=== PATIENT | male | born 1935 | race Caucasian/White ===

== ENCOUNTER 2018-03-30 23:02 | Observation (INO) ==
[2018-03-30] MEDS ORDERED: *HR* OxyCODONE/APAP 5/325 TABLET PO ONE (23:56)
--- NOTE | 2018-03-31 00:03 | Emergency Department Note ---
Disposition Clinical Impression: Fall at home Qualifiers: Encounter type: initial encounter Qualified Code(s): W19.XXXA - Unspecified fall, initial encounter Back pain Qualifiers: Back pain location: low back pain Chronicity: unspecified Back pain laterality : unspecified Sciatica presence: unspecified whether sciatica present Qualified Code(s): M54.5 - Low back pain Altered mental status Qualifiers: Altered mental status type: somnolence Qualified Code(s): R40.0 - Somnolence Disposition: Admitted As Inpatient Condition: Good Instructions: Fall Prevention for Older Adults (ED), Back Pain (ED) Reasons to Return/Additional Instructions: 1. Please call your primary care provider tomorrow to schedule an appointment for reevaluation and to discuss your visit to the Emergency Department. 2. Return to Emergency Department with any confusion, chest pain, shortness of breath, vomiting, worsening symptoms or any new concerns. Referrals: Wali Ornelas DO [Primary Care Provider] - Forms: ED Satisfaction Letter, Work/School Release Time of Disposition: 03:54 Fall HPI - General Chief Complaint: ED Back Pain/Injury Stated Complaint: Lower Back Pain Time Seen by Provider: 03/30/18 23:24 Source: patient Nursing Notes Reviewed: Yes Vital Signs Reviewed: Yes - History of Present Illness Pt Subjective Complaint: fall Onset (ago): hour(s) (5) Fall From: standing Fall Witnessed: no Place Fall Occurred: home Loss of Consciousness: none Prolonged Down Time?: no Symptoms Prior to Fall: none Context: other (was carring patio chair, h/o recent weakness) Location of injury: head, neck, back, hip Associated symptoms (after fall): Reports: headache, neck pain. Denies: shortness of breath, abdominal pain, confusion - Related Data Home Medications Medication Instructions Recorded Confirmed Allopurinol [Zyloprim] 100 mg PO QAM 07/01/15 03/31/18 Atorvastatin [Lipitor] 80 mg PO QPM 07/01/15 03/31/18 Docusate Sodium [Colace] 100 mg PO QPM 07/01/15 03/31/18 Furosemide [Lasix] 40 mg PO 1700 07/01/15 03/31/18 Furosemide [Lasix] 80 mg PO QAM #0 07/01/15 03/31/18 Gabapentin [Neurontin] 300 mg PO QPM 07/01/15 03/31/18 Isosorbide MONOnitrate (24 HR) 120 mg PO QAM 07/01/15 03/31/18 [Imdur] Ranitidine HCl [Zantac] 150 mg PO BID 07/01/15 03/31/18 Ranolazine [Ranexa] 500 mg PO BID 07/01/15 03/31/18 hydrALAZINE [HydrALAZINE] 25 mg PO BID 07/01/15 03/31/18 Metoprolol XL (24 HR) Succ [Toprol 25 mg PO QAM 10/27/15 03/31/18 XL] Multivitamin/Iron/Folic Acid 1 each PO QPM 01/23/16 03/31/18 [Centrum Complete Multivit Tab] Insulin LISPRO [HumaLOG] 10 units SQ TIDAC 02/12/17 03/31/18 Aspirin 81 PO DAILY 03/31/18 Dutasteride-Tamsulosin 0.5-0.4 0.4 PO DAILY 03/31/18 Fenofibrate 48 PO DAILY 03/31/18 Oxybutynin 10 PO DAILY 03/31/18 Plavix 75 PO DAILY 03/31/18 Valsartan 325 PO DAILY 03/31/18 Previous Rx's Medication Instructions Recorded ALPRAZolam [Xanax 0.5 MG Tablet] 0.5 mg PO BID #30 tablet 03/07/16 GuaiFENesin ER [Mucinex] 600 mg PO BID tbbp.12hr 03/07/16 Insulin DETEMIR [Levemir] 50 unit SQ HS x1ypbpm 03/07/16 Ipratropium/Albuterol Neb [Duoneb] 3 ml IH [id number] inhsol 03/07/16 HYDROcodone/Acet 5/325 mg [[place] 1 tab PO Q4H PRN #15 tab 02/12/17 5-325 mg] Nystatin Cream [Mycostatin Cream] 1 appl TP BID #1 tube 02/23/17 Tramadol HCl [Ultram] 50 mg PO TID PRN #15 tab 05/12/17 Allergies Allergy/AdvReac Type Severity Reaction Status Date / Time codeine Allergy Hives Verified 08/08/17 23:47 Sulfa (Sulfonamide AdvReac Mild Nausea Verified 08/08/17 23:47 Antibiotics) All systems ED: reviewed and negative except as stated. Review of Systems: As Per HPI Constitutional: Reports: weakness. Denies: fever, chills Eyes: Denies: vision change ENT ED: Denies: throat pain Cardiovascular: Denies: chest pain, palpitations Respiratory: Reports: dyspnea (chronic). Denies: wheezes Gastrointestinal: Denies: abdominal pain, nausea, vomiting Genitourinary: Denies: dysuria Musculoskeletal: Reports: back pain, neck pain Integumentary: Denies: rash Neurological: Reports: headache. Denies: weakness, numbness, paresthesias, confusion, abnormal gait, vertigo Endocrine: Denies: fatigue Hematological/Lymphatic: Denies: easy bleeding Allergic/Immunologic: Denies: facial swelling Fall PMH - Past Medical History Medical history: Reports: cancer, CHF, coronary artery disease, diabetes, hypertension, myocardial infarction, renal disease, other Surgical history: Reports: cataract, coronary bypass (CABG), knee replacement, pacemaker/AICD Psychiatric history: Reports: anxiety - Social History Smoking Status: Former smoker Alcohol use: Reports: none Drug use: Reports: none Physical Exam - General Limitations: physical limitation General appearance: alert, in no apparent distress - Head Head exam: atraumatic, normocephalic - Eye Eye exam: Present: normal appearance, EOMI. Absent: periorbital swelling, periorbital tenderness - ENT ENT exam: normal exam, normal oropharynx, TM's normal bilaterally - Neck Neck exam: Present: normal inspection, full ROM - Chest Chest inspection: Present: normal inspection, symmetric chest wall rise - Respiratory Respiratory exam: Present: normal lung sounds bilaterally. Absent: respiratory distress - Cardiovascular Cardiovascular exam: Present: regular rate, normal rhythm - Abdominal Exam Abdominal exam: Present: soft, Non-Tender. Absent: tenderness, distention, guarding - Expanded Lower Extremity Exam Hip/Pelvis exam: Present: tenderness. Absent: full ROM Upper leg exam: Absent: tenderness, swelling Knee exam: Absent: tenderness, swelling Lower leg exam: Absent: tenderness, swelling Neurovascular/Tendon exam: Present: normal capillary refill - Back Exam Back exam: Present: full ROM, tenderness. Absent: CVA tenderness (R), CVA tenderness (L) - Neurological Exam Neurological exam: Present: alert, oriented X3 - Psychiatric Psychiatric exam: Present: normal affect, normal mood - Skin Skin exam: Present: warm, dry, intact, normal color. Absent: rash, cyanosis, diaphoresis Course Course Narrative: Patient is a 83-year-old male arrives by private vehicle with complaint of injuries from a fall. Fall occurred approximately 5 hours prior to his arrival and he is accompanied by family members who assist with history. Fall was unwitnessed. No prolonged downtime or loss of consciousness. Patient denies any injury to his head. He describes walking with a patio furniture. He also describes worsening weakness, has been occurring over the past week. He does have a history of CHF, bladder cancer. He was evaluated his PCPs office last week as well. Did have a discussion with patient regarding the cause of his fall. He does not feel that he stumbled. He describes falling backwards. He feels that he might have become more weak. Within normal limits. He does have tenderness with flexion of his hips, and with flexion of his back when he sits up. Mild lumbar thoracic tenderness. Lungs clear to auscultation. No gross focal or logical deficits. Patient is alert and oriented 3. Workup ordered for weakness, near syncopal symptoms. We will plan imaging. Analgesics ordered. - Reevaluation(s) Reevaluation #1: Patient has had some relief with pain medications, however with movement, sitting up,, and attempts to ambulate his pain is worsens. His CT scans appear to be negative. He has no abdominal pain. His vitals are stable. I Did discuss with Dr. Calloway, who advised for admission for pain control, and possible placement for ECF and/or physical therapy. Time: 04:27 Reevaluation #2: Pt discussed with hospitalist Dr. Arora who mentions he will see patient in ER for evaluation for admission for pain control. Time: 05:39 Reevaluation #3: Discussed patient with Dr. Arora who had evaluated patient at bedside. At this time patient reports no pain, however he is significantly somnolent but arousable. Dr. Arora has agreed to accept patient for AMS secondary pain medications, and also has requested CPK. Time: 06:04 Vital Signs Temperature 98.3 F 03/30/18 23:04 Pulse Rate 75 03/30/18 23:04 Respiratory Rate 20 03/30/18 23:04 Blood Pressure 149/84 03/30/18 23:04 O2 Sat by Pulse Oximetry 92 03/30/18 23:04 Temperature 98.3 F 03/30/18 23:04 Pulse Rate 67 03/31/18 04:03 Respiratory Rate 20 03/31/18 04:03 Blood Pressure 143/86 03/31/18 04:03 O2 Sat by Pulse Oximetry 98 03/31/18 04:03 Oxygen Delivery Oxygen Delivery Nasal Cannula Fall - MDM Narrative Medical decision making narrative: Patient is a 83-year-old male presents with a fall that occurred actually 5 hours prior to his arrival. Based on patient's own interpretation, and my history taking, it is uncertain if this was a mechanical fall since he was carrying a patio chair, or if his recent worsening weakness caused the fall. He denies any near syncopal symptoms chest pain, seizures, loss consciousness, anticoagulants, or hypoglycemic symptoms. He and his family members do describe that he has been feeling more weak lately, and has visits and evaluations performed by his primary care provider. He does have a history of diabetes, CHF, chronic kidney disease, COPD. He is on home oxygen therapy, stating that he usually uses at night. I did discuss patient with Dr. Calloway, who also had face time with patient, and advised for CT head neck or thoracic and lumbar spine . EKG and chest x-ray were unremarkable. He did have an elevated troponin, however this does appear to be consistent with his baseline and known history of chronic disease. He denies any chest pain, shortness of breath. CT Head negative. CT cervical thoracic lumbar spine show some degenerative changes, lumbar stenosis which appear chronic when reviwing previous imaging. No neuro deficits. His symptoms improved here after analgesics, However when the attempt to have patient sit up, and ambulate, his pain has persisted. Pt was evaluated by hospitalist at bedside and accepted to their service for altered mental status related to pain medication. His vitals are within normal limits. Laboratory Tests 03/31/18 03/31/18 03/31/18 00:26 00:26 00:26 WBC 7.0 RBC 4.33 Hgb 13.6 Hct 41.2 MCV 95.2 MCH 31.4 MCHC 33.0 RDW 14.6 H Plt Count 201 MPV 10.2 Immature Gran % 0.4 Seg Neutrophils % 64.0 Lymphocytes % 16.4 Monocytes % 10.5 Eosinophils % 8.0 Basophils % 0.7 Neutrophils # 4.5 Lymphocytes # 1.1 Monocytes # 0.7 Eosinophils # 0.6 Basophils # 0.1 Nucleated RBCs/100 WBC 0.3 H Sodium 139 Potassium 4.1 Chloride 106 Carbon Dioxide 28 BUN 29 H Creatinine 2.13 H Est GFR ( Amer) 36 L Est GFR (Non-Af Amer) 30 L BUN/Creatinine Ratio 14 Glucose 233 H Calculated Osmolality 301 H Calcium 9.0 Total Bilirubin 0.6 0.6 Direct Bilirubin 0.2 Indirect Bilirubin 0.4 AST 25 23 ALT 17 17 Alkaline Phosphatase 50 51 Creatine Kinase 133 Troponin I 0.07 H* B-Natriuretic Peptide Serum Total Protein 6.3 L 6.3 L Albumin 3.9 4.0 Globulin 2.4 2.3 L Albumin/Globulin Ratio 1.6 1.7 Lipase 70 Urine Color Urine Clarity Urine pH Ur Specific [place] Urine Protein Urine Glucose (UA) Urine Ketones Urine Blood Urine Nitrite Urine Bilirubin Urine Urobilinogen Ur Leukocyte Esterase Urine Microscopic RBC Urine Microscopic WBC Ur Squamous Epith Cells Urine Bacteria Hyaline Casts Ur Culture Indicated? 03/31/18 03/31/18 00:26 00:33 WBC RBC Hgb Hct MCV MCH MCHC RDW Plt Count MPV Immature Gran % Seg Neutrophils % Lymphocytes % Monocytes % Eosinophils % Basophils % Neutrophils # Lymphocytes # Monocytes # Eosinophils # Basophils # Nucleated RBCs/100 WBC Sodium Potassium Chloride Carbon Dioxide BUN Creatinine Est GFR ( Amer) Est GFR (Non-Af Amer) BUN/Creatinine Ratio Glucose Calculated Osmolality Calcium Total Bilirubin Direct Bilirubin Indirect Bilirubin AST ALT Alkaline Phosphatase Creatine Kinase Troponin I B-Natriuretic Peptide 430 H Serum Total Protein Albumin Globulin Albumin/Globulin Ratio Lipase Urine Color Dark Yellow Urine Clarity Cloudy A Urine pH 5.5 Ur Specific [place] 1.024 Urine Protein 30 H Urine Glucose (UA) Normal Urine Ketones Negative Urine Blood Negative Urine Nitrite Negative Urine Bilirubin Small H Urine Urobilinogen Normal Ur Leukocyte Esterase Moderate H Urine Microscopic RBC 0-3 Urine Microscopic WBC 50-100 H Ur Squamous Epith Cells Many H Urine Bacteria None Seen Hyaline Casts None Seen Ur Culture Indicated? NO. A - Lab Data Lab results reviewed: Yes I reviewed the patient's lab results. Result diagrams: 03/31/18 00:26 03/31/18 00:26 Lab Results 03/31/18 03/31/18 03/31/18 Range/Units 00:26 00:26 00:26 WBC 7.0 (4.3-11.1) K/mcL RBC 4.33 (4.19-5.50) M/mcL Hgb 13.6 (12.9-16.9) g/dL Hct 41.2 (37.5-50.1) % MCV 95.2 (83.0-100.0) fL MCH 31.4 (28.0-33.3) pg MCHC 33.0 (31.6-35.5) g/dL RDW 14.6 H (11.5-14.5) % Plt Count 201 (140-400) K/mcL MPV 10.2 (9.4-12.4) fL Immature Gran % 0.4 (0-4) % Seg Neutrophils % 64.0 % Lymphocytes % 16.4 % Monocytes % 10.5 % Eosinophils % 8.0 % Basophils % 0.7 % Neutrophils # 4.5 (1.6-8.9) K/mcL Lymphocytes # 1.1 (0.6-4.6) K/mcL Monocytes # 0.7 (0.0-1.3) K/mcL Eosinophils # 0.6 (0.0-0.6) K/mcL Basophils # 0.1 (0.0-0.2) K/mcL Nucleated RBCs/100 WBC 0.3 H (0) /100 WBC Sodium 139 (136-145) mEq/L Potassium 4.1 (3.5-5.1) mEq/L Chloride 106 (98-107) mEq/L Carbon Dioxide 28 (23-29) mEq/L BUN 29 H (8-23) mg/dL Creatinine 2.13 H (0.70-1.30) mg/dL Est GFR ( Amer) 36 L (> 60) Est GFR (Non-Af Amer) 30 L (> 60) BUN/Creatinine Ratio 14 (6-26) Glucose 233 H (70-105) mg/dL Calculated Osmolality 301 H (280-300) Calcium 9.0 (8.6-10.3) mg/dL Total Bilirubin 0.6 0.6 (0.3-1.0) mg/dL Direct Bilirubin 0.2 (0.0-0.2) mg/dL Indirect Bilirubin 0.4 (0.0-1.2) mg/dL AST 25 23 (13-39) Units/L ALT 17 17 (7-52) Units/L Alkaline Phosphatase 50 51 (34-104) Units/L Creatine Kinase 133 (30-223) Units/L Troponin I 0.07 H* (< 0.04) ng/mL B-Natriuretic Peptide (Less than 100) pg/mL Serum Total Protein 6.3 L 6.3 L (6.4-8.9) g/dL Albumin 3.9 4.0 (3.5-5.7) g/dL Globulin 2.4 2.3 L (2.4-3.5) g/dL Albumin/Globulin Ratio 1.6 1.7 (1.1-2.2) Lipase 70 (11-82) Units/L Urine Color (Yellow) Urine Clarity (Clear) Urine pH (5.0-8.0) pH Units Ur Specific [place] (1.010-1.025) Urine Protein (Neg-Trace) mg/dL Urine Glucose (UA) (Normal) mg/dL Urine Ketones (Negative) mg/dL Urine Blood (Negative) Urine Nitrite (Negative) Urine Bilirubin (Negative) Urine Urobilinogen (Normal) mg/dL Ur Leukocyte Esterase (Negative) Urine Microscopic RBC (0-3) per hpf Urine Microscopic WBC (0-3) per hpf Ur Squamous Epith Cells (None-Few) per lpf Urine Bacteria (None-Few) per hpf Hyaline Casts (None-Few) per lpf Ur Culture Indicated? (NO) 03/31/18 03/31/18 Range/Units 00:26 00:33 WBC (4.3-11.1) K/mcL RBC (4.19-5.50) M/mcL Hgb (12.9-16.9) g/dL Hct (37.5-50.1) % MCV (83.0-100.0) fL MCH (28.0-33.3) pg MCHC (31.6-35.5) g/dL RDW (11.5-14.5) % Plt Count (140-400) K/mcL MPV (9.4-12.4) fL Immature Gran % (0-4) % Seg Neutrophils % % Lymphocytes % % Monocytes % % Eosinophils % % Basophils % % Neutrophils # (1.6-8.9) K/mcL Lymphocytes # (0.6-4.6) K/mcL Monocytes # (0.0-1.3) K/mcL Eosinophils # (0.0-0.6) K/mcL Basophils # (0.0-0.2) K/mcL Nucleated RBCs/100 WBC (0) /100 WBC Sodium (136-145) mEq/L Potassium (3.5-5.1) mEq/L Chloride (98-107) mEq/L Carbon Dioxide (23-29) mEq/L BUN (8-23) mg/dL Creatinine (0.70-1.30) mg/dL Est GFR ( Amer) (> 60) Est GFR (Non-Af Amer) (> 60) BUN/Creatinine Ratio (6-26) Glucose (70-105) mg/dL Calculated Osmolality (280-300) Calcium (8.6-10.3) mg/dL Total Bilirubin (0.3-1.0) mg/dL Direct Bilirubin (0.0-0.2) mg/dL Indirect Bilirubin (0.0-1.2) mg/dL AST (13-39) Units/L ALT (7-52) Units/L Alkaline Phosphatase (34-104) Units/L Creatine Kinase (30-223) Units/L Troponin I (< 0.04) ng/mL B-Natriuretic Peptide 430 H (Less than 100) pg/mL Serum Total Protein (6.4-8.9) g/dL Albumin (3.5-5.7) g/dL Globulin (2.4-3.5) g/dL Albumin/Globulin Ratio (1.1-2.2) Lipase (11-82) Units/L Urine Color Dark Yellow (Yellow) Urine Clarity Cloudy A (Clear) Urine pH 5.5 (5.0-8.0) pH Units Ur Specific [place] 1.024 (1.010-1.025) Urine Protein 30 H (Neg-Trace) mg/dL Urine Glucose (UA) Normal (Normal) mg/dL Urine Ketones Negative (Negative) mg/dL Urine Blood Negative (Negative) Urine Nitrite Negative (Negative) Urine Bilirubin Small H (Negative) Urine Urobilinogen Normal (Normal) mg/dL Ur Leukocyte Esterase Moderate H (Negative) Urine Microscopic RBC 0-3 (0-3) per hpf Urine Microscopic WBC 50-100 H (0-3) per hpf Ur Squamous Epith Cells Many H (None-Few) per lpf Urine Bacteria None Seen (None-Few) per hpf Hyaline Casts None Seen (None-Few) per lpf Ur Culture Indicated? NO. A (NO) - Radiology Data Radiology results reviewed: Yes I reviewed the patient's radiology results. - EKG Data EKG attestation: Yes I reviewed and interpreted this EKG. EKG results narrative: Ventricular paced, ventricular rate 69, [place] interval 133, QRS duration 149 , QT 265 Attestation Statement - Attestation Attestation: I examined this patient and my medical decision-making was reviewed with the Resident Physician. I agree with the documented findings, disposition and treatment plan as described except to the extent set forth below.Findings consistent with fall. CT scan shows no acute findings but there is ongoing pain. I would rec admission for pain control with possible need for placement.
[2018-03-31 00:40] LABS: Basophils # 0.1 K/mcL (0.0-0.2); Basophils % 0.7 %; Eosinophils # 0.6 K/mcL (0.0-0.6); Hematocrit 41.2 % (37.5-50.1); Hemoglobin 13.6 g/dL (12.9-16.9); Immature Granulocytes % 0.4 % (0-4); Lymphocytes # 1.1 K/mcL (0.6-4.6); Lymphocytes % 16.4 %; Mean Corpuscular Hemoglobin 31.4 pg (28.0-33.3); Mean Corpuscular Volume 95.2 fL (83.0-100.0); Mean Platelet Volume 10.2 fL (9.4-12.4); Monocytes # 0.7 K/mcL (0.0-1.3); Monocytes % 10.5 %; Neutrophils # 4.5 K/mcL (1.6-8.9); Nucleated Red Blood Cells 0.3 /100 WBC (0); Platelet Count 201 K/mcL (140-400); Red Blood Count 4.33 M/mcL (4.19-5.50); Red Cell Distribution Width 14.6 % (11.5-14.5)
[2018-03-31 00:43] LABS: Bilirubin,Urine Small (Negative); Blood,Urine Negative (Negative); Clarity,Urine Cloudy (Clear); Color,Urine Dark Yellow (Yellow); Glucose,Urine (UA) Normal (Normal); Ketones,Urine Negative (Negative); Leukocyte Esterase,Urine Moderate (Negative); Nitrite,Urine Negative (Negative); PH,Urine 5.5 pH Units (5.0-8.0); Protein,Urine 30 mg/dL (Neg-Trace); Specific Gravity,Urine 1.024 (1.010-1.025); Urobilinogen,Urine Normal (Normal)
[2018-03-31 00:45] LABS: Bacteria,Urine None Seen per hpf (None-Few); Hyaline Casts,Urine None Seen per lpf (None-Few); RBC,Urine 0-3 per hpf (0-3); Squamous Epithelial Cell,Urine Many per lpf (None-Few); WBC,Urine 50-100 per hpf (0-3)
[2018-03-31 00:57] LABS: Albumin/Globulin Ratio 1.7 (1.1-2.2); Bilirubin,Direct 0.2 mg/dL (0.0-0.2); Bilirubin,Indirect 0.4 mg/dL (0.0-1.2); Bilirubin,Total 0.6 mg/dL (0.3-1.0); Globulin 2.3 g/dL (2.4-3.5); Total Protein 6.3 g/dL (6.4-8.9)
[2018-03-31 01:00] LABS: Albumin 3.9 g/dL (3.5-5.7); Albumin/Globulin Ratio 1.6 (1.1-2.2); Bilirubin,Total 0.6 mg/dL (0.3-1.0); Globulin 2.4 g/dL (2.4-3.5); Potassium 4.1 mEq/L (3.5-5.1); Total Protein 6.3 g/dL (6.4-8.9)
[2018-03-31 01:02] LABS: Troponin I 0.07 ng/mL (< 0.04)
[2018-03-31] MEDS ORDERED: *HR* HYDROcodone/Acet 5/325 mg TABLET PO ONE (04:05)
[2018-03-31] MEDS ORDERED: *HR* FentaNYL (PF) 100 MCG/2 ML VIAL IVP ONE (04:27)
[2018-03-31] MEDS ORDERED: Ondansetron 4 MG/2 ML VIAL IVP PRN (06:27)
[2018-03-31] MEDS ORDERED: Naloxone 0.4 MG/ML INJ IVP PRN (06:35)
[2018-03-31] MEDS ORDERED: Acetaminophen 325 MG TABLET PO PRN (06:35)
[2018-03-31] MEDS ORDERED: Dextrose Gel 15 GM/37.5 ML TUBE PO PRN ×2 (06:44)
[2018-03-31] MEDS ORDERED: D5% in Water 1,000 ML IVC PRN (06:44)
[2018-03-31] MEDS ORDERED: *HR* Dextrose 50 % in Water (Syg) 50 ML SYRINGE IVP PRN (06:44)
[2018-03-31] MEDS ORDERED: 0.9 % Sodium Chloride 1,000 ML IVC SCH (06:45)
--- NOTE | 2018-03-31 06:51 | Internal Med History&Physical ---
Date of Encounter: 03/31/18 Time of Encounter: 06:48 Internal Medicine - H&P: HPI Chief complaint: "I fell and hurt my back" Admitted From: Emergency Dept Plans for Post Hospital Care: Transfer Inp Rehab Fac History of present illness: Mr. Warren is a 83 year old male who presented to ED this evening for lower back pain s/p fall earlier in the day. Patient is somnolent in room during my interview and examination. He does answer questions appropriately. Son is in room and provides most of history. Son works nights at [employer]. Patient lives at home alone. He is usually very active, but he has been falling alot lately. He has chronic deformity of the right foot and advanced chronic CHF, so he ambulates poorly at baseline. Patient states that pain is currently 0/10. He got fentanyl, norco, and percocet in the ED. In the ED, all imaging was negative for acute processes. ED physician wanted me to admit patient for pain control. Patient is actually pain free at this time and has altered mental status due to too many opioids. I will admit for observation because he cannot go home like this. He lives alone, and no family member can come keep an eye on him this morning. Patient denies chest pain, SOB, fever, chills, abdominal pain, nausea, vomiting, changes in bladder, or changes in bowel. He has no other complaints at this time. He is sleeping peacefully in bed at this time. Past Med Surg Social Fam HX - Past Medical History Attestation: Yes The following information was validated with the patient. Medical history: cancer, CHF, coronary artery disease, diabetes, hypertension, myocardial infarction, renal disease, other Psychiatric history: anxiety - Past Surgical History Surgical History: cataract, coronary bypass (CABG), knee replacement, pacemaker/ AICD - Social History Smoking Status: Former smoker Smokeless Tobacco Status: No Alcohol use: none Drug use: none - Family History Father Hx Family Endocrine Disorder: Yes - Additional Family History Additional family history: Surgical history and family history reviewed with patient and son. Internal Medicine - H&P: Meds Allopurinol [Zyloprim] 100 mg PO QAM 07/01/15 [History] Atorvastatin [Lipitor] 80 mg PO QPM 07/01/15 [History] Docusate Sodium [Colace] 100 mg PO QPM 07/01/15 [History] Furosemide [Lasix] 40 mg PO 1700 07/01/15 [History] Furosemide [Lasix] 80 mg PO QAM #0 07/01/15 [History] Gabapentin [Neurontin] 300 mg PO QPM 07/01/15 [History] Isosorbide MONOnitrate (24 HR) [Imdur] 120 mg PO QAM 07/01/15 [History] Ranitidine HCl [Zantac] 150 mg PO BID 07/01/15 [History] Ranolazine [Ranexa] 500 mg PO BID 07/01/15 [History] hydrALAZINE [HydrALAZINE] 25 mg PO BID 07/01/15 [History] Metoprolol XL (24 HR) Succ [Toprol XL] 25 mg PO QAM 10/27/15 [History] Multivitamin/Iron/Folic Acid [Centrum Complete Multivit Tab] 1 each PO QPM 01/22 [History] ALPRAZolam [Xanax 0.5 MG Tablet] 0.5 mg PO BID #30 tablet 03/07/16 [Rx] GuaiFENesin ER [Mucinex] 600 mg PO BID tbbp.12hr 03/07/16 [Rx] Insulin DETEMIR [Levemir] 50 unit SQ HS [id number] 03/07/16 [Rx] Ipratropium/Albuterol Neb [Duoneb] 3 ml IH [id number] inhsol 03/07/16 [Rx] HYDROcodone/Acet 5/325 mg [Supply 5-325 mg] 1 tab PO Q4H PRN #15 tab 02/12/17 [Rx ] Insulin LISPRO [HumaLOG] 10 units SQ TIDAC 02/12/17 [History] Nystatin Cream [Mycostatin Cream] 1 appl TP BID #1 tube 02/23/17 [Rx] Tramadol HCl [Ultram] 50 mg PO TID PRN #15 tab 05/12/17 [Rx] Aspirin 81 PO DAILY 03/31/18 [History] Dutasteride-Tamsulosin 0.5-0.4 0.4 PO DAILY 03/31/18 [History] Fenofibrate 48 PO DAILY 03/31/18 [History] Oxybutynin 10 PO DAILY 03/31/18 [History] Plavix 75 PO DAILY 03/31/18 [History] Valsartan 325 PO DAILY 03/31/18 [History] 3 Allergy/AdvReac Type Severity Reaction Status Date / Time codeine Allergy Hives Verified 08/08/17 23:47 Sulfa (Sulfonamide AdvReac Mild Nausea Verified 08/08/17 23:47 Antibiotics) All Systems PM: A 10-system review of systems was performed and is negative for pertinent findings except as documented above in the HPI. - Constitutional Vitals: Temp Pulse Resp BP Pulse Ox 98.3 F 67 20 143/86 98 03/30/18 23:04 03/31/18 04:03 03/31/18 04:03 03/31/18 04:03 03/31/18 04:03 General appearance: Present: cooperative, A&O X 3, no acute distress, obese, answers questions appropriately Exam: Somnolent, but very easy to arouse - Head Head exam: Present: atraumatic, normal inspection, normocephalic - Eye Eye exam: Present: EOMI, normal appearance, PERRL. Absent: conjunctival injection, nystagmus, scleral icterus - ENT ENT exam: Present: mucous membranes moist, normal external ear exam, normal oropharynx - Neck Neck exam general surgery: Present: normal inspection, supple, trachea midline. Absent: lymphadenopathy, tenderness, thyromegaly - Respiratory Respiratory exam: Present: CTAB. Absent: accessory muscle use, rales, rhonchi, wheezes Additional comments: Normal WOB - Cardiovascular Cardiovascular exam: Present: RRR, +S1, +S2. Absent: diastolic murmur, gallop, rubs, systolic murmur Additional comments: No BLE edema - GI/Abdominal GI/Abdominal exam: Present: normal bowel sounds, soft. Absent: distended, hepatomegaly, mass, splenomegaly, tenderness - Neurological Exam Neurological exam: Present: altered, oriented X3, no focal deficits. Absent: alert, facial droop, speech deficit Additional comments: Unable to fully perform neuro evaluation due to patient condition of somnolence - Psychiatric Psychiatric exam: Present: normal affect, normal mood. Absent: agitated, anxious, depressed - Skin Skin exam: Present: dry, intact, warm. Absent: cyanosis, rash Internal Med - H&P Results - Labs CBC & Chem 7: 03/31/18 00:26 03/31/18 00:26 - Assessment and plan (1) Altered mental status Current Visit: Yes Status: Acute Assessment and plan: Acute encephalopathy likely secondary to opoid over dose in ED. Patient presented for back pain after fall. All imaging was negative. Pain is diffuse and was hard to control in the ED. He received fentanyl 50 mcg IV once, norco 5 mg once, and percocet 5 mg once. Patient is very somnolent during my exam, but very easily arousable, A&O x 3, and answers all questions appropriately, then falls back asleep. He rates pain as 0/10 at this time. Son is in room with him and states that he cannot go home in this condition because he has no one to look after him at home. We will admit for observation to general medical floor with telemetry. We will perform Q4H vitals and neurochecks. No need for narcan at this time as he will start having difficult to control pain again. Will use only Tylenol for pain control until he wakes up more, then we can slowly restart his home opioids. We will order MRI of spines as recommended by radiologist. He has been having recurrent falls, likely due to poor ambulation secondary to right foot deformity and chronic CHF. We will consult PT/OT/SW for therapy and possible recommendation to acute rehabilitation facility. Will use strict bedrest and fall precautions until he wakes up more. Have told ED physician to get stat CK due to fall. It is pending, and I will start IVF very gently at 50 ml/hr given his severe chronic CHF. Will discontinue IVF if CK normal. Qualifiers: Altered mental status type: somnolence Qualified Code(s): R40.0 - Somnolence (2) Opioid intoxication Current Visit: Yes Status: Acute Assessment and plan: See plan as per above. Qualifiers: Complication of substance-induced condition: uncomplicated Qualified Code(s ): F11.920 - Opioid use, unspecified with intoxication, uncomplicated (3) Back pain Current Visit: Yes Status: Acute Assessment and plan: Acute on chronic issue. See plan as per above. Qualifiers: Back pain location: low back pain Chronicity: unspecified Back pain laterality: unspecified Sciatica presence: unspecified whether sciatica present Qualified Code(s): M54.5 - Low back pain (4) Recurrent falls Current Visit: Yes Status: Acute Assessment and plan: See plan as per above. (5) COPD (chronic obstructive pulmonary disease) Current Visit: Yes Status: Chronic Assessment and plan: Not in acute exacerbation. No respiratory distress. Continue home supplemental oxygen and home medications. Qualifiers: COPD type: unspecified COPD Qualified Code(s): J44.9 - Chronic obstructive pulmonary disease, unspecified (6) Elevated troponin Current Visit: Yes Status: Chronic Assessment and plan: Chronic issue for him per chart review. Likely baseline CHF. No chest pain. (7) CKD (chronic kidney disease) stage 3, GFR 30-59 ml/min Current Visit: Yes Status: Chronic Assessment and plan: Creatinine at baseline. Recheck BMP in AM. (8) Congestive heart failure Current Visit: Yes Status: Chronic Assessment and plan: Not in acute exacerbation; euvolemic on examination. Giving gentle hydration for possible rhabdomyolysis. CK still pending. Discontinue IV fluids if CK WNL. Continue home medications. Qualifiers: Heart failure type: unspecified Heart failure chronicity: unspecified Qualified Code(s): I50.9 - Heart failure, unspecified (9) Diabetes mellitus type 2, insulin dependent Current Visit: Yes Status: Chronic Assessment and plan: Continue home long-acting insulin. Start accuchecks and low dose SSI Q6H while NPO. (10) Hypertension Current Visit: Yes Status: Chronic Assessment and plan: Continue home medications. Qualifiers: Hypertension type: essential hypertension Qualified Code(s): I10 - Essential (primary) hypertension (11) DVT prophylaxis Current Visit: Yes Status: Acute Assessment and plan: SCDs only for now due to being high fall risk. - Time Spent With Patient Total time spent is greater than 50% in coordination of care (as documented) at patient's floor/unit and/or counseling patient: less than 15 minutes
[2018-03-31 08:09] LABS: Estimated Average Glucose 214 mg/dl; Hemoglobin A1C 9.1 %
[2018-03-31] MEDS: Ranolazine 500 MG TAB.ER.12H PO SCH ×2 (09:10→21:30)
[2018-03-31] MEDS: Metoprolol XL (24 HR) Succ 25 MG TAB.ER.24H PO SCH (09:11)
[2018-03-31] MEDS: Famotidine 20 MG TABLET PO SCH ×2 (09:11→21:30)
[2018-03-31] MEDS: hydrALAZINE 25 MG TABLET PO SCH ×2 (09:11→21:30)
[2018-03-31] MEDS: Nystatin Cream 15 GM TUBE TP SCH ×2 (09:11→21:41)
[2018-03-31] MEDS: Isosorbide MONOnitrate (24 HR) 60 MG TAB.ER.24H PO SCH (09:11)
[2018-03-31] MEDS: Furosemide 40 MG TABLET PO SCH ×2 (09:11→17:13)
[2018-03-31] MEDS: Ipratropium/Albuterol Neb 3 ML IH SCH ×4 (10:39→21:17)
[2018-03-31] MEDS: Insulin LISPRO 300 UNITS/3 ML VIAL SQ SCH ×3 (12:25→21:41)
--- NOTE | 2018-03-31 16:32 | Event Note ---
Date of Encounter: 03/31/18 Time of Encounter: 16:25 Seen and examined at bedside. Patient is new to me, information obtained from chart review and patient report. He is drowsy but oriented 4. Says he feels better but still having lower back pain. He only reports 1 fall; not recurrent per ED notes. He lives at home alone and is agreeable to PT/OT consult. (1) Acute encephalopathy: likely secondary to opoid over dose in ED. Patient presented for back pain after fall and received fentanyl 50 mcg IV once, norco 5 mg once, and percocet 5 mg once. Drowsy but oriented 4. Appears to be improving. Discussed pain control. Supportive care. Continue to monitor. (2) Opioid intoxication After receiving multiple opiates in ED. Judicious pain control for back pain as noted below. (3) Back pain: Acute on chronic; likely secondary to fall. Lumbar and thoracic CT with degenerative changes, multilevel neural foraminal stenosis and spinal canal stenosis. Conservative pain control. Add Lidoderm patch. Dr. Dsouza consult (4) COPD (chronic obstructive pulmonary disease) Not in acute exacerbation. No respiratory distress. Continue home supplemental oxygen and home medications. (5) Elevated troponin Chronic issue for him per chart review. Likely baseline CHF. No chest pain. (6) CKD (chronic kidney disease) stage 3, GFR 30-59 ml/min per hx. Follows with Nephrology. Renal function at baseline. Avoid nephrotoxic agents as possible. (7) Congestive heart failure 01/2018 TTE with EF 30%. Appears euvolemic. (8) Diabetes mellitus type 2, insulin dependent Continue home long-acting insulin. Start accuchecks and low dose SSI (9) Hypertension Continue home medications. (10) DVT prophylaxis heparin
[2018-03-31] MEDS: Multivit/Ca/Min/Fe/FA 1 TAB TABLET PO SCH (17:13)
[2018-03-31] MEDS: Insulin DETEMIR 100 UNIT/ML X5UNITS SQ SCH (21:30)
[2018-04-01] MEDS: Ipratropium/Albuterol Neb 3 ML IH SCH ×4 (03:30→21:55)
[2018-04-01 07:09] LABS: Basophils # 0.1 K/mcL (0.0-0.2); Eosinophils # 0.4 K/mcL (0.0-0.6); Eosinophils % 5.9 %; Hematocrit 43.7 % (37.5-50.1); Hemoglobin 14.1 g/dL (12.9-16.9); Immature Granulocytes % 0.3 % (0-4); Lymphocytes # 1.2 K/mcL (0.6-4.6); Lymphocytes % 16.5 %; Mean Corpuscular HGB Conc 32.3 g/dL (31.6-35.5); Mean Corpuscular Hemoglobin 30.6 pg (28.0-33.3); Mean Corpuscular Volume 94.8 fL (83.0-100.0); Mean Platelet Volume 10.3 fL (9.4-12.4); Monocytes # 0.7 K/mcL (0.0-1.3); Monocytes % 8.9 %; Neutrophils # 4.9 K/mcL (1.6-8.9); Platelet Count 199 K/mcL (140-400); Red Blood Count 4.61 M/mcL (4.19-5.50); Red Cell Distribution Width 14.9 % (11.5-14.5); Segmented Neutrophils % 67.4 %
[2018-04-01 07:24] LABS: Potassium 3.7 mEq/L (3.5-5.1)
[2018-04-01] MEDS: Insulin LISPRO 300 UNITS/3 ML VIAL SQ SCH ×4 (07:46→20:51)
[2018-04-01] MEDS: hydrALAZINE 25 MG TABLET PO SCH ×2 (08:56→20:50)
[2018-04-01] MEDS: Metoprolol XL (24 HR) Succ 25 MG TAB.ER.24H PO SCH (08:56)
[2018-04-01] MEDS: Nystatin Cream 15 GM TUBE TP SCH ×2 (08:56→20:52)
[2018-04-01] MEDS: Ranolazine 500 MG TAB.ER.12H PO SCH ×2 (08:56→20:50)
[2018-04-01] MEDS: Famotidine 20 MG TABLET PO SCH (08:56)
[2018-04-01] MEDS: Furosemide 40 MG TABLET PO SCH ×2 (08:56→17:19)
[2018-04-01] MEDS: Isosorbide MONOnitrate (24 HR) 60 MG TAB.ER.24H PO SCH (08:56)
[2018-04-01] MEDS: *HR* OxyCODONE Immed Rel 5 MG TABLET PO PRN (17:20)
[2018-04-01] MEDS: Multivit/Ca/Min/Fe/FA 1 TAB TABLET PO SCH (17:20)
--- NOTE | 2018-04-01 18:45 | Internal Med Progress Note ---
Date of Encounter: 04/01/18 Time of Encounter: 13:00 - Assessment and plan (1) Congestive heart failure Current Visit: Yes Status: Chronic Assessment and plan: Appears to be stable at this time-he did receive gentle IV fluids overnight for possible rhabdo however CK was within normal limits and IV fluids were discontinued. We will continue with home medications of Lasix Monitor intake and output and daily weights low-sodium diet Qualifiers: Heart failure type: unspecified Heart failure chronicity: unspecified Qualified Code(s): I50.9 - Heart failure, unspecified (2) Elevated troponin Current Visit: Yes Status: Chronic Assessment and plan: This appears to be chronically elevated-up on review most likely from CHF noted chest pain or shortness of breath waist at this time (3) Hypertension Current Visit: Yes Status: Chronic Assessment and plan: Continue home medications. Blood pressure is stable at this time Qualifiers: Hypertension type: essential hypertension Qualified Code(s): I10 - Essential (primary) hypertension (4) CKD (chronic kidney disease) stage 3, GFR 30-59 ml/min Current Visit: Yes Status: Chronic Assessment and plan: Creatinine at baseline. We will continue to monitor and avoid nephrotoxins (5) Diabetes mellitus type 2, insulin dependent Current Visit: Yes Status: Chronic Assessment and plan: Continue home long-acting insulin. Accu-Chek before meals at bedtime (6) Back pain Current Visit: Yes Status: Acute Assessment and plan: Acute on chronic issue. -We will continue home medications. As well as lidocaine patch. According to previous provider FIXTURE DESIGNER beverly Dsouza regarding back pain nonsurgical management this time and follow up with him as outpatient. Patient was seen by PT and OT recommending inpatient rehabilitation. client services vice president has been consult to attempting to place patient Qualifiers: Back pain location: low back pain Chronicity: unspecified Back pain laterality: unspecified Sciatica presence: unspecified whether sciatica present Qualified Code(s): M54.5 - Low back pain (7) Altered mental status Current Visit: Yes Status: Acute Assessment and plan: This has resolved patient appears to be at baseline most likely secondary to opioid overdose. We will avoid sedating medications Qualifiers: Altered mental status type: somnolence Qualified Code(s): R40.0 - Somnolence (8) Recurrent falls Current Visit: Yes Status: Acute Assessment and plan: All precautions. Patient seen by PT OT recommending inpatient rehabilitation. client services vice president consult and awaiting placement (9) Opioid intoxication Current Visit: Yes Status: Acute Assessment and plan: This is resolved -apparently patient received opioid in the ED and became sedated -Avoid sedating medications. Qualifiers: Complication of substance-induced condition: uncomplicated Qualified Code(s ): F11.920 - Opioid use, unspecified with intoxication, uncomplicated (10) COPD (chronic obstructive pulmonary disease) Current Visit: Yes Status: Chronic Assessment and plan: Not in acute exacerbation. No respiratory distress. Continue home supplemental oxygen and home medications. Qualifiers: COPD type: unspecified COPD Qualified Code(s): J44.9 - Chronic obstructive pulmonary disease, unspecified (11) DVT prophylaxis Current Visit: Yes Status: Acute Assessment and plan: SCDs only for now due to being high fall risk. - Time Spent With Patient Total time spent is greater than 50% in coordination of care (as documented) at patient's floor/unit and/or counseling patient: - Subjective Interval history: This patient is new to me and I did review medical records I examined the patient at bedside. Patient is sitting up in chair states that his pain is much improved from yesterday however lower back is tender to touch. - Constitutional Vitals: Temp Pulse Resp BP Pulse Ox 98.3 F 90 14 144/80 92 04/01/18 15:30 04/01/18 15:30 04/01/18 16:03 04/01/18 15:30 04/01/18 16:03 General appearance: Present: cooperative, A&O X 3, no acute distress, obese, answers questions appropriately - Head Head exam: Present: atraumatic, normocephalic - Eye Eye exam: Present: PERRL, conjuntiva pink, sclera anicteric Pupils: Present: PERRL - Neck Neck exam general surgery: Present: supple, trachea midline. Absent: lymphadenopathy - Respiratory Respiratory exam: Present: CTAB. Absent: accessory muscle use, rales, rhonchi, wheezes - Cardiovascular Cardiovascular exam: Present: RRR, +S1, +S2. Absent: diastolic murmur, gallop, rubs, systolic murmur - GI/Abdominal GI/Abdominal exam: Present: normal bowel sounds, soft, no peritoneal signs. Absent: distended, tenderness - Extremities Exam Extremities exam: Present: warm, radial pulses palpable and symmetrical. Absent : calf tenderness, cyanotic, pedal edema - Neurological Exam Neurological exam: Present: CN II-XII intact, oriented X3, no focal deficits. Absent: pronater drift, facial droop, speech deficit - Skin Skin exam: Present: dry, intact Internal Medicine: Result - Labs CBC & Chem 7: 04/01/18 06:33 04/01/18 06:33 Labs: Short CBC 04/01/18 Range/Units 06:33 WBC 7.3 (4.3-11.1) K/mcL Hgb 14.1 (12.9-16.9) g/dL Hct 43.7 (37.5-50.1) % Plt Count 199 (140-400) K/mcL Neutrophils # 4.9 (1.6-8.9) K/mcL BMP 04/01/18 06:33 Sodium 142 Potassium 3.7 Chloride 108 H Carbon Dioxide 27 BUN 28 H Creatinine 2.04 H Glucose 61 L Calcium 9.0 Consult Discharge Plan - Plan Referrals: Wali Ornelas DO [Primary Care Provider] - 04/08/18 1:00 pm
[2018-04-01] MEDS: Insulin DETEMIR 100 UNIT/ML X5UNITS SQ SCH (20:51)
[2018-04-02] MEDS: Ipratropium/Albuterol Neb 3 ML IH SCH ×4 (03:27→22:29)
[2018-04-02 05:10] LABS: Basophils # 0.1 K/mcL (0.0-0.2); Basophils % 0.7 %; Eosinophils # 0.5 K/mcL (0.0-0.6); Eosinophils % 6.3 %; Hemoglobin 13.4 g/dL (12.9-16.9); Immature Granulocytes % 0.4 % (0-4); Lymphocytes # 1.3 K/mcL (0.6-4.6); Lymphocytes % 17.8 %; Mean Corpuscular HGB Conc 31.9 g/dL (31.6-35.5); Mean Corpuscular Hemoglobin 30.2 pg (28.0-33.3); Mean Corpuscular Volume 94.8 fL (83.0-100.0); Mean Platelet Volume 10.5 fL (9.4-12.4); Monocytes # 0.8 K/mcL (0.0-1.3); Monocytes % 10.7 %; Neutrophils # 4.6 K/mcL (1.6-8.9); Platelet Count 199 K/mcL (140-400); Red Blood Count 4.43 M/mcL (4.19-5.50); Red Cell Distribution Width 14.9 % (11.5-14.5); Segmented Neutrophils % 64.1 %
[2018-04-02 05:31] LABS: Potassium 3.6 mEq/L (3.5-5.1)
[2018-04-02] MEDS: *HR* OxyCODONE Immed Rel 5 MG TABLET PO PRN ×2 (05:45→17:13)
[2018-04-02] MEDS: Insulin LISPRO 300 UNITS/3 ML VIAL SQ SCH ×4 (07:59→21:11)
[2018-04-02] MEDS: Metoprolol XL (24 HR) Succ 25 MG TAB.ER.24H PO SCH (08:47)
[2018-04-02] MEDS: Famotidine 20 MG TABLET PO SCH (08:47)
[2018-04-02] MEDS: Ranolazine 500 MG TAB.ER.12H PO SCH ×2 (08:47→21:13)
[2018-04-02] MEDS: Nystatin Cream 15 GM TUBE TP SCH ×2 (08:47→21:14)
[2018-04-02] MEDS: hydrALAZINE 25 MG TABLET PO SCH ×2 (08:47→21:13)
[2018-04-02] MEDS: Isosorbide MONOnitrate (24 HR) 60 MG TAB.ER.24H PO SCH (08:47)
[2018-04-02] MEDS: Furosemide 40 MG TABLET PO SCH ×2 (08:47→17:13)
[2018-04-02] MEDS: Multivit/Ca/Min/Fe/FA 1 TAB TABLET PO SCH (17:13)
--- NOTE | 2018-04-02 19:10 | Internal Med Progress Note ---
Date of Encounter: 04/02/18 Time of Encounter: 13:00 - Assessment and plan (1) Back pain Current Visit: Yes Status: Acute Assessment and plan: Acute on chronic issue. -We will continue home medications. As well as lidocaine patch. According to previous provider MECHANICAL TECHNICIAN beverly Dsouza regarding back pain nonsurgical management this time and follow up with him as outpatient. Patient was seen by PT and OT recommending inpatient rehabilitation. member services representative has been consult to attempting to place patient- Awaiting approval at [facility] Qualifiers: Back pain location: low back pain Chronicity: unspecified Back pain laterality: unspecified Sciatica presence: unspecified whether sciatica present Qualified Code(s): M54.5 - Low back pain (2) Congestive heart failure Current Visit: Yes Status: Chronic Assessment and plan: Appears to be stable at this time- We will continue with home medications of Lasix Monitor intake and output and daily weights low-sodium diet Qualifiers: Heart failure type: unspecified Heart failure chronicity: unspecified Qualified Code(s): I50.9 - Heart failure, unspecified (3) Elevated troponin Current Visit: Yes Status: Chronic Assessment and plan: This appears to be chronically elevated-up on review most likely from CHF (4) Hypertension Current Visit: Yes Status: Chronic Assessment and plan: Continue home medications. Blood pressure is stable at this time Qualifiers: Hypertension type: essential hypertension Qualified Code(s): I10 - Essential (primary) hypertension (5) CKD (chronic kidney disease) stage 3, GFR 30-59 ml/min Current Visit: Yes Status: Chronic Assessment and plan: Creatinine at baseline. We will continue to monitor and avoid nephrotoxins (6) Diabetes mellitus type 2, insulin dependent Current Visit: Yes Status: Chronic Assessment and plan: Continue home long-acting insulin. Accu-Chek before meals at bedtime (7) Altered mental status Current Visit: Yes Status: Resolved Assessment and plan: This has resolved patient appears to be at baseline most likely secondary to opioid overdose. We will avoid sedating medications Qualifiers: Altered mental status type: somnolence Qualified Code(s): R40.0 - Somnolence (8) Recurrent falls Current Visit: Yes Status: Acute Assessment and plan: FAll precautions. Patient seen by PT OT recommending inpatient rehabilitation. member services representative consult and awaiting placement (9) Opioid intoxication Current Visit: Yes Status: Resolved Assessment and plan: This is resolved -apparently patient received opioid in the ED and became sedated -Avoid sedating medications. Qualifiers: Complication of substance-induced condition: uncomplicated Qualified Code(s ): F11.920 - Opioid use, unspecified with intoxication, uncomplicated (10) COPD (chronic obstructive pulmonary disease) Current Visit: Yes Status: Chronic Assessment and plan: Not in acute exacerbation. No respiratory distress. Continue home supplemental oxygen and home medications. Qualifiers: COPD type: unspecified COPD Qualified Code(s): J44.9 - Chronic obstructive pulmonary disease, unspecified (11) DVT prophylaxis Current Visit: Yes Status: Acute Assessment and plan: SCDs only for now due to being high fall risk. - Time Spent With Patient Total time spent is greater than 50% in coordination of care (as documented) at patient's floor/unit and/or counseling patient: - Subjective Interval history: I examined the patient at bedside. Denies any pain or discomfort Tolerating PT/ OT Awaiting approval for ECF placement - Constitutional Vitals: Temp Pulse Resp BP Pulse Ox 97.9 F 76 16 135/61 95 04/02/18 18:37 04/02/18 18:37 04/02/18 18:37 04/02/18 18:37 04/02/18 18:37 General appearance: Present: cooperative, A&O X 3, no acute distress, obese, answers questions appropriately - Head Head exam: Present: atraumatic, normocephalic - Eye Eye exam: Present: PERRL, conjuntiva pink, sclera anicteric Pupils: Present: PERRL - Neck Neck exam general surgery: Present: supple, trachea midline. Absent: lymphadenopathy - Respiratory Respiratory exam: Present: CTAB. Absent: accessory muscle use, rales, rhonchi, wheezes - Cardiovascular Cardiovascular exam: Present: RRR, +S1, +S2. Absent: diastolic murmur, gallop, rubs, systolic murmur - GI/Abdominal GI/Abdominal exam: Present: normal bowel sounds, soft, no peritoneal signs. Absent: distended, tenderness - Extremities Exam Extremities exam: Present: warm, radial pulses palpable and symmetrical. Absent : calf tenderness, cyanotic, pedal edema - Neurological Exam Neurological exam: Present: CN II-XII intact, oriented X3, no focal deficits. Absent: pronater drift, facial droop, speech deficit - Skin Skin exam: Present: dry, intact Internal Medicine: Result - Labs CBC & Chem 7: 04/02/18 04:21 04/02/18 04:21 Labs: Short CBC 04/02/18 Range/Units 04:21 WBC 7.1 (4.3-11.1) K/mcL Hgb 13.4 (12.9-16.9) g/dL Hct 42.0 (37.5-50.1) % Plt Count 199 (140-400) K/mcL Neutrophils # 4.6 (1.6-8.9) K/mcL BMP 04/02/18 04:21 Sodium 141 Potassium 3.6 Chloride 104 Carbon Dioxide 29 BUN 32 H Creatinine 2.10 H Glucose 73 Calcium 9.0 Consult Discharge Plan - Plan Referrals: Wali Ornelas DO [Primary Care Provider] - 04/08/18 1:00 pm
[2018-04-02] MEDS: Insulin DETEMIR 100 UNIT/ML X5UNITS SQ SCH (21:13)
[2018-04-02] MEDS ORDERED: Menthol 9.1 MG LOZENGE PO PRN (23:11)
[2018-04-03] MEDS: Ipratropium/Albuterol Neb 3 ML IH SCH ×4 (04:26→21:56)
[2018-04-03 06:13] LABS: Basophils # 0.1 K/mcL (0.0-0.2); Basophils % 0.9 %; Eosinophils # 0.5 K/mcL (0.0-0.6); Eosinophils % 7.8 %; Hematocrit 41.8 % (37.5-50.1); Hematocrit 42.2 % (37.5-50.1); Hemoglobin 13.5 g/dL (12.9-16.9); Hemoglobin 13.6 g/dL (12.9-16.9); Immature Granulocytes % 0.2 % (0-4); Lymphocytes # 1.2 K/mcL (0.6-4.6); Lymphocytes % 17.3 %; Mean Corpuscular HGB Conc 32.5 g/dL (31.6-35.5); Mean Corpuscular Hemoglobin 30.1 pg (28.0-33.3); Mean Corpuscular Hemoglobin 30.6 pg (28.0-33.3); Mean Corpuscular Volume 93.9 fL (83.0-100.0); Mean Corpuscular Volume 94.2 fL (83.0-100.0); Mean Platelet Volume 10.2 fL (9.4-12.4); Mean Platelet Volume 10.4 fL (9.4-12.4); Monocytes # 0.7 K/mcL (0.0-1.3); Monocytes % 9.8 %; Neutrophils # 4.3 K/mcL (1.6-8.9); Platelet Count 184 K/mcL (140-400); Platelet Count 188 K/mcL (140-400); Red Blood Count 4.45 M/mcL (4.19-5.50); Red Blood Count 4.48 M/mcL (4.19-5.50); Red Cell Distribution Width 14.7 % (11.5-14.5); Red Cell Distribution Width 14.8 % (11.5-14.5)
[2018-04-03] MEDS: Insulin LISPRO 300 UNITS/3 ML VIAL SQ SCH ×4 (07:49→20:27)
[2018-04-03] MEDS: Isosorbide MONOnitrate (24 HR) 60 MG TAB.ER.24H PO SCH (09:22)
[2018-04-03] MEDS: Furosemide 40 MG TABLET PO SCH ×2 (09:22→17:10)
[2018-04-03] MEDS: Ranolazine 500 MG TAB.ER.12H PO SCH ×2 (09:22→20:26)
[2018-04-03] MEDS: hydrALAZINE 25 MG TABLET PO SCH ×2 (09:22→20:26)
[2018-04-03] MEDS: Famotidine 20 MG TABLET PO SCH (09:22)
[2018-04-03] MEDS: Metoprolol XL (24 HR) Succ 25 MG TAB.ER.24H PO SCH (09:22)
[2018-04-03] MEDS: Nystatin Cream 15 GM TUBE TP SCH ×2 (09:23→20:28)
[2018-04-03] MEDS: *HR* OxyCODONE Immed Rel 5 MG TABLET PO PRN (15:48)
[2018-04-03] MEDS: Multivit/Ca/Min/Fe/FA 1 TAB TABLET PO SCH (17:10)
[2018-04-03] MEDS: Insulin DETEMIR 100 UNIT/ML X5UNITS SQ SCH (20:27)
--- NOTE | 2018-04-03 21:38 | Internal Med Progress Note ---
Date of Encounter: 04/03/18 Time of Encounter: 12:00 - Assessment and plan (1) Back pain Current Visit: Yes Status: Acute Assessment and plan: Acute on chronic issue. -We will continue home medications. As well as lidocaine patch. According to previous provider CAN FILLING ROOM SWEEPER beverly Dsouza regarding back pain nonsurgical management this time and follow up with him as outpatient. Patient was seen by PT and OT recommending inpatient rehabilitation. human services worker has been consult to attempting to place patient- Awaiting approval at [facility] Qualifiers: Back pain location: low back pain Chronicity: unspecified Back pain laterality: unspecified Sciatica presence: unspecified whether sciatica present Qualified Code(s): M54.5 - Low back pain (2) Congestive heart failure Current Visit: Yes Status: Chronic Assessment and plan: Appears to be stable at this time- unchanged We will continue with home medications of Lasix Monitor intake and output and daily weights low-sodium diet Qualifiers: Heart failure type: unspecified Heart failure chronicity: unspecified Qualified Code(s): I50.9 - Heart failure, unspecified (3) Elevated troponin Current Visit: Yes Status: Chronic Assessment and plan: This appears to be chronically elevated-up on review most likely from CHF (4) Hypertension Current Visit: Yes Status: Chronic Assessment and plan: Continue home medications. Blood pressure is stable at this time Qualifiers: Hypertension type: essential hypertension Qualified Code(s): I10 - Essential (primary) hypertension (5) CKD (chronic kidney disease) stage 3, GFR 30-59 ml/min Current Visit: Yes Status: Chronic Assessment and plan: Creatinine at baseline. We will continue to monitor and avoid nephrotoxins (6) Diabetes mellitus type 2, insulin dependent Current Visit: Yes Status: Chronic Assessment and plan: Continue home long-acting insulin. Accu-Chek before meals at bedtime (7) Altered mental status Current Visit: Yes Status: Resolved Assessment and plan: This has resolved patient appears to be at baseline most likely secondary to opioid overdose. We will avoid sedating medications Qualifiers: Altered mental status type: somnolence Qualified Code(s): R40.0 - Somnolence (8) Recurrent falls Current Visit: Yes Status: Acute Assessment and plan: FAll precautions. Patient seen by PT OT recommending inpatient rehabilitation. human services worker consult and awaiting placement (9) Opioid intoxication Current Visit: Yes Status: Resolved Assessment and plan: This is resolved -apparently patient received opioid in the ED and became sedated -Avoid sedating medications. Qualifiers: Complication of substance-induced condition: uncomplicated Qualified Code(s ): F11.920 - Opioid use, unspecified with intoxication, uncomplicated (10) COPD (chronic obstructive pulmonary disease) Current Visit: Yes Status: Chronic Assessment and plan: Not in acute exacerbation. No respiratory distress. Continue home supplemental oxygen and home medications. Qualifiers: COPD type: unspecified COPD Qualified Code(s): J44.9 - Chronic obstructive pulmonary disease, unspecified (11) DVT prophylaxis Current Visit: Yes Status: Acute Assessment and plan: SCDs only for now due to being high fall risk. - Time Spent With Patient Total time spent is greater than 50% in coordination of care (as documented) at patient's floor/unit and/or counseling patient: - Subjective Interval history: I examined the patient at bedside. Denies any pain or discomfort Tolerating PT/ OT- unchanged from yesterday Awaiting approval for ECF placement - Constitutional Vitals: Temp Pulse Resp BP Pulse Ox 98.0 F 83 16 140/73 98 04/03/18 18:34 04/03/18 18:34 04/03/18 18:34 04/03/18 18:34 04/03/18 18:34 General appearance: Present: cooperative, A&O X 3, no acute distress, obese, answers questions appropriately - Head Head exam: Present: atraumatic, normocephalic - Eye Eye exam: Present: PERRL, conjuntiva pink, sclera anicteric Pupils: Present: PERRL - Neck Neck exam general surgery: Present: supple, trachea midline. Absent: lymphadenopathy - Respiratory Respiratory exam: Present: CTAB. Absent: accessory muscle use, rales, rhonchi, wheezes - Cardiovascular Cardiovascular exam: Present: RRR, +S1, +S2. Absent: diastolic murmur, gallop, rubs, systolic murmur - GI/Abdominal GI/Abdominal exam: Present: normal bowel sounds, soft, no peritoneal signs. Absent: distended, tenderness - Extremities Exam Extremities exam: Present: warm, radial pulses palpable and symmetrical. Absent : calf tenderness, cyanotic, pedal edema - Neurological Exam Neurological exam: Present: CN II-XII intact, oriented X3, no focal deficits. Absent: pronater drift, facial droop, speech deficit - Skin Skin exam: Present: dry, intact Internal Medicine: Result - Labs CBC & Chem 7: 04/03/18 05:01 04/03/18 05:01 Labs: Short CBC 04/03/18 04/03/18 Range/Units 05:01 05:01 WBC 6.7 6.7 (4.3-11.1) K/mcL Hgb 13.6 13.5 (12.9-16.9) g/dL Hct 41.8 42.2 (37.5-50.1) % Plt Count 184 188 (140-400) K/mcL Neutrophils # 4.3 (1.6-8.9) K/mcL BMP 04/03/18 05:01 Sodium 138 Potassium 4.0 Chloride 103 Carbon Dioxide 28 BUN 29 H Creatinine 1.92 H Glucose 131 H Calcium 9.0 Consult Discharge Plan - Plan Referrals: Wali Ornelas DO [Primary Care Provider] - 04/08/18 1:00 pm
[2018-04-04] MEDS ORDERED: Ipratropium/Albuterol Neb 3 ML IH ONE (00:19)
[2018-04-04] MEDS: Ipratropium/Albuterol Neb 3 ML IH SCH ×2 (03:46→10:35)
[2018-04-04 05:31] LABS: Hematocrit 42.4 % (37.5-50.1); Hemoglobin 13.9 g/dL (12.9-16.9); Mean Corpuscular HGB Conc 32.8 g/dL (31.6-35.5); Mean Corpuscular Hemoglobin 31.2 pg (28.0-33.3); Mean Corpuscular Volume 95.3 fL (83.0-100.0); Mean Platelet Volume 10.4 fL (9.4-12.4); Platelet Count 185 K/mcL (140-400); Red Blood Count 4.45 M/mcL (4.19-5.50); Red Cell Distribution Width 14.6 % (11.5-14.5)
[2018-04-04] MEDS: *HR* OxyCODONE Immed Rel 5 MG TABLET PO PRN (05:34)
[2018-04-04] MEDS: Insulin LISPRO 300 UNITS/3 ML VIAL SQ SCH (08:01)
[2018-04-04] MEDS: hydrALAZINE 25 MG TABLET PO SCH (09:04)
[2018-04-04] MEDS: Ranolazine 500 MG TAB.ER.12H PO SCH (09:04)
[2018-04-04] MEDS: Isosorbide MONOnitrate (24 HR) 60 MG TAB.ER.24H PO SCH (09:04)
[2018-04-04] MEDS: Furosemide 40 MG TABLET PO SCH (09:04)
[2018-04-04] MEDS: Famotidine 20 MG TABLET PO SCH (09:04)
[2018-04-04] MEDS: Nystatin Cream 15 GM TUBE TP SCH (09:05)
[2018-04-04] MEDS: Metoprolol XL (24 HR) Succ 25 MG TAB.ER.24H PO SCH (10:06)
[2018-04-04 11:23] VITALS: BP 162/83
--- NOTE | 2018-04-04 11:24 | Discharge Summary ---
- NOTES TO OUTPATIENT PROVIDER Notes to Outpatient Provider: S/p fall Pt/OT at home. Follow up with Dr. Dsouza as outpatient Orders not resulted at time of discharge: Pending orders 04/05/18 04:00 Complete Blood Count w/o Diff [HEME] AM 0400 Date of Encounter: 04/04/18 Time of Encounter: 11:22 - Discharge Diagnosis (1) Back pain Priority: Primary Status: Acute Qualifiers: Back pain location: low back pain Chronicity: unspecified Back pain laterality: unspecified Sciatica presence: unspecified whether sciatica present Qualified Code(s): M54.5 - Low back pain (2) Congestive heart failure Priority: Secondary Status: Chronic Qualifiers: Heart failure type: unspecified Heart failure chronicity: unspecified Qualified Code(s): I50.9 - Heart failure, unspecified (3) Elevated troponin Priority: Secondary Status: Chronic (4) Hypertension Priority: Secondary Status: Chronic Qualifiers: Hypertension type: essential hypertension Qualified Code(s): I10 - Essential (primary) hypertension (5) CKD (chronic kidney disease) stage 3, GFR 30-59 ml/min Priority: Secondary Status: Chronic (6) Diabetes mellitus type 2, insulin dependent Priority: Secondary Status: Chronic (7) Recurrent falls Priority: Secondary Status: Acute (8) COPD (chronic obstructive pulmonary disease) Priority: Secondary Status: Chronic Qualifiers: COPD type: unspecified COPD Qualified Code(s): J44.9 - Chronic obstructive pulmonary disease, unspecified Hospital course: Mr. Warren is a 83 year old male past medical history of CABG knee replacement pacemaker AICD CHF coronary artery disease diabetes hypertension [place] CK D. Patient originally presented to the ER lower back pain status post fall earlier in the day. 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 Head CT was negative for any acute intracranial abdomen mildly CT of spine showed no acute fractures and advanced multilevel degenerative changes cervical spine was negative for any fractures. He was medicated in the ER with no Ione Percocet patient became somnolent. He was monitored every 4 hours with neuro checks. He eventually turned back to baseline Dr. Dsouza suggested nonsurgical management at this time follow-up with him as an outpatient patient was seen by PT and OT recommending inpatient rehabilitation however patient was unable to be placed due to insurance. He has been ambulating approximately 150 feet without difficulty. he will be discharged with home health. PT. Patient back pain and did not improve advised patient to follow-up with PCP as well as Dr. Dsouza. Continue all home medications. Reviewed discharge instructions with patient and son who are at bedside and verbalized understanding. Patient seemed stable and ready for discharge. Discharge discussed with: patient, family - Time Spent with Patient Total time spent providing and/or coordinating discharge services: - Discharge Medications Prescriptions: Lidocaine Patch [Lidoderm 5% patch] 1 each TP DAILY #7 adh..patch Home Medications: Atorvastatin [Lipitor] 80 mg PO QPM 07/01/15 [History] Docusate Sodium [Colace] 100 mg PO QPM 07/01/15 [History] Furosemide [Lasix] 80 mg PO QAM 07/01/15 [History] Gabapentin [Neurontin] 300 mg PO QPM 07/01/15 [History] Isosorbide MONOnitrate (24 HR) [Imdur] 120 mg PO QAM 07/01/15 [History] hydrALAZINE [HydrALAZINE] 25 mg PO BID 07/01/15 [History] Multivitamin/Iron/Folic Acid [Centrum Complete Multivit Tab] 1 each PO QPM 01/22 [History] Insulin DETEMIR [Levemir] 50 unit SQ HS [id number] 03/07/16 [Rx] Ipratropium/Albuterol Neb [Duoneb] 3 ml IH [id number] inhsol 03/07/16 [Rx] Insulin LISPRO [HumaLOG] 10 units SQ TIDAC 02/12/17 [History] ALPRAZolam [Xanax 0.25 MG Tablet] 0.25 mg PO DAILY PRN 03/31/18 [History] Allopurinol [Zyloprim 100 MG] 100 mg PO DAILY 03/31/18 [History] Clopidogrel [Plavix] 75 mg PO DAILY 03/31/18 [History] Fenofibrate Nanocrystallized [Tricor] 48 mg PO DAILY 03/31/18 [History] Furosemide [Lasix] 40 mg PO QPM 03/31/18 [History] Insulin Glargine,Hum.rec.anlog [Lantus Solostar] 60 unit SQ DAILY 03/31/18 [ History] Insulin LISPRO [HumaLOG] 10 unit SQ TID PRN 03/31/18 [History] Metoprolol Succinate [Toprol Xl] 25 mg PO DAILY 03/31/18 [History] Ranitidine HCl [Acid Dragline Operator] 150 mg PO BID 03/31/18 [History] Ranolazine [Ranexa] 500 mg PO BID 03/31/18 [History] Tamsulosin [Flomax] 0.4 mg PO DAILY 03/31/18 [History] Valsartan [Diovan] 320 mg PO DAILY 03/31/18 [History] Lidocaine Patch [Lidoderm 5% patch] 1 each TP DAILY #7 adh..patch 04/04/18 [Rx] Allergies/Adverse Reactions: 3 Allergy/AdvReac Type Severity Reaction Status Date / Time codeine Allergy Hives Verified 08/08/17 23:47 Sulfa (Sulfonamide AdvReac Mild Nausea Verified 08/08/17 23:47 Antibiotics) Date of admission: 03/31/18 06:21 Primary care physician: Wali Ornelas Consults: 03/31/18 06:36 Consult to Occupational Therapy [CONS] Stat Comment: Evaluate, develop and implement POC Reason for Consult: Recurrent Falls, Right Foot Deformity. Please see today and make recommendations. We are considering inpatient rehabilitation facility. He will be discharged tomorrow. Does patient have active BEDREST order?: Yes Is patient medically & hemodynamically stable?: Yes Patient assessed for mobility or mobilized this visit?: No Consult to Physical Therapy [CONS] Stat Comment: Evaluate, develop and implement POC Reason for Consult: Recurrent Falls, Right Foot Deformity. Please see today and make recommendations. We are considering inpatient rehabilitation facility. He will be discharged tomorrow. Does patient have active BEDREST order?: Yes Is patient medically & hemodynamically stable?: Yes Patient assessed for mobility or mobilized this visit?: No Consult to Sculpture Instructor [CONS] Stat Reason for SW Consult: Acute inpatient rehabilitation facility. PT/OT consulted. Please work on today; he will be discharged tomorrow. 03/31/18 09:02 Consult to Sculpture Instructor [CONS] Routine Reason for SW Consult: frequent falls, lives home alone. Discharging clinician: Alaina Theodore Anticipated date of discharge: 04/04/18 - Constitutional Vitals: Temp Pulse Resp BP Pulse Ox 98.0 F 87 20 144/80 96 04/04/18 07:09 04/04/18 07:09 04/04/18 10:35 04/04/18 07:09 04/04/18 10:35 General appearance: Present: cooperative, A&O X 3, no acute distress, obese, answers questions appropriately - Head Head exam: Present: atraumatic, normocephalic - Eye Eye exam: Present: PERRL, conjuntiva pink, sclera anicteric Pupils: Present: PERRL - Neck Neck exam general surgery: Present: supple, trachea midline. Absent: lymphadenopathy - Respiratory Respiratory exam: Present: CTAB. Absent: accessory muscle use, rales, rhonchi, wheezes - Cardiovascular Cardiovascular exam: Present: RRR, +S1, +S2. Absent: diastolic murmur, gallop, rubs, systolic murmur - GI/Abdominal GI/Abdominal exam: Present: normal bowel sounds, soft, no peritoneal signs. Absent: distended, tenderness - Extremities Exam Extremities exam: Present: warm, radial pulses palpable and symmetrical. Absent : calf tenderness, cyanotic, pedal edema - Neurological Exam Neurological exam: Present: CN II-XII intact, oriented X3, no focal deficits. Absent: pronater drift, facial droop, speech deficit - Skin Skin exam: Present: dry, intact - Patient Status Disposition: Home Health Service Condition: Good Functional capacity at discharge: uses cane/walker Overall status at discharge: patient is progressing back to baseline - Discharge Instructions Instructions: Lidocaine Patch (On the skin), Fall Prevention (DC) Follow Up With: Wali Ornelas DO [Primary Care Provider] - 04/08/18 1:00 pm - Diet and Activity Activity: ambulate only with your walker Diet: advance to your usual diet
--- NOTE | 2018-04-04 11:56 | Physician Discharge Referral ---
Home Health/Hosp Referral Info Transfer to: Home Health Provider in Charge Post Discharge: PCP - Diagnosis (1) Back pain Priority: Primary Status: Acute (2) Congestive heart failure Priority: Secondary Status: Chronic (3) Elevated troponin Priority: Secondary Status: Chronic (4) Hypertension Priority: Secondary Status: Chronic (5) CKD (chronic kidney disease) stage 3, GFR 30-59 ml/min Priority: Secondary Status: Chronic (6) Diabetes mellitus type 2, insulin dependent Priority: Secondary Status: Chronic (7) Altered mental status Priority: Secondary Status: Resolved (8) Recurrent falls Priority: Primary Status: Acute (9) Opioid intoxication Priority: Secondary Status: Resolved (10) COPD (chronic obstructive pulmonary disease) Priority: Secondary Status: Chronic - Respiratory Orders Smoking Cessation: Smoking cessation has been advised. For more information, call the [place] Tobacco Quit Line at 1-256-QOXH-NOW. - Activity Activity Orders: Walker - Services Needed Following services are medically necessary services: Nursing, Home Health Aide - Transfer Medications Prescriptions: Lidocaine Patch [Lidoderm 5% patch] 1 each TP DAILY #7 adh..patch Home Medications: Atorvastatin [Lipitor] 80 mg PO QPM 07/01/15 [History] Docusate Sodium [Colace] 100 mg PO QPM 07/01/15 [History] Furosemide [Lasix] 80 mg PO QAM 07/01/15 [History] Gabapentin [Neurontin] 300 mg PO QPM 07/01/15 [History] Isosorbide MONOnitrate (24 HR) [Imdur] 120 mg PO QAM 07/01/15 [History] hydrALAZINE [HydrALAZINE] 25 mg PO BID 07/01/15 [History] Multivitamin/Iron/Folic Acid [Centrum Complete Multivit Tab] 1 each PO QPM 01/22 [History] Insulin DETEMIR [Levemir] 50 unit SQ HS [id number] 03/07/16 [Rx] Ipratropium/Albuterol Neb [Duoneb] 3 ml IH [id number] inhsol 03/07/16 [Rx] Insulin LISPRO [HumaLOG] 10 units SQ TIDAC 02/12/17 [History] ALPRAZolam [Xanax 0.25 MG Tablet] 0.25 mg PO DAILY PRN 03/31/18 [History] Allopurinol [Zyloprim 100 MG] 100 mg PO DAILY 03/31/18 [History] Clopidogrel [Plavix] 75 mg PO DAILY 03/31/18 [History] Fenofibrate Nanocrystallized [Tricor] 48 mg PO DAILY 03/31/18 [History] Furosemide [Lasix] 40 mg PO QPM 03/31/18 [History] Insulin Glargine,Hum.rec.anlog [Lantus Solostar] 60 unit SQ DAILY 03/31/18 [ History] Insulin LISPRO [HumaLOG] 10 unit SQ TID PRN 03/31/18 [History] Metoprolol Succinate [Toprol Xl] 25 mg PO DAILY 03/31/18 [History] Ranitidine HCl [Acid Health Support Specialist] 150 mg PO BID 03/31/18 [History] Ranolazine [Ranexa] 500 mg PO BID 03/31/18 [History] Tamsulosin [Flomax] 0.4 mg PO DAILY 03/31/18 [History] Valsartan [Diovan] 320 mg PO DAILY 03/31/18 [History] Lidocaine Patch [Lidoderm 5% patch] 1 each TP DAILY #7 adh..patch 04/04/18 [Rx] Allergies/Adverse Reactions: 3 Allergy/AdvReac Type Severity Reaction Status Date / Time codeine Allergy Hives Verified 08/08/17 23:47 Sulfa (Sulfonamide AdvReac Mild Nausea Verified 08/08/17 23:47 Antibiotics) Certification: Further, I certify that my clinical findings support that this patient is homebound (i.e. absences from home require considerable and taxing effort and are for medical reasons or rastafari services or infrequently or short duration when for other reasons) because: Homebound Reason: Patient requires assistance of a person or device to safely leave home Attestation: My signature below is to certify that this patient is under my care and that I, or nurse practitioner, or a physician's roofer assistant working with me, has a face-to -face encounter with this patient.
== END 2018-04-04 13:58 | disposition home health service (06) ==
LOC: 3BNU 23:02 → EMEROO 23:02 → 3BNU 03-31 07:03
PROVIDERS: ADMIT Family Medicine; ATTEND Internal Medicine

== ENCOUNTER 2018-08-02 10:53 | Inpatient (IN) ==
[2018-08-02] MEDS ORDERED: Aspirin 81 MG TAB.CHEW PO ONE (11:43)
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
[2018-08-02 12:47] LABS: Basophils % 0.6 %; Eosinophils # 0.4 K/mcL (0.0-0.6); Eosinophils % 5.3 %; Hematocrit 36.9 % (37.5-50.1); Hemoglobin 11.5 g/dL (12.9-16.9); Immature Granulocytes % 0.3 % (0-4); Lymphocytes # 0.8 K/mcL (0.6-4.6); Lymphocytes % 12.4 %; Mean Corpuscular HGB Conc 31.2 g/dL (31.6-35.5); Mean Corpuscular Hemoglobin 29.4 pg (28.0-33.3); Mean Corpuscular Volume 94.4 fL (83.0-100.0); Mean Platelet Volume 10.2 fL (9.4-12.4); Monocytes # 0.7 K/mcL (0.0-1.3); Monocytes % 10.6 %; Neutrophils # 4.7 K/mcL (1.6-8.9); Platelet Count 216 K/mcL (140-400); Red Blood Count 3.91 M/mcL (4.19-5.50); Red Cell Distribution Width 17.8 % (11.5-14.5); Segmented Neutrophils % 70.8 %
[2018-08-02 12:52] LABS: INR 1.1; Prothrombin Time 12.7 Seconds (9.4-12.1)
[2018-08-02 12:55] LABS: Activated Partial Thrombo Time 31.7 Seconds (26.0-36.0)
[2018-08-02 13:01] LABS: Calcium 9.1 mg/dL (8.6-10.3); Potassium 4.2 mEq/L (3.5-5.1)
[2018-08-02 13:16] LABS: Troponin I 0.07 ng/mL (< 0.04)
[2018-08-02] MEDS ORDERED: Furosemide 40 MG/4 ML VIAL IVP ONE (13:36)
[2018-08-02] MEDS ORDERED: Naloxone 0.4 MG/ML INJ IVP PRN (14:25)
[2018-08-02] MEDS ORDERED: Nitroglycerin 0.4 MG TAB.SUBL SL PRN (14:31)
[2018-08-02] MEDS ORDERED: D5% in Water 1,000 ML IVC PRN (14:35)
[2018-08-02] MEDS ORDERED: Dextrose Gel 15 GM/37.5 ML TUBE PO PRN ×2 (14:35)
[2018-08-02] MEDS ORDERED: *HR* Dextrose 50 % in Water (Syg) 50 ML SYRINGE IVP PRN (14:35)
--- NOTE | 2018-08-02 15:01 | Internal Med History&Physical ---
Date of Encounter: 08/02/18 Time of Encounter: 14:00 Internal Medicine - H&P: HPI Chief complaint: leg painand swelling Admitted From: Home History of present illness: Mr. Warren is a 83 year old male with pmhx of CABG, CHF, pacemaker/AICD, hypertension, diabetes, crush injury to the RLE remotely with multiple skin grafts and chronic wound followed by his pcp presents from home with new lle edema and pain and drainage from chronic wound on rle with increased redness. Pt is a poor hisotrian. daughter at bedside. What appears to have happened was he lives alone and when he woke up this morning he noted his legs felt weak and perhaps the LLE was swollen. He has a history of recurrent falls and ambulatory dysfunction and fell this morning onto his left side (fell onto buttocks). Daughter notes when she saw him this morning she noted that his entire left leg appeared edematous and she believes when he fell he may have been down on th efloor for a bit and on his left side. Has chf history but usually one leg does not swell, both do. US LLE in ED negative for clot. ED notes note chest pain prior to arrival to ed and elevated trop 0.07. Discussed in detail with pt and on way here he had " chest pain" and points to his RUQ of abdomen said it radiated to RLQ of abdomen and went away on its own. Denies any pain in the actual chest region, substernal, back, neck/throat, arms. No n/v/sob/diaphroesis. On review of records this trop is actually quite less than all previously recorded trop numbers. EKG noted by ED to not have ischemic changes and no tele events in ED noted. Denies cough, orthopnea, pnd, palpitations, presyncope or syncope with his fall hx. n regards to RLE, he has had numerous skin grafts with frail fine skin prone to breakage andinfection per family. he has chronci open wound on medial dorsum of foot that in the past week has begun draining yellow pus and surrounding erythema. No edema. denies fevers, chills, but + generalized fatigue and malaise. Completed a course of outpt abx one month ago Eating and drinking without incident. Multiple bowel movements daily 6 today which he described as "diarrhea" but on further discussion notes them to be soft and formed and not watery without blood, melena or mucus. Only abd pain was single incident noted above. No nausea, vomiting, constipation. Denies numbness/tingling, paralysis, focal weakness of ext, changes in speech or vision. He had poor sleep last night and is tired today. Daughter notes he does have some mild confusion appears at baseline. discussed code status with pt with daughter present and he would like to be dnr cca dni Past Med Surg Social Fam HX - Past Medical History Medical history: cancer, CHF, coronary artery disease, diabetes, hypertension, myocardial infarction, renal disease, other Additional medical history: urinary retention Psychiatric history: anxiety - Past Surgical History Surgical History: cataract, coronary bypass (CABG), knee replacement, pacemaker/ AICD Additional surgical history: AICD placed. Bladder CA surgery February 2017 - Social History Smoking Status: Former smoker Smokeless Tobacco Status: No Alcohol use: none Drug use: none - Family History Father Hx Family Endocrine Disorder: Yes Internal Medicine - H&P: Meds Atorvastatin [Lipitor] 80 mg PO QPM 07/01/15 [History] Docusate Sodium [Colace] 100 mg PO QPM 07/01/15 [History] Furosemide [Lasix] 80 mg PO QAM 07/01/15 [History] Gabapentin [Neurontin] 300 mg PO QPM 07/01/15 [History] Isosorbide MONOnitrate (24 HR) [Imdur] 120 mg PO QAM 07/01/15 [History] hydrALAZINE [HydrALAZINE] 25 mg PO BID 07/01/15 [History] Multivitamin/Iron/Folic Acid [Centrum Complete Multivit Tab] 1 each PO QPM 01/22 [History] Insulin LISPRO [HumaLOG] 10 units SQ TIDAC 02/12/17 [History] ALPRAZolam [Xanax 0.25 MG Tablet] 0.25 mg PO DAILY PRN 03/31/18 [History] Allopurinol [Zyloprim 100 MG] 100 mg PO DAILY 03/31/18 [History] Clopidogrel [Plavix] 75 mg PO DAILY 03/31/18 [History] Fenofibrate Nanocrystallized [Tricor] 48 mg PO DAILY 03/31/18 [History] Furosemide [Lasix] 40 mg PO QPM 03/31/18 [History] Insulin Glargine,Hum.rec.anlog [Lantus Solostar] 60 unit SQ DAILY 03/31/18 [ History] Metoprolol Succinate [Toprol Xl] 25 mg PO DAILY 03/31/18 [History] Ranitidine HCl [Acid Nuclear Pharmacist] 150 mg PO BID 03/31/18 [History] Ranolazine [Ranexa] 500 mg PO BID 03/31/18 [History] Tamsulosin [Flomax] 0.4 mg PO DAILY 03/31/18 [History] Aspirin Enteric Coated [Aspirin EC] 81 mg PO DAILY 08/02/18 [History] Losartan Potassium [Cozaar] 50 mg PO DAILY 08/02/18 [History] Nitroglycerin [Nitrostat] 0.4 mg SL Q5MIN PRN 08/02/18 [History] Tramadol HCl [Ultram] 50 mg PO Q6H PRN 08/02/18 [History] 3 Allergy/AdvReac Type Severity Reaction Status Date / Time codeine Allergy Hives Verified 08/08/17 23:47 Sulfa (Sulfonamide AdvReac Mild Nausea Verified 08/08/17 23:47 Antibiotics) All Systems PM: A 10-system review of systems was performed and is negative for pertinent findings except as documented above in the HPI. - Constitutional Vitals: Temp Pulse Resp BP Pulse Ox 98.2 F 85 20 156/96 100 08/02/18 11:08 08/02/18 14:36 08/02/18 11:08 08/02/18 14:36 08/02/18 14:36 Exam: General: awake, alert, appears stated age, obese HEENT:EOM intact, pupils equal, round, moist mucus membranes, clear oropharynx Neck: supple, trachea midline Cardiovascular:regular rate and rhythm, normal S1 & S2, no rubs, murmurs or gallops. No JVD. radial pulses 2+, trace pitting edema to LLE to mid mcclure, no RLE pitting edema Lungs:Normal breath sounds, no wheezes, or crackles. Normal respiratory effort on home O2 Abdomen:Soft, non-tender, non-distended, no rigidity, + bowel sounds, no RUQ pain to deep palption, he has large body habitus and HSM cannot be appreciated MSK: there is no focal deformity to bl le joints. Left hip without pain to palpation or rom, left knee pain to palpation lateral aspect joint, cannot appreciate effusion, rom intact and some pain with active rom, left ankle joint without effusion, palin to palp or rom; rigth ankle joint rom intact and painless Neurological: AAOx3, CN grossly intact, no focal deficits Skin:left lower extremity without ecchymotic areas of any joint/remainder of limb, no ecchymotic areas on trunk on dorsol or ventral surfaces, right leg/ foot s/p skin grafts with skin changes, right medial dorsum foot with <dime sized open wound with dried yellow drainage surrounding erythema and warmth extending to the lateral aspect of foot with seepage of yellow pus from frail skin without apparent open wound Internal Med - H&P Results - Labs CBC & Chem 7: 08/02/18 12:05 08/02/18 12:05 Labs: Short CBC 08/02/18 Range/Units 12:05 WBC 6.6 (4.3-11.1) K/mcL Hgb 11.5 L (12.9-16.9) g/dL Hct 36.9 L (37.5-50.1) % Plt Count 216 (140-400) K/mcL Neutrophils # 4.7 (1.6-8.9) K/mcL BMP 08/02/18 12:05 Sodium 140 Potassium 4.2 Chloride 100 Carbon Dioxide 33 H BUN 37 H Creatinine 2.43 H Glucose 189 H Calcium 9.1 Cardiac Enzymes 08/02/18 Range/Units 12:05 Troponin I 0.07 H* (< 0.04) ng/mL - Impressions ITS Impressions Chest X-Ray 08/02/18 11:43 IMPRESSION: 1. Stable significant cardiomegaly and chronic pulmonary venous hypertension. 2. Indeterminate left lung base patchy consolidation which may represent atelectasis. Possible effusion. No pneumothorax. D/ / 08/02/2018 13:37:47 Ric Seay MD / [email or web address] Interpreting Provider: Ric Seay MD - Assessment and plan (1) CHF exacerbation Current Visit: No Status: Resolved Assessment and plan: Acute Exacerbation systolic CHF as evidenced by bnp 800s (usually between 400- 600s), CXR with possible effusion January 2018 echo LVEF 30%. Moderately dilated left ventricle. Severe global left ventricular systolic dysfunction with regional variations. Atypical septal motion consistent with post-operative status. No LV thrombus. Limited study to evaluate LV function. -s/p lasix IV in ED, cont IV lasix daily and moitor output given SIMÓN on CKD -i/os, weights, cardiac diet -cont home asa, statin, BB , hold arbwith simón on ckd -check echo -tele -will trend trops bt are lower than his baseline at 0.07 and ekg without acute sichemic changes, this is unlikely acs at this time (ED reported cp however when pt points where his cp was it is in his abdomen on the right), will cont to monitor -has AICD in pace given EF Qualifiers: Heart failure type: systolic Qualified Code(s): I50.23 - Acute on chronic systolic (congestive) heart failure (2) Leg edema, left Current Visit: Yes Status: Acute Assessment and plan: Unclear etiology at this time ruled out DVT on prelim read of ED US, fu final read given recent fall and poor hisotrian with pain in knee will XR LLE including hip , knee, tib/fib has hx of gout though knee oint doesn't examina as gout - cont allopurinol home med this may be related to chf exacerbation and tx as above (3) Cellulitis of foot, right Current Visit: Yes Status: Acute Assessment and plan: wound cx pending blood cx pending wound care consulted -IV cipro -completed a treatment course of oral abx for same one month ago with resolution of symptoms -no prior wound cultures in [facility] to review (4) [id number]-bttagfm kidney injury Current Visit: Yes Status: Acute Assessment and plan: baseline creat appears to be 1.9-2.2, presenting creat 2.47 -given chf exacerbation have to use iv lasix at this time but will closely monitor -this is likely multi factorial with medications affecting kidney, hx urinary retention and CHF exacerbation -check ua and reflex to cx, check bladder scan, check CK given fall and uk time on floor -monitor for retneiton -avoid nephro toxic agents to bedt of ability -renal dose meds -hold losartan Qualifiers: Acute renal failure type: unspecified Chronic kidney disease stage: unspecified stage Qualified Code(s): N17.9 - Acute kidney failure, unspecified ; N18.9 - Chronic kidney disease, unspecified (5) CAD (coronary artery disease) Current Visit: No Status: Chronic Assessment and plan: History of PTCA stress test 01/2017 Pharmacologic stress ECG is non diagnostic for ischemia due to baseline paced rhythm. Gated EF = 48%. Medium sized, moderate to severe intensity, fixed inferior and inferolateral defect suggestive of a prior infarct. Medium sized, moderate to severe intensity, partially reversible defect in the basal to mid anterior and anterolateral segments suggestive of a prior infarct. There is mild reversibility in the anterolateral segments suggestive of marcie-infarct ischemia. most recent echo as above -trop 0.07 and less than his baseline (actually lowest recorded trop), will trend -monitor for symptoms as above -will consult cards with any changes inclinical picture or with + work up concnering for acs -received 325 mg asa in ED for "chest pain" enroute to ED with daughter but to me when he says he had cp and i ask him to point where he denotes his RLQ and RUQ of abdomen and not in chest -cont home asa, plavix, ranexa, statin, BB, imdur, prn nitro -check am ekg Qualifiers: Coronary Disease-Associated Artery/Lesion type: unspecified vessel or lesion type [place] vs. transplanted heart: unspecified whether [place] or transplanted heart Associated angina: with unspecified angina Qualified Code (s): I25.119 - Atherosclerotic heart disease of [place] coronary artery with unspecified angina pectoris (6) Fall at home Current Visit: Yes Status: Acute Assessment and plan: histoyrof multiple falls -xrs as above -pt/ot/social work Qualifiers: Encounter type: initial encounter Qualified Code(s): W19.XXXA - Unspecified fall, initial encounter; Y92.009 - Unspecified place in unspecified non-institutional (private) residence as the place of occurrence of the external cause (7) Anemia, chronic disease Current Visit: Yes Status: Chronic Assessment and plan: appears hgb has been in 11s this month, in past year 10-12 -no signs active bleeding -monitor hgb (8) Diabetes mellitus type 2, insulin dependent Current Visit: No Status: Chronic Assessment and plan: -on lantus 60 units qhs and standing tid ac mealtime insulin 10 units -will cont home doses, SSI -accu checks and prn hypoglycemics (9) Hypertension Current Visit: Yes Status: Chronic Assessment and plan: cont home meds as above monitor bp trends Qualifiers: Hypertension type: essential hypertension Qualified Code(s): I10 - Essential (primary) hypertension (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: No Status: Chronic Assessment and plan: cont home flomax given simón on ckd work up as above - Time Spent With Patient Total time spent is greater than 50% in coordination of care (as documented) at patient's floor/unit and/or counseling patient: Greater than 35 minutes
[2018-08-02] MEDS: Insulin LISPRO 300 UNITS/3 ML VIAL SQ SCH ×3 (17:38→23:15)
[2018-08-02] MEDS: Gabapentin 300 MG CAPSULE PO SCH (17:43)
[2018-08-02] MEDS: Furosemide 40 MG/4 ML VIAL IVP SCH (17:43)
[2018-08-02] MEDS ORDERED: Ipratropium/Albuterol Neb 3 ML IH PRN (18:10)
[2018-08-02] MEDS: traMADol 50 MG TABLET PO PRN (18:42)
[2018-08-02 23:12] LABS: Bilirubin,Urine Negative (Negative); Blood,Urine Negative (Negative); Clarity,Urine Clear (Clear); Color,Urine Yellow (Yellow); Glucose,Urine (UA) Normal (Normal); Ketones,Urine Negative (Negative); Leukocyte Esterase,Urine Moderate (Negative); Nitrite,Urine Negative (Negative); Protein,Urine Negative (Neg-Trace); Specific Gravity,Urine 1.008 (1.010-1.025); Urobilinogen,Urine Normal (Normal)
[2018-08-02 23:13] LABS: Bacteria,Urine None Seen per hpf (None-Few); Hyaline Casts,Urine None Seen per lpf (None-Few); RBC,Urine 0-3 per hpf (0-3); Squamous Epithelial Cell,Urine Moderate per lpf (None-Few)
[2018-08-02] MEDS: Ranolazine 500 MG TAB.ER.12H PO SCH (23:15)
[2018-08-02] MEDS: hydrALAZINE 25 MG TABLET PO SCH (23:15)
[2018-08-02] MEDS: Famotidine 20 MG TABLET PO SCH (23:15)
[2018-08-02] MEDS: *HR* Heparin 5,000 UNIT/ML VIAL SQ SCH (23:15)
[2018-08-03 04:11] LABS: Basophils # 0.1 K/mcL (0.0-0.2); Basophils % 0.9 %; Eosinophils # 0.4 K/mcL (0.0-0.6); Eosinophils % 5.4 %; Hematocrit 37.4 % (37.5-50.1); Hemoglobin 11.5 g/dL (12.9-16.9); Immature Granulocytes % 0.1 % (0-4); Lymphocytes # 0.9 K/mcL (0.6-4.6); Lymphocytes % 13.9 %; Mean Corpuscular HGB Conc 30.7 g/dL (31.6-35.5); Mean Corpuscular Hemoglobin 28.5 pg (28.0-33.3); Mean Corpuscular Volume 92.8 fL (83.0-100.0); Monocytes # 0.7 K/mcL (0.0-1.3); Neutrophils # 4.6 K/mcL (1.6-8.9); Platelet Count 241 K/mcL (140-400); Red Blood Count 4.03 M/mcL (4.19-5.50); Red Cell Distribution Width 17.7 % (11.5-14.5); Segmented Neutrophils % 69.7 %
[2018-08-03 04:30] LABS: Calcium 9.3 mg/dL (8.6-10.3); Magnesium 2.3 mg/dL (1.6-2.6); Potassium 4.2 mEq/L (3.5-5.1)
[2018-08-03] MEDS: *HR* Heparin 5,000 UNIT/ML VIAL SQ SCH ×3 (07:01→21:00)
[2018-08-03] MEDS: Insulin LISPRO 300 UNITS/3 ML VIAL SQ SCH ×7 (08:00→21:00)
--- NOTE | 2018-08-03 08:10 | Internal Med Progress Note ---
Hospitalist Progress Note - Encounter Date of Encounter: 08/03/18 Time of Encounter: 09:50 - Subjective Interval History: asleep, family at bedside. awakes to name. leg edema mildly improved on left. right top of foot with intermittent sharp pains. denies fevers, chills, chest pain, sob on home o2. tired after receiving pain medication (home med tramadol) . No abd pain, bladder discomfort or reported difficulty with urination. family at bedside and all questions answered - Exam Vitals: Temp Pulse Resp BP Pulse Ox 97.5 F L 92 16 160/87 97 08/03/18 06:29 08/03/18 06:29 08/03/18 06:29 08/03/18 06:29 08/03/18 06:29 Exam: General: awake, alert, appears stated age, obese HEENT: pupils equal, round, moist mucus membranes Neck: supple, trachea midline Cardiovascular:regular rate and rhythm, normal S1 & S2, murmurs No JVD appreciated but large girth to neck. radial pulses 2+, trace pitting edema to LLE to mid mcclure, no RLE pitting edema Lungs:Normal breath sounds, no wheezes, or crackles. Normal respiratory effort on home O2 Abdomen:Soft, non-tender, non-distended, no rigidity, + bowel sounds Neurological: AAOx3, CN grossly intact, no focal deficits Skin: right leg/foot s/p skin grafts with skin changes, right foot dressing in place, clean, dry, intact, wound not visualized - Assessment and Plan (1) CHF exacerbation Current Visit: No Status: Acute Assessment and Plan: Acute Exacerbation systolic CHF as evidenced by bnp 800s (usually between 400- 600s), CXR with possible effusion January 2018 echo LVEF 30%. Moderately dilated left ventricle. Severe global left ventricular systolic dysfunction with regional variations. Atypical septal motion consistent with post-operative status. No LV thrombus. Limited study to evaluate LV function. -s/p lasix IV in ED, cont IV lasix BID and monitor output given SIMÓN on CKD-- creat improving with diuresis -i/os, weights, cardiac diet -cont home asa, statin, BB , hold arb with simón on ckd -check echo , pending -tele -trop trend stable 0.06-0.07 and are lower than his baseline and ekg without acute sichemic changes, this is unlikely acs at this time (ED reported cp however when pt points where his cp was it is in his abdomen on the right), will cont to monitor -has AICD in pace given EF (2) Leg edema, left Current Visit: Yes Status: Acute Assessment and Plan: Unclear etiology at this time ruled out DVT on Le US given recent fall and poor historian with pain in knee will XR LLE including hip , knee, tib/fib--no acute findings has hx of gout though knee joint doesn't examine as gout - cont allopurinol home med this may be related to chf exacerbation and tx as above (3) Cellulitis of foot, right Current Visit: Yes Status: Acute Assessment and Plan: wound cx pending blood cx pending wound care consulted XR foot without fracture and + soft tissue edema, no osseous abnormality noted -IV cipro -completed a treatment course of oral abx for same one month ago with resolution of symptoms -no prior wound cultures in [facility] to review (4) Bjhom-we-oavbqax kidney injury Current Visit: Yes Status: Acute Assessment and Plan: baseline creat appears to be 1.9-2.2, presenting creat 2.47, improving with diuresis -given chf exacerbation have to use iv lasix at this time but will closely monitor -this is likely multi factorial with medications affecting kidney, hx urinary retention and CHF exacerbation -ua with mod LE and mod sqaum epith cells, no reflex to cx needed, pt asx for urinary symptoms - check bladder scan and not yet reported -checked CK given fall and uk time on floor- wnl -monitor for retention -avoid nephro toxic agents to best of ability -renal dose meds -hold losartan (5) CAD (coronary artery disease) Current Visit: No Status: Chronic Assessment and Plan: History of PTCA stress test 01/2017 Pharmacologic stress ECG is non diagnostic for ischemia due to baseline paced rhythm. Gated EF = 48%. Medium sized, moderate to severe intensity, fixed inferior and inferolateral defect suggestive of a prior infarct. Medium sized, moderate to severe intensity, partially reversible defect in the basal to mid anterior and anterolateral segments suggestive of a prior infarct. There is mild reversibility in the anterolateral segments suggestive of marcie-infarct ischemia. most recent echo as above -trop 0.07 and less than his baseline (actually lowest recorded trop), trend stable -monitor for symptoms as above -will consult cards with any changes in clinical picture or with + work up concnering for acs -received 325 mg asa in ED for "chest pain" enroute to ED with daughter but to me when he says he had cp and i ask him to point where he denotes his RLQ and RUQ of abdomen and not in chest -cont home asa, plavix, ranexa, statin, BB, imdur, prn nitro -serial ekg without changes (6) Fall at home Current Visit: Yes Status: Acute Assessment and Plan: history of multiple falls -xrs as above -pt/ot/social work (7) Anemia, chronic disease Current Visit: Yes Status: Chronic Assessment and Plan: appears hgb has been in 11s this month, in past year 10-12, stable -no signs active bleeding -monitor hgb (8) Diabetes mellitus type 2, insulin dependent Current Visit: No Status: Chronic Assessment and Plan: -on lantus 60 units qhs and standing tid ac mealtime insulin 10 units -will cont home doses, SSI -accu checks and prn hypoglycemics (9) Hypertension Current Visit: Yes Status: Chronic Assessment and Plan: cont home meds as above monitor bp trends (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: No Status: Chronic Assessment and Plan: cont home flomax given simón on ckd work up as above DVT Prophylaxis: heparin sq - Time Spent with Patient Total time spent is greater than 50% in coordination of care (as documented) at patient's floor/unit and/or counseling patient: 25 - 35 minutes Plan of Care Discussed with: patient Internal Medicine: Result - Labs CBC & Chem 7: 08/03/18 03:54 08/03/18 03:54 Labs: Short CBC 08/03/18 Range/Units 03:54 WBC 6.7 (4.3-11.1) K/mcL Hgb 11.5 L (12.9-16.9) g/dL Hct 37.4 L (37.5-50.1) % Plt Count 241 (140-400) K/mcL Neutrophils # 4.6 (1.6-8.9) K/mcL BMP 08/03/18 03:54 Sodium 138 Potassium 4.2 Chloride 98 Carbon Dioxide 34 H BUN 35 H Creatinine 2.32 H Glucose 198 H Calcium 9.3 Cardiac Enzymes 08/02/18 08/03/18 Range/Units 20:24 03:54 Troponin I 0.07 H* 0.07 H* (< 0.04) ng/mL Urine 08/02/18 Range/Units 22:58 Urine Color Yellow (Yellow) Urine Clarity Clear (Clear) Urine pH 7.0 (5.0-8.0) pH Units Ur Specific [place] 1.008 L (1.010-1.025) Urine Protein Negative (Neg-Trace) mg/dL Urine Glucose (UA) Normal (Normal) mg/dL - ABG Interpretation ABG results: PT/INR, D-dimer PT 12.7 Seconds (9.4-12.1) H 08/02/18 12:05 Consult Discharge Plan - Plan Referrals: Wali Ornelas DO [Primary Care Provider] - (1) CHF exacerbation Qualifiers: Heart failure type: systolic Qualified Code(s): I50.23 - Acute on chronic systolic (congestive) heart failure (4) Qsrmn-pf-atfyycb kidney injury Qualifiers: Acute renal failure type: unspecified Chronic kidney disease stage: unspecified stage Qualified Code(s): N17.9 - Acute kidney failure, unspecified ; N18.9 - Chronic kidney disease, unspecified (5) CAD (coronary artery disease) Qualifiers: Coronary Disease-Associated Artery/Lesion type: unspecified vessel or lesion type [place] vs. transplanted heart: unspecified whether [place] or transplanted heart Associated angina: with unspecified angina Qualified Code(s): I25.119 - Atherosclerotic heart disease of [place] coronary artery with unspecified angina pectoris (6) Fall at home Qualifiers: Encounter type: initial encounter Qualified Code(s): W19.XXXA - Unspecified fall, initial encounter; Y92.009 - Unspecified place in unspecified non- institutional (private) residence as the place of occurrence of the external cause (9) Hypertension Qualifiers: Hypertension type: essential hypertension Qualified Code(s): I10 - Essential (primary) hypertension
[2018-08-03] MEDS: Ranolazine 500 MG TAB.ER.12H PO SCH ×2 (08:24→21:00)
[2018-08-03] MEDS: traMADol 50 MG TABLET PO PRN ×2 (08:24→17:50)
[2018-08-03] MEDS: Fenofibrate 54 MG TABLET PO SCH (08:25)
[2018-08-03] MEDS: Aspirin Enteric Coated 81 MG Tablet PO SCH (08:25)
[2018-08-03] MEDS: Isosorbide MONOnitrate (24 HR) 60 MG TAB.ER.24H PO SCH (08:25)
[2018-08-03] MEDS: Metoprolol XL (24 HR) Succ 25 MG TAB.ER.24H PO SCH (08:25)
[2018-08-03] MEDS: Famotidine 20 MG TABLET PO SCH ×2 (08:26→08:56)
[2018-08-03] MEDS: hydrALAZINE 25 MG TABLET PO SCH ×2 (08:26→21:00)
[2018-08-03] MEDS: Furosemide 40 MG/4 ML VIAL IVP SCH ×2 (08:28→17:18)
[2018-08-03] MEDS: Nystatin POWDER 30 GM BOTTLE TP SCH ×2 (08:51→11:36)
[2018-08-03 09:50] LABS: Estimated Average Glucose 163 mg/dl; Hemoglobin A1C 7.3 %
[2018-08-03] MEDS: Insulin DETEMIR 100 UNIT/ML X5UNITS SQ SCH (11:37)
[2018-08-03] MEDS: Gabapentin 300 MG CAPSULE PO SCH (17:18)
[2018-08-03] MEDS: ALPRAZolam 0.25 MG TABLET PO PRN (17:53)
[2018-08-04 05:37] LABS: BUN/Creatinine Ratio 14 (6-26); Blood Urea Nitrogen 34 mg/dL (8-23); Calcium 8.9 mg/dL (8.6-10.3); Carbon Dioxide 30 mEq/L (23-29); Chloride 102 mEq/L (98-107); Glucose 109 mg/dL (70-105); Magnesium 2.3 mg/dL (1.6-2.6); Osmolality,Calculated 300 (280-300); Potassium 4.9 mEq/L (3.5-5.1); Sodium 141 mEq/L (136-145); eGFR For Non-African Americans 26 (> 60)
[2018-08-04] MEDS: *HR* Heparin 5,000 UNIT/ML VIAL SQ SCH ×3 (06:08→21:33)
[2018-08-04] MEDS: traMADol 50 MG TABLET PO PRN ×3 (06:16→18:04)
[2018-08-04] MEDS: Insulin LISPRO 300 UNITS/3 ML VIAL SQ SCH ×6 (08:19→21:30)
--- NOTE | 2018-08-04 09:19 | Internal Med Progress Note ---
Hospitalist Progress Note - Encounter Date of Encounter: 08/04/18 Time of Encounter: 08:10 - Subjective Interval History: awake in bed. top of right foot cont to be painful today. swelling and left knee improved but right leg remains swollen. encouraged to not hang leg off side of bed as he does and verbalized understanding. denies any chest pain, pressure, sob, cough, wheezing. sob on exertion but states at baseline. No family present. Pt will update family of cont current treatment and let them know they syed contact team with any further questions today. - Exam Vitals: Temp Pulse Resp BP Pulse Ox 98.2 F 90 18 142/89 95 08/04/18 07:07 08/04/18 07:07 08/04/18 07:07 08/04/18 07:07 08/04/18 07:07 Exam: General: awake, alert, appears stated age, obese HEENT: pupils equal, round, moist mucus membranes Neck: supple, trachea midline Cardiovascular:regular rate and rhythm, normal S1 & S2, murmurs No JVD appreciated but large girth to neck. radial pulses 2+, trace pitting edema to LLE to mid mcclure, no RLE pitting edema Lungs:Normal breath sounds, no wheezes, or crackles. Normal respiratory effort on home O2 Abdomen:Soft, non-tender, non-distended, no rigidity, + bowel sounds Neurological: AAOx3, no focal deficits Skin: right leg/foot s/p skin grafts with skin changes, right foot dressing removed, cont erythema and warmth surrounding wound, yellow drainage, Left mcclure with some mild erythema, no warmth : no LAD of the groin, + erythema/candidal appearance of groin folds - Assessment and Plan (1) CHF exacerbation Current Visit: No Status: Acute Assessment and Plan: Acute Exacerbation systolic CHF as evidenced by bnp 800s (usually between 400- 600s), CXR with possible effusion January 2018 echo LVEF 30%. Moderately dilated left ventricle. Severe global left ventricular systolic dysfunction with regional variations. Atypical septal motion consistent with post-operative status. No LV thrombus. Limited study to evaluate LV function. -s/p lasix IV in ED, cont IV lasix BID and monitor output given SIMÓN on CKD-- creat improving with diuresis -i/os, weights, cardiac diet -cont home asa, statin, BB , hold arb with simón on ckd -check echo , pending -tele -trop trend stable 0.06-0.07 and are lower than his baseline and ekg without acute sichemic changes, this is unlikely acs at this time (ED reported cp however when pt points where his cp was it is in his abdomen on the right), will cont to monitor -has AICD in pace given EF (2) Leg edema, left Current Visit: Yes Status: Acute Assessment and Plan: Unclear etiology at this time, ruled out DVT on Le US given recent fall and poor historian with pain in knee XR LLE including hip, knee, tib/fib--no acute findings has hx of gout though knee joint doesn't examine as gout - cont allopurinol home med -PE neg for left groin LAD to suggest some kind og obstruction of lymph flow this may be related to chf exacerbation and tx as above (3) Cellulitis of foot, right Current Visit: Yes Status: Acute Assessment and Plan: wound cx 08/04 + Proteus Mirabilis and Klebsiella Oxytoca -no prior wound cultures in [facility] to review blood cx ngtd wound care consulted XR foot without fracture and + soft tissue edema, no osseous abnormality noted -IV cipro on admit, but cx sensitivities show Proteus resistent to it -08/04 changed to Cefepime on culture reviews as MDRO proteus -would benefit from ID consult, ID team returns saturday, ID consult at that time deferred to oncoming hospitalist provider (4) Lltqs-kf-hlulkel kidney injury Current Visit: Yes Status: Acute Assessment and Plan: baseline creat appears to be 1.9-2.2, presenting creat 2.47, has been improving with diuresis -given chf exacerbation have to use iv lasix at this time but will closely monitor -this is likely multi factorial with medications affecting kidney, hx urinary retention and CHF exacerbation -ua with mod LE and mod sqaum epith cells, no reflex to cx needed, pt asx for urinary symptoms - check bladder scan and no PVR -checked CK given fall and uk time on floor- wnl -monitor for retention -avoid nephro toxic agents to best of ability -renal dose meds -hold losartan (5) CAD (coronary artery disease) Current Visit: No Status: Chronic Assessment and Plan: History of PTCA stress test 01/2017 Pharmacologic stress ECG is non diagnostic for ischemia due to baseline paced rhythm. Gated EF = 48%. Medium sized, moderate to severe intensity, fixed inferior and inferolateral defect suggestive of a prior infarct. Medium sized, moderate to severe intensity, partially reversible defect in the basal to mid anterior and anterolateral segments suggestive of a prior infarct. There is mild reversibility in the anterolateral segments suggestive of marcie-infarct ischemia. most recent echo as above -trop 0.07 and less than his baseline (actually lowest recorded trop), trend stable -monitor for symptoms as above -will consult cards with any changes in clinical picture or with + work up concnering for acs -received 325 mg asa in ED for "chest pain" enroute to ED with daughter but to me when he says he had cp and i ask him to point where he denotes his RLQ and RUQ of abdomen and not in chest -cont home asa, plavix, ranexa, statin, BB, imdur, prn nitro -serial ekg without changes (6) Fall at home Current Visit: Yes Status: Acute Assessment and Plan: history of multiple falls -xrs as above -pt/ot/social work -PT rec for ecf on dc (7) Anemia, chronic disease Current Visit: Yes Status: Chronic Assessment and Plan: appears hgb has been in 11s this month, in past year 10-12, stable -no signs active bleeding -monitor hgb (8) Diabetes mellitus type 2, insulin dependent Current Visit: No Status: Chronic Assessment and Plan: -on lantus 60 units qhs and standing tid ac mealtime insulin 10 units -will cont home doses, SSI -accu checks and prn hypoglycemics -A1C 7.3 (9) Hypertension Current Visit: Yes Status: Chronic Assessment and Plan: stable cont home meds as above monitor bp trends (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: No Status: Chronic Assessment and Plan: cont home flomax pvr neg given simón on ckd work up as above (11) Candidiasis Current Visit: Yes Status: Acute Assessment and Plan: groin folds nystatin powder DVT Prophylaxis: heparin - Time Spent with Patient Total time spent is greater than 50% in coordination of care (as documented) at patient's floor/unit and/or counseling patient: 25 - 35 minutes Plan of Care Discussed with: patient Internal Medicine: Result - Labs CBC & Chem 7: 08/03/18 03:54 08/04/18 04:49 Labs: BMP 08/04/18 04:49 Sodium 141 Potassium 4.9 Chloride 102 Carbon Dioxide 30 H BUN 34 H Creatinine 2.37 H Glucose 109 H Calcium 8.9 - ABG Interpretation ABG results: PT/INR, D-dimer PT 12.7 Seconds (9.4-12.1) H 08/02/18 12:05 - Impressions Impressions Foot X-Ray 08/03/18 10:20 IMPRESSION: Dorsal soft tissue swelling with no underlying fracture. D/ / Joseph Wheeler MD / Joseph Wheeler MD Interpreting Provider: Joseph Wheeler MD Consult Discharge Plan - Plan Referrals: Wali Ornelas DO [Primary Care Provider] - (1) CHF exacerbation Qualifiers: Heart failure type: systolic Qualified Code(s): I50.23 - Acute on chronic systolic (congestive) heart failure (4) Qpizp-dk-aavqknw kidney injury Qualifiers: Acute renal failure type: unspecified Chronic kidney disease stage: unspecified stage Qualified Code(s): N17.9 - Acute kidney failure, unspecified ; N18.9 - Chronic kidney disease, unspecified (5) CAD (coronary artery disease) Qualifiers: Coronary Disease-Associated Artery/Lesion type: unspecified vessel or lesion type [place] vs. transplanted heart: unspecified whether [place] or transplanted heart Associated angina: with unspecified angina Qualified Code(s): I25.119 - Atherosclerotic heart disease of [place] coronary artery with unspecified angina pectoris (6) Fall at home Qualifiers: Encounter type: initial encounter Qualified Code(s): W19.XXXA - Unspecified fall, initial encounter; Y92.009 - Unspecified place in unspecified non- institutional (private) residence as the place of occurrence of the external cause (9) Hypertension Qualifiers: Hypertension type: essential hypertension Qualified Code(s): I10 - Essential (primary) hypertension
[2018-08-04] MEDS: Furosemide 40 MG/4 ML VIAL IVP SCH ×3 (10:06→18:04)
[2018-08-04] MEDS: Famotidine 20 MG TABLET PO SCH (10:07)
[2018-08-04] MEDS: Metoprolol XL (24 HR) Succ 25 MG TAB.ER.24H PO SCH (10:07)
[2018-08-04] MEDS: Isosorbide MONOnitrate (24 HR) 60 MG TAB.ER.24H PO SCH (10:07)
[2018-08-04] MEDS: hydrALAZINE 25 MG TABLET PO SCH ×2 (10:07→21:34)
[2018-08-04] MEDS: Aspirin Enteric Coated 81 MG Tablet PO SCH (10:07)
[2018-08-04] MEDS: Fenofibrate 54 MG TABLET PO SCH (10:08)
[2018-08-04] MEDS: Ranolazine 500 MG TAB.ER.12H PO SCH ×2 (10:08→21:33)
[2018-08-04] MEDS: Insulin DETEMIR 100 UNIT/ML X5UNITS SQ SCH (10:56)
[2018-08-04] MEDS: Nystatin POWDER 30 GM BOTTLE TP SCH ×2 (10:57→21:33)
[2018-08-04] MEDS ORDERED: Cefepime HCl 2,000 MG in Water for inj. (sterile) 20 ML 20 ML IVPB SCH (11:42)
--- NOTE | 2018-08-04 12:35 | Infectious Disease Consult ---
Date of Encounter: 08/04/18 Time of Encounter: 12:33 Assessment and Plan (1) Cellulitis of foot, right Status: Acute Assessment and plan: Location: Right foot and ankle. Causative organism: P. mirabilis and K. oxytoca. Etiology unclear, but the patient's skin is compromised due to previous skin grafts. He reports this has been a chronic issue for several years and sometimes the area opens and "leaks" fluid. X-ray of the right foot negative for fracture. Check ESR and CRP. Recommend podiatry to evaluate. The patient does have plastic in his foot from a previous surgery. Concern for underlying infection. He cannot have an MRI due to his pacemaker/AICD. Will get a CT of the right foot now to evaluate. Discontinue Cefepime. Start Rocephin 2 grams IV daily. Duration of treatment depends on the clinical picture. Monitor renal function and for drug toxicity and dose-adjust antibiotics. (2) Leg edema, left Status: Acute Assessment and plan: Etiology unclear: CHF vs. other. Further workup and management per the primary team. (3) Fall at home Status: Acute Assessment and plan: Secondary to generalized weakness. Consider PT/OT to evaluate and treat. Qualifiers: Encounter type: initial encounter Qualified Code(s): W19.XXXA - Unspecified fall, initial encounter; Y92.009 - Unspecified place in unspecified non-institutional (private) residence as the place of occurrence of the external cause (4) Chest pain Status: Acute Qualifiers: Chest pain type: unspecified Qualified Code(s): R07.9 - Chest pain, unspecified (5) Elevated troponin Status: Chronic Assessment and plan: Consider cardiology to evaluate. (6) Congestive heart failure Status: Chronic Qualifiers: Heart failure type: unspecified Heart failure chronicity: unspecified Qualified Code(s): I50.9 - Heart failure, unspecified (7) Diabetes Status: Chronic Assessment and plan: Recommend aggressive glucose monitoring and control to promote wound healing and prevent re-infection. Management per the primary team. 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 (10) Candidiasis Status: Acute Assessment and plan: Nystatin topical powder to the folds. (11) History of bladder cancer Status: Chronic (12) CAD (coronary artery disease) Status: Chronic Qualifiers: Coronary Disease-Associated Artery/Lesion type: unspecified vessel or lesion type [place] vs. transplanted heart: unspecified whether [place] or transplanted heart Associated angina: with unspecified angina Qualified Code (s): I25.119 - Atherosclerotic heart disease of [place] coronary artery with unspecified angina pectoris Infectious Disease HPI - Data of Consult Patient: new to practice Consult date: 08/04/18 Requesting Physician: Carla Sanchez Primary Care Provider: Wali Ornelas - Consult Narrative Reason for consult: Right foot ulcer History of present illness: Mr. Warren is a 83 year old male with a past medical history of bladder cancer diagnosed in 2005 status post resection 2018, diabetes, CAD, CKD, pacemaker/AICD , status post skin grafts to the right lower extremity with remote history of hardware placed in the right foot. The patient was admitted to the hospital August 02 for right foot wound, bilateral lower extremity edema, and chest pain. We are consulted August 04 for antibiotic recommendations for right foot wound. Briefly, the patient is an 83-year-old male with a past medical history as stated above. The patient presented to the emergency department on the day of admission with complaints of sudden onset left lower survey swelling, weakness, and increased drainage from the right foot wound. Upon arrival to the ER, the patient was afebrile hemodynamically stable. His white blood cell count was normal. His serum creatinine was mildly elevated from his baseline at 2.43. Troponins were positive at 0.07, 0.06, and 0.07. Urinalysis was negative. Chest x-ray showed left lung base atelectasis with up x-ray the left negative for acute osseous abnormality. He underwent a left lower extremity DVT study that was negative. A wound culture was obtained. He was started on IV Cipro and admitted to the hospital for further evaluation. Since admission, the patient has remained afebrile hemodynamically stable. His renal function has remained stable. He had a right foot x-ray that showed findings consistent with soft tissue swelling, but no acute fracture or other abnormality. His wound culture obtained in the emergency department came back positive for Proteus mirabilis and Klebsiella oxytoca. His antibiotics were transitioned to IV cefepime today. We have been asked to evaluate and make further recommendations. During my exam today, the patient states that when he woke up Saturday, his LLE was very swollen and both LE were very sore. He fell Saturday morning injuring his LLE and hip. He states he fell a couple of months ago and has had a frontal headache since then. He reports chronic, clear sinus drainage. Denies fevers, chills, or rigors. Denies chest pain or shortness of breath. Reports a chronic cough with clear sputum. Denies nausea, vomiting, or diarrhea. Denies abdominal pain, but states he has chronic bilateral testicle pain that has been ongoing since her bladder cancer surgery earlier this year. Reports a poor appetite, but denies abdominal pain or urinary complaints. Reports severe, sharp, intermittent pain to the right foot and increased redness and some clear drainage from the right foot wound. Denies foul odor. Denies oral thrush. Reports yeast rash to his inguinal and abdominal folds. The patient lives at home alone but has children who help him daily. He is retired from the [employer]. Denies tobacco, alcohol, or illicit drug use. Denies recent travel outside the [facility]. Denies animal exposure. Denies any chronic infectious diseases. CC: Carla Sanchez Past Med Surg Social Fam HX - Past Medical History Attestation: Yes The following information was validated with the patient. Source: patient, old records reviewed, nursing notes reviewed Medical history: cancer (Bladder cancer diagnosed 2005, resection 2017), CHF, coronary artery disease, diabetes, hypertension, myocardial infarction, renal disease, other Additional medical history: urinary retention Psychiatric history: anxiety - Past Surgical History Surgical History: cataract, coronary bypass (CABG), knee replacement, pacemaker/ AICD Additional surgical history: AICD placed. Bladder CA surgery February 2017 - Social History Smoking Status: Former smoker Smokeless Tobacco Status: No Alcohol use: none Drug use: none Occupational status: retired Current living situation: Home Activity Level: Uses cane/walker Recent Out of Country Travel Within the Last 8 Weeks: No Exposure or Possible Exposure to Illness During Travel: No - Family History Father Hx Family Endocrine Disorder: Yes Infectious Disease-CN:Meds Atorvastatin [Lipitor] 80 mg PO QPM 07/01/15 [History] Docusate Sodium [Colace] 100 mg PO QPM 07/01/15 [History] Furosemide [Lasix] 80 mg PO QAM 07/01/15 [History] Gabapentin [Neurontin] 300 mg PO QPM 07/01/15 [History] Isosorbide MONOnitrate (24 HR) [Imdur] 120 mg PO QAM 07/01/15 [History] hydrALAZINE [HydrALAZINE] 25 mg PO BID 07/01/15 [History] Multivitamin/Iron/Folic Acid [Centrum Complete Multivit Tab] 1 each PO QPM 01/22 [History] Insulin LISPRO [HumaLOG] 10 units SQ TIDAC 02/12/17 [History] ALPRAZolam [Xanax 0.25 MG Tablet] 0.25 mg PO DAILY PRN 03/31/18 [History] Allopurinol [Zyloprim 100 MG] 100 mg PO DAILY 03/31/18 [History] Clopidogrel [Plavix] 75 mg PO DAILY 03/31/18 [History] Fenofibrate Nanocrystallized [Tricor] 48 mg PO DAILY 03/31/18 [History] Furosemide [Lasix] 40 mg PO QPM 03/31/18 [History] Insulin Glargine,Hum.rec.anlog [Lantus Solostar] 60 unit SQ DAILY 03/31/18 [ History] Metoprolol Succinate [Toprol Xl] 25 mg PO DAILY 03/31/18 [History] Ranitidine HCl [Acid Mortuary Beautician] 150 mg PO BID 03/31/18 [History] Ranolazine [Ranexa] 500 mg PO BID 03/31/18 [History] Tamsulosin [Flomax] 0.4 mg PO DAILY 03/31/18 [History] Aspirin Enteric Coated [Aspirin EC] 81 mg PO DAILY 08/02/18 [History] Losartan Potassium [Cozaar] 50 mg PO DAILY 08/02/18 [History] Nitroglycerin [Nitrostat] 0.4 mg SL Q5MIN PRN 08/02/18 [History] Tramadol HCl [Ultram] 50 mg PO Q6H PRN 08/02/18 [History] 3 Allergy/AdvReac Type Severity Reaction Status Date / Time codeine Allergy Hives Verified 08/08/17 23:47 Sulfa (Sulfonamide AdvReac Mild Nausea Verified 08/08/17 23:47 Antibiotics) All systems: reviewed and no additional remarkable complaints except as stated Exam - Constitutional Vitals: Temp Pulse Resp BP Pulse Ox 98.2 F 82 18 128/69 100 08/04/18 07:07 08/04/18 10:57 08/04/18 10:57 08/04/18 10:57 08/04/18 10:57 General appearance: cooperative, morbidly obese, no acute distress - Head Head exam: Present: atraumatic, normal inspection, normocephalic - Eye Eye exam: Present: EOMI, normal appearance, PERRL Pupils: Present: normal accommodation - ENT ENT exam: Present: mucous membranes moist - Neck Neck exam: Present: normal inspection - Respiratory Respiratory exam: Present: CTAB. Absent: rales, respiratory distress, rhonchi - Cardiovascular Cardiovascular exam: Present: RRR, +S1, +S2 - GI/Abdominal GI/Abdominal exam: Present: distended (obese), normal bowel sounds, soft. Absent: tenderness - Extremities Exam Extremities exam: Present: pedal edema (1+ LLE), tenderness (Right foot, BLE). Absent: joint swelling, normal inspection - Expanded Lower Extremity Exam 1 - ERythema with open ulceration noted to the right lateral ankle/foot with some purulence and warmth and tenderness noted. 2 - Ulceration noted to the medial aspect of the right foot with purulence noted. Tenderness and warmth noted on palpation. No fluctuance. - Neurological Exam Neurological exam: Present: alert, oriented X3, no focal deficits - Psychiatric Psychiatric exam: Present: normal affect, normal mood - Skin Skin exam: Present: dry, intact, normal color, warm Infectious Disease CN: Results - Labs CBC & Chem 7: 08/05/18 05:27 08/05/18 05:27 Cultures: Cultures 08/02/18 16:25 Blood Culture - Preliminary Peripheral Venipuncture Culture is incubating and being continuously monitored for growth. Final report to follow. 08/02/18 16:30 Blood Culture - Preliminary Peripheral Venipuncture Culture is incubating and being continuously monitored for growth. Final report to follow. Serology: Serology 08/02/18 Range/Units 22:58 Urine Color Yellow (Yellow) Urine Clarity Clear (Clear) Urine pH 7.0 (5.0-8.0) pH Units Ur Specific [place] 1.008 L (1.010-1.025) Urine Protein Negative (Neg-Trace) mg/dL Urine Glucose (UA) Normal (Normal) mg/dL Urine Ketones Negative (Negative) mg/dL Urine Blood Negative (Negative) Urine Nitrite Negative (Negative) Urine Bilirubin Negative (Negative) Urine Urobilinogen Normal (Normal) mg/dL Ur Leukocyte Esterase Moderate H (Negative) Urine Microscopic RBC 0-3 (0-3) per hpf Urine Microscopic WBC 5-15 H (0-3) per hpf Ur Squamous Epith Cells Moderate H (None-Few) per lpf Urine Bacteria None Seen (None-Few) per hpf Hyaline Casts None Seen (None-Few) per lpf Consult Discharge Plan - Plan Referrals: Wali Ornelas DO [Primary Care Provider] - - Attending Attestation I examined this patient and my medical decision-making was reviewed with the Resident Physician. I agree with the documented findings, disposition and treatment plan as described except to the extent set forth below. Patient is a 83-year-old gentleman with complex medical history mentioned below came in with a weeping open foot wound that he said that his been going on and off for quite some time and had multiple antibiotics courses. Exact details is not known. Patient is unable to give me history. He did tell me that he filled his antibiotics most of them at a pharmacy in [place] [employer]. Patient also has aplastic hardware that he has had for 20 years in his foot. Anyways now he comes in with swelling erythema and pain. Assessment and plan: Cellulitis right lower extremity. Concern for possible ostial versus abscess versus just a cellulitis. Cultures reviewed Currently patient on cefepime Check inflammatory markers including ESR and CRP Get a CT lower extremity Switch cefepime to Rocephin Podiatry to evaluate Monitor labs and for drug toxicity
[2018-08-04 16:59] LABS: C-Reactive Protein < 5 mg/L (Less than 10)
--- NOTE | 2018-08-04 17:20 | Electrocardiograph Report ---
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
--- NOTE | 2018-08-04 17:28 | Electrocardiograph Report ---
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
[2018-08-04] MEDS: Gabapentin 300 MG CAPSULE PO SCH ×2 (18:04→18:05)
[2018-08-04] MEDS: cefTRIAXone 2,000 MG in Water for inj. (sterile) 20 ML 20 ML IVPB SCH (18:10)
--- NOTE | 2018-08-04 18:13 | Event Note ---
Date of Encounter: 08/04/18 Time of Encounter: 14:00 contacted pt daughter Leonardo Alvarez (primary contact) by phone at number provided to provide up date to status and care plan and no answer. Message left with return number for her to call me but did not receive a call back from her this shift.
[2018-08-04] MEDS ORDERED: Perflutren Lipid Microsphere 1.3 ML in 0.9 % Sodium Chloride 8.7 ML IVP ONE (18:22)
[2018-08-04] MEDS ORDERED: *HR* OxyCODONE/APAP 5/325 TABLET PO ONE (18:38)
[2018-08-04] MEDS ORDERED: traMADol 50 MG TABLET PO ONE (18:50)
[2018-08-04] MEDS: Melatonin 3 MG TABLET PO SCH (21:33)
[2018-08-05] MEDS: *HR* Heparin 5,000 UNIT/ML VIAL SQ SCH ×3 (05:01→21:50)
[2018-08-05 05:55] LABS: Basophils # 0.1 K/mcL (0.0-0.2); Basophils % 0.8 %; Eosinophils # 0.5 K/mcL (0.0-0.6); Eosinophils % 7.3 %; Hemoglobin 10.5 g/dL (12.9-16.9); Immature Granulocytes % 0.3 % (0-4); Lymphocytes # 0.9 K/mcL (0.6-4.6); Lymphocytes % 14.3 %; Mean Corpuscular Hemoglobin 28.1 pg (28.0-33.3); Mean Corpuscular Volume 93.6 fL (83.0-100.0); Mean Platelet Volume 9.7 fL (9.4-12.4); Monocytes # 0.8 K/mcL (0.0-1.3); Monocytes % 12.6 %; Platelet Count 212 K/mcL (140-400); Red Blood Count 3.74 M/mcL (4.19-5.50); Red Cell Distribution Width 17.7 % (11.5-14.5); Segmented Neutrophils % 64.7 %
[2018-08-05 06:21] LABS: Calcium 9.1 mg/dL (8.6-10.3); Potassium 4.2 mEq/L (3.5-5.1)
--- NOTE | 2018-08-05 10:17 | Infectious Disease Progress No ---
Date of Encounter: 08/05/18 Time of Encounter: 09:30 - Assessment and Plan (1) Cellulitis of foot, right Current Visit: Yes Status: Acute Location: Right foot and ankle. Causative organism: P. mirabilis and K. oxytoca. Etiology unclear, but the patient's skin is compromised due to previous skin grafts. He reports this has been a chronic issue for several years and sometimes the area opens and "leaks" fluid. X-ray of the right foot negative for fracture. Check ESR and CRP.--> 35, <5, respectively. Recommend podiatry to evaluate. CT of the right lower extremity negative for osteomyelitis or abscess. Continue Rocephin 2 grams IV daily. Duration of treatment depends on the clinical picture. Monitor renal function and for drug toxicity and dose-adjust antibiotics. (2) Leg edema, left Current Visit: Yes Status: Acute Etiology unclear: CHF vs. other. Improved. Further workup and management per the primary team. (3) Fall at home Current Visit: Yes Status: Acute Secondary to generalized weakness. Consider PT/OT to evaluate and treat. Qualifiers: Encounter type: initial encounter Qualified Code(s): W19.XXXA - Unspecified fall, initial encounter; Y92.009 - Unspecified place in unspecified non-institutional (private) residence as the place of occurrence of the external cause (4) Chest pain Current Visit: Yes Status: Acute Qualifiers: Chest pain type: unspecified Qualified Code(s): R07.9 - Chest pain, unspecified (5) Elevated troponin Current Visit: No Status: Chronic (6) Congestive heart failure Current Visit: No Status: Chronic Qualifiers: Heart failure type: unspecified Heart failure chronicity: unspecified Qualified Code(s): I50.9 - Heart failure, unspecified (7) Diabetes Current Visit: No Status: Chronic Recommend aggressive glucose monitoring and control to promote wound healing and prevent re-infection. Management per the primary team. 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 (10) Candidiasis Current Visit: Yes Status: Acute Nystatin topical powder to the folds. (11) History of bladder cancer Current Visit: No Status: Chronic (12) CAD (coronary artery disease) Current Visit: No Status: Chronic Qualifiers: Coronary Disease-Associated Artery/Lesion type: unspecified vessel or lesion type [place] vs. transplanted heart: unspecified whether [place] or transplanted heart Associated angina: with unspecified angina Qualified Code (s): I25.119 - Atherosclerotic heart disease of [place] coronary artery with unspecified angina pectoris - Subjective Interval history: Patient seen and examined with son at the bedside. No acute events noted overnight. Patient states overall he does not feel very well today, but has no specific complaints. Denies any fevers or chills or rigors. Denies any chest pain or shortness of breath, but does report a cough that is nonproductive. He denies any nausea or vomiting or diarrhea and states his last bowel movement was last night. He does report a poor appetite. He denies any abdominal pain or urinary complaints. He states the pain in his right foot is better. He also reports improvement in the bilateral lower extremity soreness and swelling in the left lower extremity. He denies any oral thrush or new skin lesions. States the yeast rash in his groin fold seems to be improved. Infect Dis PN-Objective Data - Labs CBC & Chem 7: 08/05/18 05:27 08/05/18 05:27 Labs: Laboratory Results - last 24 hr 08/04/18 08/04/18 08/04/18 04:49 11:00 15:41 WBC RBC Hgb Hct MCV MCH MCHC RDW Plt Count MPV Immature Gran % Seg Neutrophils % Lymphocytes % Monocytes % Eosinophils % Basophils % Neutrophils # Lymphocytes # Monocytes # Eosinophils # Basophils # ESR 35 H Sodium 141 Potassium 4.9 Chloride 102 Carbon Dioxide 30 H BUN 34 H Creatinine 2.37 H Est GFR ( Amer) 32 L Est GFR (Non-Af Amer) 26 L BUN/Creatinine Ratio 14 Glucose 109 H POC Glucose 100 H Calculated Osmolality 300 Calcium 8.9 Magnesium 2.3 C-Reactive Protein < 5 08/04/18 08/04/18 08/04/18 16:39 20:14 23:42 WBC RBC Hgb Hct MCV MCH MCHC RDW Plt Count MPV Immature Gran % Seg Neutrophils % Lymphocytes % Monocytes % Eosinophils % Basophils % Neutrophils # Lymphocytes # Monocytes # Eosinophils # Basophils # ESR Sodium Potassium Chloride Carbon Dioxide BUN Creatinine Est GFR ( Amer) Est GFR (Non-Af Amer) BUN/Creatinine Ratio Glucose POC Glucose 136 H 145 H 88 Calculated Osmolality Calcium Magnesium C-Reactive Protein 08/05/18 08/05/18 08/05/18 02:22 05:27 05:27 WBC 6.2 RBC 3.74 L Hgb 10.5 L Hct 35.0 L MCV 93.6 MCH 28.1 MCHC 30.0 L RDW 17.7 H Plt Count 212 MPV 9.7 Immature Gran % 0.3 Seg Neutrophils % 64.7 Lymphocytes % 14.3 Monocytes % 12.6 Eosinophils % 7.3 Basophils % 0.8 Neutrophils # 4.0 Lymphocytes # 0.9 Monocytes # 0.8 Eosinophils # 0.5 Basophils # 0.1 ESR Sodium 139 Potassium 4.2 Chloride 101 Carbon Dioxide 31 H BUN 37 H Creatinine 2.36 H Est GFR ( Amer) 32 L Est GFR (Non-Af Amer) 26 L BUN/Creatinine Ratio 16 Glucose 84 POC Glucose 133 H Calculated Osmolality 296 Calcium 9.1 Magnesium C-Reactive Protein 08/05/18 08/05/18 05:27 07:25 WBC RBC Hgb Hct MCV MCH MCHC RDW Plt Count MPV Immature Gran % Seg Neutrophils % Lymphocytes % Monocytes % Eosinophils % Basophils % Neutrophils # Lymphocytes # Monocytes # Eosinophils # Basophils # ESR Sodium Potassium Chloride Carbon Dioxide BUN Creatinine Est GFR ( Amer) Est GFR (Non-Af Amer) BUN/Creatinine Ratio Glucose POC Glucose 72 Calculated Osmolality Calcium Magnesium 2.3 C-Reactive Protein Cultures: Cultures 08/02/18 16:25 Blood Culture - Preliminary Peripheral Venipuncture Culture is incubating and being continuously monitored for growth. Final report to follow. 08/02/18 16:30 Blood Culture - Preliminary Peripheral Venipuncture Culture is incubating and being continuously monitored for growth. Final report to follow. Serology 08/02/18 Range/Units 22:58 Urine Color Yellow (Yellow) Urine Clarity Clear (Clear) Urine pH 7.0 (5.0-8.0) pH Units Ur Specific [place] 1.008 L (1.010-1.025) Urine Protein Negative (Neg-Trace) mg/dL Urine Glucose (UA) Normal (Normal) mg/dL Urine Ketones Negative (Negative) mg/dL Urine Blood Negative (Negative) Urine Nitrite Negative (Negative) Urine Bilirubin Negative (Negative) Urine Urobilinogen Normal (Normal) mg/dL Ur Leukocyte Esterase Moderate H (Negative) Urine Microscopic RBC 0-3 (0-3) per hpf Urine Microscopic WBC 5-15 H (0-3) per hpf Ur Squamous Epith Cells Moderate H (None-Few) per lpf Urine Bacteria None Seen (None-Few) per hpf Hyaline Casts None Seen (None-Few) per lpf - Impressions Impressions Lower Extremity CT 08/04/18 14:58 IMPRESSION: Possible ulceration along the dorsal lateral and medial aspect of the foot. Having said that, no convincing CT evidence of osteomyelitis is identified. If there is concern for osteomyelitis, MRI would be a more sensitive modality. No soft tissue gas is detected. No focal fluid collections are identified. D/ / Marques Jaquez MD / Marques Jaquez MD Interpreting Provider: Marques Jaquez MD Exam - Constitutional Vitals: Temp Pulse Resp BP Pulse Ox 98.6 F 95 17 108/79 91 08/05/18 07:19 08/05/18 07:19 08/05/18 07:19 08/05/18 07:19 08/05/18 07:19 General appearance: cooperative, no acute distress, obese - Head Head exam: Present: atraumatic, normal inspection, normocephalic - Eye Eye exam: Present: EOMI, normal appearance, PERRL Pupils: Present: normal accommodation - ENT ENT exam: Present: mucous membranes moist - Neck Neck exam: Present: normal inspection - Respiratory Respiratory exam: Present: CTAB. Absent: rales, respiratory distress, rhonchi, wheezes - Cardiovascular Cardiovascular exam: Present: RRR, +S1, +S2 - GI/Abdominal GI/Abdominal exam: Present: distended (Obese), normal bowel sounds, soft. Absent: tenderness - Extremities Exam Extremities exam: Present: pedal edema (1+ left lower extremity), tenderness ( Bilateral lower extremities). Absent: normal inspection (Scarring noted to the lower portion of the right lower extremity.) Additional comments: Bilateral foot and ankle dressings are clean, dry, and intact. - Neurological Exam Neurological exam: Present: alert, oriented X3, no focal deficits - Psychiatric Psychiatric exam: Present: normal affect, normal mood - Skin Skin exam: Present: dry, intact, normal color, warm Consult Discharge Plan - Plan Referrals: Wali Ornelas DO [Primary Care Provider] - - Attending Attestation I examined this patient and my medical decision-making was reviewed with the Resident Physician. I agree with the documented findings, disposition and treatment plan as described except to the extent set forth below.
[2018-08-05] MEDS: Insulin LISPRO 300 UNITS/3 ML VIAL SQ SCH ×4 (10:31→22:34)
[2018-08-05] MEDS: Furosemide 40 MG/4 ML VIAL IVP SCH (10:33)
[2018-08-05] MEDS: hydrALAZINE 25 MG TABLET PO SCH ×2 (10:34→20:42)
[2018-08-05] MEDS: Metoprolol XL (24 HR) Succ 25 MG TAB.ER.24H PO SCH (10:34)
[2018-08-05] MEDS: Aspirin Enteric Coated 81 MG Tablet PO SCH (10:34)
[2018-08-05] MEDS: Fenofibrate 54 MG TABLET PO SCH (10:34)
[2018-08-05] MEDS: Famotidine 20 MG TABLET PO SCH (10:34)
[2018-08-05] MEDS: Isosorbide MONOnitrate (24 HR) 60 MG TAB.ER.24H PO SCH (10:35)
[2018-08-05] MEDS: Nystatin POWDER 30 GM BOTTLE TP SCH ×2 (10:35→21:51)
[2018-08-05] MEDS: Ranolazine 500 MG TAB.ER.12H PO SCH ×2 (10:35→20:42)
[2018-08-05] MEDS: cefTRIAXone 2,000 MG in Water for inj. (sterile) 20 ML 20 ML IVPB SCH (10:36)
[2018-08-05] MEDS: traMADol 50 MG TABLET PO PRN ×2 (10:53→17:52)
[2018-08-05] MEDS: Insulin DETEMIR 100 UNIT/ML X5UNITS SQ SCH (12:19)
[2018-08-05] MEDS: Acetaminophen 325 MG TABLET PO PRN (12:52)
--- NOTE | 2018-08-05 16:18 | Podiatry Consult Note ---
Date of Encounter: 08/05/18 Time of Encounter: 12:00 Assessment and Plan (1) Venous stasis ulcer Current visit: Yes Status: Acute Examined at bedside Appearance of wounds consistent with venous stasis ulcerations Cleanse daily with hibiclens and rinse Apply maxsorb AG to wound of right lateral foot Apply santyl/gent mixture of wound of medial right foot with application of wet to dry dressing over Apply bulk kerlix dressing over entire wound NATTY's will be obtained to assess blood flow Recommend HILLARY wrap to foot for compression once ABIs have been completed and if blood flow is adequate Will need dressing changes BID as ordered Elevate at all times, do not dangle Continue with antibiotic treatment per ID CT scan negative for any underlying osteo or abscess formation WBC 6.2 and afebrile Recommend continued treatment in outpatient setting with in [facility] center Explained to patient at bedside. Considering ECF placement for rehab Qualifiers: Venous stasis ulcer site: other part of lower leg Varicose vein presence: without varicose veins Laterality: right Non-pressure ulcer stage: limited to breakdown of skin Qualified Code(s): I87.2 - Venous insufficiency (chronic ) (peripheral); L97.811 - Non-pressure chronic ulcer of other part of right lower leg limited to breakdown of skin (2) Muscle spasm of both lower legs Current visit: Yes Status: Acute Due to patients reports of frequent spasms and non palpable pulses will obtain bilateral lower extremity NATTY's (3) Diabetes mellitus type 2, insulin dependent Current visit: No Status: Chronic Management per internal medicine (4) Bilateral lower extremity edema Current visit: Yes Status: Acute (5) Tinea pedis of left foot Current visit: Yes Status: Acute active tinea pedis noted of left foot Clotrimazole cream BID x28 days to dorsal and plantar aspect of left foot, ankle and webspaces of toes History of Present Illness HPI: Mr. Warren is a 83 year old male with pmhx of CABG, CHF, pacemaker/AICD, hypertension, diabetes, crush injury to the RLE, reports 20 years ago with a large piece of equipment- with multiple skin grafts and chronic wounds presents from home with new right lower extremity and foot edema and pain and drainage from chronic wound on rle with increased redness. States drainage started 3-4 days ago- describes as a milky drainage. Subjective reports of odor to wound. Son at bedside- states patient has [facility] nurse- states these ulcerations are ongoing- states the [facility] nurse applied "new skin" a while back and it helped. Patient sitting to side of bed. Dressing cdi to RLE. son states it was changed last night. Patient denies any known fevers, chills, n/v or fls. Patient and son report that patient has frequent "spasms" and "cramps" to BLE. Patient had several spasms to leg and foot while in the room. States it just comes and it very painful. Does not seem to have a specific trigger. States it has been ongoing for about a month. Past Med Surg Social Fam HX - Past Medical History Medical history: cancer (Bladder cancer diagnosed 2005, resection 2017), CHF, coronary artery disease, diabetes, hypertension, myocardial infarction, renal disease, other Additional medical history: urinary retention Psychiatric history: anxiety - Past Surgical History Surgical History: cataract, coronary bypass (CABG), knee replacement, pacemaker/ AICD Additional surgical history: AICD placed. Bladder CA surgery February 2017 - Social History Smoking Status: Former smoker Smokeless Tobacco Status: No Alcohol use: none Drug use: none - Family History Father Hx Family Endocrine Disorder: Yes Medications and Allergies Atorvastatin [Lipitor] 80 mg PO QPM 07/01/15 [History] Docusate Sodium [Colace] 100 mg PO QPM 07/01/15 [History] Furosemide [Lasix] 80 mg PO QAM 07/01/15 [History] Gabapentin [Neurontin] 300 mg PO QPM 07/01/15 [History] Isosorbide MONOnitrate (24 HR) [Imdur] 120 mg PO QAM 07/01/15 [History] hydrALAZINE [HydrALAZINE] 25 mg PO BID 07/01/15 [History] Multivitamin/Iron/Folic Acid [Centrum Complete Multivit Tab] 1 each PO QPM 01/22 [History] Insulin LISPRO [HumaLOG] 10 units SQ TIDAC 02/12/17 [History] ALPRAZolam [Xanax 0.25 MG Tablet] 0.25 mg PO DAILY PRN 03/31/18 [History] Allopurinol [Zyloprim 100 MG] 100 mg PO DAILY 03/31/18 [History] Clopidogrel [Plavix] 75 mg PO DAILY 03/31/18 [History] Fenofibrate Nanocrystallized [Tricor] 48 mg PO DAILY 03/31/18 [History] Furosemide [Lasix] 40 mg PO QPM 03/31/18 [History] Insulin Glargine,Hum.rec.anlog [Lantus Solostar] 60 unit SQ DAILY 03/31/18 [ History] Metoprolol Succinate [Toprol Xl] 25 mg PO DAILY 03/31/18 [History] Ranitidine HCl [Acid Edi Manager] 150 mg PO BID 03/31/18 [History] Ranolazine [Ranexa] 500 mg PO BID 03/31/18 [History] Tamsulosin [Flomax] 0.4 mg PO DAILY 03/31/18 [History] Aspirin Enteric Coated [Aspirin EC] 81 mg PO DAILY 08/02/18 [History] Losartan Potassium [Cozaar] 50 mg PO DAILY 08/02/18 [History] Nitroglycerin [Nitrostat] 0.4 mg SL Q5MIN PRN 08/02/18 [History] Tramadol HCl [Ultram] 50 mg PO Q6H PRN 08/02/18 [History] 3 Allergy/AdvReac Type Severity Reaction Status Date / Time codeine Allergy Hives Verified 08/08/17 23:47 Sulfa (Sulfonamide AdvReac Mild Nausea Verified 08/08/17 23:47 Antibiotics) All Systems Reviewed: As per HPI Physical Exam - Constitutional Vitals: Temp Pulse Resp BP Pulse Ox 97.6 F 92 17 151/98 93 08/05/18 11:25 08/05/18 11:25 08/05/18 11:25 08/05/18 11:25 08/05/18 11:25 General appearance: cooperative, morbidly obese, no acute distress Exam: General Examination: CONSTITUTIONAL: Alert, oriented, in no acute distress, non-toxic. EXTREMITIES: CFT 4-5 seconds all toes. Edema +2 and pedal pulses non palpable. There are chronic skin changes consistent with PVD. SKIN: Skin with decreased turgor, decreased subcutaneous tissue, skin thin and shiny with trophic changes associated with comorbidities as described in history.. To the left foot there is fine scaling skin on erythema base to entire dorsal aspect of foot, plantar aspect, web spaces of #3 #4 and #5 and to entire circumference of ankle, consistent with sock, findings suggestive of active tinea pedis of the left foot. No drainage. No open skin lesions Right foot- Venous stasis ulcerations noted to lateral and medial aspect of right foot- skin grafts noted- compromised related to edema of BLE. Scattered small skin lesions to lateral aspect of foot. Entire wound measures [id number] with only small openings with 100% healthy granulation tissue and scant serous drainage. Very minimal surrounding erythema. No warmth noted. no odor. No purlent drainage to suggest cellulitis. There is also a small venous ulceration noted to the medial/dorsal foot, 0.4cmx0.4cm0.2cm with 100% fibrous yellow base. Serous drainage. No purulent drainage. No odor. No surrounding warmth or erythema consistent with cellulitis. MUSCULOSKELETAL: Severe arthritic rigidity noted to toes #1 through #5 bilaterally as well as midfoot. no fluctuance noted to joints, no surrounding edema, warmth or tenderness to any joint of the foot or ankle. NEUROLOGIC: Diminished sensation to light touch to BLE Results - Labs Result Diagrams: 08/06/18 08:28 08/06/18 08:28 Labs: Abnormal lab results RBC 3.74 M/mcL (4.19-5.50) L 08/05/18 05:27 Hgb 10.5 g/dL (12.9-16.9) L 08/05/18 05:27 Hct 35.0 % (37.5-50.1) L 08/05/18 05:27 MCHC 30.0 g/dL (31.6-35.5) L 08/05/18 05:27 RDW 17.7 % (11.5-14.5) H 08/05/18 05:27 ESR 35 mm/hr (0-10) H 08/04/18 15:41 PT 12.7 Seconds (9.4-12.1) H 08/02/18 12:05 Carbon Dioxide 31 mEq/L (23-29) H 08/05/18 05:27 BUN 37 mg/dL (8-23) H 08/05/18 05:27 Creatinine 2.36 mg/dL (0.70-1.30) H 08/05/18 05:27 Est GFR ( Amer) 32 (> 60) L 08/05/18 05:27 Est GFR (Non-Af Amer) 26 (> 60) L 08/05/18 05:27 Hemoglobin A1c 7.3 % (-5.6) H 08/02/18 14:42 Troponin I 0.07 ng/mL (< 0.04) H* 08/03/18 03:54 B-Natriuretic Peptide 897 pg/mL (Less than 100) H 08/02/18 12:05 Ur Specific [place] 1.008 (1.010-1.025) L 08/02/18 22:58 Ur Leukocyte Esterase Moderate (Negative) H 08/02/18 22:58 Urine Microscopic WBC 5-15 per hpf (0-3) H 08/02/18 22:58 Ur Squamous Epith Cells Moderate per lpf (None-Few) H 08/02/18 22:58 H & H 08/05/18 Range/Units 05:27 Hgb 10.5 L (12.9-16.9) g/dL Hct 35.0 L (37.5-50.1) % All other labs normal. Consult Discharge Plan - Plan Referrals: Wali Ornelas DO [Primary Care Provider] -
[2018-08-05] MEDS: Gabapentin 300 MG CAPSULE PO SCH (17:52)
[2018-08-05] MEDS: Melatonin 3 MG TABLET PO SCH (20:42)
[2018-08-05] MEDS: ALPRAZolam 0.25 MG TABLET PO PRN (20:42)
[2018-08-05] MEDS: Clotrimazole 1% CRM 15 GM TUBE TP SCH (21:50)
[2018-08-05] MEDS: Gentamicin Oint 15 GM TUBE TP SCH (21:50)
--- NOTE | 2018-08-05 21:55 | Internal Med Progress Note ---
Hospitalist Progress Note - Encounter Date of Encounter: 08/05/18 Time of Encounter: 19:00 - Subjective Interval History: SUBJECTIVE: The patient feels better. He said breathing is baseline, again. He is on 2 L/ min nasal cannula oxygen. Denies coughing and wheezing. He has less pain in he is right foot. Denies chest pain. Denies abdominal pain, nausea and vomiting. He makes good amounts of urine. OBJECTIVE: Skin: Free of rash and discoloration. ENMT: Oral/pharyngeal mucosa is normal in appearance. Eyes: Sclera is white. There is no discharge from eyes. Respiratory: Normal breath sounds; no crackles or wheezes. CV: Heart is regular; no gallop or murmur. GI: Abdomen is soft and not tender. There is no palpable mass or visceromegaly. Neuro: There is no focal deficits. ASSESSMENT AND PLAN: Acute on chronic systolic heart failure (ejection fraction of 30%) in a patient with CKD stage IV (secondary to long-standing type 2 diabetes mellitus and hypertension). He has developed mild anemia of chronic kidney disease. We will be watching his input/output closely. He will get Lasix, if needed. We cannot use HILLARY inhibitor/ARB and beta-blockers at this time due to his low BP. His type 2 diabetes mellitus is treated with insulin Levemir and insulin Humalog. He is on diabetic diet. His hypertension is treated with hydralazine. Cellulitis of right foot. He is on IV Rocephin. See notes from infectious diseases/podiatry. DISPOSITION: We anticipate his discharge in about 2 days. - Exam Vitals: Temp Pulse Resp BP Pulse Ox 98.1 F 83 18 135/91 95 08/05/18 16:21 08/05/18 16:21 08/05/18 16:21 08/05/18 16:21 08/05/18 16:21 Exam: xx - Assessment and Plan (1) Acute on chronic systolic heart failure Current Visit: Yes Status: Acute (2) Cellulitis of foot, right Current Visit: Yes Status: Acute (3) CAD (coronary artery disease) Current Visit: No Status: Chronic (4) T2DM (type 2 diabetes mellitus) Current Visit: Yes Status: Acute (5) Hypertensive renal disease with renal failure Current Visit: Yes Status: Acute (6) Anemia, chronic disease Current Visit: Yes Status: Chronic - Time Spent with Patient Total time spent is greater than 50% in coordination of care (as documented) at patient's floor/unit and/or counseling patient: 25 - 35 minutes Plan of Care Discussed with: patient Internal Medicine: Result - Labs CBC & Chem 7: 08/05/18 05:27 08/05/18 05:27 Labs: Short CBC 08/05/18 Range/Units 05:27 WBC 6.2 (4.3-11.1) K/mcL Hgb 10.5 L (12.9-16.9) g/dL Hct 35.0 L (37.5-50.1) % Plt Count 212 (140-400) K/mcL Neutrophils # 4.0 (1.6-8.9) K/mcL BMP 08/05/18 05:27 Sodium 139 Potassium 4.2 Chloride 101 Carbon Dioxide 31 H BUN 37 H Creatinine 2.36 H Glucose 84 Calcium 9.1 - ABG Interpretation ABG results: PT/INR, D-dimer PT 12.7 Seconds (9.4-12.1) H 08/02/18 12:05 - Impressions Impressions Echocardiogram 08/04/18 14:47 Impressions: LVEF 25-30%. Moderately dilated left ventricle. Severe left ventricular systolic dysfunction. Severe left ventricular diastolic dysfunction. There is no LV thrombus. Definity echo contrast was used. Atypical septal motion consistent with post-operative status. Mildly dilated right ventricle. Mild right ventricular hypokinesis. Mild mitral regurgitation. Trace tricuspid regurgitation. Estimated RVSP is 57 mmHg wih an estimated RAP of 10mmHg, PASP is 67mmHg (Moderate to severe pulmonary hypertension). Left Ventricular Wall Motion: Rest Echo Findings The apex, apical inferior, mid inferior, basal inferior, apical anterior, mid anterior, basal anterior, apical septal, mid inferior septal, basal inferior septal, apical lateral, mid anterior lateral, basal anterior lateral, mid anterior septal, mid inferior lateral, basal anterior septal and basal inferior lateral atkinson were hypokinetic. Findings: Study Quality * Technically adequate exam. ECG Findings * Paced rhythm. Left Ventricle * LVEF 25-30%. * Moderately dilated left ventricle. * Severe left ventricular systolic dysfunction. * Severe left ventricular diastolic dysfunction. * There is no LV thrombus. * Definity echo contrast was used. * Atypical septal motion consistent with post-operative status. Right Ventricle * Mildly dilated right ventricle. * Mild right ventricular hypokinesis. Left Atrium * Moderately dilated left atrium. Right Atrium * Normal right atrial size. Interatrial Septum * No evidence of PFO by color Doppler. Aortic Valve * Trileaflet aortic valve. * Trileaflet aortic valve with normal function. * No aortic regurgitation. * No aortic stenosis. Mitral Valve * Mild mitral regurgitation. * Normal mitral valve structure. Tricuspid Valve * Normal tricuspid valve structure. * Trace tricuspid regurgitation. * Estimated RVSP is 57 mmHg. * Moderate to severe pulmonary hypertension. Pulmonic Valve * Normal pulmonic valve structure and function. * No pulmonic regurgitation. Aorta * Normally sized aortic root. Pericardium * The pericardium appears normal. IVC * Normal IVC dimensions and inspiratory collapse. Device lead * A device lead was visualized in the right atrium and right ventricle. Pulmonary Artery * Normal visualized portions of the main pulmonary artery. Lower Extremity CT 08/04/18 14:58 IMPRESSION: Possible ulceration along the dorsal lateral and medial aspect of the foot. Having said that, no convincing CT evidence of osteomyelitis is identified. If there is concern for osteomyelitis, MRI would be a more sensitive modality. No soft tissue gas is detected. No focal fluid collections are identified. D/ / Marques Jaquez MD / Marques Jaquez MD Interpreting Provider: Marques Jaquez MD Consult Discharge Plan - Plan Referrals: Wali Ornelas, [Primary Care Provider] - (3) CAD (coronary artery disease) Qualifiers: Coronary Disease-Associated Artery/Lesion type: unspecified vessel or lesion type [place] vs. transplanted heart: unspecified whether [place] or transplanted heart Associated angina: with unspecified angina Qualified Code(s): I25.119 - Atherosclerotic heart disease of [place] coronary artery with unspecified angina pectoris (4) T2DM (type 2 diabetes mellitus) Qualifiers: Diabetes mellitus [facility] insulin use: with [place] mechanic use Diabetes mellitus complication status: with kidney complications Diabetes mellitus complication detail: with chronic kidney disease Chronic kidney disease stage: stage 4 (severe) Qualified Code(s): E11.22 - Type 2 diabetes mellitus with diabetic chronic kidney disease; N18.4 - Chronic kidney disease, stage 4 (severe ); Z79.4 - [facility] (current) use of insulin
[2018-08-06] MEDS ORDERED: Furosemide 40 MG/4 ML VIAL IVP ONE (03:16)
[2018-08-06] MEDS: *HR* Heparin 5,000 UNIT/ML VIAL SQ SCH ×3 (05:03→23:34)
[2018-08-06 08:44] LABS: Basophils # 0.1 K/mcL (0.0-0.2); Basophils % 0.9 %; Eosinophils # 0.3 K/mcL (0.0-0.6); Eosinophils % 5.5 %; Hemoglobin 11.8 g/dL (12.9-16.9); Immature Granulocytes % 0.2 % (0-4); Lymphocytes # 0.9 K/mcL (0.6-4.6); Lymphocytes % 15.7 %; Mean Corpuscular HGB Conc 31.1 g/dL (31.6-35.5); Mean Corpuscular Hemoglobin 29.3 pg (28.0-33.3); Mean Corpuscular Volume 94.3 fL (83.0-100.0); Mean Platelet Volume 9.7 fL (9.4-12.4); Monocytes # 0.7 K/mcL (0.0-1.3); Monocytes % 12.2 %; Neutrophils # 3.8 K/mcL (1.6-8.9); Platelet Count 226 K/mcL (140-400); Red Blood Count 4.03 M/mcL (4.19-5.50); Red Cell Distribution Width 17.5 % (11.5-14.5); Segmented Neutrophils % 65.5 %
[2018-08-06 09:09] LABS: Calcium 9.7 mg/dL (8.6-10.3); Potassium 4.7 mEq/L (3.5-5.1)
[2018-08-06] MEDS: Acetaminophen 325 MG TABLET PO PRN ×2 (09:40→18:50)
[2018-08-06] MEDS: Ranolazine 500 MG TAB.ER.12H PO SCH ×2 (09:41→21:29)
[2018-08-06] MEDS: traMADol 50 MG TABLET PO PRN ×2 (09:41→18:51)
[2018-08-06] MEDS: Isosorbide MONOnitrate (24 HR) 60 MG TAB.ER.24H PO SCH (09:41)
[2018-08-06] MEDS: cefTRIAXone 2,000 MG in Water for inj. (sterile) 20 ML 20 ML IVPB SCH (09:41)
[2018-08-06] MEDS: hydrALAZINE 25 MG TABLET PO SCH ×2 (09:41→21:34)
[2018-08-06] MEDS: Famotidine 20 MG TABLET PO SCH (09:41)
[2018-08-06] MEDS: Metoprolol XL (24 HR) Succ 25 MG TAB.ER.24H PO SCH (09:41)
[2018-08-06] MEDS: Aspirin Enteric Coated 81 MG Tablet PO SCH (09:41)
[2018-08-06] MEDS: Fenofibrate 54 MG TABLET PO SCH (09:41)
[2018-08-06] MEDS: Nystatin POWDER 30 GM BOTTLE TP SCH (09:42)
[2018-08-06] MEDS: Insulin LISPRO 300 UNITS/3 ML VIAL SQ SCH ×4 (09:45→21:36)
--- NOTE | 2018-08-06 09:54 | Infectious Disease Progress No ---
Date of Encounter: 08/06/18 Time of Encounter: 09:52 - Assessment and Plan (1) Cellulitis of foot, right Current Visit: Yes Status: Acute Location: Right foot and ankle. Causative organism: P. mirabilis and K. oxytoca. Etiology unclear, but the patient's skin is compromised due to previous skin grafts. He reports this has been a chronic issue for several years and sometimes the area opens and "leaks" fluid. X-ray of the right foot negative for fracture. Check ESR and CRP.--> 35, <5, respectively. ABIs showed mild disease bilaterally. Podiatry recommendations noted and appreciated. CT of the right lower extremity negative for osteomyelitis or abscess. Continue Rocephin 2 grams IV daily. (day 3) Duration of treatment depends on the clinical picture. If the patient continues to improve, can likely transition to PO antibiotics when ready for discharge to complete a 14 day course. Monitor renal function and for drug toxicity and dose-adjust antibiotics. (2) Leg edema, left Current Visit: Yes Status: Acute Etiology unclear: CHF vs. other. Improved. Further workup and management per the primary team. (3) Fall at home Current Visit: Yes Status: Acute Secondary to generalized weakness. PT/OT. Qualifiers: Encounter type: initial encounter Qualified Code(s): W19.XXXA - Unspecified fall, initial encounter; Y92.009 - Unspecified place in unspecified non-institutional (private) residence as the place of occurrence of the external cause (4) Chest pain Current Visit: Yes Status: Acute Qualifiers: Chest pain type: unspecified Qualified Code(s): R07.9 - Chest pain, unspecified (5) Elevated troponin Current Visit: No Status: Chronic (6) Congestive heart failure Current Visit: No Status: Chronic TTE showed EF of 25%-30% with severes LV systolic and diastolic dysfunction. Consider cardiology to evaluate. Management per the primary team. Qualifiers: Heart failure type: unspecified Heart failure chronicity: unspecified Qualified Code(s): I50.9 - Heart failure, unspecified (7) Diabetes Current Visit: No Status: Chronic Recommend aggressive glucose monitoring and control to promote wound healing and prevent re-infection. Management per the primary team. Qualifiers: Diabetes mellitus type: type 2 Diabetes mellitus prison insulin use: with prison use Diabetes mellitus complication status: with skin complications Diabetes mellitus complication detail: with other skin ulcer Qualified Code(s): E11.622 - Type 2 diabetes mellitus with other skin ulcer; Z79.4 - [facility] (current) use of insulin (8) Hypertension Current Visit: Yes Status: Chronic Qualifiers: Hypertension type: essential hypertension Qualified Code(s): I10 - Essential (primary) hypertension (9) CKD (chronic kidney disease) stage 3, GFR 30-59 ml/min Current Visit: No Status: Chronic Monitor renal function closely and dose-adjust antibiotics. (10) Candidiasis Current Visit: Yes Status: Acute Nystatin topical powder to the folds. (11) History of bladder cancer Current Visit: No Status: Chronic (12) CAD (coronary artery disease) Current Visit: No Status: Chronic Qualifiers: Coronary Disease-Associated Artery/Lesion type: unspecified vessel or lesion type [place] vs. transplanted heart: unspecified whether [place] or transplanted heart Associated angina: with unspecified angina Qualified Code (s): I25.119 - Atherosclerotic heart disease of [place] coronary artery with unspecified angina pectoris - Subjective Interval history: Patient seen and examined with son at the bedside. No acute events noted overnight. Patient states overall he feels a little better today. States his right foot is pretty painful since working with PT this morning. Denies any fevers or chills or rigors. Denies any chest pain. Reports shortness of breath with exertion and cough productive of light green sputum. He denies any nausea or vomiting or diarrhea and states his last bowel movement was this morning. He states his appetite is beter today. He denies any abdominal pain or urinary complaints. He also reports improvement in the bilateral lower extremity soreness and swelling in the left lower extremity. He denies any oral thrush or new skin lesions. States the yeast rash in his groin fold seems to be improved. Infect Dis PN-Objective Data - Labs CBC & Chem 7: 08/06/18 08:28 08/06/18 08:28 Labs: Laboratory Results - last 24 hr 08/05/18 08/05/18 08/06/18 10:05 11:28 02:38 WBC RBC Hgb Hct MCV MCH MCHC RDW Plt Count MPV Immature Gran % Seg Neutrophils % Lymphocytes % Monocytes % Eosinophils % Basophils % Neutrophils # Lymphocytes # Monocytes # Eosinophils # Basophils # Sodium Potassium Chloride Carbon Dioxide BUN Creatinine Est GFR ( Amer) Est GFR (Non-Af Amer) BUN/Creatinine Ratio Glucose POC Glucose 99 100 H 200 H Calculated Osmolality Calcium 08/06/18 08/06/18 08:28 08:28 WBC 5.8 RBC 4.03 L Hgb 11.8 L Hct 38.0 MCV 94.3 MCH 29.3 MCHC 31.1 L RDW 17.5 H Plt Count 226 MPV 9.7 Immature Gran % 0.2 Seg Neutrophils % 65.5 Lymphocytes % 15.7 Monocytes % 12.2 Eosinophils % 5.5 Basophils % 0.9 Neutrophils # 3.8 Lymphocytes # 0.9 Monocytes # 0.7 Eosinophils # 0.3 Basophils # 0.1 Sodium 138 Potassium 4.7 Chloride 98 Carbon Dioxide 30 H BUN 41 H Creatinine 2.22 H Est GFR ( Amer) 34 L Est GFR (Non-Af Amer) 28 L BUN/Creatinine Ratio 18 Glucose 198 H POC Glucose Calculated Osmolality 302 H Calcium 9.7 Cultures: Cultures 08/02/18 16:25 Blood Culture - Preliminary Peripheral Venipuncture Culture is incubating and being continuously monitored for growth. Final report to follow. 08/02/18 16:30 Blood Culture - Preliminary Peripheral Venipuncture Culture is incubating and being continuously monitored for growth. Final report to follow. Serology 08/02/18 Range/Units 22:58 Urine Color Yellow (Yellow) Urine Clarity Clear (Clear) Urine pH 7.0 (5.0-8.0) pH Units Ur Specific [place] 1.008 L (1.010-1.025) Urine Protein Negative (Neg-Trace) mg/dL Urine Glucose (UA) Normal (Normal) mg/dL Urine Ketones Negative (Negative) mg/dL Urine Blood Negative (Negative) Urine Nitrite Negative (Negative) Urine Bilirubin Negative (Negative) Urine Urobilinogen Normal (Normal) mg/dL Ur Leukocyte Esterase Moderate H (Negative) Urine Microscopic RBC 0-3 (0-3) per hpf Urine Microscopic WBC 5-15 H (0-3) per hpf Ur Squamous Epith Cells Moderate H (None-Few) per lpf Urine Bacteria None Seen (None-Few) per hpf Hyaline Casts None Seen (None-Few) per lpf - Impressions Impressions Echocardiogram 08/04/18 14:47 Impressions: LVEF 25-30%. Moderately dilated left ventricle. Severe left ventricular systolic dysfunction. Severe left ventricular diastolic dysfunction. There is no LV thrombus. Definity echo contrast was used. Atypical septal motion consistent with post-operative status. Mildly dilated right ventricle. Mild right ventricular hypokinesis. Mild mitral regurgitation. Trace tricuspid regurgitation. Estimated RVSP is 57 mmHg wih an estimated RAP of 10mmHg, PASP is 67mmHg (Moderate to severe pulmonary hypertension). Left Ventricular Wall Motion: Rest Echo Findings The apex, apical inferior, mid inferior, basal inferior, apical anterior, mid anterior, basal anterior, apical septal, mid inferior septal, basal inferior septal, apical lateral, mid anterior lateral, basal anterior lateral, mid anterior septal, mid inferior lateral, basal anterior septal and basal inferior lateral [place] were hypokinetic. Findings: Study Quality * Technically adequate exam. ECG Findings * Paced rhythm. Left Ventricle * LVEF 25-30%. * Moderately dilated left ventricle. * Severe left ventricular systolic dysfunction. * Severe left ventricular diastolic dysfunction. * There is no LV thrombus. * Definity echo contrast was used. * Atypical septal motion consistent with post-operative status. Right Ventricle * Mildly dilated right ventricle. * Mild right ventricular hypokinesis. Left Atrium * Moderately dilated left atrium. Right Atrium * Normal right atrial size. Interatrial Septum * No evidence of PFO by color Doppler. Aortic Valve * Trileaflet aortic valve. * Trileaflet aortic valve with normal function. * No aortic regurgitation. * No aortic stenosis. Mitral Valve * Mild mitral regurgitation. * Normal mitral valve structure. Tricuspid Valve * Normal tricuspid valve structure. * Trace tricuspid regurgitation. * Estimated RVSP is 57 mmHg. * Moderate to severe pulmonary hypertension. Pulmonic Valve * Normal pulmonic valve structure and function. * No pulmonic regurgitation. Aorta * Normally sized aortic root. Pericardium * The pericardium appears normal. IVC * Normal IVC dimensions and inspiratory collapse. Device lead * A device lead was visualized in the right atrium and right ventricle. Pulmonary Artery * Normal visualized portions of the main pulmonary artery. Exam - Constitutional Vitals: Temp Pulse Resp BP Pulse Ox 97.8 F 93 18 133/76 91 08/06/18 06:34 08/06/18 06:34 08/06/18 06:34 08/06/18 06:34 08/06/18 06:34 General appearance: cooperative, no acute distress, obese - Head Head exam: Present: atraumatic, normal inspection, normocephalic - Eye Eye exam: Present: EOMI, normal appearance, PERRL Pupils: Present: normal accommodation - ENT ENT exam: Present: mucous membranes moist - Neck Neck exam: Present: normal inspection - Respiratory Respiratory exam: Present: CTAB. Absent: rales, respiratory distress, rhonchi, wheezes - Cardiovascular Cardiovascular exam: Present: RRR, +S1, +S2 - GI/Abdominal GI/Abdominal exam: Present: distended (obese), normal bowel sounds, soft. Absent: tenderness - Extremities Exam Extremities exam: Present: pedal edema (1+ LLE), tenderness (BLE). Absent: joint swelling, normal inspection Additional comments: SKin graft scars noted to the RLE. RLE dressing C/D/I. - Neurological Exam Neurological exam: Present: alert, oriented X3, no focal deficits - Psychiatric Psychiatric exam: Present: normal affect, normal mood - Skin Skin exam: Present: dry, intact, normal color, warm Consult Discharge Plan - Plan Referrals: Wali Ornelas DO [Primary Care Provider] - - Attending Attestation I examined this patient and my medical decision-making was reviewed with the Resident Physician. I agree with the documented findings, disposition and treatment plan as described except to the extent set forth below.
[2018-08-06] MEDS: Insulin DETEMIR 100 UNIT/ML X5UNITS SQ SCH (11:04)
[2018-08-06] MEDS: Clotrimazole 1% CRM 15 GM TUBE TP SCH (13:11)
[2018-08-06] MEDS: Gentamicin Oint 15 GM TUBE TP SCH (13:11)
--- NOTE | 2018-08-06 13:53 | Podiatry Progress Note ---
Date of Encounter: 08/06/18 Time of Encounter: 12:00 - Assessment and Plan (1) Venous stasis ulcer Current Visit: Yes Status: Acute Appearance of wounds consistent with venous stasis ulcerations Cleanse daily with hibiclens and rinse BID dressing changes Apply maxsorb AG to wound of right lateral foot Apply santyl/gent mixture of wound of medial right foot with application of wet to dry dressing over Apply bulk kerlix dressing over entire wound ABIs obtained and abnormal- vascular consulted for recommendation. Elevate at all times, do not dangle Continue with antibiotic treatment per ID CT scan negative for any underlying osteo or abscess formation Recommend continued treatment in outpatient setting with in [facility] center Explained to patient at bedside. Considering ECF placement for rehab Qualifiers: Venous stasis ulcer site: other part of lower leg Varicose vein presence: without varicose veins Laterality: right Non-pressure ulcer stage: limited to breakdown of skin Qualified Code(s): I87.2 - Venous insufficiency (chronic ) (peripheral); L97.811 - Non-pressure chronic ulcer of other part of right lower leg limited to breakdown of skin (2) Muscle spasm of both lower legs Current Visit: Yes Status: Acute Vascular consulted due to abnormal NATTY Impressions: The bilateral lower extremity ankle-brachial indices may be pseudoelevated to two-vessel Stenosis. The right lower extremity waveforms are consistent with mild disease. The right ankle brachial index is 1.8. The left lower extremity waveforms are consistent with mild disease. The left ankle brachial index is 1.8. Recommendations: Risk factor reduction. Further evaluation recommended if clinically indicated. After imaging the patient returned to their room. Findings LE Arterial Physiologic Exam: Segmental Pressures: Right: The right posterior tibial pressure is 255 mmHg with an index of 1.8. The right dorsalis pedis pressure is 255 mmHg with an index of 1.8. Left: The left posterior tibial pressure is 231 mmHg with an index of 1.63. The left dorsalis pedis pressure is 255 mmHg with an index of 1.8. PVR: Right: The PVR waveforms are mildly diminished in the right ankle. Left: The PVR waveforms are mildly diminished in the left ankle. Prior Study: No prior study available for comparison. Risk factor reduction. Further evaluation recommended if clinically indicated. After imaging the patient returned to their room. Segmental Pressures Side Location Pressure Index Result Right Posterior Tibial 255 1.80 noncompressible Right Dorsalis Pedis 255 1.80 noncompressible Left Posterior Tibial 231 1.63 Normal Left Dorsalis Pedis 255 1.80 noncompressible Ankle Brachial Index Right Systolic Diastolic NATTY Brachial 141 1.80 Dorsalis Pedis 255 1.80 Posterior Tibial 255 1.80 Left Systolic Diastolic NATTY Brachial 142 1.80 Dorsalis Pedis 255 1.80 Posterior Tibial 231 1.63 (3) Diabetes mellitus type 2, insulin dependent Current Visit: No Status: Chronic Management per internal medicine (4) Bilateral lower extremity edema Current Visit: Yes Status: Acute (5) Tinea pedis of left foot Current Visit: Yes Status: Acute active tinea pedis noted of left foot Clotrimazole cream BID x28 days to dorsal and plantar aspect of left foot, ankle and webspaces of toes Subjective Interval history: Patient wish history of chronic venous stasis wounds of e. Patient seen and worked up yesterday. Sleeping on arrival. Son at bedside. States patient has been sleeping a lot today but this is normal for him.Denies any known fevers, chills, n/v or fls reported by patient. Sw at bedside, states they plan for ECF placement. Objective - Vital Signs Vital Signs: Vital Signs Temp Pulse Resp BP Pulse Ox 08/06/18 12:33 97.5 F L 90 20 134/81 94 08/06/18 06:34 97.8 F 93 18 133/76 91 08/06/18 04:00 98.3 F 89 22 127/75 96 08/05/18 20:00 98.6 F 93 24 156/86 94 08/05/18 16:21 98.1 F 83 18 135/91 95 Intake and Output 08/05/18 08/06/18 08/06/18 23:59 07:59 15:59 Intake Total 460 / 460 0 / 0 400 / 400 Output Total 125 / 125 200 / 200 Balance 335 / 335 0 / 0 200 / 200 Intake: Oral 460 / 460 0 / 0 400 / 400 Output: Urine 125 / 125 200 / 200 Other: Meal Dinner Breakfast Percent of Meal Consumed 100% 75% # Voids 1 1 Weight 109.64 kg Blood Glucose* 200 171 165 Patient Weight 08/06/18 23:59 Weight 109.64 kg - Exam Exam: Asleep on arrival Dressing to RLE left intact at this time. - Lab Result Diagrams: 08/06/18 08:28 08/06/18 08:28 Labs: Abnormal lab results RBC 4.03 M/mcL (4.19-5.50) L 08/06/18 08:28 Hgb 11.8 g/dL (12.9-16.9) L 08/06/18 08:28 MCHC 31.1 g/dL (31.6-35.5) L 08/06/18 08:28 RDW 17.5 % (11.5-14.5) H 08/06/18 08:28 ESR 35 mm/hr (0-10) H 08/04/18 15:41 PT 12.7 Seconds (9.4-12.1) H 08/02/18 12:05 Carbon Dioxide 30 mEq/L (23-29) H 08/06/18 08:28 BUN 41 mg/dL (8-23) H 08/06/18 08:28 Creatinine 2.22 mg/dL (0.70-1.30) H 08/06/18 08:28 Est GFR ( Amer) 34 (> 60) L 08/06/18 08:28 Est GFR (Non-Af Amer) 28 (> 60) L 08/06/18 08:28 Glucose 198 mg/dL (70-105) H 08/06/18 08:28 POC Glucose 200 mg/dL (70-99) H 08/06/18 02:38 Hemoglobin A1c 7.3 % (-5.6) H 08/02/18 14:42 Calculated Osmolality 302 (280-300) H 08/06/18 08:28 Troponin I 0.07 ng/mL (< 0.04) H* 08/03/18 03:54 B-Natriuretic Peptide 897 pg/mL (Less than 100) H 08/02/18 12:05 Ur Specific [place] 1.008 (1.010-1.025) L 08/02/18 22:58 Ur Leukocyte Esterase Moderate (Negative) H 08/02/18 22:58 Urine Microscopic WBC 5-15 per hpf (0-3) H 08/02/18 22:58 Ur Squamous Epith Cells Moderate per lpf (None-Few) H 08/02/18 22:58 Consult Discharge Plan - Plan Referrals: Wali Ornelas, DO [Primary Care Provider] -
[2018-08-06] MEDS: Gabapentin 300 MG CAPSULE PO SCH (18:46)
[2018-08-06] MEDS: Furosemide 40 MG TABLET PO SCH (19:02)
[2018-08-06] MEDS: Melatonin 3 MG TABLET PO SCH (21:29)
--- NOTE | 2018-08-06 22:14 | Internal Med Progress Note ---
Hospitalist Progress Note - Encounter Date of Encounter: 08/06/18 Time of Encounter: 19:00 - Subjective Interval History: SUBJECTIVE: The patient feels good about his breathing. It seems to be baseline, again. He is on 2-3 L/min nasal cannula oxygen. Denies coughing and wheezing. He has less pain in he is right foot. Denies chest pain. Denies abdominal pain, nausea and vomiting. He makes good amounts of urine. OBJECTIVE: Skin: See notes from infectious diseases/podiatry. ENMT: Oral/pharyngeal mucosa is normal in appearance. Eyes: Sclera is white. There is no discharge from eyes. Respiratory: Normal breath sounds; no crackles or wheezes. CV: Heart is regular; no gallop or murmur. GI: Abdomen is soft and not tender. There is no palpable mass or visceromegaly. Neuro: There is no focal deficits. ASSESSMENT AND PLAN: Acute on chronic systolic heart failure (ejection fraction of 30%) in a patient with CKD stage IV (secondary to long-standing type 2 diabetes mellitus and hypertension). He has developed mild anemia of chronic kidney disease. We will be watching his input/output closely. He will get Lasix, if needed. We cannot use HILLARY inhibitor/ARB and beta-blockers at this time due to his low BP. His type 2 diabetes mellitus is treated with insulin Levemir and insulin Humalog. He is on diabetic diet. His hypertension is treated with hydralazine. Cellulitis of right foot. Venous stasis ulceration of right foot. He is on IV Rocephin. See notes from infectious diseases/podiatry. - Exam Vitals: Temp Pulse Resp BP Pulse Ox 97.6 F 92 18 156/99 92 08/06/18 20:06 08/06/18 20:06 08/06/18 20:06 08/06/18 20:06 08/06/18 20:06 Exam: xx - Assessment and Plan (1) Acute on chronic systolic heart failure Current Visit: Yes Status: Acute (2) Cellulitis of foot, right Current Visit: Yes Status: Acute (3) Venous stasis ulcer Current Visit: Yes Status: Acute (4) CAD (coronary artery disease) Current Visit: No Status: Chronic (5) T2DM (type 2 diabetes mellitus) Current Visit: Yes Status: Acute (6) Hypertensive renal disease with renal failure Current Visit: Yes Status: Acute (7) Anemia, chronic disease Current Visit: Yes Status: Chronic - Time Spent with Patient Total time spent is greater than 50% in coordination of care (as documented) at patient's floor/unit and/or counseling patient: 25 - 35 minutes Plan of Care Discussed with: patient Internal Medicine: Result - Labs CBC & Chem 7: 08/06/18 08:28 08/06/18 08:28 Labs: Short CBC 08/06/18 Range/Units 08:28 WBC 5.8 (4.3-11.1) K/mcL Hgb 11.8 L (12.9-16.9) g/dL Hct 38.0 (37.5-50.1) % Plt Count 226 (140-400) K/mcL Neutrophils # 3.8 (1.6-8.9) K/mcL BMP 08/06/18 08:28 Sodium 138 Potassium 4.7 Chloride 98 Carbon Dioxide 30 H BUN 41 H Creatinine 2.22 H Glucose 198 H Calcium 9.7 - ABG Interpretation ABG results: PT/INR, D-dimer PT 12.7 Seconds (9.4-12.1) H 08/02/18 12:05 - Impressions Impressions Chest X-Ray 08/06/18 11:47 IMPRESSION: Slightly worsened left basilar opacity suggesting small left pleural effusion with left basilar atelectasis or pneumonitis. D/ / Jerel Alonso / Jerel Alonso Interpreting Provider: Jerel Alonso Consult Discharge Plan - Plan Referrals: Wali Ornelas DO [Primary Care Provider] - (3) Venous stasis ulcer Qualifiers: Venous stasis ulcer site: other part of lower leg Varicose vein presence: without varicose veins Laterality: right Non-pressure ulcer stage: limited to breakdown of skin Qualified Code(s): I87.2 - Venous insufficiency (chronic) ( peripheral); L97.811 - Non-pressure chronic ulcer of other part of right lower leg limited to breakdown of skin (4) CAD (coronary artery disease) Qualifiers: Coronary Disease-Associated Artery/Lesion type: unspecified vessel or lesion type [place] vs. transplanted heart: unspecified whether [place] or transplanted heart Associated angina: with unspecified angina Qualified Code(s): I25.119 - Atherosclerotic heart disease of [place] coronary artery with unspecified angina pectoris (5) T2DM (type 2 diabetes mellitus) Qualifiers: Diabetes mellitus assisted insulin use: with termite treater helper use Diabetes mellitus complication status: with kidney complications Diabetes mellitus complication detail: with chronic kidney disease Chronic kidney disease stage: stage 4 (severe) Qualified Code(s): E11.22 - Type 2 diabetes mellitus with diabetic chronic kidney disease; N18.4 - Chronic kidney disease, stage 4 (severe ); Z79.4 - nursing home (current) use of insulin
[2018-08-07] MEDS: *HR* Heparin 5,000 UNIT/ML VIAL SQ SCH ×4 (05:49→23:03)
[2018-08-07] MEDS: Gentamicin Oint 15 GM TUBE TP SCH ×3 (05:51→11:18)
[2018-08-07] MEDS: Clotrimazole 1% CRM 15 GM TUBE TP SCH ×4 (05:51→23:05)
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
[2018-08-07] MEDS: Nystatin POWDER 30 GM BOTTLE TP SCH ×3 (06:46→23:04)
[2018-08-07] MEDS: Insulin LISPRO 300 UNITS/3 ML VIAL SQ SCH ×4 (08:43→21:58)
[2018-08-07] MEDS: Insulin DETEMIR 100 UNIT/ML X5UNITS SQ SCH (10:30)
[2018-08-07] MEDS: Famotidine 20 MG TABLET PO SCH (10:31)
[2018-08-07] MEDS: Isosorbide MONOnitrate (24 HR) 60 MG TAB.ER.24H PO SCH (10:31)
[2018-08-07] MEDS: Aspirin Enteric Coated 81 MG Tablet PO SCH (10:31)
[2018-08-07] MEDS: Metoprolol XL (24 HR) Succ 25 MG TAB.ER.24H PO SCH (10:31)
[2018-08-07] MEDS: hydrALAZINE 25 MG TABLET PO SCH ×2 (10:31→21:57)
[2018-08-07] MEDS: Fenofibrate 54 MG TABLET PO SCH (10:31)
[2018-08-07] MEDS: Ranolazine 500 MG TAB.ER.12H PO SCH ×2 (10:31→21:57)
[2018-08-07] MEDS: cefTRIAXone 2,000 MG in Water for inj. (sterile) 20 ML 20 ML IVPB SCH (10:33)
[2018-08-07] MEDS: traMADol 50 MG TABLET PO PRN ×2 (10:53→15:52)
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
[2018-08-07] MEDS: Furosemide 40 MG TABLET PO SCH (15:52)
[2018-08-07] MEDS: Gabapentin 300 MG CAPSULE PO SCH (15:52)
[2018-08-07] MEDS: Acetaminophen 325 MG TABLET PO PRN (17:08)
--- NOTE | 2018-08-07 21:10 | Internal Med Progress Note ---
Hospitalist Progress Note - Encounter Date of Encounter: 08/07/18 Time of Encounter: 19:00 - Subjective Interval History: SUBJECTIVE: He said breathing seems to be baseline; on 23 L/min nasal cannula oxygen. Denies coughing and wheezing. The right foot pain is mild. Denies chest pain. Denies abdominal pain, nausea and vomiting. He makes good amounts of urine. OBJECTIVE: Skin: See notes from infectious diseases/podiatry. ENMT: Oral/pharyngeal mucosa is normal in appearance. Eyes: Sclera is white. There is no discharge from eyes. Respiratory: Normal breath sounds; no crackles or wheezes. CV: Heart is regular; no gallop or murmur. GI: Abdomen is soft and not tender. There is no palpable mass or visceromegaly. Neuro: There is no focal deficits. Chest x-ray shows mild pulmonary congestion (stable). ASSESSMENT AND PLAN: Acute on chronic systolic heart failure (ejection fraction of 30%) in a patient with CKD stage IV (secondary to long-standing type 2 diabetes mellitus and hypertension). He has developed mild anemia of chronic kidney disease. We will be watching his respiratory status closely. He will get Lasix, if needed. His blood pressure is better. He is on low dose of Toprol-XL. No HILLARY inhibitor/ARB at this time. His type 2 diabetes mellitus is treated with insulin Levemir and insulin Humalog. He is on diabetic diet. His hypertension is treated with hydralazine. Cellulitis of right foot. Venous stasis ulceration of right foot. He is on IV Rocephin. See notes from infectious diseases/podiatry. Vascular surgery consult has been requested. - Exam Vitals: Temp Pulse Resp BP Pulse Ox 98.2 F 91 20 142/94 92 08/07/18 20:00 08/07/18 20:00 08/07/18 20:00 08/07/18 20:00 08/07/18 20:00 Exam: xx - Assessment and Plan (1) Acute on chronic systolic heart failure Current Visit: Yes Status: Acute (2) Cellulitis of foot, right Current Visit: Yes Status: Acute (3) Venous stasis ulcer Current Visit: Yes Status: Acute (4) CAD (coronary artery disease) Current Visit: No Status: Chronic (5) T2DM (type 2 diabetes mellitus) Current Visit: Yes Status: Acute (6) Hypertensive renal disease with renal failure Current Visit: Yes Status: Acute (7) Anemia, chronic disease Current Visit: Yes Status: Chronic - Time Spent with Patient Total time spent is greater than 50% in coordination of care (as documented) at patient's floor/unit and/or counseling patient: 25 - 35 minutes Plan of Care Discussed with: patient (and family..) Internal Medicine: Result - Labs CBC & Chem 7: 08/06/18 08:28 08/06/18 08:28 - ABG Interpretation ABG results: PT/INR, D-dimer PT 12.7 Seconds (9.4-12.1) H 08/02/18 12:05 Consult Discharge Plan - Plan Referrals: Wali Ornelas DO [Primary Care Provider] - (3) Venous stasis ulcer Qualifiers: Venous stasis ulcer site: other part of lower leg Varicose vein presence: without varicose veins Laterality: right Non-pressure ulcer stage: limited to breakdown of skin Qualified Code(s): I87.2 - Venous insufficiency (chronic) ( peripheral); L97.811 - Non-pressure chronic ulcer of other part of right lower leg limited to breakdown of skin (4) CAD (coronary artery disease) Qualifiers: Coronary Disease-Associated Artery/Lesion type: unspecified vessel or lesion type [place] vs. transplanted heart: unspecified whether [place] or transplanted heart Associated angina: with unspecified angina Qualified Code(s): I25.119 - Atherosclerotic heart disease of [place] coronary artery with unspecified angina pectoris (5) T2DM (type 2 diabetes mellitus) Qualifiers: Diabetes mellitus usp insulin use: with surgical services assistant use Diabetes mellitus complication status: with kidney complications Diabetes mellitus complication detail: with chronic kidney disease Chronic kidney disease stage: stage 4 (severe) Qualified Code(s): E11.22 - Type 2 diabetes mellitus with diabetic chronic kidney disease; N18.4 - Chronic kidney disease, stage 4 (severe ); 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
[2018-08-07] MEDS: Melatonin 3 MG TABLET PO SCH (21:57)
[2018-08-08] MEDS: ALPRAZolam 0.25 MG TABLET PO PRN ×2 (00:52→17:14)
[2018-08-08] MEDS: traMADol 50 MG TABLET PO PRN (00:52)
[2018-08-08] MEDS: *HR* Heparin 5,000 UNIT/ML VIAL SQ SCH ×3 (06:20→21:59)
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
[2018-08-08] MEDS: Insulin LISPRO 300 UNITS/3 ML VIAL SQ SCH ×4 (07:58→21:58)
[2018-08-08] MEDS: Insulin DETEMIR 100 UNIT/ML X5UNITS SQ SCH (07:59)
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
[2018-08-08] MEDS: Ranolazine 500 MG TAB.ER.12H PO SCH ×2 (09:04→21:59)
[2018-08-08] MEDS: Isosorbide MONOnitrate (24 HR) 60 MG TAB.ER.24H PO SCH (09:04)
[2018-08-08] MEDS: Famotidine 20 MG TABLET PO SCH (09:04)
[2018-08-08] MEDS: Fenofibrate 54 MG TABLET PO SCH (09:04)
[2018-08-08] MEDS: hydrALAZINE 25 MG TABLET PO SCH ×2 (09:05→21:58)
[2018-08-08] MEDS: Metoprolol XL (24 HR) Succ 25 MG TAB.ER.24H PO SCH (09:05)
[2018-08-08] MEDS: cefTRIAXone 2,000 MG in Water for inj. (sterile) 20 ML 20 ML IVPB SCH (09:05)
[2018-08-08] MEDS: Aspirin Enteric Coated 81 MG Tablet PO SCH (09:05)
[2018-08-08] MEDS: Nystatin POWDER 30 GM BOTTLE TP SCH ×2 (09:06→21:59)
[2018-08-08] MEDS: Clotrimazole 1% CRM 15 GM TUBE TP SCH ×2 (09:06→21:58)
[2018-08-08] MEDS ORDERED: 0.9 % Sodium Chloride 1,000 ML ONE ×2 (09:20→09:27)
[2018-08-08] MEDS ORDERED: *HR* Heparin 10,000 UNIT/10 ML VIAL ONE (09:20)
[2018-08-08] MEDS ORDERED: Heparin 1,000 UNITS/500 mL 500 ML ONE (09:20)
[2018-08-08] MEDS ORDERED: Isovue-300 200 mL Infus..BTL IV ONE (09:20)
[2018-08-08] MEDS ORDERED: *HR* Midazolam HCl 2 MG/2 ML VIAL ONE (09:27)
[2018-08-08] MEDS ORDERED: *HR* FentaNYL (PF) 100 MCG/2 ML VIAL ONE (09:27)
--- NOTE | 2018-08-08 09:47 | Pre-Sedation Evaluation ---
Pre-sedation evaluation - Pre-sedation checklist Recent Vitals: Last Vital Signs Temp 97.6 F 08/08/18 06:23 Pulse 89 08/08/18 06:23 Resp 16 08/08/18 06:23 BP 132/88 08/08/18 06:23 Pulse Ox 95 08/08/18 06:23 Possible difficult airway: Yes ASA Classification *see protocol: CLASS IV-Severe systemic disease/constant threat to pt's life Plan of Care: Pt appropriate candidate for procedure/moderate/conscious sedation , Risks/benefits of procedure/sedation discussed w/ patient/family Cardiac Registry (Cardio Only) - Functional Capacity - Clincal Frailty Scale
--- NOTE | 2018-08-08 11:18 | Procedure Note ---
Date of procedure: 08/08/18 Pre-op diagnosis: Right lower extremity PAD/ulcers Post-op diagnosis: same Procedure: Abdominal aortogram Aortogram with bilateral lower extremity runoff Standard and drug coated balloon angioplasty of right superficial femoral artery Anesthesia: MAC Surgeon: Gonzalo Riggins Was there an drafter assistant present: No Estimated blood loss (cc): 0 Specimen: 0 Condition: stable Disposition: floor
[2018-08-08] MEDS ORDERED: Ondansetron 4 MG/2 ML VIAL IVP PRN (11:19)
--- NOTE | 2018-08-08 11:32 | Invasive Diagnostic Lab Proc ---
Name: Aidan Warren Date of Study: 08/08/2018 Date: 1935 Ht: 173.0 in Medical Record#: [id number] Age: 83 Wt: 110 lb Gender: Male BSA: 2.22 Order #: [id number] BMI: 36.75 Physicians Performing MD: Gonzalo Riggins MD, FACS Referring MD: Referring MD: Staff Name Position Time In Albert Cabrera RN Salesperson [employer] Furnishings Yuri Boyd RT (R) Monitor Evelina Mcnamara RT (R) Scrub Indications Non-healing Ulcer Procedures Performed AORTOGRAPHY, ABDOMINAL S&I AORTOGRAPHY EXT Bilat S&I Pre-Procedure Checklist Informed consent is complete signed and on chart. H&P is on chart. ID band is on and ID verified with patient. Patient NPO for procedure The procedure was described for the patient and questions were answered. ECG is on chart. Plan of Care Patient will tolerate the procedure without complications. Adequate level of comfort will be maintained. Hemodynamics will remain stable Patient will recover from procedure without complications. Respiratory function will be maintained. Cardiac rhythm will remain stable. Patient temperature will be maintained. Patient and/or family have verbalized understanding of the procedure. Patient Education Chief Complaint/Reason for Test: Peripheral angiogram Developmental Category: Geriatric (65+ years) Learning Barriers: None Education Needs: Procedure Education Method: Verbal Information Taught: Peripheral angiogram Educational Evaluation: Able to repeat information Intravenous Access Time IV Size Location DC'd Fluid/Drip Rate Units RN 09:32 20g 1 1/4" Patent On Arrival Lt Wrist 0.9NaCl 25 ml/hr Albert Cabrera RN Allergies Sulfa (Sulfonamide Antibiotics) SULFA (sulfonamide) codeine Vital Signs Time BP Systolic BP Diastolic HR O2 Sats ASA 09:32 AM 09:49 AM 138 91 84 87 09:54 AM 147 90 87 91 09:59 AM 143 98 88 89 10:04 AM 134 86 87 81 10:09 AM 151 93 87 91 10:14 AM 148 95 86 97 10:19 AM 142 92 88 96 10:24 AM 148 93 86 99 10:29 AM 150 90 87 98 10:34 AM 137 93 87 100 10:39 AM 151 99 86 100 10:44 AM 145 91 86 99 10:49 AM 152 93 85 97 10:54 AM 159 98 86 100 10:59 AM 161 98 87 96 11:04 AM 160 98 88 99 11:09 AM 154 98 87 99 Procedure Medications Time Medication Dose Units Method Route 09:33 AM Oxygen 3 L/min nasal cannula 09:48 AM Versed 1 mg Intravenous 09:48 AM Fentanyl 25 mcg Intravenous 09:53 AM Lidocaine 2% 10 ml Subcutaneous 10:06 AM Oxygen 6 L/min Oxy Mask 10:10 AM Oxygen 10 L/min Oxy Mask 10:26 AM Heparin 5000 units Intravenous 10:36 AM Fentanyl 25 mcg Intravenous 10:50 AM Fentanyl 25 mcg Intravenous ASA Classification: CLASS III- Severe systemic disease (i.e. prior AMI, diabetes with vascular complications, morbid obesity) Artis Score Preprocedure Postprocedure Activity 2- Moves 4 extremities sustained head lift Activity 2- Moves 4 extremities sustained head lift Circulation 2- SBP +/= 20 points of pre-anesthetic level Circulation 2- SBP +/= 20 points of pre-anesthetic level Consciousness 2- Awake and alert oriented x 3 Consciousness 2- Awake and alert oriented x 3 O2 Saturation 1- Needs O2 inhalation to maintain O2 saturation of 90% O2 Saturation 1- Needs O2 inhalation to maintain O2 saturation of 90% Respiratory 2- Able to deep breathe and cough well Respiratory 2- Able to deep breathe and cough well Total Score 9 Total Score 9 Contrast: Isovue 300- 150ml Contrast Amount: 75 ml Fluoro Dose: 840 mGy Activated Clotting Time Time Drawn ACT (sec) 11:10 AM 214 Procedure Log Time Note Entered By 09:21 AM Albert Cabrera RN Position: Salesperson [employer] Furnishings Time in: 09:20 eliezer 09:21 AM Yuri Boyd RT (R) Position: Monitor [facility]: 09[email or web address] 09[facility]21 AM Evelina Mcnamara RT (R) Position: Scrub Time in: 09:21 eliezer 09:21 AM Patient charges- Angio tray pack, Pulse Oximetry and ACIST tubing and transducer [facility] 09:31 AM Pt arrived to [place] [facility] 1 at 09:31 [facility] 09:31 AM Case delayed: No [facility] 09:31 AM Time: 09:31 Is patient comfortable and pain free?: Yes eliezer 09:32 AM Time: 09:32LOC: 5 = Fully awake and oriented or at pre-proc level [facility] 09:33 AM 09:33 Oxygen at 3 L/min per nasal cannula by Albert Cabrera RN [facility] 09:40 AM Physician arrived 09:40 [email or web address] 09:40 AM Oleg and stephan completed [email or web address] 09:40 AM Sign in performed according to hospital policy. [email or web address] 09:40 AM Procedure start 09:40 [email or web address] 09:47 AM ASA Class CLASS III- Severe systemic disease (i.e. prior AMI, diabetes with vascular complications, morbid obesity) [email or web address] 09:47 AM 200 ml bolus of fluids given [email or web address] 09:48 AM 09:48 Versed 1 mg Intravenous Given by Albert Cabrera RN [email or web address] 09:48 AM 09:48 Fentanyl 25 mcg Intravenous Given by Albert Cabrera RN [email or web address] 09:51 AM Hair removed from procedure site in procedure lab using clippers. Bilateral groin prepped with Chloraprep by Evelnia Mcnamara (R), then patient was draped. Skin intact. [email or web address] 09:52 AM Time out perfomed [email or web address] 09:53 AM 09:53 10 ml Lidocaine 2% to left groin Subcutaneous Given By Gonzalo Riggins MD, FACS [email or web address] 09:54 AM Access obtained in the left femoral artery by percutaneous puncture. 5 Fr. 10 cm Terumo Bremond sheath placed in left femoral artery [email or web address] 09:55 AM 0.035 145cm J-wire wire utilized to assist with catheter placement [email or web address] 09:55 AM 5Fr Short pigtail catheter [email or web address] 09:56 AM Abdominal aorta angiography performed in AP contrast injected 10/20 mls. [email or web address] 09:57 AM Physician reviewing films [email or web address] 09:57 AM Setting up for stepping [email or web address] 09:58 AM Abdominal angiogram with runoff completed: 5 ml/sec for a total of 50 mls [email or web address] 09:58 AM fluid bolus done , fluids at 75 ml/hr [email or web address] 10:04 AM Physician reviewing films [email or web address] 10:05 AM Catheter removed [email or web address] 10:05 AM 5Fr Omniflush catheter inserted over the wire [email or web address] 10:07 AM 10:06 Oxygen at 6 L/min per Oxy Mask by Albert Cabrera RN [email or web address] 10:07 AM Sheath exchanged for a 6 Fr 45 cm Terumo Destination sheath inserted into left femoral artery [email or web address] 10:07 AM Inflation device [email or web address] 10:08 AM j-wire removed [email or web address] 10:09 AM 0.035 260cm Amplatz super stiff wire utilized to assist with catheter placement [email or web address] 10:10 AM 10:10 Oxygen at 10 L/min per Oxy Mask by Albert Cabrera RN [email or web address] 10:11 AM 5Fr 100cm Glidecath Angled-Taper guide catheter advanced [email or web address] 10:11 AM amplatz wire removed [email or web address] 10:12 AM 0.035 Glidewire Angled 260cm guidewire advanced. [email or web address] 10:17 AM glide wire removed [email or web address] 10:19 AM 0.014 Victory 14, 30 gram 300cm guidewire advanced. [email or web address] 10:21 AM Guide wire removed intact [email or web address] 10:22 AM victory wire advanced [email or web address] 10:23 AM Guide wire removed intact [email or web address] 10:23 AM glide wire advanced [email or web address] 10:25 AM Guide catheter removed intact [email or web address] 10:26 AM 10:26 Heparin 5000 units Intravenous by Albert Cabrera RN [email or web address] 10:31 AM 4 mm x 200 mm Leak Detection Engineer balloon catheter placed into right superficial femoral [email or web address] 10:31 AM Balloon inflated @ 20 jonathan for 60 seconds [email or web address] 10:33 AM Balloon inflated @ 20 jonathan for 60 seconds [email or web address] 10:36 AM Balloon removed intact [email or web address] 10:36 AM 10:36 Fentanyl 25 mcg Intravenous Given by Albert Cabrera RN [email or web address] 10:38 AM 5Fr 130cm Campbell guide catheter advanced [email or web address] 10:38 AM glide wire removed [email or web address] 10:39 AM amplatz wire advanced [email or web address] 10:40 AM Guide catheter removed intact [email or web address] 10:41 AM 4mm x 200mm balloon advanced [email or web address] 10:42 AM Balloon inflated @ 20 jonathan for 60 seconds [email or web address] 10:44 AM Balloon removed intact [email or web address] 10:47 AM 6 mm x 200 mm Medtronic drug coated balloon placed into distal right superficial femoral [id number] [email or web address] 10:50 AM 10:50 Fentanyl 25 mcg Intravenous Given by Albert Cabrera RN [email or web address] 10:50 AM Balloon inflated @ 10 jonathan for 180 seconds [email or web address] 10:54 AM Balloon removed intact [email or web address] 10:57 AM 6 mm x 150 mm Medtronic drug coated balloon placed into proximal right superficial femoral [id number] [email or web address] 11:00 AM Balloon inflated @ 10 jonathan for 180 seconds [email or web address] 11:01 AM Diagram Region: Lower Extremity Arteries Anatomical Region: LE-Art99% Lesion in Distal Left Superficial Femoral Intervention done: 1 (1=yes, 0=no) [email or web address] 11:04 AM Balloon removed intact [email or web address] 11:06 AM Guide wire removed intact [email or web address] 11:07 AM Procedure completed at 11:07 [email or web address] 11:07 AM Sign Out completed: Radiation Dose 839.79 mGy Fluoro Time: 13.3 minutes. Isovue 300- 150ml contrast 75 ml given by Gonzalo Riggins MD, FACS. Complications: None. Confirmed administered medications:Yes [email or web address] 11:07 AM Isovue 300- 150ml,1 bottle(s) used. [email or web address] 11:08 AM Sheath left in place to be pulled on floor/holding areaV+Pad [email or web address] 11:08 AM Estimated Blood Loss: less than 20cc [email or web address] 11:08 AM Post Blood Pressure: 160/98 [email or web address] 11:09 AM Information taught: Peripheral angiogram and MALT HOUSE SUPERVISOR [email or web address] 11:09 AM Education needs: Procedure, Plan of Care, and Disease Process [email or web address] 11:09 AM Learning barriers: Sedated and Cognitive [email or web address] 11:09 AM Education methods: Verbal [email or web address] 11:10 AM Education evaluation: Able to repeat information [email or web address] 11:10 AM Site status No bleeding/hematoma - Lt Groin as reported by Evelina Mcnamara RT (R) at 11:10 [email or web address] 11:11 AM ACT 214 [email or web address] 11:11 AM Opsite applied [email or web address] 11:11 AM Delay to floor: No [email or web address] 11:11 AM Pt taken to 2N Room# 8 [email or web address] 11:11 AM Family placed in consult room. [email or web address] 11:11 AM Complications: None [email or web address] 11:11 AM Fluoro Time: 13.3 minutes [email or web address] 11:11 AM Isovue 300- 150ml contrast 75 ml given by Gonzalo Riggins MD, FACS [email or web address] 11:11 AM Radiation Dose 839.79 mGy [email or web address] 09:34 AM PVIStat 09:48 AM Vitals capture started with the following parameters, Patient=Adult, Interval=5 min, Initial Huweyogx=258 mmHg, Deflation Rate=3 mmHg, Cuff placed on Right Arm 09:48 AM Recorded ECG: HR=89 Condition=Condition 1 09:48 AM Reference ECG taken 09:49 AM HR=84 bpm, VQHB=957/91 mmhg, SpO2=87.0 %, Resp=20 B/min 09:52 AM Pressure channel 1 zero failed. 09:52 AM Pressure channel 1 zeroed. 09:54 AM HR=87 bpm, ATVG=123/90 mmhg, SpO2=91.0 %, Resp=16 B/min 09:59 AM HR=88 bpm, AHZL=518/98 mmhg, SpO2=89.0 %, Resp=16 B/min 10:04 AM HR=87 bpm, YTVF=998/86 mmhg, SpO2=81.0 %, Resp=9 B/min 10:09 AM HR=87 bpm, JTHR=188/93 mmhg, SpO2=91.0 %, Resp=15 B/min 10:14 AM HR=86 bpm, OVAE=749/95 mmhg, SpO2=97.0 %, Resp=13 B/min 10:19 AM HR=88 bpm, WQFL=114/92 mmhg, SpO2=96.0 %, Resp=15 B/min 10:24 AM HR=86 bpm, KTTY=766/93 mmhg, SpO2=99.0 %, Resp=14 B/min 10:29 AM HR=87 bpm, OTHX=010/90 mmhg, SpO2=98.0 %, Resp=17 B/min 10:34 AM HR=87 bpm, AERS=215/93 mmhg, KwI8=469.0 %, Resp=18 B/min 10:39 AM HR=86 bpm, BXNY=753/99 mmhg, ZtP3=298.0 %, Resp=14 B/min 10:44 AM HR=86 bpm, TFJQ=531/91 mmhg, SpO2=99.0 %, Resp=15 B/min 10:49 AM HR=85 bpm, NAVC=732/93 mmhg, SpO2=97.0 %, Resp=16 B/min 10:54 AM HR=86 bpm, NHAA=814/98 mmhg, JtU7=751.0 %, Resp=15 B/min 10:59 AM HR=87 bpm, VVHS=561/98 mmhg, SpO2=96.0 %, Resp=15 B/min 11:04 AM HR=88 bpm, YXGZ=967/98 mmhg, SpO2=99.0 %, Resp=22 B/min 11:09 AM HR=87 bpm, NDCT=301/98 mmhg, SpO2=99.0 %, Resp=11 B/min 11:13 AM Vitals capture stopped. 11:12 AM Report given to mirtha ASCENCIO. Pt taken to , Room # 8 11:12 [email or web address] 11:22 AM Patient out of room 11:22 [email or web address] Peripheral Anatomy Vessel Pathology Lesion Stenosis Aneurysm Diameter Thrombus Type Left Superficial Femoral Lesion 99 Peripheral Intervention Anatomical Region:LE-Art Vessel Segment:Undefined Bookmark: [email or web address] Pathology Type:Lesion Pre-Stenosis:99 Post Procedure Information Blood Pressure: 160/98 mmHg Post procedure instructions given Site Checks Time Location Status Staff Sheath In? Note 11:10:00 AM Lt Groin No bleeding/hematoma Evelina Mcnamara RT (R) Pulses Time Site Pre Procedure Post Procedure Note 08/08/2018 9:33:00 AM Lt PT/LTDP 1+ 1+ 08/08/2018 9:34:00 AM Rt PT Doppler Doppler non healing ulcer on this foot Updated by Yuri Boyd RT (R) on 08/08/2018 11:23:37 AM RT Salma electronically signed on 08/08/2018 11:24:12 AM with status of Final
[2018-08-08] MEDS: *HR* Acetylcysteine 20% 600 MG/3 ML ORAL SYRINGE PO SCH ×2 (11:48→21:57)
[2018-08-08] MEDS: Gentamicin Oint 15 GM TUBE TP SCH ×2 (11:48→22:01)
--- NOTE | 2018-08-08 15:51 | Infectious Disease Progress No ---
Date of Encounter: 08/08/18 Time of Encounter: 15:50 - Assessment and Plan (1) Cellulitis of foot, right Current Visit: Yes Status: Acute Location: Right foot and ankle. Causative organism: P. mirabilis and K. oxytoca. Etiology unclear, but the patient's skin is compromised due to previous skin grafts. He reports this has been a chronic issue for several years and sometimes the area opens and "leaks" fluid. X-ray of the right foot negative for fracture. Clinically improved. Check ESR and CRP.--> 35, <5, respectively. ABIs showed mild disease bilaterally. Vascular surgery consulted. Podiatry recommendations noted and appreciated. CT of the right lower extremity negative for osteomyelitis or abscess. Continue Rocephin 2 grams IV daily. (day 4) Duration of treatment depends on the clinical picture. If the patient continues to improve, can likely transition to PO Omnicef when ready for discharge to complete a 14 day course. Monitor renal function and for drug toxicity and dose-adjust antibiotics. (2) Leg edema, left Current Visit: Yes Status: Acute Etiology unclear: CHF vs. other. Improved. Further workup and management per the primary team. (3) Fall at home Current Visit: Yes Status: Acute Secondary to generalized weakness. PT/OT. Qualifiers: Encounter type: initial encounter Qualified Code(s): W19.XXXA - Unspecified fall, initial encounter; Y92.009 - Unspecified place in unspecified non-institutional (private) residence as the place of occurrence of the external cause (4) Chest pain Current Visit: Yes Status: Acute Qualifiers: Chest pain type: unspecified Qualified Code(s): R07.9 - Chest pain, unspecified (5) Elevated troponin Current Visit: No Status: Chronic (6) Congestive heart failure Current Visit: No Status: Chronic TTE showed EF of 25%-30% with severes LV systolic and diastolic dysfunction. Consider cardiology to evaluate. Management per the primary team. Qualifiers: Heart failure type: unspecified Heart failure chronicity: unspecified Qualified Code(s): I50.9 - Heart failure, unspecified (7) Diabetes Current Visit: Yes Status: Chronic Recommend aggressive glucose monitoring and control to promote wound healing and prevent re-infection. Management per the primary team. 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 (10) Candidiasis Current Visit: Yes Status: Acute Nystatin topical powder to the folds. (11) History of bladder cancer Current Visit: No Status: Chronic (12) CAD (coronary artery disease) Current Visit: No Status: Chronic Qualifiers: Coronary Disease-Associated Artery/Lesion type: unspecified vessel or lesion type [place] vs. transplanted heart: unspecified whether [place] or transplanted heart Associated angina: with unspecified angina Qualified Code (s): I25.119 - Atherosclerotic heart disease of [place] coronary artery with unspecified angina pectoris - Subjective Interval history: Patient seen and examined with son at the bedside. No acute events noted overnight. Patient seen and examined. Daughter is at bedside. He appears comfortable but a little bit short of breath. Patient underwent abdominal aortogram aortogram with bilateral lower extremity runoff stand-alone drug coated balloon angioplasty of the right superficial femoral artery by Dr. Riggins Infect Dis PN-Objective Data - Labs CBC & Chem 7: 08/06/18 08:28 08/06/18 08:28 Labs: Laboratory Results - last 24 hr 08/07/18 08/07/18 08/07/18 11:47 16:14 21:06 POC Glucose 165 H 220 H 247 H Cultures: Cultures 08/02/18 16:25 Blood Culture - Final Peripheral Venipuncture No growth. Final report. 08/02/18 16:30 Blood Culture - Final Peripheral Venipuncture No growth. Final report. Serology 08/02/18 Range/Units 22:58 Urine Color Yellow (Yellow) Urine Clarity Clear (Clear) Urine pH 7.0 (5.0-8.0) pH Units Ur Specific Heth 1.008 L (1.010-1.025) Urine Protein Negative (Neg-Trace) mg/dL Urine Glucose (UA) Normal (Normal) mg/dL Urine Ketones Negative (Negative) mg/dL Urine Blood Negative (Negative) Urine Nitrite Negative (Negative) Urine Bilirubin Negative (Negative) Urine Urobilinogen Normal (Normal) mg/dL Ur Leukocyte Esterase Moderate H (Negative) Urine Microscopic RBC 0-3 (0-3) per hpf Urine Microscopic WBC 5-15 H (0-3) per hpf Ur Squamous Epith Cells Moderate H (None-Few) per lpf Urine Bacteria None Seen (None-Few) per hpf Hyaline Casts None Seen (None-Few) per lpf Exam - Constitutional Vitals: Temp Pulse Resp BP Pulse Ox 97.7 F 84 20 135/95 94 08/08/18 11:35 08/08/18 12:00 08/08/18 12:00 08/08/18 12:00 08/08/18 12:00 General appearance: disheveled, no acute distress, no febrile - Head Head exam: Present: atraumatic, normocephalic - Respiratory Respiratory exam: Present: CTAB. Absent: wheezes - Cardiovascular Cardiovascular exam: Present: RRR, +S1, +S2 - Extremities Exam Additional comments: Erythema and scarring and chronic changes of bilateral lower extremities unchanged Consult Discharge Plan - Plan Referrals: Wali Ornelas DO [Primary Care Provider] - 08/14/18 1:30 pm (Photo ID, Insurance cards, and your copay per the office) Gonzalo Riggins MD [Partnered Physician] - 08/08/18 10:49 am
[2018-08-08] MEDS ORDERED: *HR* Atropine Sulfate 1 MG/10 ML SYRINGE ONE (17:07)
[2018-08-08] MEDS: Furosemide 40 MG TABLET PO SCH (18:01)
[2018-08-08] MEDS: Gabapentin 300 MG CAPSULE PO SCH (21:57)
[2018-08-08] MEDS: Melatonin 3 MG TABLET PO SCH (21:58)
--- NOTE | 2018-08-08 22:08 | Internal Med Progress Note ---
Hospitalist Progress Note - Encounter Date of Encounter: 08/08/18 Time of Encounter: 19:00 - Subjective Interval History: SUBJECTIVE: I saw this patient shortly after his revascularization surgery on right leg. He is using oxygen mask at this time. He does not show any respiratory distress. I could not see him coughing or wheezing OBJECTIVE: Skin: See notes from infectious diseases/podiatry. ENMT: Oral/pharyngeal mucosa is normal in appearance. Eyes: Sclera is white. There is no discharge from eyes. Respiratory: Normal breath sounds; no crackles or wheezes. CV: Heart is regular; no gallop or murmur. GI: Abdomen is soft and not tender. There is no palpable mass or visceromegaly. Neuro: There is no focal deficits. Chest x-ray shows mild pulmonary congestion (stable). ASSESSMENT AND PLAN: Acute on chronic systolic heart failure (ejection fraction of 30%) in a patient with CKD stage IV (secondary to long-standing type 2 diabetes mellitus and hypertension). He has developed mild anemia of chronic kidney disease. We will be watching his respiratory status closely. He will get Lasix, if needed. His blood pressure is better. He is on low dose of Toprol-XL. No HILLARY inhibitor/ARB at this time. His type 2 diabetes mellitus is treated with insulin Levemir and insulin Humalog. He is on diabetic diet. His hypertension is treated with hydralazine. Cellulitis of right foot. Venous stasis ulceration of right foot. He is on IV Rocephin. See notes from infectious diseases/podiatry. Vascular surgery consult has been requested. The patient has had significant peripheral arterial disease. He had aortogram with bilateral lower extremity runoff/balloon angioplasty of right superficial femoral artery today. He is on subcutaneous heparin. He is on oral Plavix. - Exam Vitals: Temp Pulse Resp BP Pulse Ox 97.3 F L 92 20 137/94 97 08/08/18 19:03 08/08/18 19:03 08/08/18 19:03 08/08/18 19:03 08/08/18 19:03 Exam: xx - Assessment and Plan (1) Acute on chronic systolic heart failure Current Visit: Yes Status: Acute (2) Cellulitis of foot, right Current Visit: Yes Status: Acute (3) Venous stasis ulcer Current Visit: Yes Status: Acute (4) CAD (coronary artery disease) Current Visit: No Status: Chronic (5) T2DM (type 2 diabetes mellitus) Current Visit: Yes Status: Acute (6) Hypertensive renal disease with renal failure Current Visit: Yes Status: Acute (7) Anemia, chronic disease Current Visit: Yes Status: Chronic (8) PAD (peripheral artery disease) Current Visit: Yes Status: Acute - Time Spent with Patient Total time spent is greater than 50% in coordination of care (as documented) at patient's floor/unit and/or counseling patient: 25 - 35 minutes Plan of Care Discussed with: patient (and family) Internal Medicine: Result - Labs CBC & Chem 7: 08/06/18 08:28 08/06/18 08:28 - ABG Interpretation ABG results: PT/INR, D-dimer PT 12.7 Seconds (9.4-12.1) H 08/02/18 12:05 Consult Discharge Plan - Plan Referrals: Wali Ornelas DO [Primary Care Provider] - 08/14/18 1:30 pm (Photo ID, Insurance cards, and your copay per the office) Gonzalo Riggins MD [Partnered Physician] - 08/08/18 10:49 am (3) Venous stasis ulcer Qualifiers: Venous stasis ulcer site: other part of lower leg Varicose vein presence: without varicose veins Laterality: right Non-pressure ulcer stage: limited to breakdown of skin Qualified Code(s): I87.2 - Venous insufficiency (chronic) ( peripheral); L97.811 - Non-pressure chronic ulcer of other part of right lower leg limited to breakdown of skin (4) CAD (coronary artery disease) Qualifiers: Coronary Disease-Associated Artery/Lesion type: unspecified vessel or lesion type [place] vs. transplanted heart: unspecified whether [place] or transplanted heart Associated angina: with unspecified angina Qualified Code(s): I25.119 - Atherosclerotic heart disease of [place] coronary artery with unspecified angina pectoris (5) T2DM (type 2 diabetes mellitus) Qualifiers: Diabetes mellitus moth exterminator insulin use: with snf use Diabetes mellitus complication status: with kidney complications Diabetes mellitus complication detail: with chronic kidney disease Chronic kidney disease stage: stage 4 (severe) Qualified Code(s): E11.22 - Type 2 diabetes mellitus with diabetic chronic kidney disease; N18.4 - Chronic kidney disease, stage 4 (severe ); Z79.4 - terminal gauger (current) use of insulin
[2018-08-09] MEDS: *HR* Heparin 5,000 UNIT/ML VIAL SQ SCH ×3 (05:35→22:44)
[2018-08-09 07:56] LABS: Albumin 4.2 g/dL (3.5-5.7); Albumin/Globulin Ratio 1.5 (1.1-2.2); Bilirubin,Total 0.8 mg/dL (0.3-1.0); Calcium 9.8 mg/dL (8.6-10.3); Globulin 2.8 g/dL (2.4-3.5); Potassium 5.5 mEq/L (3.5-5.1)
[2018-08-09] MEDS: Aspirin Enteric Coated 81 MG Tablet PO SCH (08:31)
[2018-08-09] MEDS: Insulin DETEMIR 100 UNIT/ML X5UNITS SQ SCH (08:31)
[2018-08-09] MEDS: cefTRIAXone 2,000 MG in Water for inj. (sterile) 20 ML 20 ML IVPB SCH (08:31)
[2018-08-09] MEDS: Ranolazine 500 MG TAB.ER.12H PO SCH ×2 (08:32→22:44)
[2018-08-09] MEDS: Isosorbide MONOnitrate (24 HR) 60 MG TAB.ER.24H PO SCH (08:32)
[2018-08-09] MEDS: hydrALAZINE 25 MG TABLET PO SCH ×2 (08:32→22:44)
[2018-08-09] MEDS: Metoprolol XL (24 HR) Succ 25 MG TAB.ER.24H PO SCH (08:32)
[2018-08-09] MEDS: Famotidine 20 MG TABLET PO SCH (08:32)
[2018-08-09] MEDS: Fenofibrate 54 MG TABLET PO SCH (08:32)
[2018-08-09] MEDS: *HR* Acetylcysteine 20% 600 MG/3 ML ORAL SYRINGE PO SCH ×2 (08:36→22:44)
[2018-08-09] MEDS: Gentamicin Oint 15 GM TUBE TP SCH ×2 (08:37→19:45)
[2018-08-09] MEDS: Nystatin POWDER 30 GM BOTTLE TP SCH ×2 (08:37→22:44)
[2018-08-09] MEDS: Clotrimazole 1% CRM 15 GM TUBE TP SCH ×2 (08:38→19:46)
[2018-08-09] MEDS: Insulin LISPRO 300 UNITS/3 ML VIAL SQ SCH ×4 (08:38→22:44)
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
--- NOTE | 2018-08-09 16:57 | Internal Med Progress Note ---
Hospitalist Progress Note - Encounter Date of Encounter: 08/09/18 Time of Encounter: 16:55 - Subjective Interval History: SUBJECTIVE: He underwent right superficial femoral and popliteal artery angioplasty with a drug-coated balloon yesterday. He reports to us decreased pain in his right ankle/foot. He is using supplemental oxygen at 3 L/min nasal cannula; like at home. Denies resting dyspnea. Denies chest pain, coughing and wheezing. Denies abdominal pain, nausea and vomiting. She makes good amounts of urine. OBJECTIVE: Skin: See notes from infectious diseases/podiatry. ENMT: Oral/pharyngeal mucosa is normal in appearance. Eyes: Sclera is white. There is no discharge from eyes. Respiratory: Normal breath sounds; no crackles or wheezes. CV: Heart is regular; no gallop or murmur. GI: Abdomen is soft and not tender. There is no palpable mass or visceromegaly. Neuro: There is no focal deficits. His sodium is 135 with potassium of 5.5; 4.7 3 days ago. His creatinine is 1.84 ; two-point at 2.23 3 days ago. Liver function tests are normal. ASSESSMENT AND PLAN: Acute on chronic systolic heart failure (ejection fraction of 30%) in a patient with CKD stage IV (secondary to long-standing type 2 diabetes mellitus and hypertension). He has developed mild anemia of chronic kidney disease. We will be watching his respiratory status closely. He will get Lasix, if needed. His blood pressure is better. He is on low dose of Toprol-XL. No HILLARY inhibitor/ARB at this time. His type 2 diabetes mellitus is treated with insulin Levemir and insulin Humalog. He is on diabetic diet. His hypertension is treated with Toprol-XL and hydralazine. Cellulitis of right foot. Venous stasis ulceration of right foot. He is on IV Rocephin. See notes from infectious diseases/podiatry. Vascular surgery consult has been requested. The patient has had significant peripheral arterial disease. He underwent right superficial femoral and popliteal artery angioplasty with a drug-coated balloon yesterday. He is on subcutaneous heparin. He is on oral Plavix. Vascular surgery signed off. Debility/deconditioning. We made the referral to [facility]. - Exam Vitals: Temp Pulse Resp BP Pulse Ox 98.8 F 95 18 116/71 91 08/09/18 16:00 08/09/18 16:00 08/09/18 16:00 08/09/18 11:42 08/09/18 16:00 Exam: xx - Assessment and Plan (1) Acute on chronic systolic heart failure Current Visit: Yes Status: Acute (2) Cellulitis of foot, right Current Visit: Yes Status: Acute (3) Venous stasis ulcer Current Visit: Yes Status: Acute (4) CAD (coronary artery disease) Current Visit: No Status: Chronic (5) T2DM (type 2 diabetes mellitus) Current Visit: Yes Status: Acute (6) Hypertensive renal disease with renal failure Current Visit: Yes Status: Acute (7) Anemia, chronic disease Current Visit: Yes Status: Chronic (8) PAD (peripheral artery disease) Current Visit: Yes Status: Acute (9) Debility Current Visit: Yes Status: Chronic - Time Spent with Patient Total time spent is greater than 50% in coordination of care (as documented) at patient's floor/unit and/or counseling patient: 25 - 35 minutes Plan of Care Discussed with: patient (and family..) Internal Medicine: Result - Labs CBC & Chem 7: 08/06/18 08:28 08/09/18 06:29 Labs: BMP 08/09/18 06:29 Sodium 135 L Potassium 5.5 H Chloride 100 Carbon Dioxide 24 BUN 39 H Creatinine 1.84 H Glucose 183 H Calcium 9.8 Liver Function 08/09/18 Range/Units 06:29 Total Bilirubin 0.8 (0.3-1.0) mg/dL AST 38 (13-39) Units/L ALT 18 (7-52) Units/L Alkaline Phosphatase 36 (34-104) Units/L Albumin 4.2 (3.5-5.7) g/dL - ABG Interpretation ABG results: PT/INR, D-dimer PT 12.7 Seconds (9.4-12.1) H 08/02/18 12:05 Consult Discharge Plan - Plan Referrals: Wali Ornelas DO [Primary Care Provider] - 08/14/18 1:30 pm (Photo ID, Insurance cards, and your copay per the office) Gonzalo Riggins MD [Partnered Physician] - 08/08/18 10:49 am (3) Venous stasis ulcer Qualifiers: Venous stasis ulcer site: other part of lower leg Varicose vein presence: without varicose veins Laterality: right Non-pressure ulcer stage: limited to breakdown of skin Qualified Code(s): I87.2 - Venous insufficiency (chronic) ( peripheral); L97.811 - Non-pressure chronic ulcer of other part of right lower leg limited to breakdown of skin (4) CAD (coronary artery disease) Qualifiers: Coronary Disease-Associated Artery/Lesion type: unspecified vessel or lesion type [place] vs. transplanted heart: unspecified whether [place] or transplanted heart Associated angina: with unspecified angina Qualified Code(s): I25.119 - Atherosclerotic heart disease of [place] coronary artery with unspecified angina pectoris (5) T2DM (type 2 diabetes mellitus) Qualifiers: Diabetes mellitus half-way insulin use: with superintendent container terminal use Diabetes mellitus complication status: with kidney complications Diabetes mellitus complication detail: with chronic kidney disease Chronic kidney disease stage: stage 4 (severe) Qualified Code(s): E11.22 - Type 2 diabetes mellitus with diabetic chronic kidney disease; N18.4 - Chronic kidney disease, stage 4 (severe ); Z79.4 - longterm (current) use of insulin
[2018-08-09] MEDS: Furosemide 40 MG TABLET PO SCH (17:21)
[2018-08-09] MEDS: Gabapentin 300 MG CAPSULE PO SCH (17:21)
[2018-08-09] MEDS: traMADol 50 MG TABLET PO PRN (17:25)
[2018-08-09 20:36] LABS: ABG Base Excess 7 mEq/L (-2 to 3); ABG HCO3 34 mEq/L (21-27); ABG Oxygen Saturation 92 % (95-98); ABG PCO2 60 mmHg (35-45); ABG PH 7.36 pH Units (7.32-7.45); ABG PO2 67 mmHg (85-104); ABG TCO2 36 mEq/L (20-26)
[2018-08-09] MEDS ORDERED: *HR* LORazepam 2 MG/ML VIAL IVP ONE (21:06)
[2018-08-09] MEDS: Melatonin 3 MG TABLET PO SCH (22:44)
[2018-08-10 04:19] LABS: Basophils % 0.5 %; Eosinophils # 0.2 K/mcL (0.0-0.6); Eosinophils % 3.2 %; Hematocrit 35.5 % (37.5-50.1); Hemoglobin 10.7 g/dL (12.9-16.9); Immature Granulocytes % 0.4 % (0-4); Lymphocytes # 0.8 K/mcL (0.6-4.6); Lymphocytes % 13.9 %; Mean Corpuscular HGB Conc 30.1 g/dL (31.6-35.5); Mean Corpuscular Hemoglobin 28.5 pg (28.0-33.3); Mean Corpuscular Volume 94.4 fL (83.0-100.0); Mean Platelet Volume 10.3 fL (9.4-12.4); Monocytes # 0.9 K/mcL (0.0-1.3); Neutrophils # 3.7 K/mcL (1.6-8.9); Platelet Count 220 K/mcL (140-400); Red Blood Count 3.76 M/mcL (4.19-5.50); Red Cell Distribution Width 17.6 % (11.5-14.5)
[2018-08-10 04:42] LABS: Calcium 9.6 mg/dL (8.6-10.3); Magnesium 2.4 mg/dL (1.6-2.6); Potassium 4.6 mEq/L (3.5-5.1)
[2018-08-10] MEDS: *HR* Heparin 5,000 UNIT/ML VIAL SQ SCH ×3 (07:21→20:32)
[2018-08-10] MEDS: Insulin LISPRO 300 UNITS/3 ML VIAL SQ SCH ×4 (08:44→20:34)
[2018-08-10] MEDS: Ranolazine 500 MG TAB.ER.12H PO SCH ×2 (08:50→20:31)
[2018-08-10] MEDS: Fenofibrate 54 MG TABLET PO SCH (08:50)
[2018-08-10] MEDS: Famotidine 20 MG TABLET PO SCH (08:50)
[2018-08-10] MEDS: cefTRIAXone 2,000 MG in Water for inj. (sterile) 20 ML 20 ML IVPB SCH (08:50)
[2018-08-10] MEDS: Metoprolol XL (24 HR) Succ 25 MG TAB.ER.24H PO SCH (08:50)
[2018-08-10] MEDS: hydrALAZINE 25 MG TABLET PO SCH ×2 (08:50→20:31)
[2018-08-10] MEDS: Aspirin Enteric Coated 81 MG Tablet PO SCH (08:50)
[2018-08-10] MEDS: Isosorbide MONOnitrate (24 HR) 60 MG TAB.ER.24H PO SCH (08:50)
[2018-08-10] MEDS: Clotrimazole 1% CRM 15 GM TUBE TP SCH ×2 (08:52→20:34)
[2018-08-10] MEDS: Gentamicin Oint 15 GM TUBE TP SCH ×2 (08:52→20:34)
[2018-08-10] MEDS: Nystatin POWDER 30 GM BOTTLE TP SCH ×2 (08:52→20:34)
[2018-08-10] MEDS: Ipratropium/Albuterol Neb 3 ML IH SCH ×4 (11:50→23:34)
[2018-08-10] MEDS: Insulin DETEMIR 100 UNIT/ML X5UNITS SQ SCH (12:36)
[2018-08-10] MEDS: traMADol 50 MG TABLET PO PRN ×2 (13:56→20:31)
--- NOTE | 2018-08-10 15:18 | Internal Med Progress Note ---
Hospitalist Progress Note - Encounter Date of Encounter: 08/10/18 Time of Encounter: 15:00 - Subjective Interval History: SUBJECTIVE: I found this patient very drowsy today. I suspect, that he is hypercapnic. He is using 5 L/min nasal cannula; his baseline is 3 L/min. His ABG from yesterday showed PCO2 of 60. His bicarb from today is 32; was 24 yesterday. He underwent right superficial femoral and popliteal artery angioplasty with a drug-coated balloon the day before yesterday. His right foot seems to be warmer than before surgery. He has not reported any chest pain or other pain recently. OBJECTIVE: Skin: See notes from infectious diseases/podiatry. ENMT: Oral/pharyngeal mucosa is normal in appearance. Eyes: Sclera is white. There is no discharge from eyes. Respiratory: Normal breath sounds; no crackles or wheezes. CV: Heart is regular; no gallop or murmur. GI: Abdomen is soft and not tender. There is no palpable mass or visceromegaly. Neuro: There is no focal deficits. His CBC shows hemoglobin of 10.7 with normal WBC and platelet count. He has normal electrolytes. Creatinine is 1.98; 1.84 yesterday. His bicarb is 32; 24 yesterday. Chest x-ray from today shows interval worsening of mild to moderate CHF and the bibasilar airspace disease. ASSESSMENT AND PLAN: Acute on chronic hypoxic and hypercapnic respiratory failure. We will continue BiPAP treatments and supplemental oxygen. Will give him scheduled nebulizer treatments with DuoNeb - every 4 hours He would likely benefit from IV Lasix. He seems to have worsening of his CHF. Acute on chronic systolic heart failure (ejection fraction of 30%) in a patient with CKD stage IV (secondary to long-standing type 2 diabetes mellitus and hypertension). He has developed mild anemia of chronic kidney disease. We will give him a few doses of IV Lasix.. His blood pressure is better. He is on low dose of Toprol-XL. No HILLARY inhibitor/ARB at this time. His type 2 diabetes mellitus is treated with insulin Levemir and insulin Humalog. He is on diabetic diet. His hypertension is treated with Toprol-XL and hydralazine. Cellulitis of right foot. Venous stasis ulceration of right foot. He is on IV Rocephin. See notes from infectious diseases/podiatry. Vascular surgery was consulted. The patient has had significant peripheral arterial disease. He underwent right superficial femoral and popliteal artery angioplasty with a drug-coated balloon yesterday. He is on subcutaneous heparin. He is on oral Plavix. Vascular surgery signed off. Debility/deconditioning. We made the referral to [facility]. - Exam Vitals: Temp Pulse Resp BP Pulse Ox 97.8 F 95 20 151/104 97 08/10/18 10:58 08/10/18 10:58 08/10/18 10:58 08/10/18 10:58 08/10/18 10:58 Exam: xx - Assessment and Plan (1) Acute on chronic systolic heart failure Current Visit: Yes Status: Acute (2) Cellulitis of foot, right Current Visit: Yes Status: Acute (3) Venous stasis ulcer Current Visit: Yes Status: Acute (4) CAD (coronary artery disease) Current Visit: No Status: Chronic (5) T2DM (type 2 diabetes mellitus) Current Visit: Yes Status: Acute (6) Hypertensive renal disease with renal failure Current Visit: Yes Status: Acute (7) Anemia, chronic disease Current Visit: Yes Status: Chronic (8) PAD (peripheral artery disease) Current Visit: Yes Status: Acute (9) Debility Current Visit: Yes Status: Chronic - Time Spent with Patient Total time spent is greater than 50% in coordination of care (as documented) at patient's floor/unit and/or counseling patient: 25 - 35 minutes Plan of Care Discussed with: patient (and family) Internal Medicine: Result - Labs CBC & Chem 7: 08/10/18 03:44 08/10/18 03:44 Labs: Short CBC 08/10/18 Range/Units 03:44 WBC 5.6 (4.3-11.1) K/mcL Hgb 10.7 L (12.9-16.9) g/dL Hct 35.5 L (37.5-50.1) % Plt Count 220 (140-400) K/mcL Neutrophils # 3.7 (1.6-8.9) K/mcL BMP 08/10/18 03:44 Sodium 137 Potassium 4.6 Chloride 100 Carbon Dioxide 32 H BUN 41 H Creatinine 1.98 H Glucose 134 H Calcium 9.6 - ABG Interpretation ABG results: ABG ABG pH 7.36 pH Units (7.32-7.45) 08/09/18 20:33 ABG pCO2 60 mmHg (35-45) H 08/09/18 20:33 ABG pO2 67 mmHg (85-104) L 08/09/18 20:33 ABG O2 Saturation 92 % (95-98) L 08/09/18 20:33 PT/INR, D-dimer PT 12.7 Seconds (9.4-12.1) H 08/02/18 12:05 - Impressions Impressions Chest X-Ray 08/10/18 10:59 IMPRESSION: Interval worsening of [id number] CHF and bibasilar airspace disease, representing either atelectasis, asymmetric edema, or pneumonia. D/ / 08/10/2018 11:28:25 Mik Fernandes MD / [facility] Interpreting Provider: Mik Fernandes MD Consult Discharge Plan - Plan Referrals: Wali Ornelas DO [Primary Care Provider] - 08/14/18 1:30 pm (Photo ID, Insurance cards, and your copay per the office) Gonzalo Riggins MD [Partnered Physician] - 08/08/18 10:49 am (3) Venous stasis ulcer Qualifiers: Venous stasis ulcer site: other part of lower leg Varicose vein presence: without varicose veins Laterality: right Non-pressure ulcer stage: limited to breakdown of skin Qualified Code(s): I87.2 - Venous insufficiency (chronic) ( peripheral); L97.811 - Non-pressure chronic ulcer of other part of right lower leg limited to breakdown of skin (4) CAD (coronary artery disease) Qualifiers: Coronary Disease-Associated Artery/Lesion type: unspecified vessel or lesion type [place] vs. transplanted heart: unspecified whether [place] or transplanted heart Associated angina: with unspecified angina Qualified Code(s): I25.119 - Atherosclerotic heart disease of [place] coronary artery with unspecified angina pectoris (5) T2DM (type 2 diabetes mellitus) Qualifiers: Diabetes mellitus termite control representative insulin use: with termite control representative use Diabetes mellitus complication status: with kidney complications Diabetes mellitus complication detail: with chronic kidney disease Chronic kidney disease stage: stage 4 (severe) Qualified Code(s): E11.22 - Type 2 diabetes mellitus with diabetic chronic kidney disease; N18.4 - Chronic kidney disease, stage 4 (severe ); Z79.4 - jail (current) use of insulin
[2018-08-10] MEDS: Gabapentin 300 MG CAPSULE PO SCH (17:30)
[2018-08-10] MEDS: Furosemide 40 MG TABLET PO SCH (17:30)
[2018-08-10] MEDS: Melatonin 3 MG TABLET PO SCH (20:31)
[2018-08-10] MEDS ORDERED: Furosemide 40 MG/4 ML VIAL IVP ONE (20:51)
[2018-08-11] MEDS: Ipratropium/Albuterol Neb 3 ML IH SCH ×5 (03:48→23:32)
[2018-08-11 04:02] LABS: Basophils # 0.1 K/mcL (0.0-0.2); Basophils % 0.8 %; Eosinophils # 0.2 K/mcL (0.0-0.6); Eosinophils % 3.8 %; Hematocrit 34.6 % (37.5-50.1); Hemoglobin 10.5 g/dL (12.9-16.9); Immature Granulocytes % 0.5 % (0-4); Lymphocytes # 0.8 K/mcL (0.6-4.6); Lymphocytes % 13.8 %; Mean Corpuscular HGB Conc 30.3 g/dL (31.6-35.5); Mean Corpuscular Hemoglobin 28.3 pg (28.0-33.3); Mean Corpuscular Volume 93.3 fL (83.0-100.0); Mean Platelet Volume 10.1 fL (9.4-12.4); Monocytes % 15.8 %; Platelet Count 226 K/mcL (140-400); Red Blood Count 3.71 M/mcL (4.19-5.50); Red Cell Distribution Width 17.7 % (11.5-14.5); Segmented Neutrophils % 65.3 %
[2018-08-11 04:22] LABS: Calcium 9.4 mg/dL (8.6-10.3); Potassium 4.7 mEq/L (3.5-5.1)
[2018-08-11] MEDS: *HR* Heparin 5,000 UNIT/ML VIAL SQ SCH ×3 (04:55→20:56)
[2018-08-11] MEDS: Metoprolol XL (24 HR) Succ 25 MG TAB.ER.24H PO SCH (08:24)
[2018-08-11] MEDS: Aspirin Enteric Coated 81 MG Tablet PO SCH (08:24)
[2018-08-11] MEDS: Fenofibrate 54 MG TABLET PO SCH (08:24)
[2018-08-11] MEDS: Famotidine 20 MG TABLET PO SCH (08:24)
[2018-08-11] MEDS: Ranolazine 500 MG TAB.ER.12H PO SCH ×2 (08:24→20:12)
[2018-08-11] MEDS: hydrALAZINE 25 MG TABLET PO SCH ×2 (08:24→20:12)
[2018-08-11] MEDS: Insulin DETEMIR 100 UNIT/ML X5UNITS SQ SCH (08:25)
[2018-08-11] MEDS: Clotrimazole 1% CRM 15 GM TUBE TP SCH ×2 (08:26→20:12)
[2018-08-11] MEDS: Gentamicin Oint 15 GM TUBE TP SCH ×2 (08:26→20:27)
[2018-08-11] MEDS: Insulin LISPRO 300 UNITS/3 ML VIAL SQ SCH ×4 (08:26→20:11)
[2018-08-11] MEDS: Nystatin POWDER 30 GM BOTTLE TP SCH ×2 (08:27→20:12)
[2018-08-11] MEDS: cefTRIAXone 2,000 MG in Water for inj. (sterile) 20 ML 20 ML IVPB SCH (08:27)
[2018-08-11] MEDS ORDERED: Furosemide 40 MG/4 ML VIAL IVP SCH (09:00)
--- NOTE | 2018-08-11 13:30 | Podiatry Progress Note ---
Date of Encounter: 08/11/18 Time of Encounter: 12:00 - Assessment and Plan (1) Venous stasis ulcer Current Visit: Yes Status: Acute Examined at bedside Appearance of wounds consistent with venous stasis ulcerations and are improving in appearance s/p vascular intervention Apply maxsorb AG to wound of right lateral foot Apply adaptic to medial wound Telfa to medial calf wound Cover with 4x4 and apply kerlix Dressing changes as ordered ID on board and appreciated . Once stable will go to [facility] for rehab Will need appointment in wound care center 1 week after discharge with . Family requesting early AM appointment Requesting to be seen by podiatry after discharge for nail care- states they will make appointment Qualifiers: Venous stasis ulcer site: other part of lower leg Varicose vein presence: without varicose veins Laterality: right Non-pressure ulcer stage: limited to breakdown of skin Qualified Code(s): I87.2 - Venous insufficiency (chronic ) (peripheral); L97.811 - Non-pressure chronic ulcer of other part of right lower leg limited to breakdown of skin (2) Muscle spasm of both lower legs Current Visit: Yes Status: Acute Due to patients reports of frequent spasms and non palpable pulses will obtain bilateral lower extremity NATTY's (3) Diabetes mellitus type 2, insulin dependent Current Visit: No Status: Chronic Management per internal medicine (4) Bilateral lower extremity edema Current Visit: Yes Status: Acute (5) Tinea pedis of left foot Current Visit: Yes Status: Acute active tinea pedis noted of left foot Clotrimazole cream BID x28 days to dorsal and plantar aspect of left foot, ankle and webspaces of toes Subjective Interval history: Patient s/p right superficial femoral and popliteal artery angioplasty with a drug-coated balloon per vascular. Chronic venous ulcerations of the right lower extremity. Reports feeling good today however patient has been intermittently lethargic with hypercapnia. Patient refuses bipap application. Dressing removed to RLE per Shelley Aguilar NP. Objective - Vital Signs Vital Signs: Vital Signs Temp Pulse Resp BP Pulse Ox 08/11/18 11:23 22 93 08/11/18 11:04 98.7 F 92 22 138/81 93 08/11/18 07:32 20 95 08/11/18 07:20 97.9 F 97 20 138/96 95 08/11/18 03:51 98.4 F 95 20 134/79 98 08/11/18 03:48 20 96 08/10/18 23:43 97.9 F 96 19 133/69 93 08/10/18 23:34 19 133/69 93 08/10/18 19:51 97.7 F 90 19 124/70 91 08/10/18 19:41 21 92 08/10/18 16:41 98.3 F 91 20 131/88 95 08/10/18 15:31 18 97 Intake and Output 08/10/18 08/11/18 08/11/18 23:59 07:59 15:59 Intake Total 240 / 240 100 / 100 360 / 360 Output Total 200 / 200 Balance 240 / 240 -100 / -100 360 / 360 Intake: Oral 240 / 240 100 / 100 360 / 360 Output: Urine 200 / 200 Other: Meal Dinner Breakfast Percent of Meal Consumed 90% 80% # Urine Diapers 1 1 Weight 113.8 kg Blood Glucose* 193 157 196 Patient Weight 08/11/18 23:59 Weight 113.8 kg - Exam Exam: Awake alert and oriented Much improvement noted in warmth and color of RLE since pre intervention Toes warm Pulses faint but palpable DP Minimal sensation to light or moderate touch of foot Venous ulcerations to lateral aspect of the leg have dried and crusted, appear to be healing No surrounding edema, erythema or warmth Small ulceration to medial foot is healing, discontinued santyl, dry, minimal fibrous tissue. No surrounding edema erythema or warmth There is a small venous ulceration to medial calf,[id number] no depth,100% healthy granulation tissue. Scant serous drainage. - Lab Result Diagrams: 08/11/18 03:37 08/11/18 03:37 Labs: Abnormal lab results RBC 3.71 M/mcL (4.19-5.50) L 08/11/18 03:37 Hgb 10.5 g/dL (12.9-16.9) L 08/11/18 03:37 Hct 34.6 % (37.5-50.1) L 08/11/18 03:37 MCHC 30.3 g/dL (31.6-35.5) L 08/11/18 03:37 RDW 17.7 % (11.5-14.5) H 08/11/18 03:37 ESR 35 mm/hr (0-10) H 08/04/18 15:41 PT 12.7 Seconds (9.4-12.1) H 08/02/18 12:05 ABG pCO2 60 mmHg (35-45) H 08/09/18 20:33 ABG pO2 67 mmHg (85-104) L 08/09/18 20:33 ABG HCO3 34 mEq/L (21-27) H 08/09/18 20:33 ABG Total CO2 36 mEq/L (20-26) H 08/09/18 20:33 ABG O2 Saturation 92 % (95-98) L 08/09/18 20:33 ABG Base Excess 7 mEq/L (-2 to 3) H 08/09/18 20:33 Carbon Dioxide 31 mEq/L (23-29) H 08/11/18 03:37 BUN 42 mg/dL (8-23) H 08/11/18 03:37 Creatinine 1.91 mg/dL (0.70-1.30) H 08/11/18 03:37 Est GFR ( Amer) 41 (> 60) L 08/11/18 03:37 Est GFR (Non-Af Amer) 34 (> 60) L 08/11/18 03:37 Glucose 184 mg/dL (70-105) H 08/11/18 03:37 POC Glucose 193 mg/dL (70-99) H 08/10/18 16:41 Hemoglobin A1c 7.3 % (-5.6) H 08/02/18 14:42 Troponin I 0.07 ng/mL (< 0.04) H* 08/03/18 03:54 B-Natriuretic Peptide 897 pg/mL (Less than 100) H 08/02/18 12:05 Ur Specific [place] 1.008 (1.010-1.025) L 08/02/18 22:58 Ur Leukocyte Esterase Moderate (Negative) H 08/02/18 22:58 Urine Microscopic WBC 5-15 per hpf (0-3) H 08/02/18 22:58 Ur Squamous Epith Cells Moderate per lpf (None-Few) H 08/02/18 22:58 Consult Discharge Plan - Plan Referrals: Wali Ornelas, DO [Primary Care Provider] - 08/14/18 1:30 pm (Photo ID, Insurance cards, and your copay per the office) Gonzalo Riggins MD [Partnered Physician] - 08/08/18 10:49 am
--- NOTE | 2018-08-11 16:24 | Infectious Disease Progress No ---
Date of Encounter: 08/11/18 Time of Encounter: 10:30 - Assessment and Plan (1) Cellulitis of foot, right Current Visit: Yes Status: Acute Location: Right foot and ankle. Causative organism: P. mirabilis and K. oxytoca. Etiology unclear, but the patient's skin is compromised due to previous skin grafts. He reports this has been a chronic issue for several years and sometimes the area opens and "leaks" fluid. X-ray of the right foot negative for fracture. Clinically improved. Check ESR and CRP.--> 35, <5, respectively. ABIs showed mild disease bilaterally. Vascular surgery consulted. Podiatry recommendations noted and appreciated. CT of the right lower extremity negative for osteomyelitis or abscess. Continue Rocephin 2 grams IV daily. (day 8) Duration of treatment depends on the clinical picture. If the patient continues to improve, can likely transition to PO Omnicef 300mg BID when ready for discharge to complete a 14 day course. Monitor renal function and for drug toxicity and dose-adjust antibiotics. (2) Leg edema, left Current Visit: Yes Status: Acute Etiology unclear: CHF vs. other. Improved. Further workup and management per the primary team. (3) Fall at home Current Visit: Yes Status: Acute Secondary to generalized weakness. PT/OT. Qualifiers: Encounter type: initial encounter Qualified Code(s): W19.XXXA - Unspecified fall, initial encounter; Y92.009 - Unspecified place in unspecified non-institutional (private) residence as the place of occurrence of the external cause (4) Chest pain Current Visit: Yes Status: Acute Qualifiers: Chest pain type: unspecified Qualified Code(s): R07.9 - Chest pain, unspecified (5) Elevated troponin Current Visit: No Status: Chronic (6) Congestive heart failure Current Visit: No Status: Chronic TTE showed EF of 25%-30% with severes LV systolic and diastolic dysfunction. Consider cardiology to evaluate. Management per the primary team. Qualifiers: Heart failure type: unspecified Heart failure chronicity: unspecified Qualified Code(s): I50.9 - Heart failure, unspecified (7) Diabetes Current Visit: Yes Status: Chronic Recommend aggressive glucose monitoring and control to promote wound healing and prevent re-infection. Management per the primary team. 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 (10) Candidiasis Current Visit: Yes Status: Acute Nystatin topical powder to the folds. (11) History of bladder cancer Current Visit: No Status: Chronic (12) CAD (coronary artery disease) Current Visit: No Status: Chronic Qualifiers: Coronary Disease-Associated Artery/Lesion type: unspecified vessel or lesion type [place] vs. transplanted heart: unspecified whether [place] or transplanted heart Associated angina: with unspecified angina Qualified Code (s): I25.119 - Atherosclerotic heart disease of [place] coronary artery with unspecified angina pectoris - Subjective Interval history: Patient seen and examined with son at the bedside. Weekend notes reviewed. No acute events noted overnight. Patient states overall he feels a little better today. States his right foot is better. Denies any fevers or chills or rigors. Denies any chest pain. Reports shortness of breath with exertion and dry cough. He denies any nausea or vomiting or diarrhea and states his last bowel movement was this morning. He states his appetite is okay. He denies any abdominal pain or urinary complaints. He also reports improvement in the bilateral lower extremity soreness and swelling in the left lower extremity. He denies any oral thrush or new skin lesions. States the yeast rash in his groin fold seems to be improved. Infect Dis PN-Objective Data - Labs CBC & Chem 7: 08/12/18 04:45 08/12/18 04:45 Labs: Laboratory Results - last 24 hr 08/10/18 08/10/18 08/10/18 06:58 10:58 16:41 WBC RBC Hgb Hct MCV MCH MCHC RDW Plt Count MPV Immature Gran % Seg Neutrophils % Lymphocytes % Monocytes % Eosinophils % Basophils % Neutrophils # Lymphocytes # Monocytes # Eosinophils # Basophils # Sodium Potassium Chloride Carbon Dioxide BUN Creatinine Est GFR ( Amer) Est GFR (Non-Af Amer) BUN/Creatinine Ratio Glucose POC Glucose 133 H 188 H 193 H Calculated Osmolality Calcium 08/11/18 08/11/18 03:37 03:37 WBC 6.1 RBC 3.71 L Hgb 10.5 L Hct 34.6 L MCV 93.3 MCH 28.3 MCHC 30.3 L RDW 17.7 H Plt Count 226 MPV 10.1 Immature Gran % 0.5 Seg Neutrophils % 65.3 Lymphocytes % 13.8 Monocytes % 15.8 Eosinophils % 3.8 Basophils % 0.8 Neutrophils # 4.0 Lymphocytes # 0.8 Monocytes # 1.0 Eosinophils # 0.2 Basophils # 0.1 Sodium 137 Potassium 4.7 Chloride 98 Carbon Dioxide 31 H BUN 42 H Creatinine 1.91 H Est GFR ( Amer) 41 L Est GFR (Non-Af Amer) 34 L BUN/Creatinine Ratio 22 Glucose 184 H POC Glucose Calculated Osmolality 299 Calcium 9.4 - Impressions Impressions Chest X-Ray 08/10/18 10:59 IMPRESSION: Interval worsening of [id number]-[id number] CHF and bibasilar airspace disease, representing either atelectasis, asymmetric edema, or pneumonia. D/ / 08/10/2018 11:28:25 Mik Fernandes MD / [facility] Interpreting Provider: Mik Fernandes MD Chest X-Ray 08/11/18 11:00 IMPRESSION: Acute congestive heart failure with slight interval improvement of pulmonary edema. Stable mild bilateral pleural effusions and left lung base consolidation. D/ /11/2018 15:13:54 Ric Seay MD / [facility] Interpreting Provider: Ric Seay MD Exam - Constitutional Vitals: Temp Pulse Resp BP Pulse Ox 98.3 F 91 22 133/75 93 08/11/18 16:10 08/11/18 16:10 08/11/18 16:11 08/11/18 16:10 08/11/18 16:11 General appearance: cooperative, no acute distress, obese - Head Head exam: Present: atraumatic, normal inspection, normocephalic - Eye Eye exam: Present: EOMI, normal appearance, PERRL Pupils: Present: normal accommodation - ENT ENT exam: Present: mucous membranes moist - Neck Neck exam: Present: normal inspection - Respiratory Respiratory exam: Present: CTAB. Absent: rales, respiratory distress, rhonchi, wheezes - Cardiovascular Cardiovascular exam: Present: RRR, +S1, +S2 - GI/Abdominal GI/Abdominal exam: Present: distended (obese), normal bowel sounds, soft. Absent: tenderness - Extremities Exam Additional comments: Scabbed lesions noted to the lateral aspect of the right foot with improvement in the surrounding erythema. Ulcer noted to the medial aspect of the right foot with slough noted to 100% of wound bed. Surrounding erythema noted has improved. No tenderness or fluctuance noted on exam. - Neurological Exam Neurological exam: Present: alert, oriented X3, no focal deficits - Psychiatric Psychiatric exam: Present: normal affect, normal mood - Skin Skin exam: Present: dry, intact, normal color, warm Consult Discharge Plan - Plan Referrals: Wali Ornelas DO [Primary Care Provider] - 08/14/18 1:30 pm (Photo ID, Insurance cards, and your copay per the office) Gonzalo Riggins MD [Partnered Physician] - 08/08/18 10:49 am - Attending Attestation I examined this patient and my medical decision-making was reviewed with the Resident Physician. I agree with the documented findings, disposition and treatment plan as described except to the extent set forth below.
--- NOTE | 2018-08-11 17:21 | Internal Med Progress Note ---
Hospitalist Progress Note - Encounter Date of Encounter: 08/11/18 Time of Encounter: 17:19 - Subjective Interval History: SUBJECTIVE: He is definitely better today. He is not drowsy anymore, after we started nebulizer treatments with DuoNeb. He refused taking BiPAP treatments. He is using supplemental oxygen at 3 L/min, again. This is his baseline at home. He underwent right superficial femoral and popliteal artery angioplasty with a drug-coated balloon the day before the day before yesterday. His right foot seems to be warmer than before surgery. He has not reported any chest pain or other pain recently. OBJECTIVE: Skin: See notes from infectious diseases/podiatry. ENMT: Oral/pharyngeal mucosa is normal in appearance. Eyes: Sclera is white. There is no discharge from eyes. Respiratory: Normal breath sounds; no crackles or wheezes. CV: Heart is regular; no gallop or murmur. GI: Abdomen is soft and not tender. There is no palpable mass or visceromegaly. Neuro: There is no focal deficits. CBC shows hemoglobin of 10.5 with normal WBC/platelet count. His bicarb had decreased from 32 to 31. Chest x-ray shows decreased pulmonary congestion. ASSESSMENT AND PLAN: Acute on chronic hypoxic and hypercapnic respiratory failure. Better after starting him on nebulizer treatments with DuoNeb. He also received a couple doses of IV Lasix. It will be switched to oral Lasixtwice a day. The worsening observed recently was likely triggered by his recent vascular surgery. Acute on chronic systolic heart failure (ejection fraction of 30%) in a patient with CKD stage IV (secondary to long-standing type 2 diabetes mellitus and hypertension). He has developed mild anemia of chronic kidney disease. He got a couple doses of IV Lasix. We are switching him to oral Lasix. His blood pressure is better. He is on low dose of Toprol-XL. No HILLARY inhibitor/ARB at this time. His type 2 diabetes mellitus is treated with insulin Levemir and insulin Humalog. He is on diabetic diet. His hypertension is treated with Toprol-XL and hydralazine. Cellulitis of right foot. Venous stasis ulceration of right foot. He is on IV Rocephin. See notes from infectious diseases/podiatry. Vascular surgery was consulted. The patient has had significant peripheral arterial disease. He underwent right superficial femoral and popliteal artery angioplasty with a drug-coated balloon yesterday. He is on subcutaneous heparin. He is on oral Plavix. Vascular surgery signed off. Debility/deconditioning. A referral has been made to [facility]. - Exam Vitals: Temp Pulse Resp BP Pulse Ox 98.3 F 91 22 133/75 93 08/11/18 16:10 08/11/18 16:10 08/11/18 16:11 08/11/18 16:10 08/11/18 16:11 Exam: xx - Assessment and Plan (1) Acute on chronic respiratory failure with hypoxia and hypercapnia Current Visit: Yes Status: Acute (2) Acute on chronic systolic heart failure Current Visit: Yes Status: Acute (3) Cellulitis of foot, right Current Visit: Yes Status: Acute (4) Venous stasis ulcer Current Visit: Yes Status: Acute (5) CAD (coronary artery disease) Current Visit: No Status: Chronic (6) T2DM (type 2 diabetes mellitus) Current Visit: Yes Status: Acute (7) Hypertensive renal disease with renal failure Current Visit: Yes Status: Acute (8) Anemia, chronic disease Current Visit: Yes Status: Chronic (9) PAD (peripheral artery disease) Current Visit: Yes Status: Acute (10) Debility Current Visit: Yes Status: Chronic - Time Spent with Patient Total time spent is greater than 50% in coordination of care (as documented) at patient's floor/unit and/or counseling patient: 25 - 35 minutes Plan of Care Discussed with: patient (and family..) Internal Medicine: Result - Labs CBC & Chem 7: 08/11/18 03:37 08/11/18 03:37 Labs: Short CBC 08/11/18 Range/Units 03:37 WBC 6.1 (4.3-11.1) K/mcL Hgb 10.5 L (12.9-16.9) g/dL Hct 34.6 L (37.5-50.1) % Plt Count 226 (140-400) K/mcL Neutrophils # 4.0 (1.6-8.9) K/mcL BMP 08/11/18 03:37 Sodium 137 Potassium 4.7 Chloride 98 Carbon Dioxide 31 H BUN 42 H Creatinine 1.91 H Glucose 184 H Calcium 9.4 - ABG Interpretation ABG results: ABG ABG pH 7.36 pH Units (7.32-7.45) 09/29/18 20:33 ABG pCO2 60 mmHg (35-45) H 08/09/18 20:33 ABG pO2 67 mmHg (85-104) L 08/09/18 20:33 ABG O2 Saturation 92 % (95-98) L 08/09/18 20:33 PT/INR, D-dimer PT 12.7 Seconds (9.4-12.1) H 08/02/18 12:05 - Impressions Impressions Chest X-Ray 08/10/18 10:59 IMPRESSION: Interval worsening of dleg-ps-ltijggae CHF and bibasilar airspace disease, representing either atelectasis, asymmetric edema, or pneumonia. D/ / 08/10/2018 11:28:25 Mik Fernandes MD / [facility] Interpreting Provider: Mik Fernandes MD Chest X-Ray 08/11/18 11:00 IMPRESSION: Acute congestive heart failure with slight interval improvement of pulmonary edema. Stable mild bilateral pleural effusions and left lung base consolidation. D/ : / 08/11/2018 15:13:54 Ric Seay MD / [facility] Interpreting Provider: Ric Seay MD Consult Discharge Plan - Plan Referrals: Wali Ornelas DO [Primary Care Provider] - 08/14/18 1:30 pm (Photo ID, Insurance cards, and your copay per the office) Gonzalo Riggins MD [Partnered Physician] - 08/08/18 10:49 am (4) Venous stasis ulcer Qualifiers: Venous stasis ulcer site: other part of lower leg Varicose vein presence: without varicose veins Laterality: right Non-pressure ulcer stage: limited to breakdown of skin Qualified Code(s): I87.2 - Venous insufficiency (chronic) ( peripheral); L97.811 - Non-pressure chronic ulcer of other part of right lower leg limited to breakdown of skin (5) CAD (coronary artery disease) Qualifiers: Coronary Disease-Associated Artery/Lesion type: unspecified vessel or lesion type [place] vs. transplanted heart: unspecified whether [place] or transplanted heart Associated angina: with unspecified angina Qualified Code(s): I25.119 - Atherosclerotic heart disease of [place] coronary artery with unspecified angina pectoris (6) T2DM (type 2 diabetes mellitus) Qualifiers: Diabetes mellitus medical terminologist insulin use: with shelter use Diabetes mellitus complication status: with kidney complications Diabetes mellitus complication detail: with chronic kidney disease Chronic kidney disease stage: stage 4 (severe) Qualified Code(s): E11.22 - Type 2 diabetes mellitus with diabetic chronic kidney disease; N18.4 - Chronic kidney disease, stage 4 (severe ); Z79.4 - detention (current) use of insulin
[2018-08-11] MEDS: Gabapentin 300 MG CAPSULE PO SCH (18:10)
[2018-08-11] MEDS ORDERED: Furosemide 40 MG/4 ML VIAL ONE (18:11)
[2018-08-11] MEDS: Furosemide 40 MG TABLET PO SCH (18:24)
[2018-08-11] MEDS: Melatonin 3 MG TABLET PO SCH (20:12)
[2018-08-12] MEDS: Ipratropium/Albuterol Neb 3 ML IH SCH ×4 (04:22→22:13)
[2018-08-12] MEDS: *HR* Heparin 5,000 UNIT/ML VIAL SQ SCH ×3 (05:11→21:03)
[2018-08-12 05:33] LABS: Basophils # 0.1 K/mcL (0.0-0.2); Basophils % 0.8 %; Eosinophils # 0.4 K/mcL (0.0-0.6); Eosinophils % 6.7 %; Hematocrit 37.7 % (37.5-50.1); Hemoglobin 11.2 g/dL (12.9-16.9); Immature Granulocytes % 0.5 % (0-4); Lymphocytes # 0.7 K/mcL (0.6-4.6); Lymphocytes % 12.2 %; Mean Corpuscular HGB Conc 29.7 g/dL (31.6-35.5); Mean Corpuscular Hemoglobin 28.1 pg (28.0-33.3); Mean Corpuscular Volume 94.5 fL (83.0-100.0); Mean Platelet Volume 10.1 fL (9.4-12.4); Monocytes # 0.7 K/mcL (0.0-1.3); Monocytes % 11.5 %; Neutrophils # 4.1 K/mcL (1.6-8.9); Nucleated Red Blood Cells 0.3 /100 WBC (0); Platelet Count 238 K/mcL (140-400); Red Blood Count 3.99 M/mcL (4.19-5.50); Red Cell Distribution Width 17.5 % (11.5-14.5); Segmented Neutrophils % 68.3 %
[2018-08-12 05:47] LABS: Calcium 9.7 mg/dL (8.6-10.3); Potassium 4.6 mEq/L (3.5-5.1)
[2018-08-12] MEDS: Insulin LISPRO 300 UNITS/3 ML VIAL SQ SCH ×4 (08:33→21:16)
[2018-08-12] MEDS: hydrALAZINE 25 MG TABLET PO SCH ×2 (08:51→21:03)
[2018-08-12] MEDS: Fenofibrate 54 MG TABLET PO SCH (08:51)
[2018-08-12] MEDS: Famotidine 20 MG TABLET PO SCH (08:51)
[2018-08-12] MEDS: Aspirin Enteric Coated 81 MG Tablet PO SCH (08:51)
[2018-08-12] MEDS: Metoprolol XL (24 HR) Succ 25 MG TAB.ER.24H PO SCH (08:52)
[2018-08-12] MEDS: Furosemide 40 MG TABLET PO SCH ×2 (08:52→17:39)
[2018-08-12] MEDS: Ranolazine 500 MG TAB.ER.12H PO SCH ×2 (08:52→21:03)
[2018-08-12] MEDS: cefTRIAXone 2,000 MG in Water for inj. (sterile) 20 ML 20 ML IVPB SCH (08:52)
[2018-08-12] MEDS: traMADol 50 MG TABLET PO PRN ×2 (08:52→17:39)
[2018-08-12] MEDS: Gentamicin Oint 15 GM TUBE TP SCH ×2 (08:53→21:02)
[2018-08-12] MEDS: Insulin DETEMIR 100 UNIT/ML X5UNITS SQ SCH (08:53)
[2018-08-12] MEDS: Nystatin POWDER 30 GM BOTTLE TP SCH ×2 (08:54→21:03)
[2018-08-12] MEDS: Clotrimazole 1% CRM 15 GM TUBE TP SCH ×2 (08:54→21:03)
[2018-08-12] MEDS: Acetaminophen 325 MG TABLET PO PRN ×2 (12:11→20:18)
[2018-08-12] MEDS ORDERED: Albuterol 2.5 MG/3 ML NEBULIZER IH PRN (14:44)
--- NOTE | 2018-08-12 15:04 | Internal Med Progress Note ---
Hospitalist Progress Note - Encounter Date of Encounter: 08/12/18 Time of Encounter: 15:02 - Subjective Interval History: Patient seen and evaluated at bedside, reports doing better, with intermittent shortness of breath, which is relieved by nebs treatment. Denies chest pain, or abdominal pain. Reports pain in his lower extremity. No diarrhea or loose stool. - Exam Vitals: Temp Pulse Resp BP Pulse Ox 97.8 F 93 16 126/68 94 08/12/18 11:35 08/12/18 11:35 08/12/18 11:48 08/12/18 11:35 08/12/18 11:48 Exam: General: Alert and orientedx4. In no acute distress. Cardiovascular: RRR, Normal S1 & S2, no rubs, murmurs or gallops. Lungs: CTA bilaterally, no wheezes or crackles. Abdomen: Obese, Soft, non-tender, no rigidity. NABS in all 4 quadrants Extremities: 2+ edema in the lower extremities b/l. chronic skin changes b/l. clear dressing in the right lower extr. 2+ pulses b/l. Neurological: Normal cognition. CN II-XII intact Rest of the physical exam is non contributory - Assessment and Plan (1) Cellulitis of foot, right Current Visit: Yes Status: Acute Assessment and Plan: Ostheo ruled out. Patient on Ceftriaxone 2gm daily. Will change patient to Omnicef 300mg/PO BID to complete 14 days as per ID recommendations. (2) Anemia, chronic disease Current Visit: Yes Status: Chronic Assessment and Plan: Possible anemia of chronic disease. H&H stable. Continue to monitor. No intervention needed at this time. (3) CAD (coronary artery disease) Current Visit: No Status: Chronic Assessment and Plan: Significant CAD. Patient on Clopidogrel, aspirin plus statin. Patient with a Hx of CABG on Nytroglycerin 0.4mg SubLin Q5Min PRN x4 and On ranolazine for chest pain (4) Venous stasis ulcer Current Visit: Yes Status: Acute Assessment and Plan: Wheel Adjuster consulted. recommended Apply maxsorb AG to wound of right lateral foot Apply adaptic to medial wound Telfa to medial calf wound Cover with 4x4 and apply kerlix Will need appointment in wound care center 1 week after discharge with . Family requesting early AM appointment (5) Acute on chronic systolic heart failure Current Visit: Yes Status: Chronic Assessment and Plan: No on acute exacerbation. Patient with a positive fluid balance during this admission of 4 litters. To continue furosemide 40mg/IV BID On metoprolol 25mg/PO daily No Aces or ARbs due to SIMÓN/CKD daily weights, strict intake and output Fluids restriction to 1.5 litters a day. (6) Hypertensive renal disease with renal failure Current Visit: Yes Status: Acute Assessment and Plan: BP well controlled. Patient on Multiples antihypertensive medications. Furosemide, metoprolol. Continue current management. (7) T2DM (type 2 diabetes mellitus) Current Visit: Yes Status: Acute Assessment and Plan: Blood sugar within acceptable range. Patient on levemir 25 unit/BID plus Lispro sliding AC. Carb controlled diet. (8) PAD (peripheral artery disease) Current Visit: Yes Status: Acute Assessment and Plan: Significant Hx of PAD. on Aspirin plus plavix. (9) Debility Current Visit: Yes Status: Chronic Assessment and Plan: Daily PT/OT (10) Acute on chronic respiratory failure with hypoxia and hypercapnia Current Visit: Yes Status: Acute Assessment and Plan: Patient respiratory status has significantly improved. Patient on 3 litters of O2 by nasal cannula. Continue O2, titrate for O2 Sat >92%. Continue Duo-Nebs Q4HR scheduled. d/c PRN DuoNbes and start Albuterol Nebs PRN Q4RT. DVT Prophylaxis: Patient on Heparin 5000 units SubQ BID for DVT prophylaxis - Summary of Assessment and Plan Summary of Assessment and Plan: Potential transfer to [facility] tomorrow. - Time Spent with Patient Total time spent is greater than 50% in coordination of care (as documented) at patient's floor/unit and/or counseling patient: Plan of Care Discussed with: patient (family (daughter and nurse).) Internal Medicine: Result - Labs CBC & Chem 7: 08/12/18 04:45 08/12/18 04:45 Labs: Short CBC 08/12/18 Range/Units 04:45 WBC 6.0 (4.3-11.1) K/mcL Hgb 11.2 L (12.9-16.9) g/dL Hct 37.7 (37.5-50.1) % Plt Count 238 (140-400) K/mcL Neutrophils # 4.1 (1.6-8.9) K/mcL BMP 08/12/18 04:45 Sodium 137 Potassium 4.6 Chloride 97 L Carbon Dioxide 32 H BUN 39 H Creatinine 1.88 H Glucose 150 H Calcium 9.7 - ABG Interpretation ABG results: ABG ABG pH 7.36 pH Units (7.32-7.45) 08/09/18 20:33 ABG pCO2 60 mmHg (35-45) H 08/09/18 20:33 ABG pO2 67 mmHg (85-104) L 08/09/18 20:33 ABG O2 Saturation 92 % (95-98) L 08/09/18 20:33 PT/INR, D-dimer PT 12.7 Seconds (9.4-12.1) H 08/02/18 12:05 - Impressions Impressions Chest X-Ray 08/11/18 11:00 IMPRESSION: Acute congestive heart failure with slight interval improvement of pulmonary edema. Stable mild bilateral pleural effusions and left lung base consolidation. D/ /11/2018 15:13:54 Ric Seay MD / [facility] Interpreting Provider: Ric Seay MD Chest X-Ray 08/12/18 08:00 IMPRESSION: No significant change in the appearance of the chest. D/ / Yuri Nolan MD / Yuri Nolan MD Interpreting Provider: Yuri Nolan MD Consult Discharge Plan - Plan Referrals: Wali Ornelas DO [Primary Care Provider] - 08/14/18 1:30 pm (Photo ID, Insurance cards, and your copay per the office) Gonzalo Riggins MD [Partnered Physician] - 08/08/18 10:49 am (3) CAD (coronary artery disease) Qualifiers: Coronary Disease-Associated Artery/Lesion type: unspecified vessel or lesion type [place] vs. transplanted heart: unspecified whether [place] or transplanted heart Associated angina: with unspecified angina Qualified Code(s): I25.119 - Atherosclerotic heart disease of [place] coronary artery with unspecified angina pectoris (4) Venous stasis ulcer Qualifiers: Venous stasis ulcer site: other part of lower leg Varicose vein presence: without varicose veins Laterality: right Non-pressure ulcer stage: limited to breakdown of skin Qualified Code(s): I87.2 - Venous insufficiency (chronic) ( peripheral); L97.811 - Non-pressure chronic ulcer of other part of right lower leg limited to breakdown of skin (7) T2DM (type 2 diabetes mellitus) Qualifiers: Diabetes mellitus fpc insulin use: with reexaminer use Diabetes mellitus complication status: with kidney complications Diabetes mellitus complication detail: with chronic kidney disease Chronic kidney disease stage: stage 4 (severe) Qualified Code(s): E11.22 - Type 2 diabetes mellitus with diabetic chronic kidney disease; N18.4 - Chronic kidney disease, stage 4 (severe ); 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
[2018-08-12] MEDS: Gabapentin 300 MG CAPSULE PO SCH (17:39)
[2018-08-12] MEDS: Melatonin 3 MG TABLET PO SCH (21:03)
[2018-08-13] MEDS: traMADol 50 MG TABLET PO PRN ×2 (03:02→11:40)
[2018-08-13] MEDS: Ipratropium/Albuterol Neb 3 ML IH SCH ×2 (04:45→11:37)
[2018-08-13] MEDS: *HR* Heparin 5,000 UNIT/ML VIAL SQ SCH (05:09)
[2018-08-13 06:06] LABS: Calcium 9.8 mg/dL (8.6-10.3); Magnesium 2.1 mg/dL (1.6-2.6); Phosphorous 3.8 mg/dL (2.7-4.5); Potassium 4.3 mEq/L (3.5-5.1)
--- NOTE | 2018-08-13 08:06 | Discharge Summary ---
- NOTES TO OUTPATIENT PROVIDER Notes to Outpatient Provider: Will need appointment in wound care center 1 week after discharge with . Date of Encounter: 08/13/18 Time of Encounter: 08:04 - Discharge Diagnosis (1) Cellulitis of foot, right Priority: Primary Status: Acute (2) Anemia, chronic disease Priority: Secondary Status: Chronic (3) CAD (coronary artery disease) Priority: Secondary Status: Chronic Qualifiers: Coronary Disease-Associated Artery/Lesion type: unspecified vessel or lesion type [place] vs. transplanted heart: unspecified whether [place] or transplanted heart Associated angina: with unspecified angina Qualified Code (s): I25.119 - Atherosclerotic heart disease of [place] coronary artery with unspecified angina pectoris (4) Venous stasis ulcer Priority: Secondary Status: Chronic Qualifiers: Venous stasis ulcer site: other part of lower leg Varicose vein presence: without varicose veins Laterality: right Non-pressure ulcer stage: limited to breakdown of skin Qualified Code(s): I87.2 - Venous insufficiency (chronic ) (peripheral); L97.811 - Non-pressure chronic ulcer of other part of right lower leg limited to breakdown of skin (5) Acute on chronic systolic heart failure Priority: Secondary Status: Chronic (6) Hypertensive renal disease with renal failure Priority: Secondary Status: Chronic (7) T2DM (type 2 diabetes mellitus) Priority: Secondary Status: Chronic Qualifiers: Diabetes mellitus half-way insulin use: with half-way use Diabetes mellitus complication status: with kidney complications Diabetes mellitus complication detail: with chronic kidney disease Chronic kidney disease stage : stage 4 (severe) Qualified Code(s): E11.22 - Type 2 diabetes mellitus with diabetic chronic kidney disease; N18.4 - Chronic kidney disease, stage 4 (severe ); Z79.4 - jail (current) use of insulin (8) PAD (peripheral artery disease) Priority: Secondary Status: Chronic Assessment and Plan: s/p right superficial femoral and popliteal artery angioplasty with a drug- coated balloon per vascular. On these admission. (9) Debility Priority: Secondary Status: Chronic (10) Acute on chronic respiratory failure with hypoxia and hypercapnia Priority: Secondary Status: Resolved Hospital course: Mr. Warren is a 83 year old male past medical history of bladder cancer diagnosed in 2006 status post resection 2018, diabetes, CAD, CKD, pacemaker/AICD , status post skin grafts to the right lower extremity with remote history of hardware placed in the right foot. The patient was admitted to the hospital August 02 for right foot wound, bilateral lower extremity edema, and chest pain. he patient presented to the emergency department on the day of admission with complaints of sudden onset left lower extremities swelling, weakness, and increased drainage from the right foot wound. Patient admitted for cellulitis of the lower extremity, treated with IV antibiotics. Doppler ultrasound of the lower extremity done to rule out DVT. Vascular studies showed an non- compressible tibial vessels for which vascular surgery was consulted. Patient underwent right superficial femoral and popliteal artery angioplasty with a drug -coated balloon. Kiln Stoker consulted due to chronic venous stasis ulcers, and recommended some dressing changes. ID consulted for antibiotics management, recommended to complete 14 days of antibiotics coverage. Patient kidney function remains, and patient acute symptoms have resolved. Patient is hemodynamically stable to be transferred to rehabilitation. Recommended to follow-up with wound care within a week of hospital discharge. And to continue antibiotics omnicef for 6 more days. Patient should be on nocturnal CPAP. - Time Spent with Patient Total time spent providing and/or coordinating discharge services: Greater than 30 minutes - Discharge Medications Prescriptions: Cefdinir [Omnicef] 300 mg PO BID 6 Days #12 capsule Home Medications: Atorvastatin [Lipitor] 80 mg PO QPM 07/01/15 [History] Docusate Sodium [Colace] 100 mg PO QPM 07/01/15 [History] Furosemide [Lasix] 80 mg PO QAM 07/01/15 [History] Gabapentin [Neurontin] 300 mg PO QPM 07/01/15 [History] Isosorbide MONOnitrate (24 HR) [Imdur] 120 mg PO QAM 07/01/15 [History] hydrALAZINE [HydrALAZINE] 25 mg PO BID 07/01/15 [History] Multivitamin/Iron/Folic Acid [Centrum Complete Multivit Tab] 1 each PO QPM 01/22 [History] Insulin LISPRO [HumaLOG] 10 units SQ TIDAC 02/12/17 [History] ALPRAZolam [Xanax 0.25 MG Tablet] 0.25 mg PO DAILY PRN 03/31/18 [History] Allopurinol [Zyloprim 100 MG] 100 mg PO DAILY 03/31/18 [History] Clopidogrel [Plavix] 75 mg PO DAILY 03/31/18 [History] Fenofibrate Nanocrystallized [Tricor] 48 mg PO DAILY 03/31/18 [History] Furosemide [Lasix] 40 mg PO QPM 03/31/18 [History] Insulin Glargine,Hum.rec.anlog [Lantus Solostar] 60 unit SQ DAILY 03/31/18 [ History] Metoprolol Succinate [Toprol Xl] 25 mg PO DAILY 03/31/18 [History] Ranitidine HCl [Acid Liquefaction Plant Operator] 150 mg PO BID 03/31/18 [History] Ranolazine [Ranexa] 500 mg PO BID 03/31/18 [History] Tamsulosin [Flomax] 0.4 mg PO DAILY 03/31/18 [History] Aspirin Enteric Coated [Aspirin EC] 81 mg PO DAILY 08/02/18 [History] Losartan Potassium [Cozaar] 50 mg PO DAILY 08/02/18 [History] Nitroglycerin [Nitrostat] 0.4 mg SL Q5MIN PRN 08/02/18 [History] Tramadol HCl [Ultram] 50 mg PO Q6H PRN 08/02/18 [History] Albuterol Neb [Proventil Neb] 2.5 mg IH [id number] PRN inhsol 08/13/18 [Rx] Cefdinir [Omnicef] 300 mg PO BID 6 Days #12 capsule 08/13/18 [Rx] Clotrimazole 1% CRM [Lotrimin 1%] 1 appl TP BID tube 08/13/18 [Rx] Collagenase Oint [Santyl] 1 appl TP DAILY tube 08/13/18 [Rx] Gentamicin Oint [Garamycin] 1 appl TP BID tube 08/13/18 [Rx] Ipratropium/Albuterol Neb [Duoneb] 3 ml IH QIDR inhsol 08/13/18 [Rx] Allergies/Adverse Reactions: 3 Allergy/AdvReac Type Severity Reaction Status Date / Time codeine Allergy Hives Verified 08/08/17 23:47 Sulfa (Sulfonamide AdvReac Mild Nausea Verified 08/08/17 23:47 Antibiotics) Date of admission: 08/08/18 14:01 Primary care physician: Wali Ornelas - Constitutional Vitals: Temp Pulse Resp BP Pulse Ox 97.7 F 88 20 120/82 96 08/13/18 06:58 10 06:58 10 06:58 08/13/18 06:58 08/13/18 06:58 Exam: General: Alert and orientedx4. In no acute distress. Cardiovascular: RRR, Normal S1 & S2, no rubs, murmurs or gallops. Lungs: CTA bilaterally, no wheezes or crackles. Abdomen: Obese, Soft, non-tender, no rigidity. NABS in all 4 quadrants Extremities: 2+ edema in the lower extremities b/l. chronic skin changes b/l. clear dressing in the right lower extr. 2+ pulses b/l. Neurological: Normal cognition. CN II-XII intact Rest of the physical exam is non contributory - Patient Status Disposition: Transfer SNF Condition: Good Functional capacity at discharge: independent ambulation Overall status at discharge: patient is progressing back to baseline - Discharge Instructions Follow Up With: Wali Ornelas DO [Primary Care Provider] - (Patient is going to rehab no PCP appointment needed) Gonzalo Riggins MD [Partnered Physician] - 08/08/18 10:49 am - Diet and Activity Activity: as per physical therapy
--- NOTE | 2018-08-13 11:14 | Infectious Disease Progress No ---
Date of Encounter: 08/13/18 Time of Encounter: 11:12 - Assessment and Plan (1) Cellulitis of foot, right Status: Acute Location: Right foot and ankle. Causative organism: P. mirabilis and K. oxytoca. Etiology unclear, but the patient's skin is compromised due to previous skin grafts. He reports this has been a chronic issue for several years and sometimes the area opens and "leaks" fluid. X-ray of the right foot negative for fracture. Clinically improved. Check ESR and CRP.--> 35, <5, respectively. ABIs showed mild disease bilaterally. Vascular surgery consulted. Podiatry recommendations noted and appreciated. CT of the right lower extremity negative for osteomyelitis or abscess. Continue Rocephin 2 grams IV daily. (day 10) Duration of treatment depends on the clinical picture. If the patient continues to improve, can likely transition to PO Omnicef 300mg BID when ready for discharge to complete a 14 day course. Monitor renal function and for drug toxicity and dose-adjust antibiotics. (2) Leg edema, left Status: Acute Etiology unclear: CHF vs. other. Improved. Further workup and management per the primary team. (3) Fall at home Status: Acute Secondary to generalized weakness. PT/OT. Qualifiers: Encounter type: initial encounter Qualified Code(s): W19.XXXA - Unspecified fall, initial encounter; Y92.009 - Unspecified place in unspecified non-institutional (private) residence as the place of occurrence of the external cause (4) Chest pain Status: Acute Qualifiers: Chest pain type: unspecified Qualified Code(s): R07.9 - Chest pain, unspecified (5) Elevated troponin Status: Chronic (6) Congestive heart failure Status: Chronic TTE showed EF of 25%-30% with severes LV systolic and diastolic dysfunction. Consider cardiology to evaluate. Management per the primary team. Qualifiers: Heart failure type: unspecified Heart failure chronicity: unspecified Qualified Code(s): I50.9 - Heart failure, unspecified (7) Diabetes Status: Chronic Recommend aggressive glucose monitoring and control to promote wound healing and prevent re-infection. Management per the primary team. Qualifiers: Diabetes mellitus type: type 2 Diabetes mellitus longwall headgate operator insulin use: with longwall headgate operator use Diabetes mellitus complication status: with skin complications Diabetes mellitus complication detail: with other skin ulcer Qualified Code(s): E11.622 - Type 2 diabetes mellitus with other skin ulcer; Z79.4 - alf (current) use of insulin (8) Hypertension Status: Chronic Qualifiers: Hypertension type: essential hypertension Qualified Code(s): I10 - Essential (primary) hypertension (9) CKD (chronic kidney disease) stage 3, GFR 30-59 ml/min Status: Chronic Monitor renal function closely and dose-adjust antibiotics. (10) Candidiasis Status: Acute Nystatin topical powder to the folds. (11) History of bladder cancer Status: Chronic (12) CAD (coronary artery disease) Status: Chronic Qualifiers: Coronary Disease-Associated Artery/Lesion type: unspecified vessel or lesion type [place] vs. transplanted heart: unspecified whether [place] or transplanted heart Associated angina: with unspecified angina Qualified Code (s): I25.119 - Atherosclerotic heart disease of [place] coronary artery with unspecified angina pectoris - Subjective Interval history: Patient seen and examined with son at the bedside. No acute events noted overnight. Patient states overall he feels okay today. States his right foot is better, but still having pain in the arch of his foot this morning. Denies any fevers or chills or rigors. Denies any chest pain. Reports shortness of breath with exertion. He denies any nausea or vomiting or diarrhea and states his last bowel movement was yesterday. He states his appetite is okay. He denies any abdominal pain or urinary complaints. He also reports improvement in the bilateral lower extremity soreness and swelling in the left lower extremity. He denies any oral thrush or new skin lesions. States the yeast rash in his groin fold seems to be improved. Infect Dis PN-Objective Data - Labs CBC & Chem 7: 08/12/18 04:45 08/13/18 03:45 Labs: Laboratory Results - last 24 hr 08/12/18 08/12/18 08/12/18 07:27 11:39 16:55 Sodium Potassium Chloride Carbon Dioxide BUN Creatinine Est GFR ( Amer) Est GFR (Non-Af Amer) BUN/Creatinine Ratio Glucose POC Glucose 147 H 180 H 213 H Calculated Osmolality Calcium Phosphorus Magnesium 08/12/18 08/13/18 21:13 03:45 Sodium 138 Potassium 4.3 Chloride 96 L Carbon Dioxide 35 H BUN 42 H Creatinine 1.90 H Est GFR ( Amer) 41 L Est GFR (Non-Af Amer) 34 L BUN/Creatinine Ratio 22 Glucose 137 H POC Glucose 216 H Calculated Osmolality 299 Calcium 9.8 Phosphorus 3.8 Magnesium 2.1 Exam - Constitutional Vitals: Temp Pulse Resp BP Pulse Ox 97.7 F 88 20 120/82 96 08/13/18 06:58 08/13/18 06:58 08/13/18 06:58 08/13/18 06:58 08/13/18 06:58 General appearance: cooperative, no acute distress, obese - Head Head exam: Present: atraumatic, normal inspection, normocephalic - Eye Eye exam: Present: EOMI, normal appearance, PERRL Pupils: Present: normal accommodation - ENT ENT exam: Present: mucous membranes moist - Neck Neck exam: Present: normal inspection - Respiratory Respiratory exam: Present: CTAB. Absent: rales, respiratory distress, rhonchi, wheezes - Cardiovascular Cardiovascular exam: Present: RRR, +S1, +S2 - GI/Abdominal GI/Abdominal exam: Present: distended (obese), normal bowel sounds, soft. Absent: tenderness - Extremities Exam Extremities exam: Present: tenderness (right foot). Absent: normal inspection ( Scarring noted to the RLE), pedal edema Additional comments: Right foot dressing C/D/I. - Neurological Exam Neurological exam: Present: alert, oriented X3, no focal deficits - Psychiatric Psychiatric exam: Present: normal affect, normal mood - Skin Skin exam: Present: dry, intact, normal color, warm Consult Discharge Plan - Plan Referrals: Wali Ornelas, [Primary Care Provider] - (Patient is going to rehab no PCP appointment needed) Rocky Camarillo DPM [Partnered Physician] - 08/21/18 8:00 am (if this appointment is not good for you please call them at [phone] and reschedule) Prescriptions: Cefdinir [Omnicef] 300 mg PO BID 6 Days #12 capsule - Attending Attestation I examined this patient and my medical decision-making was reviewed with the Resident Physician. I agree with the documented findings, disposition and treatment plan as described except to the extent set forth below.
[2018-08-13] MEDS: Insulin LISPRO 300 UNITS/3 ML VIAL SQ SCH (11:25)
[2018-08-13] MEDS: cefTRIAXone 2,000 MG in Water for inj. (sterile) 20 ML 20 ML IVPB SCH (11:29)
[2018-08-13] MEDS: Ranolazine 500 MG TAB.ER.12H PO SCH (11:30)
[2018-08-13] MEDS: hydrALAZINE 25 MG TABLET PO SCH (11:30)
[2018-08-13] MEDS: Furosemide 40 MG TABLET PO SCH (11:30)
[2018-08-13] MEDS: Aspirin Enteric Coated 81 MG Tablet PO SCH (11:30)
[2018-08-13] MEDS: Famotidine 20 MG TABLET PO SCH (11:31)
[2018-08-13] MEDS: Fenofibrate 54 MG TABLET PO SCH (11:31)
[2018-08-13] MEDS: Metoprolol XL (24 HR) Succ 25 MG TAB.ER.24H PO SCH (11:31)
--- NOTE | 2018-08-13 11:38 | Physician Discharge Referral ---
ExtendedCare Referral Info Transfer To: [facility] - Diagnosis (1) Cellulitis of foot, right Priority: Primary Status: Acute (2) Anemia, chronic disease Priority: Secondary Status: Chronic (3) CAD (coronary artery disease) Priority: Secondary Status: Chronic (4) Venous stasis ulcer Priority: Secondary Status: Chronic (5) Acute on chronic systolic heart failure Priority: Secondary Status: Chronic (6) Hypertensive renal disease with renal failure Priority: Secondary Status: Chronic (7) T2DM (type 2 diabetes mellitus) Priority: Secondary Status: Chronic (8) PAD (peripheral artery disease) Priority: Secondary Status: Chronic (9) Debility Priority: Secondary Status: Chronic (10) Acute on chronic respiratory failure with hypoxia and hypercapnia Priority: Secondary Status: Resolved Prognosis: Good Aware of Diagnosis: Patient Aware of Prognosis: Patient - Transfer Medications Prescriptions: Cefdinir [Omnicef] 300 mg PO BID 6 Days #12 capsule Home Medications: Atorvastatin [Lipitor] 80 mg PO QPM 07/01/15 [History] Docusate Sodium [Colace] 100 mg PO QPM 07/01/15 [History] Furosemide [Lasix] 80 mg PO QAM 07/01/15 [History] Gabapentin [Neurontin] 300 mg PO QPM 07/01/15 [History] Isosorbide MONOnitrate (24 HR) [Imdur] 120 mg PO QAM 07/01/15 [History] hydrALAZINE [HydrALAZINE] 25 mg PO BID 07/01/15 [History] Multivitamin/Iron/Folic Acid [Centrum Complete Multivit Tab] 1 each PO QPM 01/22 [History] Insulin LISPRO [HumaLOG] 10 units SQ TIDAC 02/12/17 [History] ALPRAZolam [Xanax 0.25 MG Tablet] 0.25 mg PO DAILY PRN 03/31/18 [History] Allopurinol [Zyloprim 100 MG] 100 mg PO DAILY 03/31/18 [History] Clopidogrel [Plavix] 75 mg PO DAILY 03/31/18 [History] Fenofibrate Nanocrystallized [Tricor] 48 mg PO DAILY 03/31/18 [History] Furosemide [Lasix] 40 mg PO QPM 03/31/18 [History] Insulin Glargine,Hum.rec.anlog [Lantus Solostar] 60 unit SQ DAILY 03/31/18 [ History] Metoprolol Succinate [Toprol Xl] 25 mg PO DAILY 03/31/18 [History] Ranitidine HCl [Acid Fence Erector] 150 mg PO BID 03/31/18 [History] Ranolazine [Ranexa] 500 mg PO BID 03/31/18 [History] Tamsulosin [Flomax] 0.4 mg PO DAILY 03/31/18 [History] Aspirin Enteric Coated [Aspirin EC] 81 mg PO DAILY 08/02/18 [History] Losartan Potassium [Cozaar] 50 mg PO DAILY 08/02/18 [History] Nitroglycerin [Nitrostat] 0.4 mg SL Q5MIN PRN 08/02/18 [History] Tramadol HCl [Ultram] 50 mg PO Q6H PRN 08/02/18 [History] Albuterol Neb [Proventil Neb] 2.5 mg IH [id number] PRN inhsol 08/13/18 [Rx] Cefdinir [Omnicef] 300 mg PO BID 6 Days #12 capsule 08/13/18 [Rx] Clotrimazole 1% CRM [Lotrimin 1%] 1 appl TP BID tube 08/13/18 [Rx] Collagenase Oint [Santyl] 1 appl TP DAILY tube 08/13/18 [Rx] Gentamicin Oint [Garamycin] 1 appl TP BID tube 08/13/18 [Rx] Ipratropium/Albuterol Neb [Duoneb] 3 ml IH QIDR inhsol 08/13/18 [Rx] Allergies/Adverse Reactions: 3 Allergy/AdvReac Type Severity Reaction Status Date / Time codeine Allergy Hives Verified 08/08/17 23:47 Sulfa (Sulfonamide AdvReac Mild Nausea Verified 08/08/17 23:47 Antibiotics) - Respiratory Orders Oxygen / L per min (2 litters) Smoking Cessation: Smoking cessation has been advised. For more information, call the [place] Tobacco Quit Line at 9-408-KFTY-NOW. - Advance Directives Code Status: DNR-Arrest/Don't Intubate - Mobility Orders Ambulate - Rehabiliation Orders Rehab Potential: Fair Rehab Orders: Evaluation for Physical Therapy, Evaluation for Occupational Therapy - Diet Orders Regular CERTIFICATION: I certify that the transfer of the above named patient to an Extended Care Facility is necessary for the continuing treatment of the diagnosis listed. The above information is true and accurate reflection of patient's current condition. Confidential - Redisclosure prohibited without a patient's written consent.
[2018-08-13] MEDS: Insulin DETEMIR 100 UNIT/ML X5UNITS SQ SCH (11:46)
[2018-08-13 11:50] VITALS: BP 126/77
== END 2018-08-13 13:00 | DRG 252 ==
LOC: 2NENU 10:53 → EMEROOARM 10:53 → SUATTDRO 14:46 → 2NENU 15:19 → 2NNU 08-08 10:53 → SUATTDRO 08-08 14:01 → 2NENU 08-12 19:11
PROVIDERS: ADMIT Internal Medicine; ATTEND Internal Medicine

== ENCOUNTER 2018-08-30 03:06 | Inpatient (IN) ==
--- NOTE | 2018-08-30 03:14 | Emergency Department Note ---
Disposition Clinical Impression: Hyperkalemia, Anasarca, Pleural effusion, Elevated troponin Acute renal failure Qualifiers: Acute renal failure type: unspecified Qualified Code(s): N17.9 - Acute kidney failure, unspecified Altered mental status Qualifiers: Altered mental status type: unspecified Qualified Code(s): R41.82 - Altered mental status, unspecified Left lower lobe pneumonia Qualifiers: Pneumonia type: due to unspecified organism Qualified Code(s): J18.1 - Lobar pneumonia, unspecified organism Disposition: Admitted As Inpatient Condition: Serious General Adult HPI - General Chief complaint: ED Altered Mental Status Time Seen by Provider: 08/30/18 03:13 - Related Data Home Medications Medication Instructions Recorded Confirmed RX: Atorvastatin [Lipitor] 80 mg PO QPM 07/01/15 08/02/18 RX: Docusate Sodium [Colace] 100 mg PO QPM 07/01/15 08/02/18 RX: Furosemide [Lasix] 80 mg PO QAM 07/01/15 08/02/18 RX: Gabapentin [Neurontin] 300 mg PO QPM 07/01/15 08/02/18 RX: Isosorbide MONOnitrate (24 HR) 120 mg PO QAM 07/01/15 08/02/18 [Imdur] RX: hydrALAZINE [HydrALAZINE] 25 mg PO BID 07/01/15 08/02/18 RX: Multivitamin/Iron/Folic Acid 1 each PO QPM 01/23/16 08/02/18 [Centrum Complete Multivit Tab] RX: Insulin LISPRO [HumaLOG] 10 units SQ TIDAC 02/12/17 08/02/18 RX: ALPRAZolam [Xanax 0.25 MG 0.25 mg PO DAILY PRN 03/31/18 08/02/18 Tablet] RX: Allopurinol [Zyloprim 100 MG] 100 mg PO DAILY 03/31/18 08/02/18 RX: Clopidogrel [Plavix] 75 mg PO DAILY 03/31/18 08/02/18 RX: Fenofibrate Nanocrystallized 48 mg PO DAILY 03/31/18 08/02/18 [Tricor] RX: Furosemide [Lasix] 40 mg PO QPM 03/31/18 08/02/18 RX: Insulin Glargine,Hum.rec.anlog 60 unit SQ DAILY 03/31/18 08/02/18 [Lantus Solostar] RX: Metoprolol Succinate [Toprol 25 mg PO DAILY 03/31/18 08/02/18 Xl] RX: Ranitidine HCl [Acid Sheet Rock Taper Helper] 150 mg PO BID 03/31/18 08/02/18 RX: Ranolazine [Ranexa] 500 mg PO BID 03/31/18 08/02/18 RX: Tamsulosin [Flomax] 0.4 mg PO DAILY 03/31/18 08/02/18 RX: Aspirin Enteric Coated 81 mg PO DAILY 08/02/18 08/02/18 [Aspirin EC] RX: Losartan Potassium [Cozaar] 50 mg PO DAILY 08/02/18 08/02/18 RX: Nitroglycerin [Nitrostat] 0.4 mg SL Q5MIN PRN 08/02/18 08/02/18 RX: Tramadol HCl [Ultram] 50 mg PO Q6H PRN 08/02/18 08/02/18 Previous Rx's Medication Instructions Recorded Cefdinir [Omnicef] 300 mg PO BID 6 Days #12 capsule 08/13/18 RX: Albuterol Neb [Proventil Neb] 2.5 mg IH [id number] PRN inhsol 08/13/18 RX: Clotrimazole 1% CRM [Lotrimin 1 appl TP BID tube 08/13/18 1%] RX: Collagenase Oint [Santyl] 1 appl TP DAILY tube 08/13/18 RX: Gentamicin Oint [Garamycin] 1 appl TP BID tube 08/13/18 RX: Ipratropium/Albuterol Neb 3 ml IH QIDR inhsol 08/13/18 [Duoneb] Allergies Allergy/AdvReac Type Severity Reaction Status Date / Time codeine Allergy Hives Verified 08/30/18 03:19 Sulfa (Sulfonamide AdvReac Mild Nausea Verified 08/30/18 03:19 Antibiotics) Past Medical History - Past Medical History Medical history: Reports: cancer, CHF, coronary artery disease, diabetes, hypertension, myocardial infarction, renal disease, other Surgical history: Reports: cataract, coronary bypass (CABG), knee replacement, pacemaker/AICD Psychiatric history: Reports: anxiety - Social History Smoking Status: Former smoker Smokeless Tobacco Status: No Alcohol use: Reports: none Drug use: Reports: none Course Vital Signs Temperature 98.6 F 08/30/18 03:10 Pulse Rate 86 08/30/18 03:10 Respiratory Rate 26 08/30/18 03:10 Blood Pressure 97/55 08/30/18 03:10 O2 Sat by Pulse Oximetry 62 08/30/18 03:10 Temperature 98.6 F 08/30/18 03:10 Pulse Rate 86 08/30/18 03:10 Respiratory Rate 15 08/30/18 05:36 Blood Pressure 97/55 08/30/18 03:10 O2 Sat by Pulse Oximetry 96 08/30/18 05:36 Oxygen Delivery Oxygen Delivery Nasal Cannula Medical Decision Making - Lab Data Result diagrams: 08/30/18 03:17 08/30/18 03:43 Lab Results 08/30/18 08/30/18 08/30/18 Range/Units 03:17 03:17 03:37 WBC 7.8 (4.3-11.1) K/mcL RBC 3.98 L (4.19-5.50) M/mcL Hgb 10.7 L (12.9-16.9) g/dL Hct 34.9 L (37.5-50.1) % MCV 87.7 D (83.0-100.0) fL MCH 26.9 L (28.0-33.3) pg MCHC 30.7 L (31.6-35.5) g/dL RDW 16.3 H (11.5-14.5) % Plt Count 272 (140-400) K/mcL MPV 9.7 (9.4-12.4) fL Immature Gran % 0.4 (0-4) % Seg Neutrophils % 79.7 % Lymphocytes % 9.4 % Monocytes % 9.6 % Eosinophils % 0.4 % Basophils % 0.5 % Neutrophils # 6.2 (1.6-8.9) K/mcL Lymphocytes # 0.7 (0.6-4.6) K/mcL Monocytes # 0.8 (0.0-1.3) K/mcL Eosinophils # 0.0 (0.0-0.6) K/mcL Basophils # 0.0 (0.0-0.2) K/mcL Sample Site L Radial ABG pH 7.35 (7.32-7.45) pH Units ABG pCO2 57 H (35-45) mmHg ABG pO2 54 L (85-104) mmHg ABG HCO3 32 H (21-27) mEq/L ABG Total CO2 34 H (20-26) mEq/L ABG O2 Saturation 85 L (95-98) % ABG Base Excess 5 H (-2 to 3) mEq/L Gianni Test N/A O2 Delivery Device Cannula Inspired O2 2.0 (1-15=lpm [id number]=%) Sodium (136-145) mEq/L Potassium (3.5-5.1) mEq/L Chloride (98-107) mEq/L Carbon Dioxide (23-29) mEq/L BUN (8-23) mg/dL Creatinine (0.70-1.30) mg/dL Est GFR ( Amer) (> 60) Est GFR (Non-Af Amer) (> 60) BUN/Creatinine Ratio (6-26) Glucose (70-105) mg/dL Calculated Osmolality (280-300) Lactic Acid (0.5-2.2) mmol/L Calcium (8.6-10.3) mg/dL Total Bilirubin (0.3-1.0) mg/dL Direct Bilirubin (0.0-0.2) mg/dL Indirect Bilirubin (0.0-1.2) mg/dL AST (13-39) Units/L ALT (7-52) Units/L Alkaline Phosphatase (34-104) Units/L Troponin I (< 0.04) ng/mL B-Natriuretic Peptide 1110 H (Less than 100) pg/mL Serum Total Protein (6.4-8.9) g/dL Albumin (3.5-5.7) g/dL Globulin (2.4-3.5) g/dL Albumin/Globulin Ratio (1.1-2.2) 08/30/18 08/30/18 08/30/18 Range/Units 03:43 03:43 05:39 WBC (4.3-11.1) K/mcL RBC (4.19-5.50) M/mcL Hgb (12.9-16.9) g/dL Hct (37.5-50.1) % MCV (83.0-100.0) fL MCH (28.0-33.3) pg MCHC (31.6-35.5) g/dL RDW (11.5-14.5) % Plt Count (140-400) K/mcL MPV (9.4-12.4) fL Immature Gran % (0-4) % Seg Neutrophils % % Lymphocytes % % Monocytes % % Eosinophils % % Basophils % % Neutrophils # (1.6-8.9) K/mcL Lymphocytes # (0.6-4.6) K/mcL Monocytes # (0.0-1.3) K/mcL Eosinophils # (0.0-0.6) K/mcL Basophils # (0.0-0.2) K/mcL Sample Site ABG pH (7.32-7.45) pH Units ABG pCO2 (35-45) mmHg ABG pO2 (85-104) mmHg ABG HCO3 (21-27) mEq/L ABG Total CO2 (20-26) mEq/L ABG O2 Saturation (95-98) % ABG Base Excess (-2 to 3) mEq/L Gianni Test O2 Delivery Device Inspired O2 (1-15=lpm [id number]=%) Sodium 134 L (136-145) mEq/L Potassium 5.8 H (3.5-5.1) mEq/L Chloride 94 L (98-107) mEq/L Carbon Dioxide 30 H (23-29) mEq/L BUN 68 H (8-23) mg/dL Creatinine 4.29 H (0.70-1.30) mg/dL Est GFR ( Amer) 16 L (> 60) Est GFR (Non-Af Amer) 13 L (> 60) BUN/Creatinine Ratio 16 (6-26) Glucose 98 (70-105) mg/dL Calculated Osmolality 298 (280-300) Lactic Acid 1.4 1.5 (0.5-2.2) mmol/L Calcium 9.2 (8.6-10.3) mg/dL Total Bilirubin 0.7 (0.3-1.0) mg/dL Direct Bilirubin 0.3 H (0.0-0.2) mg/dL Indirect Bilirubin 0.4 (0.0-1.2) mg/dL AST 32 (13-39) Units/L ALT 20 (7-52) Units/L Alkaline Phosphatase 38 (34-104) Units/L Troponin I 0.06 H* (< 0.04) ng/mL B-Natriuretic Peptide (Less than 100) pg/mL Serum Total Protein 6.5 (6.4-8.9) g/dL Albumin 3.8 (3.5-5.7) g/dL Globulin 2.7 (2.4-3.5) g/dL Albumin/Globulin Ratio 1.4 (1.1-2.2) Attestation Statement - Attestation Attestation: Resident Attestation: I examined this patient and my medical decision making was reviewed with the Resident Physician. I agree with the documented findings, disposition and treatment plan as described except to the extent set forth below. We independently had [id number] contact with the patient Resident Dr. Tam Patient sent from long-term for evaluation of altered mental status which is best described as talking about the past and low oxygen saturations. He does have a history of CHF, coronary artery disease, diabetes, hypertension, renal disease. Patient has been undergoing further evaluation for a right sided foot wound. On evaluation the patient does have mild hypoxia on normal 2 L of oxygen. Pulse ox of 85%. Patient will undergo further evaluation for shortness of breath. Mild respiratory distress with nonspecific lung sounds. No specific wheezing or rales. No significant lower swelling lower extremity edema but does have right foot wound. The patient did receive workup for possible sepsis including blood cultures. Fluids have been limited secondary to history of CHF. Workup and disposition pending. Please see resident note for further details and disposition.
--- NOTE | 2018-08-30 03:22 | Emergency Department Note ---
Disposition Clinical Impression: Hyperkalemia, Anasarca, Pleural effusion, Elevated troponin Acute renal failure Qualifiers: Acute renal failure type: unspecified Qualified Code(s): N17.9 - Acute kidney failure, unspecified Altered mental status Qualifiers: Altered mental status type: unspecified Qualified Code(s): R41.82 - Altered mental status, unspecified Left lower lobe pneumonia Qualifiers: Pneumonia type: due to unspecified organism Qualified Code(s): J18.1 - Lobar pneumonia, unspecified organism Disposition: Admitted As Inpatient Condition: Serious Referrals: NONE,PCP [Primary Care Provider] - Forms: ED Satisfaction Letter Time of Disposition: 05:41 Altered Mental Status HPI - General Chief Complaint: ED Altered Mental Status Stated Complaint: abdominal pain Time Seen by Provider: 08/30/18 03:13 Source: patient, EMS Mode of arrival: ambulatory Limitations: no limitations Nursing Notes Reviewed: Yes Vital Signs Reviewed: Yes - History of Present Illness HPI Narrative: Patient is an 83-year-old male with past medical history of COPD, CHF, diabetes, previous [place], chronic right foot wound. He presents today due to altered mental status from [facility]. According to EMS, patient usually wears 2 L nasal cannula oxygen at the longterm chronically. This evening, patient had desats into the 80s, was confused from his baseline. The patient himself on arrival states that he has had increased cough, increased sputum production over the past few days. Denies any fevers, nausea, vomiting, chest pain, dysuria, hematuria. He does state that he receives chronic wound care at [facility] for right foot wound. However, due to mental status, unable to get full detailed history from patient. - Related Data Home Medications Medication Instructions Recorded Confirmed Atorvastatin [Lipitor] 80 mg PO QPM 07/01/15 08/02/18 Docusate Sodium [Colace] 100 mg PO QPM 07/01/15 08/02/18 Furosemide [Lasix] 80 mg PO QAM 07/01/15 08/02/18 Gabapentin [Neurontin] 300 mg PO QPM 07/01/15 08/02/18 Isosorbide MONOnitrate (24 HR) 120 mg PO QAM 07/01/15 08/02/18 [Imdur] hydrALAZINE [HydrALAZINE] 25 mg PO BID 07/01/15 08/02/18 Multivitamin/Iron/Folic Acid 1 each PO QPM 01/23/16 08/02/18 [Centrum Complete Multivit Tab] Insulin LISPRO [HumaLOG] 10 units SQ TIDAC 02/12/17 08/02/18 ALPRAZolam [Xanax 0.25 MG Tablet] 0.25 mg PO DAILY PRN 03/31/18 08/02/18 Allopurinol [Zyloprim 100 MG] 100 mg PO DAILY 03/31/18 08/02/18 Clopidogrel [Plavix] 75 mg PO DAILY 03/31/18 08/02/18 Fenofibrate Nanocrystallized 48 mg PO DAILY 03/31/18 08/02/18 [Tricor] Furosemide [Lasix] 40 mg PO QPM 03/31/18 08/02/18 Insulin Glargine,Hum.rec.anlog 60 unit SQ DAILY 03/31/18 08/02/18 [Lantus Solostar] Metoprolol Succinate [Toprol Xl] 25 mg PO DAILY 03/31/18 08/02/18 Ranitidine HCl [Acid Manhole Stripper] 150 mg PO BID 03/31/18 08/02/18 Ranolazine [Ranexa] 500 mg PO BID 03/31/18 08/02/18 Tamsulosin [Flomax] 0.4 mg PO DAILY 03/31/18 08/02/18 Aspirin Enteric Coated [Aspirin EC] 81 mg PO DAILY 08/02/18 08/02/18 Losartan Potassium [Cozaar] 50 mg PO DAILY 08/02/18 08/02/18 Nitroglycerin [Nitrostat] 0.4 mg SL Q5MIN PRN 08/02/18 08/02/18 Tramadol HCl [Ultram] 50 mg PO Q6H PRN 08/02/18 08/02/18 Previous Rx's Medication Instructions Recorded Albuterol Neb [Proventil Neb] 2.5 mg IH Q8TELPT PRN inhsol 08/13/18 Cefdinir [Omnicef] 300 mg PO BID 6 Days #12 capsule 08/13/18 Clotrimazole 1% CRM [Lotrimin 1%] 1 appl TP BID tube 08/13/18 Collagenase Oint [Santyl] 1 appl TP DAILY tube 08/13/18 Gentamicin Oint [Garamycin] 1 appl TP BID tube 08/13/18 Ipratropium/Albuterol Neb [Duoneb] 3 ml IH QIDR inhsol 08/13/18 Allergies Allergy/AdvReac Type Severity Reaction Status Date / Time codeine Allergy Hives Verified 08/30/18 03:19 Sulfa (Sulfonamide AdvReac Mild Nausea Verified 08/30/18 03:19 Antibiotics) All systems ED: reviewed and negative except as stated. Constitutional: Denies: fever Cardiovascular: Denies: chest pain Respiratory: Reports: cough, dyspnea, sputum production. Denies: wheezes Gastrointestinal: Denies: abdominal pain, nausea, vomiting, diarrhea Genitourinary: Denies: urgency, dysuria, frequency Neurological: Reports: confusion. Denies: headache, weakness, numbness, paresthesias Past Medical History - Past Medical History Attestation: Yes The following information was validated with the patient. Source: patient Medical history: Reports: cancer, CHF, coronary artery disease, diabetes, hypertension, myocardial infarction, renal disease, other Surgical history: Reports: cataract, coronary bypass (CABG), knee replacement, pacemaker/AICD Psychiatric history: Reports: anxiety - Social History Smoking Status: Former smoker Smokeless Tobacco Status: No Alcohol use: Reports: none Drug use: Reports: none Physical Exam - General Limitations: altered mental status (pleasantly confused) General appearance: alert - Head Head exam: atraumatic, normocephalic, normal inspection - Eye Eye exam: Present: normal appearance, PERRL, EOMI - ENT ENT exam: normal exam, normal oropharynx, mucous membranes moist - Neck Neck exam: Present: normal inspection, full ROM, trachea midline - Chest Chest inspection: Present: normal inspection, symmetric chest wall rise - Respiratory Respiratory exam: Present: other (decreased lung sounds throughout, limited exam due to body habitus; no overt crackles heard). Absent: wheezes - Cardiovascular Cardiovascular exam: Present: regular rate, normal rhythm, normal heart sounds - Abdominal Exam Abdominal exam: Present: soft, Non-Tender, other (bruising from heparin injections). Absent: tenderness, distention, guarding, rebound, rigidity - Extremities Exam Extremities exam: Present: full ROM, other (right lateral foot wound/ulceration with dried pus drainage ). Absent: tenderness, pedal edema - Neurological Exam Neurological exam: Present: alert - Expanded Neurological Exam Patient oriented to: Present: person, place. Absent: time Speech: Present: fluid speech Cranial nerves: EOM function (II, III, IV, ): Normal, facial sensation (V): Normal, facial palsy (VII): Normal, spinal accessory function (XI): Normal, tongue deviation (XII): Normal Motor strength - LUE: 5/5 Motor strength - RUE: 5/5 Motor strength - LLE: 5/5 Motor strength - RLE: 5/5 Coma Scale Eye Opening: Spontaneous Coma Scale Motor Response: Obeys Commands Coma Scale Verbal Response: Confused Coma Scale Total: 14 - Psychiatric Psychiatric exam: Present: normal affect, normal mood - Skin Skin exam: Present: warm, dry, intact, normal color Course Course Narrative: Patient blood pressure was in the 90s systolic. Presentation oxygen was in the 80s, not 62 as nursing charted. On 2 L nasal cannula, patient has variable oxygen saturation of upper 80s to low 90s. He has some increased work of breathing. Lung sounds were diminished throughout, no overt crackles or wheezes heard. Patient was placed on BiPAP and ABG ordered. Currently concern for possible CO2 retention secondary to COPD. Patient also has a right foot wound which may be cause of confusion as well. Also obtain EKG, chest x-ray, basic lab work, sepsis workup with lactic acid, cultures. Patient given a 1 L fluid bolus. He does have a history of COPD, this is why sepsis order set of 30 mL/kg was not ordered. We will give the patient duoneb x3. 03:58 CO2 was elevated in the 50s, pH was compensated. CT the head was added on due to confusion. Really pending chest x-ray. Pending UA. 04:47 labs show acute renal failure, potassium of 5.8. There are no EKG changes. We will give the patient IV insulin 10 units and an amp of D50. According to family, he has a history of frequent hypoglycemia and current glucose is 98. We will go ahead and hang D5 normal saline at added mL per hour to prevent any hypoglycemia with insulin treatment. He will need to be closely followed to ensure that he does not become fluid overloaded with history of CHF. Troponin was elevated 0.06. No recent complaints of chest pain or shortness of breath. We will give the patient rectal aspirin for coverage. Patient has a left lower lobe pneumonia on chest x-ray. Vancomycin, Zosyn, Levaquin has been started. CT the head is pending. Urinalysis pending. Family also states that the patient has been having complex of abdominal pain and vomiting overnight. We will go ahead and obtain CT abdomen and pelvis for further assessment. 05:38 CT that was negative for any acute intracranial abnormality. CT abdomen and pelvis shows: IMPRESSION: Moderate to large bilateral pleural effusions with moderate amount of abdominal/pelvic ascites and diffuse subcutaneous edema suggesting anasarca. Cholelithiasis without evidence of acute cholecystitis. Diverticulosis without evidence of acute diverticulitis. Irregular appearance of the bladder with multiple diverticula, possibly secondary to prior surgery. Patient is placed on BiPAP to help with fluid overload and pleural effu sions/dyspnea. Discussed case with Dr. Pacheco, as well as, recommended admission to the ICU for further care. Consult to nephrology has been placed for acute renal failure, fluid overload, hyperkalemia. Chest X-Ray 08/30/18 03:17 IMPRESSION: Left lower lobe focal opacity may represent consolidation from pneumonia versus atelectasis. Left pleural effusion is noted. Stable cardiomegaly. D/ / Juan Luis Crystal MD / Juan Luis Crystal MD Interpreting Provider: Juan Luis Crystal MD Head CT 08/30/18 03:50 IMPRESSION: No acute intracranial abnormality. Chronic white matter microangiopathic ischemic changes. D/ / Juan Luis Crystal MD / Juan Luis Crystal MD Interpreting Provider: Juan Luis Crystal MD Abdomen/Pelvis CT 08/30/18 04:39 IMPRESSION: Moderate to large bilateral pleural effusions with moderate amount of abdominal/pelvic ascites and diffuse subcutaneous edema suggesting anasarca. Cholelithiasis without evidence of acute cholecystitis. Diverticulosis without evidence of acute diverticulitis. Irregular appearance of the bladder with multiple diverticula, possibly secondary to prior surgery. D/ / Juan Luis Crystal MD / Juan Luis Crystal MD Interpreting Provider: Juan Luis Crystal MD Vital Signs Temperature 98.6 F 08/30/18 03:10 Pulse Rate 86 08/30/18 03:10 Respiratory Rate 26 08/30/18 03:10 Blood Pressure 97/55 08/30/18 03:10 O2 Sat by Pulse Oximetry 62 08/30/18 03:10 Temperature 98.6 F 08/30/18 03:10 Pulse Rate 86 08/30/18 03:10 Respiratory Rate 15 08/30/18 05:36 Blood Pressure 97/55 08/30/18 03:10 O2 Sat by Pulse Oximetry 96 08/30/18 05:36 Oxygen Delivery Oxygen Delivery Nasal Cannula Altered Mental Status - MDM Narrative Medical decision making narrative: Patient blood pressure was in the 90s systolic. Presentation oxygen was in the 80s, not 62 as nursing charted. On 2 L nasal cannula, patient has variable oxygen saturation of upper 80s to low 90s. He has some increased work of breathing. Lung sounds were diminished throughout, no overt crackles or wheezes heard. Patient was placed on BiPAP and ABG ordered. Currently concern for possible CO2 retention secondary to COPD. Patient also has a right foot wound which may be cause of confusion as well. Also obtain EKG, chest x-ray, basic lab work, sepsis workup with lactic acid, cultures. Patient given a 1 L fluid bolus. He does have a history of COPD, this is why sepsis order set of 30 mL/kg was not ordered. We will give the patient duoneb x3. 03:58 CO2 was elevated in the 50s, pH was compensated. CT the head was added on due to confusion. Really pending chest x-ray. Pending UA. 04:47 labs show acute renal failure, potassium of 5.8. There are no EKG changes. We will give the patient IV insulin 10 units and an amp of D50. According to family, he has a history of frequent hypoglycemia and current glucose is 98. We will go ahead and hang D5 normal saline at added mL per hour to prevent any hypoglycemia with insulin treatment. He will need to be closely followed to ensure that he does not become fluid overloaded with history of CHF. Troponin was elevated 0.06. No recent complaints of chest pain or shortness of breath. We will give the patient rectal aspirin for coverage. Patient has a left lower lobe pneumonia on chest x-ray. Vancomycin, Zosyn, Levaquin has been started. CT the head is pending. Urinalysis pending. Family also states that the patient has been having complex of abdominal pain and vomiting overnight. We will go ahead and obtain CT abdomen and pelvis for further assessment. 05:38 CT that was negative for any acute intracranial abnormality. CT abdomen and pelvis shows: IMPRESSION: Moderate to large bilateral pleural effusions with moderate amount of abdominal/pelvic ascites and diffuse subcutaneous edema suggesting anasarca. Cholelithiasis without evidence of acute cholecystitis. Diverticulosis without evidence of acute diverticulitis. Irregular appearance of the bladder with multiple diverticula, possibly secondary to prior surgery. Patient is placed on BiPAP to help with fluid overload and pleural effusions/d yspnea. Discussed case with Dr. Pacheco, as well as, recommended admission to the ICU for further care. Consult to nephrology has been placed for acute renal failure, fluid overload, hyperkalemia. - Medical Records Medical records reviewed: Yes I reviewed the patient's medical records. - Lab Data Lab results reviewed: Yes I reviewed the patient's lab results. Result diagrams: 08/30/18 03:17 08/30/18 03:43 Lab Results 08/30/18 08/30/18 08/30/18 Range/Units 03:17 03:17 03:37 WBC 7.8 (4.3-11.1) K/mcL RBC 3.98 L (4.19-5.50) M/mcL Hgb 10.7 L (12.9-16.9) g/dL Hct 34.9 L (37.5-50.1) % MCV 87.7 D (83.0-100.0) fL MCH 26.9 L (28.0-33.3) pg MCHC 30.7 L (31.6-35.5) g/dL RDW 16.3 H (11.5-14.5) % Plt Count 272 (140-400) K/mcL MPV 9.7 (9.4-12.4) fL Immature Gran % 0.4 (0-4) % Seg Neutrophils % 79.7 % Lymphocytes % 9.4 % Monocytes % 9.6 % Eosinophils % 0.4 % Basophils % 0.5 % Neutrophils # 6.2 (1.6-8.9) K/mcL Lymphocytes # 0.7 (0.6-4.6) K/mcL Monocytes # 0.8 (0.0-1.3) K/mcL Eosinophils # 0.0 (0.0-0.6) K/mcL Basophils # 0.0 (0.0-0.2) K/mcL Sample Site L Radial ABG pH 7.35 (7.32-7.45) pH Units ABG pCO2 57 H (35-45) mmHg ABG pO2 54 L (85-104) mmHg ABG HCO3 32 H (21-27) mEq/L ABG Total CO2 34 H (20-26) mEq/L ABG O2 Saturation 85 L (95-98) % ABG Base Excess 5 H (-2 to 3) mEq/L Gianni Test N/A O2 Delivery Device Cannula Inspired O2 2.0 (1-15=lpm [id number]=%) Sodium (136-145) mEq/L Potassium (3.5-5.1) mEq/L Chloride (98-107) mEq/L Carbon Dioxide (23-29) mEq/L BUN (8-23) mg/dL Creatinine (0.70-1.30) mg/dL Est GFR ( Amer) (> 60) Est GFR (Non-Af Amer) (> 60) BUN/Creatinine Ratio (6-26) Glucose (70-105) mg/dL Calculated Osmolality (280-300) Lactic Acid (0.5-2.2) mmol/L Calcium (8.6-10.3) mg/dL Total Bilirubin (0.3-1.0) mg/dL Direct Bilirubin (0.0-0.2) mg/dL Indirect Bilirubin (0.0-1.2) mg/dL AST (13-39) Units/L ALT (7-52) Units/L Alkaline Phosphatase (34-104) Units/L Troponin I (< 0.04) ng/mL B-Natriuretic Peptide 1110 H (Less than 100) pg/mL Serum Total Protein (6.4-8.9) g/dL Albumin (3.5-5.7) g/dL Globulin (2.4-3.5) g/dL Albumin/Globulin Ratio (1.1-2.2) 08/30/18 08/30/18 Range/Units 03:43 03:43 WBC (4.3-11.1) K/mcL RBC (4.19-5.50) M/mcL Hgb (12.9-16.9) g/dL Hct (37.5-50.1) % MCV (83.0-100.0) fL MCH (28.0-33.3) pg MCHC (31.6-35.5) g/dL RDW (11.5-14.5) % Plt Count (140-400) K/mcL MPV (9.4-12.4) fL Immature Gran % (0-4) % Seg Neutrophils % % Lymphocytes % % Monocytes % % Eosinophils % % Basophils % % Neutrophils # (1.6-8.9) K/mcL Lymphocytes # (0.6-4.6) K/mcL Monocytes # (0.0-1.3) K/mcL Eosinophils # (0.0-0.6) K/mcL Basophils # (0.0-0.2) K/mcL Sample Site ABG pH (7.32-7.45) pH Units ABG pCO2 (35-45) mmHg ABG pO2 (85-104) mmHg ABG HCO3 (21-27) mEq/L ABG Total CO2 (20-26) mEq/L ABG O2 Saturation (95-98) % ABG Base Excess (-2 to 3) mEq/L Gianni Test O2 Delivery Device Inspired O2 (1-15=lpm [id number]=%) Sodium 134 L (136-145) mEq/L Potassium 5.8 H (3.5-5.1) mEq/L Chloride 94 L (98-107) mEq/L Carbon Dioxide 30 H (23-29) mEq/L BUN 68 H (8-23) mg/dL Creatinine 4.29 H (0.70-1.30) mg/dL Est GFR ( Amer) 16 L (> 60) Est GFR (Non-Af Amer) 13 L (> 60) BUN/Creatinine Ratio 16 (6-26) Glucose 98 (70-105) mg/dL Calculated Osmolality 298 (280-300) Lactic Acid 1.4 (0.5-2.2) mmol/L Calcium 9.2 (8.6-10.3) mg/dL Total Bilirubin 0.7 (0.3-1.0) mg/dL Direct Bilirubin 0.3 H (0.0-0.2) mg/dL Indirect Bilirubin 0.4 (0.0-1.2) mg/dL AST 32 (13-39) Units/L ALT 20 (7-52) Units/L Alkaline Phosphatase 38 (34-104) Units/L Troponin I 0.06 H* (< 0.04) ng/mL B-Natriuretic Peptide (Less than 100) pg/mL Serum Total Protein 6.5 (6.4-8.9) g/dL Albumin 3.8 (3.5-5.7) g/dL Globulin 2.7 (2.4-3.5) g/dL Albumin/Globulin Ratio 1.4 (1.1-2.2) - Radiology Data Radiology results reviewed: Yes I reviewed the patient's radiology results. Chest X-Ray 08/30/18 03:17 IMPRESSION: Left lower lobe focal opacity may represent consolidation from pneumonia versus atelectasis. Left pleural effusion is noted. Stable cardiomegaly. D/ / Juan Luis Crystal MD / Juan Luis Crystal MD Interpreting Provider: Juan Luis Crystal MD Head CT 08/30/18 03:50 IMPRESSION: No acute intracranial abnormality. Chronic white matter microangiopathic ischemic changes. D/ / Juan Luis Crystal MD / Juan Luis Crystal MD Interpreting Provider: Juan Luis Crystal MD Abdomen/Pelvis CT 08/30/18 04:39 IMPRESSION: Moderate to large bilateral pleural effusions with moderate amount of abdominal/pelvic ascites and diffuse subcutaneous edema suggesting anasarca. Cholelithiasis without evidence of acute cholecystitis. Diverticulosis without evidence of acute diverticulitis. Irregular appearance of the bladder with multiple diverticula, possibly secondary to prior surgery. D/ / Juan Luis Crystal MD / Juan Luis Crystal MD Interpreting Provider: Juan Luis Crystal MD - EKG Data EKG attestation: Yes I reviewed and interpreted this EKG. EKG results narrative: 08/30/2018 at 03:26. Paced rhythm. Rate 84. Left axis deviation. No acute ST elevation or depression. No change from previous EKG on 08/03/2018 TPA Checklist - LKW: 3-4.5 hrs Add. Warnings/Precautions Patient/family understanding: The patient/family members have been counseled and understood the risk, benefit, and alternatives of treatment. S.B.A.R. - S.B.A.R. Situation: Demographics, MOA Background: Presenting Complaint, Relevant PMH, Meds, & Allergies Assessment: Vital Signs, Course and respsone to treatment, Exam Concerns, Patient/Family Expectation, Pertinant Lab Results, Outstanding Labs Recommendation: Barrier(s) to disposition, Recommendation based on pending studies, treatments, or consults S.B.A.R. Report Given to: Dr. Pacheco
[2018-08-30] MEDS ORDERED: 0.9 % Sodium Chloride 1,000 ML IVC ONE ×2 (03:23→04:24)
[2018-08-30] MEDS ORDERED: 0.9 % Sodium Chloride 1,000 ML IVC SCH (03:30)
[2018-08-30] MEDS ORDERED: Ipratropium/Albuterol Neb 3 ML IH ONE (03:39)
[2018-08-30 03:40] LABS: ABG Base Excess 5 mEq/L (-2 to 3); ABG HCO3 32 mEq/L (21-27); ABG Oxygen Saturation 85 % (95-98); ABG PCO2 57 mmHg (35-45); ABG PH 7.35 pH Units (7.32-7.45); ABG PO2 54 mmHg (85-104); ABG TCO2 34 mEq/L (20-26)
[2018-08-30 03:57] LABS: Basophils % 0.5 %; Eosinophils % 0.4 %; Hematocrit 34.9 % (37.5-50.1); Hemoglobin 10.7 g/dL (12.9-16.9); Immature Granulocytes % 0.4 % (0-4); Lymphocytes # 0.7 K/mcL (0.6-4.6); Lymphocytes % 9.4 %; Mean Corpuscular HGB Conc 30.7 g/dL (31.6-35.5); Mean Corpuscular Hemoglobin 26.9 pg (28.0-33.3); Mean Platelet Volume 9.7 fL (9.4-12.4); Monocytes # 0.8 K/mcL (0.0-1.3); Monocytes % 9.6 %; Neutrophils # 6.2 K/mcL (1.6-8.9); Platelet Count 272 K/mcL (140-400); Red Blood Count 3.98 M/mcL (4.19-5.50); Red Cell Distribution Width 16.3 % (11.5-14.5); Segmented Neutrophils % 79.7 %
[2018-08-30 03:58] LABS: Mean Corpuscular Volume 87.7 fL (83.0-100.0)
[2018-08-30 04:15] LABS: Calcium 9.2 mg/dL (8.6-10.3); Potassium 5.8 mEq/L (3.5-5.1)
[2018-08-30 04:22] LABS: Troponin I 0.06 ng/mL (< 0.04)
[2018-08-30] MEDS ORDERED: Insulin Human Regular 10 UNIT in 0.9 % Sodium Chloride 10 ML IV ONE (04:24)
[2018-08-30] MEDS ORDERED: *HR* Dextrose 50 % in Water (Syg) 50 ML SYRINGE IVP ONE (04:24)
[2018-08-30] MEDS ORDERED: Levofloxacin 750 MG/150 ML 750 MG/150 ML BAG IVPB ONE (04:25)
[2018-08-30] MEDS ORDERED: Piperacillin/Tazobactam 3.375 GM in 0.9 % Sodium Chloride Mini Bag 100 ML IVPB ONE (04:25)
[2018-08-30] MEDS ORDERED: D5% in 0.9% NACL 1,000 ML IVC SCH (04:45)
[2018-08-30 04:58] LABS: Albumin 3.8 g/dL (3.5-5.7); Albumin/Globulin Ratio 1.4 (1.1-2.2); Bilirubin,Direct 0.3 mg/dL (0.0-0.2); Bilirubin,Indirect 0.4 mg/dL (0.0-1.2); Bilirubin,Total 0.7 mg/dL (0.3-1.0); Globulin 2.7 g/dL (2.4-3.5); Total Protein 6.5 g/dL (6.4-8.9)
[2018-08-30] MEDS ORDERED: *HR* LORazepam 2 MG/ML VIAL IVP ONE ×2 (06:06→07:33)
--- NOTE | 2018-08-30 07:02 | Nephrology Consult Note ---
Date of Encounter: 08/30/18 Time of Encounter: 07:00 Assessment and Plan (1) Acute kidney injury superimposed on chronic kidney disease Current Visit: No Status: Acute Patient has baseline stage III chronic kidney disease and presents with acute kidney injury. The acute kidney injury is likely related to decreased cardiac output related to volume changes from his nausea vomiting and decreased oral intake. I will check a renal ultrasound and obtain urine lites. I agree with a trial of intravenous hydration, but with his respiratory compromise this will be done judiciously. With his acute kidney injury and hyperkalemia along with possible volume overload patient would qualify for dialysis, however, in speaking with his daughters they are not sure that he would want to receive hemodialysis. We will maximize medical management and if his renal function does not improve we will readdress the issue of hemodialysis with the family. I recommend medical management of the hyperkalemia with Kayexalate. I recommend holding nephrotoxic agents including losartan, and furosemide. Titrate medications for his renal function. I have ordered a Steiner so we can get accurate ins and outs. Patient status is critical. (2) Diabetes Current Visit: No Status: Chronic We will defer management to the primary team. Next Patient has a right leg wound and I recommend wound care nursing to manage his complicated wound. 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 I recommend holding his diuretics and an giotensin receptor chapis for now. Titrate antihypertensive medication as needed for blood pressure control. Qualifiers: Hypertension type: essential hypertension Qualified Code(s): I10 - Essential (primary) hypertension (4) Acute and chronic respiratory failure ([id number]) Current Visit: No Status: Acute Patient is currently on BiPAP. While we will give a trial of fluids if his respiratory status worsens then I recommend stopping the fluids and giving high- dose Lasix. Qualifiers: Qualified Code(s): J96.20 - Acute and chronic respiratory failure, unspecified whether with hypoxia or hypercapnia (5) Acute exacerbation of CHF (congestive heart failure) Current Visit: No Status: Acute See above. Qualifiers: Qualified Code(s): I50.9 - Heart failure, unspecified History of Present Illness - Reason for Consult Consult date: 08/30/18 Acute Kidney Injury, Chronic Kidney Disease - Chief Complaint SIMÓN/CKD - History of Present Illness Mr. Warren is an 83-year-old gentleman with a history of chronic kidney disease followed on an outpatient basis by Dr. Malone who [facility] after developing respiratory distress. The history is obtained from review of the medical records and talking to the patient's daughters who are at the bedside. The patient is breathing on his own, but is not responding to verbal commands. Per the family the patient has had nausea and vomiting for several days prior to developing respiratory distress. He has a history of COPD and has been on oxygen since January 2018. The patient has a very complicated medical history including diabetes, chronic kidney disease, peripheral vascular disease, and morbid obesity. The patient has a right leg wound that is being managed at the wound clinic at [facility]. Per the daughter as the patient has not complained of any chest pain, or diarrhea. A consult was placed for nephrology to manage his hyperkalemia and acute kidney injury. Past Med Surg Social Fam HX - Past Medical History Medical history: cancer, CHF, coronary artery disease, diabetes, hypertension, myocardial infarction, renal disease, other Additional medical history: urinary retention; bladder cancer Psychiatric history: anxiety - Past Surgical History Surgical History: cataract, coronary bypass (CABG), knee replacement, pacemaker/AICD Additional surgical history: AICD placed. Bladder CA surgery February 2017 - Social History Smoking Status: Former smoker Smokeless Tobacco Status: No Alcohol use: none Drug use: none - Family History Mother Living Status: Hx Family Cancer: Yes Father Living Status: Hx Family Endocrine Disorder: Yes Medications and Allergies Atorvastatin [Lipitor] 80 mg PO QPM 07/01/15 [History] Docusate Sodium [Colace] 100 mg PO QPM 07/01/15 [History] Furosemide [Lasix] 80 mg PO QAM 07/01/15 [History] Gabapentin [Neurontin] 300 mg PO QPM 07/01/15 [History] Isosorbide MONOnitrate (24 HR) [Imdur] 120 mg PO QAM 07/01/15 [History] hydrALAZINE [HydrALAZINE] 25 mg PO BID 07/01/15 [History] Multivitamin/Iron/Folic Acid [Centrum Complete Multivit Tab] 1 each PO QPM 01/23/16 [History] Insulin LISPRO [HumaLOG] 10 units SQ TIDAC 02/12/17 [History] ALPRAZolam [Xanax 0.25 MG Tablet] 0.25 mg PO DAILY PRN 03/31/18 [History] Allopurinol [Zyloprim 100 MG] 100 mg PO DAILY 03/31/18 [History] Clopidogrel [Plavix] 75 mg PO DAILY 03/31/18 [History] Fenofibrate Nanocrystallized [Tricor] 48 mg PO DAILY 03/31/18 [History] Furosemide [Lasix] 40 mg PO QPM 03/31/18 [History] Insulin Glargine,Hum.rec.anlog [Lantus Solostar] 60 unit SQ DAILY 03/31/18 [History] Metoprolol Succinate [Toprol Xl] 25 mg PO DAILY 03/31/18 [History] Ranitidine HCl [Acid [facility]] 150 mg PO BID 03/31/18 [History] Ranolazine [Ranexa] 500 mg PO BID 03/31/18 [History] Tamsulosin [Flomax] 0.4 mg PO DAILY 03/31/18 [History] Aspirin Enteric Coated [Aspirin EC] 81 mg PO DAILY 08/02/18 [History] Losartan Potassium [Cozaar] 50 mg PO DAILY 08/02/18 [History] Nitroglycerin [Nitrostat] 0.4 mg SL Q5MIN PRN 08/02/18 [History] Tramadol HCl [Ultram] 50 mg PO Q6H PRN 08/02/18 [History] Albuterol Neb [Proventil Neb] 2.5 mg IH [id number] PRN inhsol 08/13/18 [Rx] Cefdinir [Omnicef] 300 mg PO BID 6 Days #12 capsule 08/13/18 [Rx] Clotrimazole 1% CRM [Lotrimin 1%] 1 appl TP BID tube 08/13/18 [Rx] Collagenase Oint [Santyl] 1 appl TP DAILY tube 08/13/18 [Rx] Gentamicin Oint [Garamycin] 1 appl TP BID tube 08/13/18 [Rx] Ipratropium/Albuterol Neb [Duoneb] 3 ml IH QIDR inhsol 08/13/18 [Rx] Allergy/AdvReac Type Severity Reaction Status Date / Time codeine Allergy Hives Verified 08/30/18 03:19 Sulfa (Sulfonamide AdvReac Mild Nausea Verified 08/30/18 03:19 Antibiotics) Review of Systems ROS unobtainable: due to mental status All Systems: reviewed and no additional remarkable complaints except as stated Exam - Vital Signs Vital signs: Initial Vital Signs Temp Pulse Resp BP Pulse Ox 98.6 F 86 26 97/55 62 08/30/18 03:10 08/30/18 03:10 08/30/18 03:10 08/30/18 03:10 08/30/18 03:10 Vital Signs - Last 8 Hours Temp Pulse Resp BP Pulse Ox 08/30/18 06:31 86 15 119/74 99 08/30/18 05:36 15 96 08/30/18 03:51 16 92 08/30/18 03:10 98.6 F 86 26 97/55 62 Intake and Output 08/29/18 08/29/18 08/30/18 15:59 23:59 07:59 Other: Weight 118.206 kg Blood Glucose* 110 Patient Weight 08/30/18 23:59 Weight 118.206 kg - General Appearance General appearance: well-developed, well-nourished, obese EENT: ATNC Neck: supple Respiratory: rales, course breath sounds Cardiology: edema, regular rate Gastrointestinal: no tenderness, obese Integumentary: warm and dry Neurologic: confused, disoriented Musculoskeletal: no cyanosis Results - Lab Results 08/30/18 03:17 08/30/18 03:43 Most recent lab results ABG pH 7.35 pH Units (7.32-7.45) 08/30/18 03:37 ABG pCO2 57 mmHg (35-45) H 08/30/18 03:37 ABG pO2 54 mmHg (85-104) L 08/30/18 03:37 ABG HCO3 32 mEq/L (21-27) H 08/30/18 03:37 ABG O2 Saturation 85 % (95-98) L 08/30/18 03:37 Calcium 9.2 mg/dL (8.6-10.3) 08/30/18 03:43 Consult Discharge Plan - Plan Referrals: NONE,PCP [Primary Care Provider] -
[2018-08-30] MEDS ORDERED: *HR* LORazepam 2 MG/ML VIAL ONE (07:36)
--- NOTE | 2018-08-30 07:52 | Pulmonology History & Physical ---
History of Present Illness HPI: Mr. Warren is a 83 year old male Past Med Surg Social Fam HX - Past Medical History Medical history: cancer, CHF, coronary artery disease, diabetes, hypertension, myocardial infarction, renal disease, other Additional medical history: urinary retention; bladder cancer Psychiatric history: anxiety - Past Surgical History Surgical History: cataract, coronary bypass (CABG), knee replacement, pacemaker/AICD Additional surgical history: AICD placed. Bladder CA surgery February 2017 - Social History Smoking Status: Former smoker Smokeless Tobacco Status: No Alcohol use: none Drug use: none - Family History Mother Living Status: Hx Family Cancer: Yes Father Living Status: Hx Family Endocrine Disorder: Yes Medications and Allergies Atorvastatin [Lipitor] 80 mg PO QPM 07/01/15 [History] Docusate Sodium [Colace] 100 mg PO QPM 07/01/15 [History] Furosemide [Lasix] 80 mg PO QAM 07/01/15 [History] Gabapentin [Neurontin] 300 mg PO QPM 07/01/15 [History] Isosorbide MONOnitrate (24 HR) [Imdur] 120 mg PO QAM 07/01/15 [History] hydrALAZINE [HydrALAZINE] 25 mg PO BID 07/01/15 [History] Multivitamin/Iron/Folic Acid [Centrum Complete Multivit Tab] 1 each PO QPM 01/23/16 [History] Insulin LISPRO [HumaLOG] 10 units SQ TIDAC 02/12/17 [History] ALPRAZolam [Xanax 0.25 MG Tablet] 0.25 mg PO DAILY PRN 03/31/18 [History] Allopurinol [Zyloprim 100 MG] 100 mg PO DAILY 03/31/18 [History] Clopidogrel [Plavix] 75 mg PO DAILY 03/31/18 [History] Fenofibrate Nanocrystallized [Tricor] 48 mg PO DAILY 03/31/18 [History] Furosemide [Lasix] 40 mg PO QPM 03/31/18 [History] Insulin Glargine,Hum.rec.anlog [Lantus Solostar] 60 unit SQ DAILY 03/31/18 [History] Metoprolol Succinate [Toprol Xl] 25 mg PO DAILY 03/31/18 [History] Ranitidine HCl [Acid Digital Forensic Examiner] 150 mg PO BID 03/31/18 [History] Ranolazine [Ranexa] 500 mg PO BID 03/31/18 [History] Tamsulosin [Flomax] 0.4 mg PO DAILY 03/31/18 [History] Aspirin Enteric Coated [Aspirin EC] 81 mg PO DAILY 08/02/18 [History] Losartan Potassium [Cozaar] 50 mg PO DAILY 08/02/18 [History] Nitroglycerin [Nitrostat] 0.4 mg SL Q5MIN PRN 08/02/18 [History] Tramadol HCl [Ultram] 50 mg PO Q6H PRN 08/02/18 [History] Albuterol Neb [Proventil Neb] 2.5 mg IH [id number] PRN inhsol 08/13/18 [Rx] Cefdinir [Omnicef] 300 mg PO BID 6 Days #12 capsule 08/13/18 [Rx] Clotrimazole 1% CRM [Lotrimin 1%] 1 appl TP BID tube 08/13/18 [Rx] Collagenase Oint [Santyl] 1 appl TP DAILY tube 08/13/18 [Rx] Gentamicin Oint [Garamycin] 1 appl TP BID tube 08/13/18 [Rx] Ipratropium/Albuterol Neb [Duoneb] 3 ml IH QIDR inhsol 08/13/18 [Rx] Allergy/AdvReac Type Severity Reaction Status Date / Time codeine Allergy Hives Verified 08/30/18 03:19 Sulfa (Sulfonamide AdvReac Mild Nausea Verified 08/30/18 03:19 Antibiotics) All Systems: The remainder of the systems were reviewed and are negative Physical Examination Vital Signs: Vital Signs, Last 4 Hours Pulse Resp BP Pulse Ox 08/30/18 06:31 86 15 119/74 99 08/30/18 05:36 15 96 08/30/18 03:51 16 92 Results - Laboratory Findings CBC and BMP: 08/30/18 03:17 08/30/18 03:43 ABG ABG pH 7.35 pH Units (7.32-7.45) 08/30/18 03:37 ABG pCO2 57 mmHg (35-45) H 08/30/18 03:37 ABG pO2 54 mmHg (85-104) L 08/30/18 03:37 ABG O2 Saturation 85 % (95-98) L 08/30/18 03:37 Abnormal lab findings: Abnormal lab results RBC 3.98 M/mcL (4.19-5.50) L 08/30/18 03:17 Hgb 10.7 g/dL (12.9-16.9) L 08/30/18 03:17 Hct 34.9 % (37.5-50.1) L 08/30/18 03:17 MCH 26.9 pg (28.0-33.3) L 08/30/18 03:17 MCHC 30.7 g/dL (31.6-35.5) L 08/30/18 03:17 RDW 16.3 % (11.5-14.5) H 08/30/18 03:17 ABG pCO2 57 mmHg (35-45) H 08/30/18 03:37 ABG pO2 54 mmHg (85-104) L 08/30/18 03:37 ABG HCO3 32 mEq/L (21-27) H 08/30/18 03:37 ABG Total CO2 34 mEq/L (20-26) H 08/30/18 03:37 ABG O2 Saturation 85 % (95-98) L 08/30/18 03:37 ABG Base Excess 5 mEq/L (-2 to 3) H 08/30/18 03:37 Sodium 134 mEq/L (136-145) L 08/30/18 03:43 Potassium 5.8 mEq/L (3.5-5.1) H 08/30/18 03:43 Chloride 94 mEq/L (98-107) L 08/30/18 03:43 Carbon Dioxide 30 mEq/L (23-29) H 08/30/18 03:43 BUN 68 mg/dL (8-23) H 08/30/18 03:43 Creatinine 4.29 mg/dL (0.70-1.30) H 08/30/18 03:43 Est GFR ( Amer) 16 (> 60) L 08/30/18 03:43 Est GFR (Non-Af Amer) 13 (> 60) L 08/30/18 03:43 Direct Bilirubin 0.3 mg/dL (0.0-0.2) H 08/30/18 03:43 Troponin I 0.06 ng/mL (< 0.04) H* 08/30/18 03:43 B-Natriuretic Peptide 1110 pg/mL (Less than 100) H 08/30/18 03:17
--- NOTE | 2018-08-30 08:16 | Pulmonology Consult Note ---
<Aditya Harrington M - Last Filed: 08/30/18 08:30> Medications and Allergies Atorvastatin [Lipitor] 80 mg PO QPM 07/01/15 [History] Docusate Sodium [Colace] 100 mg PO QPM 07/01/15 [History] Furosemide [Lasix] 80 mg PO QAM 07/01/15 [History] Gabapentin [Neurontin] 300 mg PO QPM 07/01/15 [History] Isosorbide MONOnitrate (24 HR) [Imdur] 120 mg PO QAM 07/01/15 [History] hydrALAZINE [HydrALAZINE] 25 mg PO BID 07/01/15 [History] Multivitamin/Iron/Folic Acid [Centrum Complete Multivit Tab] 1 each PO QPM 01/23/16 [History] Insulin LISPRO [HumaLOG] 10 units SQ TIDAC 02/12/17 [History] ALPRAZolam [Xanax 0.25 MG Tablet] 0.25 mg PO DAILY PRN 03/31/18 [History] Allopurinol [Zyloprim 100 MG] 100 mg PO DAILY 03/31/18 [History] Clopidogrel [Plavix] 75 mg PO DAILY 03/31/18 [History] Fenofibrate Nanocrystallized [Tricor] 48 mg PO DAILY 03/31/18 [History] Furosemide [Lasix] 40 mg PO QPM 03/31/18 [History] Insulin Glargine,Hum.rec.anlog [Lantus Solostar] 60 unit SQ DAILY 03/31/18 [History] Metoprolol Succinate [Toprol Xl] 25 mg PO DAILY 03/31/18 [History] Ranitidine HCl [Acid Groundskeeper] 150 mg PO BID 03/31/18 [History] Ranolazine [Ranexa] 500 mg PO BID 03/31/18 [History] Tamsulosin [Flomax] 0.4 mg PO DAILY 03/31/18 [History] Aspirin Enteric Coated [Aspirin EC] 81 mg PO DAILY 08/02/18 [History] Losartan Potassium [Cozaar] 50 mg PO DAILY 08/02/18 [History] Nitroglycerin [Nitrostat] 0.4 mg SL Q5MIN PRN 08/02/18 [History] Tramadol HCl [Ultram] 50 mg PO Q6H PRN 08/02/18 [History] Albuterol Neb [Proventil Neb] 2.5 mg IH [id number] PRN inhsol 08/13/18 [Rx] Clotrimazole 1% CRM [Lotrimin 1%] 1 appl TP BID tube 08/13/18 [Rx] Collagenase Oint [Santyl] 1 appl TP DAILY tube 08/13/18 [Rx] Gentamicin Oint [Garamycin] 1 appl TP BID tube 08/13/18 [Rx] Ipratropium/Albuterol Neb [Duoneb] 3 ml IH QIDR inhsol 08/13/18 [Rx] Allergy/AdvReac Type Severity Reaction Status Date / Time codeine Allergy Hives Verified 08/30/18 03:19 Sulfa (Sulfonamide AdvReac Mild Nausea Verified 08/30/18 03:19 Antibiotics) All Systems: The remainder of the systems were reviewed and are negative Physical Examination Vital Signs: Vital Signs, Last 4 Hours Pulse Resp BP Pulse Ox 08/30/18 06:31 86 15 119/74 99 08/30/18 05:36 15 96 Results - Laboratory Findings CBC and BMP: 08/30/18 03:17 08/30/18 03:43 ABG ABG pH 7.35 pH Units (7.32-7.45) 08/30/18 03:37 ABG pCO2 57 mmHg (35-45) H 08/30/18 03:37 ABG pO2 54 mmHg (85-104) L 08/30/18 03:37 ABG O2 Saturation 85 % (95-98) L 08/30/18 03:37 Abnormal lab findings: Abnormal lab results RBC 3.98 M/mcL (4.19-5.50) L 08/30/18 03:17 Hgb 10.7 g/dL (12.9-16.9) L 08/30/18 03:17 Hct 34.9 % (37.5-50.1) L 08/30/18 03:17 MCH 26.9 pg (28.0-33.3) L 08/30/18 03:17 MCHC 30.7 g/dL (31.6-35.5) L 08/30/18 03:17 RDW 16.3 % (11.5-14.5) H 08/30/18 03:17 ABG pCO2 57 mmHg (35-45) H 08/30/18 03:37 ABG pO2 54 mmHg (85-104) L 08/30/18 03:37 ABG HCO3 32 mEq/L (21-27) H 08/30/18 03:37 ABG Total CO2 34 mEq/L (20-26) H 08/30/18 03:37 ABG O2 Saturation 85 % (95-98) L 08/30/18 03:37 ABG Base Excess 5 mEq/L (-2 to 3) H 08/30/18 03:37 Sodium 134 mEq/L (136-145) L 08/30/18 03:43 Potassium 5.8 mEq/L (3.5-5.1) H 08/30/18 03:43 Chloride 94 mEq/L (98-107) L 08/30/18 03:43 Carbon Dioxide 30 mEq/L (23-29) H 08/30/18 03:43 BUN 68 mg/dL (8-23) H 08/30/18 03:43 Creatinine 4.29 mg/dL (0.70-1.30) H 08/30/18 03:43 Est GFR ( Amer) 16 (> 60) L 08/30/18 03:43 Est GFR (Non-Af Amer) 13 (> 60) L 08/30/18 03:43 Direct Bilirubin 0.3 mg/dL (0.0-0.2) H 08/30/18 03:43 Troponin I 0.06 ng/mL (< 0.04) H* 08/30/18 03:43 B-Natriuretic Peptide 1110 pg/mL (Less than 100) H 08/30/18 03:17 - Microbiology Findings Microbiology Findings: Microbiology, Last 48 Hours 08/30/18 04:03 Blood Culture - Preliminary Peripheral Venipuncture Culture is incubating and being continuously monitored for growth. Final report to follow. 08/30/18 03:43 Blood Culture - Preliminary Peripheral Venipuncture Culture is incubating and being continuously monitored for growth. Final report to follow. - Clinical Findings Intake & Output: Intake & Output 08/29/18 08/30/18 08/30/18 23:59 07:59 15:59 Weight 118.206 kg Consult Discharge Plan - Plan Referrals: NONE,PCP [Primary Care Provider] - - Attending Attestation I examined this patient and my medical decision-making was reviewed with the Resident Physician. I agree with the documented findings, disposition and treatment plan as described except to the extent set forth below. Patient seen and examined. Labs, radiology, chart personally reviewed. I was called by the hospitalist earlier this morning regarding this patient and then I went to emergency room department with the resident to evaluate this patient. Patient with multiple comorbidities and according to the daughters at the bedside his CODE STATUS is DO NOT RESUSCITATE and no intubation. Patient is not following commands with altered mental status, however he has received medication because he is refusing noninvasive ventilation. He does have volume overload due to his comorbidities and not accepting noninvasive ventilation and ideally I have explained to the patient's daughters if his breathing deteriorate because of the fluid and he does not respond to diuresis, since dialysis is not an option then he will need to be intubated, but he is DNI. Since he does not require any treatment that needs to be done in ICU, then he can be admitted to the floor. This was discussed with the ER physicians and nurses in the ER and hospitalist to be notified. 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 Cardiovascular: Evidence of volume overload. GI: Nutrition per dietary and GI prophylaxis per routine. Patient to be nothing by mouth due to mental status change. Heme: DVT prophylaxis per routine ID: Continue antibiotics and plan to de-escalation. Empiric treatment. Renal; urine out put and renal funtion reviewed. Nephrology evaluated patients. Endorcine: blood glucose is monitored Lines: all lines checked and no evidence of infections Skin: skin care to prevent pressure ulcers per nursing routine care Please call for any questions. <Fco Henley R - Last Filed: 08/30/18 17:34> Date of Encounter: 08/30/18 Time of Encounter: 08:16 Assessment and Plan (1) Acute on chronic respiratory failure with hypoxia and hypercapnia Current Visit: Yes Status: Acute Patient with acute on chronic respiratory failure with hypoxia and hypercapnia secondary to COPD and CHF in the setting of volume overload. ABG consistent with compensated respiratory acidosis. Patient was placed on BiPAP in the emergency department however due to his altered mental status he is not tolerating the BiPAP mask. Patient does have multiple comorbidities and prognosis is poor, did discuss this with the family. Daughter states the patient is a DNR CC arrest, they would like to further discuss and possibly pursue palliative care. Would not like to pursue dialysis or aggressive measures at this time. Continue respiratory support and BiPAP as tolerated by the patient Patient can be admitted to hospitalist service, will not require ICU care due to patient family desired to pursue less aggressive medical management. (2) [id number] kidney injury Current Visit: Yes Status: Acute Acute kidney injury with most recent creatinine of 4.29 baseline appears to be 2. Nephrology has been consultation for evaluation of acute kidney injury and associated hyperkalemia of 5.8. At this time the patient and family do not wish to pursue aggressive measures with dialysis. Nephrology following, appreciate their recommendations Qualifiers: Chronic kidney disease stage: stage 3 (moderate) Qualified Code(s): N17.9 - Acute kidney failure, unspecified; N18.3 - Chronic kidney disease, stage 3 (moderate) (3) Altered mental status Current Visit: Yes Status: Acute Altered mental status, patient is not at baseline per family bedside. Head CT was negative for acute abnormalities. Patient is anxious with visible agitation. May improve with reversal of acute respiratory failure. Consider benzodiazepine or Haldol for anxiolysis and comfort. Qualifiers: Altered mental status type: somnolence Qualified Code(s): R40.0 - Somnolence (4) Congestive heart failure Current Visit: Yes Status: Chronic History of heart failure likely contributing to worsening respiratory distress. Bilateral pleural effusions and ascites visible on CT scan. Patient has been on Lasix at her long-term. Dialysis would be helpful for volume removal in the setting of CHF, however aggressive life prolonging measures do not wish by the patient and family. Furosemide orders were canceled after family has decided to pursue palliative care measures. Qualifiers: Heart failure type: unspecified Heart failure chronicity: unspecified Qualified Code(s): I50.9 - Heart failure, unspecified (5) Diabetes Current Visit: No Status: Chronic History of insulin-dependent diabetes. Primary team is holding medical management while family pursues palliative treatment measures. 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 History of Present Illness Consult date: 08/30/18 Requesting physician: Fco Tam Reason for consult: hypoxemia Chief complaint: Shortness of breath History of present illness: Patient is an 83-year-old male with history significant for COPD, CHF, diabetes, CAD with prior PA, CKD, and chronic right foot wound. Patient is a resident in a nursing facility. Patient was seen and evaluated at the bedside however he is altered and agitated, much of history is obtained from the chart and family at bedside. Family notes worsening cough and shortness of breath over the past week with associated sputum production. Patient is on 2 L of oxygen by nasal cannula at baseline. At the nursing facility he was observed to have worsening hypoxia with increased oxygen supplementation requirement as well as altered mental status. He was transported to emergency department for further evaluation and management. Upon evaluation in the emergency department patient was found to have increased work of breathing, ABG revealing compensated respiratory acidosis. Acute on chronic kidney injury with creatinine of 4.29. Anasarca with moderate bilateral pleural and peritoneal effusions identified by CT scan. Head CT was negative for acute intracranial process. Past Med Surg Social Fam HX - Past Medical History Medical history: cancer, CHF, coronary artery disease, diabetes, hypertension, myocardial infarction, renal disease, other Additional medical history: urinary retention; bladder cancer Psychiatric history: anxiety - Past Surgical History Surgical History: cataract, coronary bypass (CABG), knee replacement, pacemaker/AICD Additional surgical history: AICD placed. Bladder CA surgery February 2017 - Social History Smoking Status: Former smoker Smokeless Tobacco Status: No Alcohol use: none Drug use: none - Family History Mother Living Status: Hx Family Cancer: Yes Father Living Status: Hx Family Endocrine Disorder: Yes ROS unobtainable: due to mental status All Systems: The remainder of the systems were reviewed and are negative Physical Examination Vital Signs: Vital Signs, Last 4 Hours Pulse Resp BP Pulse Ox 08/30/18 06:31 86 15 119/74 99 08/30/18 05:36 15 96 Results - Laboratory Findings CBC and BMP: 08/30/18 12:17 08/30/18 03:43 ABG ABG pH 7.35 pH Units (7.32-7.45) 08/30/18 03:37 ABG pCO2 57 mmHg (35-45) H 08/30/18 03:37 ABG pO2 54 mmHg (85-104) L 08/30/18 03:37 ABG O2 Saturation 85 % (95-98) L 08/30/18 03:37 Abnormal lab findings: Abnormal lab results RBC 3.98 M/mcL (4.19-5.50) L 08/30/18 03:17 Hgb 10.7 g/dL (12.9-16.9) L 08/30/18 03:17 Hct 34.9 % (37.5-50.1) L 08/30/18 03:17 MCH 26.9 pg (28.0-33.3) L 08/30/18 03:17 MCHC 30.7 g/dL (31.6-35.5) L 08/30/18 03:17 RDW 16.3 % (11.5-14.5) H 08/30/18 03:17 ABG pCO2 57 mmHg (35-45) H 08/30/18 03:37 ABG pO2 54 mmHg (85-104) L 08/30/18 03:37 ABG HCO3 32 mEq/L (21-27) H 08/30/18 03:37 ABG Total CO2 34 mEq/L (20-26) H 08/30/18 03:37 ABG O2 Saturation 85 % (95-98) L 08/30/18 03:37 ABG Base Excess 5 mEq/L (-2 to 3) H 08/30/18 03:37 Sodium 134 mEq/L (136-145) L 08/30/18 03:43 Potassium 5.8 mEq/L (3.5-5.1) H 08/30/18 03:43 Chloride 94 mEq/L (98-107) L 08/30/18 03:43 Carbon Dioxide 30 mEq/L (23-29) H 08/30/18 03:43 BUN 68 mg/dL (8-23) H 08/30/18 03:43 Creatinine 4.29 mg/dL (0.70-1.30) H 08/30/18 03:43 Est GFR ( Amer) 16 (> 60) L 08/30/18 03:43 Est GFR (Non-Af Amer) 13 (> 60) L 08/30/18 03:43 Direct Bilirubin 0.3 mg/dL (0.0-0.2) H 08/30/18 03:43 Troponin I 0.06 ng/mL (< 0.04) H* 08/30/18 03:43 B-Natriuretic Peptide 1110 pg/mL (Less than 100) H 08/30/18 03:17 - Microbiology Findings Microbiology Findings: Microbiology, Last 48 Hours 08/30/18 04:03 Blood Culture - Preliminary Peripheral Venipuncture Culture is incubating and being continuously monitored for growth. Final report to follow. 08/30/18 03:43 Blood Culture - Preliminary Peripheral Venipuncture Culture is incubating and being continuously monitored for growth. Final report to follow. - Clinical Findings Intake & Output: Intake & Output 08/29/18 08/30/18 08/30/18 23:59 07:59 15:59 Weight 118.206 kg
[2018-08-30] MEDS ORDERED: Haloperidol Lactate 5 MG/ML VIAL ONE (09:18)
[2018-08-30] MEDS ORDERED: Lido/Epi/Tetra Gel 2 ML SYRINGE TP ONE (09:27)
[2018-08-30] MEDS ORDERED: Haloperidol Lactate 5 MG/ML VIAL IM PRN (09:32)
[2018-08-30] MEDS ORDERED: Furosemide 40 MG/4 ML VIAL IVP SCH (09:45)
[2018-08-30 10:40] LABS: Bilirubin,Urine Small (Negative); Blood,Urine Negative (Negative); Clarity,Urine Cloudy (Clear); Color,Urine Dark Yellow (Yellow); Glucose,Urine (UA) Normal (Normal); Ketones,Urine Negative (Negative); Leukocyte Esterase,Urine Large (Negative); Nitrite,Urine Negative (Negative); PH,Urine 5.5 pH Units (5.0-8.0); Protein,Urine Negative (Neg-Trace); Specific Gravity,Urine 1.019 (1.010-1.025); Urobilinogen,Urine Normal (Normal)
[2018-08-30 10:42] LABS: Bacteria,Urine None Seen per hpf (None-Few); Squamous Epithelial Cell,Urine Many per lpf (None-Few); WBC,Urine 50-100 per hpf (0-3)
--- NOTE | 2018-08-30 11:35 | Internal Med History&Physical ---
<Funmi Madrigal - Last Filed: 08/30/18 14:08> Date of Encounter: 08/30/18 Time of Encounter: 09:15 Internal Medicine - H&P: HPI Chief complaint: altered mental status Admitted From: [facility] History of present illness: Mr. Warren is a 83 year old male who was presented to the ED from [facility]. He has past medical hisotry of COPD, CHD, diabetes, previous RI, chronic right foot wound. At presentation he is confused and due to altered mental status history is obtained from family and chart review. At the alf he is on 2 liters of nasal canula oxygen. Per family her has increased cough with productive sputum for the past a few days. They mentioned he had a urinalysis in the nursing unit and it was negative 1 week ago. They also mentioned that he is supposed to be on a BiPAP but is not compliant. He was recently admitted on 08/02/18 and required 11 days admission for chest pain and cellulitis. And during the last admission as well he was requiring 5 liters of oxygen with BiPAP. Today in the ED his BNP was noted to be 1110. His troponin was 0.06. His ABG showed respiratory acidosis with metabolic compensation. His creatinine was also elevated at 4.29 and he has end-stage renal disease. His white count was within normal limits. CT of the head did not show any acute changes. CT of the chest showed moderate to large bilateral pleural effusions with abdominal ascites and diffuse edema suggesting anasarca. Per family he is on Lasix at the nursing facility but often has difficulty urinating due to enlarged prostate and history of bladder cancer. During his admission to the unit had an extensive conversation with family about goals or care and they noted that his health is not improving requiring second admission in the past month and would like to speak with palliative for end of life discussion. Past Med Surg Social Fam HX - Past Medical History Medical history: cancer, CHF, coronary artery disease, diabetes, hypertension, myocardial infarction, renal disease, other Additional medical history: urinary retention; bladder cancer Psychiatric history: anxiety - Past Surgical History Surgical History: cataract, coronary bypass (CABG), knee replacement, pacemaker/AICD Additional surgical history: AICD placed. Bladder CA surgery February 2017 - Social History Smoking Status: Former smoker Smokeless Tobacco Status: No Alcohol use: none Drug use: none - Family History Father Living Status: Hx Family Endocrine Disorder: Yes Mother Living Status: Hx Family Cancer: Yes Internal Medicine - H&P: Meds RX: Atorvastatin [Lipitor] 80 mg PO QPM 07/01/15 [History] RX: Docusate Sodium [Colace] 100 mg PO QPM 07/01/15 [History] RX: Furosemide [Lasix] 80 mg PO QAM 07/01/15 [History] RX: Gabapentin [Neurontin] 300 mg PO QPM 07/01/15 [History] RX: Isosorbide MONOnitrate (24 HR) [Imdur] 120 mg PO QAM 07/01/15 [History] RX: hydrALAZINE [HydrALAZINE] 25 mg PO BID 07/01/15 [History] RX: Multivitamin/Iron/Folic Acid [Centrum Complete Multivit Tab] 1 each PO QPM 01/23/16 [History] RX: Insulin LISPRO [HumaLOG] 10 units SQ TIDAC 02/12/17 [History] RX: ALPRAZolam [Xanax 0.25 MG Tablet] 0.25 mg PO DAILY PRN 03/31/18 [History] RX: Allopurinol [Zyloprim 100 MG] 100 mg PO DAILY 03/31/18 [History] RX: Clopidogrel [Plavix] 75 mg PO DAILY 03/31/18 [History] RX: Fenofibrate Nanocrystallized [Tricor] 48 mg PO DAILY 03/31/18 [History] RX: Furosemide [Lasix] 40 mg PO QPM 03/31/18 [History] RX: Insulin Glargine,Hum.rec.anlog [Lantus Solostar] 60 unit SQ DAILY 03/31/18 [History] RX: Metoprolol Succinate [Toprol Xl] 25 mg PO DAILY 03/31/18 [History] RX: Ranitidine HCl [Acid Technical Publications Manager] 150 mg PO BID 03/31/18 [History] RX: Ranolazine [Ranexa] 500 mg PO BID 03/31/18 [History] RX: Tamsulosin [Flomax] 0.4 mg PO DAILY 03/31/18 [History] RX: Aspirin Enteric Coated [Aspirin EC] 81 mg PO DAILY 08/02/18 [History] RX: Losartan Potassium [Cozaar] 50 mg PO DAILY 08/02/18 [History] RX: Nitroglycerin [Nitrostat] 0.4 mg SL Q5MIN PRN 08/02/18 [History] RX: Tramadol HCl [Ultram] 50 mg PO Q6H PRN 08/02/18 [History] RX: Albuterol Neb [Proventil Neb] 2.5 mg IH [id number] PRN inhsol 08/13/18 [Rx] RX: Clotrimazole 1% CRM [Lotrimin 1%] 1 appl TP BID tube 08/13/18 [Rx] RX: Collagenase Oint [Santyl] 1 appl TP DAILY tube 08/13/18 [Rx] RX: Gentamicin Oint [Garamycin] 1 appl TP BID tube 08/13/18 [Rx] RX: Ipratropium/Albuterol Neb [Duoneb] 3 ml IH QIDR inhsol 08/13/18 [Rx] Allergy/AdvReac Type Severity Reaction Status Date / Time codeine Allergy Hives Verified 08/30/18 03:19 Sulfa (Sulfonamide AdvReac Mild Nausea Verified 08/30/18 03:19 Antibiotics) ROS unobtainable: due to mental status All Systems PM: A 10-system review of systems was performed and is negative for pertinent findings except as documented above in the HPI. Review of systems: Per family he has been progressively worsening in confusion for the past week. His shortness of breath has been worsening. - Constitutional Vitals: Temp Pulse Resp BP Pulse Ox 98.6 F 90 18 117/70 96 08/30/18 03:10 08/30/18 09:28 08/30/18 09:28 08/30/18 09:28 08/30/18 09:28 General appearance: Present: mild distress, obese. Absent: answers questions appropriately Exam: awake and alert but not oriented - Head Head exam: Present: atraumatic, normocephalic - Eye Eye exam: Present: EOMI. Absent: conjunctival injection - ENT ENT exam: Present: mucous membranes moist - Neck Neck exam general surgery: Present: full ROM, normal inspection. Absent: te nderness - Respiratory Respiratory exam: Absent: accessory muscle use, rales, wheezes Additional comments: crackles at bilateral lung bases - Cardiovascular Cardiovascular exam: Present: RRR, +S1, +S2. Absent: clicks, gallop - GI/Abdominal GI/Abdominal exam: Present: distended, hypoactive bowel sounds, soft. Absent: firm, tenderness - Extremities Exam Extremities exam: Absent: calf tenderness, pedal edema Additional comments: right foot has numerous sites of skin abrasions and healing puncture wound on the medial aspect - Neurological Exam Neurological exam: Absent: oriented X3, speech deficit Additional comments: awake, not but alert or oriented - Psychiatric Psychiatric exam: Present: agitated - Skin Skin exam: Present: abrasion (right foot), dry Internal Med - H&P Results - Labs CBC & Chem 7: 08/30/18 12:17 08/30/18 03:43 Labs: Short CBC 08/30/18 Range/Units 03:17 WBC 7.8 (4.3-11.1) K/mcL Hgb 10.7 L (12.9-16.9) g/dL Hct 34.9 L (37.5-50.1) % Plt Count 272 (140-400) K/mcL Neutrophils # 6.2 (1.6-8.9) K/mcL BMP 08/30/18 03:43 Sodium 134 L Potassium 5.8 H Chloride 94 L Carbon Dioxide 30 H BUN 68 H Creatinine 4.29 H Glucose 98 Calcium 9.2 Cardiac Enzymes 08/30/18 Range/Units 03:43 Troponin I 0.06 H* (< 0.04) ng/mL Liver Function 08/30/18 Range/Units 03:43 Total Bilirubin 0.7 (0.3-1.0) mg/dL Direct Bilirubin 0.3 H (0.0-0.2) mg/dL AST 32 (13-39) Units/L ALT 20 (7-52) Units/L Alkaline Phosphatase 38 (34-104) Units/L Albumin 3.8 (3.5-5.7) g/dL Urine 08/30/18 Range/Units 10:28 Urine Color Dark Yellow (Yellow) Urine Clarity Cloudy A (Clear) Urine pH 5.5 (5.0-8.0) pH Units Ur Specific [place] 1.019 (1.010-1.025) Urine Protein Negative (Neg-Trace) mg/dL Urine Glucose (UA) Normal (Normal) mg/dL - ABG Interpretation ABG results: 08/30/18 03:37 ABG pH 7.35 ABG pCO2 57 H ABG pO2 54 L ABG HCO3 32 H ABG Total CO2 34 H ABG O2 Saturation 85 L ABG Base Excess 5 H - Impressions ITS Impressions Chest X-Ray 08/30/18 03:17 IMPRESSION: Left lower lobe focal opacity may represent consolidation from pneumonia versus atelectasis. Left pleural effusion is noted. Stable cardiomegaly. D/ / Juan Luis Crystal MD / Juan Luis Crystal MD Interpreting Provider: Juan Luis Crystal MD Head CT 08/30/18 03:50 IMPRESSION: No acute intracranial abnormality. Chronic white matter microangiopathic ischemic changes. D/ / Juan Luis Crystal MD / Juan Luis Crystal MD Interpreting Provider: Juan Luis Crystal MD Abdomen/Pelvis CT 08/30/18 04:39 IMPRESSION: Moderate to large bilateral pleural effusions with moderate amount of abdominal/pelvic ascites and diffuse subcutaneous edema suggesting anasarca. Cholelithiasis without evidence of acute cholecystitis. Diverticulosis without evidence of acute diverticulitis. Irregular appearance of the bladder with multiple diverticula, possibly secondary to prior surgery. D/ / 08/30/2018 09:45:23 Juan Luis Crystal MD / earnold Interpreting Provider: Juan Luis Crystal MD - Assessment and plan (1) Acute and chronic respiratory failure Current Visit: Yes Status: Acute Assessment and plan: Secondary to pleural effusions. Presented with acute on chronic respiratory f ailure. In the EMS his oxygen saturation was 80% even with 2 liters of nasal canula. He is supposed to be on BiPAP in the nursing facility but cannot tolerate it. In the ED he was found to have respiratory acidosis with metabolic compensation. CT of the chest showed bilateral pleural effusions Plan: Had planned on IV furosemide with BiPAP but family would rather not try any medical management and discuss with palliative end of life care. Continue supplemental oxygen Comfort measures Qualifiers: Qualified Code(s): J96.21 - Acute and chronic respiratory failure with hypoxia; J96.22 - Acute and chronic respiratory failure with hypercapnia (2) Acute encephalopathy Current Visit: Yes Status: Acute Assessment and plan: Presented with confusion and per family it has been worsening for the past week. Likely secondary to respiratory failure. CT of the head was negative for any acute findings Very agitated, unable to provide any history Plan: Continue haloperidol Continue treating respiratory status with BiPAP Urinalysis was negative Continue to keep him comfortable (3) CHF exacerbation Current Visit: Yes Status: Acute Assessment and plan: He presented with acute respiratory failure. Was found to have respiratory acidosis. CT of the chest shows bilateral pleural effusions. Is on lasix at nursing facility but unable to urinate because of history of bladder surgery. History of severe left LV systolic and diastolic dysfunction with EF of 25-30% Plan: IV furosemide were ordered but canceled as the family would like to speak with palliative to discuss end of life care given his mobidities with stage IV kidney disease, with acute SIMÓN and hyperkalemia and ongoing respiratory failure. And he cannot tolerate BiPAP and family would like to keep him comfortable. Qualifiers: Heart failure type: combined systolic and diastolic Qualified Code(s): I50.43 - Acute on chronic combined systolic (congestive) and diastolic (congestive) heart failure (4) Gvkah-wx-eqdaqwu kidney injury Current Visit: Yes Status: Acute Assessment and plan: Previously has history of stage 3b CKD but recent admission shows worsened kidney function with worsening kidney function. His creatinine is twice baseline, today 4.29 and his baseline is 1.8-2. Unable to urinate without folley. Nephrology was consulted. Plan: Family would like to hold medical managements at this time and keep him comfortable. Comfort measures Qualifiers: Chronic kidney disease stage: stage 3 (moderate) Qualified Code(s): N17.9 - Acute kidney failure, unspecified; N18.3 - Chronic kidney disease, stage 3 (moderate) (5) Diabetes Current Visit: Yes Status: Chronic Assessment and plan: History of diabetes and is on insulin at nursing facility. Family would like to hold medical management at this time and would like to speak with palliative for end of life care. Comfort measures per family's request. Qualifiers: Diabetes mellitus type: type 2 Diabetes mellitus complication status: with circulatory complication Diabetes mellitus complication detail: with other circulatory complications Qualified Code(s): E11.59 - Type 2 diabetes mellitus with other circulatory complications; Z79.4 - detention (current) use of insulin (6) Hypertension Current Visit: Yes Status: Chronic Assessment and plan: History of hypertension. Blood pressure is 117/70, holding home metoprolol. Holding home naomi inhibitor. Continue to monitor. Qualifiers: Hypertension type: unspecified Qualified Code(s): I10 - Essential (primary) hypertension (7) DVT prophylaxis Current Visit: Yes Status: Acute Assessment and plan: SubQ heparin (8) Elevated troponin Current Visit: Yes Status: Acute Assessment and plan: His troponin was elevated at 0.06 on admission and repeat was 0.07. It is likely due to demand ischemia. He has severe LV diastolic dysfunction with EF of 25- 30%. Plan: Family would like to hold medical management at this time and discuss end of lif e care. - Time Spent With Patient Total time spent is greater than 50% in coordination of care (as documented) at patient's floor/unit and/or counseling patient: <Lucy Marie - Last Filed: 08/30/18 17:10> Internal Medicine - H&P: HPI History of present illness: Mr. Warren is a 83 year old male All Systems PM: A 10-system review of systems was performed and is negative for pertinent findings except as documented above in the HPI. - Constitutional Vitals: Temp Pulse Resp BP Pulse Ox 98.6 F 90 18 117/70 96 08/30/18 03:10 08/30/18 09:28 08/30/18 09:28 08/30/18 09:28 08/30/18 09:28 Internal Med - H&P Results - Labs CBC & Chem 7: 08/30/18 12:17 08/30/18 03:43 Labs: Short CBC 08/30/18 08/30/18 Range/Units 03:17 12:17 WBC 7.8 6.4 (4.3-11.1) K/mcL Hgb 10.7 L 10.9 L (12.9-16.9) g/dL Hct 34.9 L 35.5 L (37.5-50.1) % Plt Count 272 249 (140-400) K/mcL Neutrophils # 6.2 4.7 (1.6-8.9) K/mcL BMP 08/30/18 03:43 Sodium 134 L Potassium 5.8 H Chloride 94 L Carbon Dioxide 30 H BUN 68 H Creatinine 4.29 H Glucose 98 Calcium 9.2 Cardiac Enzymes 08/30/18 08/30/18 Range/Units 03:43 12:17 Troponin I 0.06 H* 0.07 H* (< 0.04) ng/mL Liver Function 08/30/18 Range/Units 03:43 Total Bilirubin 0.7 (0.3-1.0) mg/dL Direct Bilirubin 0.3 H (0.0-0.2) mg/dL AST 32 (13-39) Units/L ALT 20 (7-52) Units/L Alkaline Phosphatase 38 (34-104) Units/L Albumin 3.8 (3.5-5.7) g/dL Urine 08/30/18 Range/Units 10:28 Urine Color Dark Yellow (Yellow) Urine Clarity Cloudy A (Clear) Urine pH 5.5 (5.0-8.0) pH Units Ur Specific [place] 1.019 (1.010-1.025) Urine Protein Negative (Neg-Trace) mg/dL Urine Glucose (UA) Normal (Normal) mg/dL - ABG Interpretation ABG results: 08/30/18 03:37 ABG pH 7.35 ABG pCO2 57 H ABG pO2 54 L ABG HCO3 32 H ABG Total CO2 34 H ABG O2 Saturation 85 L ABG Base Excess 5 H - Impressions ITS Impressions Chest X-Ray 08/30/18 03:17 IMPRESSION: Left lower lobe focal opacity may represent consolidation from pneumonia versus atelectasis. Left pleural effusion is noted. Stable cardiomegaly. D/ / Juan Luis Crystal MD / Juan Luis Crystal MD Interpreting Provider: Juan Luis Crystal MD Head CT 08/30/18 03:50 IMPRESSION: No acute intracranial abnormality. Chronic white matter microangiopathic ischemic changes. D/ / Juan Luis Crystal MD / Juan Luis Crystal MD Interpreting Provider: Juan Luis Crystal MD Abdomen/Pelvis CT 08/30/18 04:39 IMPRESSION: Moderate to large bilateral pleural effusions with moderate amount of abdominal/pelvic ascites and diffuse subcutaneous edema suggesting anasarca. Cholelithiasis without evidence of acute cholecystitis. Diverticulosis without evidence of acute diverticulitis. Irregular appearance of the bladder with multiple diverticula, possibly secondary to prior surgery. D/ / 08/30/2018 09:45:23 Juan Luis Crystal MD / earnold Interpreting Provider: Juan Luis Crystal MD - Assessment and plan (1) Acute and chronic respiratory failure Current Visit: Yes Status: Acute Qualifiers: Qualified Code(s): J96.21 - Acute and chronic respiratory failure with hypoxia; J96.22 - Acute and chronic respiratory failure with hypercapnia (2) CHF exacerbation Current Visit: Yes Status: Acute Qualifiers: Heart failure type: combined systolic and diastolic Qualified Code(s): I50.43 - Acute on chronic combined systolic (congestive) and diastolic (congestive) heart failure (3) Jnhsi-ir-[id number] kidney injury Current Visit: Yes Status: Acute Qualifiers: Chronic kidney disease stage: stage 3 (moderate) Qualified Code(s): N17.9 - Acute kidney failure, unspecified; N18.3 - Chronic kidney disease, stage 3 (moderate) (4) Diabetes Current Visit: Yes Status: Chronic Qualifiers: Diabetes mellitus type: type 2 Diabetes mellitus complication status: with circulatory complication Diabetes mellitus complication detail: with other circulatory complications Qualified Code(s): E11.59 - Type 2 diabetes mellitus with other circulatory complications; Z79.4 - detention (current) use of insulin (5) Hypertension Current Visit: Yes Status: Chronic Qualifiers: Hypertension type: unspecified Qualified Code(s): I10 - Essential (primary) hypertension (6) Acute encephalopathy Current Visit: Yes Status: Acute (7) DVT prophylaxis Current Visit: Yes Status: Acute (8) Elevated troponin Current Visit: Yes Status: Acute - Time Spent With Patient Total time spent is greater than 50% in coordination of care (as documented) at patient's floor/unit and/or counseling patient: - Attending Attestation I examined this patient and my medical decision-making was reviewed with the Resident Physician Dr. Madrigal. I agree with the documented findings, disposition and treatment plan as described except to the extent set forth below. Mr. Warren is a 83 year old male with a known past medical history of CAD status post CABG, ischemic cardiomyopathy status post AICD, CKD-4, DM2, COPD, chronic hypoxic respiratory failure, HTN, HLD, severe peripheral vascular disease , chronic right foot wound who recently d/c to ECF from our facility on 08/13/18 with 6 more days PO Abx now he was brought into our ER by EMS from [facility] with worsening SOB, AMS and acute on chronic hypoxic resp failure. Pt was placed on BiPAP in the ER. He seemed to be diffuse fluid overload wtih CT of abd / pelvis showed Moderate to large bilateral pleural effusions with a moderate amount of abdominal/pelvic ascites and diffuse SQ edema suggesting anasarca. Patient was given IV Lasix however his symptoms has not improved. He is in acute kidney injury with CKD-4. Also had hyperkalemia K+ @ 5.8. His blood gas showed acute hyper capneic Respiratory failure with PCO2 57. Ph: 7.35. Overall patient prognosis seems to be very poor. Patient family do not want to proceed with any aggressive care such as hemodialysis wh ich seems to be inevitable for this patient with his current condition. At this point patient's family decided to proceed with comfort care route. So we will start him on IV Haldol as needed for anxiety/comfort care. Also placed him on oxycodone sublingual for pain. I did talk to the patient family members and explained to them about the current comfort care measures. Will consult palliative care. Since patient does how defibrillator will try to shut it down to avoid any defibrillator firings. Gen: Sleepy, sedative Chest: Diminished BSb b/l, moderate crackles, rales + Heart: S1S2+ RRR
[2018-08-30] MEDS ORDERED: Ondansetron 4 MG/2 ML VIAL IVP PRN (11:38)
[2018-08-30] MEDS ORDERED: Naloxone 0.4 MG/ML INJ IVP PRN (11:38)
[2018-08-30] MEDS ORDERED: Acetaminophen 325 MG TABLET PO PRN (11:38)
[2018-08-30] MEDS ORDERED: Albuterol 2.5 MG/3 ML NEBULIZER IH PRN (11:57)
[2018-08-30] MEDS ORDERED: traMADol 50 MG TABLET PO PRN (11:57)
[2018-08-30] MEDS ORDERED: *HR* Dextrose 50 % in Water (Syg) 50 ML SYRINGE IVP PRN (12:15)
[2018-08-30] MEDS ORDERED: D5% in Water 1,000 ML IVC PRN (12:15)
[2018-08-30] MEDS ORDERED: Dextrose Gel 15 GM/37.5 ML TUBE PO PRN ×2 (12:15)
[2018-08-30 12:31] LABS: Basophils % 0.6 %; Eosinophils % 0.6 %; Hematocrit 35.5 % (37.5-50.1); Hemoglobin 10.9 g/dL (12.9-16.9); Immature Granulocytes % 0.3 % (0-4); Lymphocytes # 0.7 K/mcL (0.6-4.6); Lymphocytes % 10.2 %; Mean Corpuscular HGB Conc 30.7 g/dL (31.6-35.5); Mean Corpuscular Volume 88.1 fL (83.0-100.0); Mean Platelet Volume 10.1 fL (9.4-12.4); Monocytes % 15.7 %; Neutrophils # 4.7 K/mcL (1.6-8.9); Nucleated Red Blood Cells 0.3 /100 WBC (0); Platelet Count 249 K/mcL (140-400); Red Blood Count 4.03 M/mcL (4.19-5.50); Red Cell Distribution Width 16.4 % (11.5-14.5); Segmented Neutrophils % 72.6 %
[2018-08-30] MEDS ORDERED: OXYCODONE Oral CONC 10 MG/0.5 ML ORAL.SYG SL PRN ×2 (13:01→16:37)
[2018-08-30] MEDS: Haloperidol Lactate 5 MG/ML VIAL IVP PRN ×4 (14:35→21:41)
[2018-08-30] MEDS ORDERED: Insulin LISPRO 300 UNITS/3 ML VIAL SQ SCH ×2 (16:30→21:00)
[2018-08-30] MEDS ORDERED: Gabapentin 300 MG CAPSULE PO SCH (18:00)
[2018-08-30] MEDS ORDERED: *HR* Heparin 5,000 UNIT/ML VIAL SQ SCH (18:00)
[2018-08-30] MEDS ORDERED: Haloperidol Lactate 5 MG/ML VIAL IVP ONE (18:47)
[2018-08-30] MEDS: *HR* LORazepam 2 MG/ML VIAL IVP PRN (19:46)
[2018-08-31] MEDS ORDERED: Haloperidol Lactate 5 MG/ML VIAL IVP ONE (00:58)
[2018-08-31] MEDS: *HR* LORazepam 2 MG/ML VIAL IVP PRN ×2 (02:42→08:09)
[2018-08-31] MEDS: Haloperidol Lactate 5 MG/ML VIAL IVP PRN (06:41)
--- NOTE | 2018-08-31 06:48 | Nephrology Progress Note ---
Date of Encounter: 08/31/18 Time of Encounter: 06:46 - Assessment and Plan (1) Acute kidney injury superimposed on chronic kidney disease Current Visit: No Status: Acute Family is pursuing palliative care and the patient is DNR comfort care. I did speak with the family and let them know that should they change their mind we would continue to follow the patient and attempt to manage his renal dysfunction. For now I will sign off, please call if any questions or concerns. (2) Diabetes Current Visit: No Status: Chronic Qualifiers: Diabetes mellitus type: type 2 Diabetes mellitus fci insulin use: with fci use Diabetes mellitus complication status: with skin complications Diabetes mellitus complication detail: with other skin ulcer Qualified Code(s): E11.622 - Type 2 diabetes mellitus with other skin ulcer; Z79.4 - intermediate manager (current) use of insulin (3) Hypertension Current Visit: No Status: Chronic Qualifiers: Hypertension type: essential hypertension Qualified Code(s): I10 - Essential (primary) hypertension (4) Acute and chronic respiratory failure ([id number]) Current Visit: No Status: Acute Qualifiers: Qualified Code(s): J96.20 - Acute and chronic respiratory failure, unspecif ied whether with hypoxia or hypercapnia (5) Acute exacerbation of CHF (congestive heart failure) Current Visit: No Status: Acute Qualifiers: Qualified Code(s): I50.9 - Heart failure, unspecified Subjective Principal diagnosis: SIMÓN on CKD Interval history: Patient lying in bed comfortable. Family is at bedside. Objective - Vital Signs Vital signs: Vital Signs Temp Pulse Resp BP Pulse Ox 08/30/18 19:02 98.6 F 80 19 109/76 99 08/30/18 09:28 90 18 117/70 96 Intake and Output 08/30/18 08/30/18 08/31/18 15:59 23:59 07:59 Intake Total 0 / 0 Output Total 60 / 60 Balance -60 / -60 Intake: Oral 0 / 0 Output: Catheter 60 / 60 Coude 30 / 30 - General Appearance General appearance: Present: well-developed, well-nourished, obese - Lab 08/30/18 12:17 08/30/18 03:43 Most recent lab results ABG pH 7.35 pH Units (7.32-7.45) 08/30/18 03:37 ABG pCO2 57 mmHg (35-45) H 08/30/18 03:37 ABG pO2 54 mmHg (85-104) L 08/30/18 03:37 ABG HCO3 32 mEq/L (21-27) H 08/30/18 03:37 ABG O2 Saturation 85 % (95-98) L 08/30/18 03:37 Calcium 9.2 mg/dL (8.6-10.3) 08/30/18 03:43 Consult Discharge Plan - Plan Referrals: NONE,PCP [Primary Care Provider] -
[2018-08-31 07:56] VITALS: BP 116/70
[2018-08-31] MEDS ORDERED: *HR* FentaNYL (PF) 100 MCG/2 ML VIAL IVP ONE (08:11)
[2018-08-31] MEDS ORDERED: FentaNYL (PF) 1,000 MCG in 0.9 % Sodium Chloride 80 ML IVC SCH (08:30)
[2018-08-31] MEDS ORDERED: Aspirin Enteric Coated 81 MG Tablet PO SCH (09:00)
[2018-08-31] MEDS ORDERED: 0.9 % Sodium Chloride 500 ML ONE (09:28)
--- NOTE | 2018-08-31 09:39 | Internal Med Progress Note ---
<Funmi Madrigal - Last Filed: 08/31/18 09:33> Hospitalist Progress Note - Encounter Date of Encounter: 08/31/18 Time of Encounter: 08:20 - Subjective Interval History: Mr. Warren is seen at bedside this morning and appeared comfortable. His vitals remained stable overnight he was on 6 L of oxygen with oxygen saturation of 97%. Family was present at bedside. They asked about starting a stronger medication to keep him more comfortable as he was agitated throughout the night even with frequent doses of haloperidol. I discussed with him starting fentanyl drip. I also informed him that he is allergic to codeine and they informed me that he has received codeine in the past without any reactions. I also informed him of the risk of starting fentanyl as it can worsen his respiratory status but they felt that he would be more comfortable if we did start. - Exam Vitals: Temp Pulse Resp BP Pulse Ox 98.1 F 84 20 116/70 97 08/31/18 07:55 08/31/18 07:55 08/31/18 07:55 08/31/18 07:55 08/31/18 07:55 Exam: Constitutional: Sleeping in bed, appears comfortable HEENT: Normocephalic, atraumatic, moist mucus membranes Heart: Regular rhythm, no murmurs, no edema Lungs: No wheezing, decreased breath sounds bilateral lower lobes Abdomen: Diminished mouth bowel sounds, abdomen distended Extremities: Edema noted left upper extremity, nonpitting edema bilateral lower extremity Skin: Skin warm and dry, no lesions, no rashes, no jaundice Psych: thought content congruent, normal mood and normal affect Neurological: Sedated - Assessment and Plan (1) Acute and chronic respiratory failure Current Visit: Yes Status: Acute Assessment and Plan: Secondary to pleural effusions. Presented with acute on chronic respiratory failure. In the EMS his oxygen saturation was 80% even with 2 liters of nasal canula. He is supposed to be on BiPAP in the nursing facility but cannot tolerate it. In the ED he was found to have respiratory acidosis with metabolic compensation. CT of the chest showed bilateral pleural effusions Plan: Had planned on IV furosemide with BiPAP but family would rather not try any medical management and discuss with palliative end of life care. Continue supplemental oxygen Comfort measures (2) Acute encephalopathy Current Visit: Yes Status: Acute Assessment and Plan: Presented with confusion and per family it has been worsening for the past week. Likely secondary to respiratory failure. CT of the head was negative for any acute findings Sleeping comfortably but today Plan: Continue haloperidol Continue treating respiratory status with BiPAP Urinalysis was negative Continue to keep him comfortable Continue fentanyl drip (3) CHF exacerbation Current Visit: Yes Status: Acute Assessment and Plan: He presented with acute respiratory failure. Was found to have respiratory acidosis. CT of the chest shows bilateral pleural effusions. Is on lasix at nursing facility but unable to urinate because of history of bladder surgery. History of severe left LV systolic and diastolic dysfunction with EF of 25-30% Plan: IV furosemide were ordered but canceled as the family would like to speak with palliative to discuss end of life care given his mobidities with stage IV kidney disease, with acute SIMÓN and hyperkalemia and ongoing respiratory failure. And he cannot tolerate BiPAP and family would like to keep him comfortable. Continue oxygen mask. (4) Diabetes Current Visit: Yes Status: Chronic Assessment and Plan: History of diabetes and is on insulin at nursing facility. Family would like to hold medical management at this time and would like to speak with palliative for end of life care. Comfort measures per family's request. (5) Hypertension Current Visit: Yes Status: Chronic Assessment and Plan: History of hypertension. Blood pressure is 116/70 this morning, holding home metoprolol. Holding home naomi inhibitor. Continue to monitor. (7) DVT prophylaxis Current Visit: Yes Status: Acute Assessment and Plan: SubQ heparin (8) Pabjo-jv-avnszsf kidney injury Current Visit: Yes Status: Acute Assessment and Plan: Previously has history of stage 3b CKD but recent admission shows worsened kidney function with worsening kidney function. His creatinine is twice baseline, 4.29 at admission yesterday and his baseline is 1.8-2. Unable to urinate without folley. Nephrology was consulted. Plan: Family would like to hold medical managements at this time and keep him comfortable. Comfort measures (9) Elevated troponin Current Visit: Yes Status: Acute Assessment and Plan: His troponin was elevated at 0.06 on admission and repeat was 0.07 yesterday. It is likely due to demand ischemia. He has severe LV diastolic dysfunction with EF of 25-30%. Plan: Family would like to hold medical management at this time and keep comfort measures. - Time Spent with Patient Total time spent is greater than 50% in coordination of care (as documented) at patient's floor/unit and/or counseling patient: Plan of Care Discussed with: patient Internal Medicine: Result - Labs CBC & Chem 7: 08/30/18 12:17 08/30/18 03:43 Labs: Short CBC 08/30/18 Range/Units 12:17 WBC 6.4 (4.3-11.1) K/mcL Hgb 10.9 L (12.9-16.9) g/dL Hct 35.5 L (37.5-50.1) % Plt Count 249 (140-400) K/mcL Neutrophils # 4.7 (1.6-8.9) K/mcL Cardiac Enzymes 08/30/18 Range/Units 12:17 Troponin I 0.07 H* (< 0.04) ng/mL Urine 08/30/18 Range/Units 10:28 Urine Color Dark Yellow (Yellow) Urine Clarity Cloudy A (Clear) Urine pH 5.5 (5.0-8.0) pH Units Ur Specific [place] 1.019 (1.010-1.025) Urine Protein Negative (Neg-Trace) mg/dL Urine Glucose (UA) Normal (Normal) mg/dL - ABG Interpretation ABG results: ABG ABG pH 7.35 pH Units (7.32-7.45) 08/30/18 03:37 ABG pCO2 57 mmHg (35-45) H 08/30/18 03:37 ABG pO2 54 mmHg (85-104) L 08/30/18 03:37 ABG O2 Saturation 85 % (95-98) L 08/30/18 03:37 - Impressions Impressions Abdomen/Pelvis CT 08/30/18 04:39 IMPRESSION: Moderate to large bilateral pleural effusions with moderate amount of abdominal/pelvic ascites and diffuse subcutaneous edema suggesting anasarca. Cholelithiasis without evidence of acute cholecystitis. Diverticulosis without evidence of acute diverticulitis. Irregular appearance of the bladder with multiple diverticula, possibly secondary to prior surgery. D/ / 08/30/2018 09:45:23 Juna Luis Crystal MD / shante Interpreting Provider: Juan Luis Crystal MD Consult Discharge Plan - Plan Referrals: NONE,PCP [Primary Care Provider] - <KenzieLucy rosado - Last Filed: 08/31/18 15:23> Hospitalist Progress Note - Exam Vitals: Temp Pulse Resp BP Pulse Ox 98.1 F 84 20 116/70 97 08/31/18 07:55 08/31/18 07:55 08/31/18 07:55 08/31/18 07:55 08/31/18 07:55 - Assessment and Plan (1) Acute kidney injury superimposed on chronic kidney disease Current Visit: No Status: Acute (2) Acute and chronic respiratory failure Current Visit: Yes Status: Acute (3) CHF exacerbation Current Visit: Yes Status: Acute (4) Diabetes Current Visit: Yes Status: Chronic (5) Hypertension Current Visit: Yes Status: Chronic (6) Acute encephalopathy Current Visit: Yes Status: Acute (7) DVT prophylaxis Current Visit: Yes Status: Acute (8) Elevated troponin Current Visit: Yes Status: Acute - Time Spent with Patient Total time spent is greater than 50% in coordination of care (as documented) at patient's floor/unit and/or counseling patient: Internal Medicine: Result - Labs CBC & Chem 7: 08/30/18 12:17 08/30/18 03:43 - ABG Interpretation ABG results: ABG ABG pH 7.35 pH Units (7.32-7.45) 08/30/18 03:37 ABG pCO2 57 mmHg (35-45) H 08/30/18 03:37 ABG pO2 54 mmHg (85-104) L 08/30/18 03:37 ABG O2 Saturation 85 % (95-98) L 08/30/18 03:37 - Impressions Impressions Abdomen/Pelvis CT 08/30/18 04:39 IMPRESSION: Moderate to large bilateral pleural effusions with moderate amount of abdominal/pelvic ascites and diffuse subcutaneous edema suggesting anasarca. Cholelithiasis without evidence of acute cholecystitis. Diverticulosis without evidence of acute diverticulitis. Irregular appearance of the bladder with multiple diverticula, possibly secondary to prior surgery. D/ / 08/30/2018 09:45:23 Juan Luis Crystal [facility] Interpre[facility] Provider: Juan Luis Crystal MD - Attending Attestation I examined this patient and my medical decision-making was reviewed with the Resident Physician Dr. Madrigal. I agree with the documented findings, disposition and treatment plan as described except to the extent set forth below. Mr. Warren is a 83 year old male with a known past medical history of CAD status post CABG, ischemic cardiomyopathy status post AICD, CKD-4, DM2, COPD, chronic hypoxic respiratory failure, HTN, HLD, severe peripheral vascular disease , chronic right foot wound who recently d/c to ECF from our facility on 08/13/18 with 6 more days PO Abx now he was brought into our ER by EMS from [facility] with worsening SOB, AMS and acute on chronic hypoxic resp failure. Pt was placed on BiPAP in the ER. He seemed to be diffuse fluid overload wtih CT of abd / pelvis showed Moderate to large bilateral pleural effusions with a moderate amount of abdominal/pelvic ascites and diffuse SQ edema suggesting anasarca. Patient was given IV Lasix however his symptoms has not improved. He is in acute kidney injury with CKD-4. Also had hyperkalemia K+ @ 5.8. His blood gas showed acute hyper capneic Respiratory failure with PCO2 57. Ph: 7.35. Overall patient prognosis seems to be very poor. Patient family do not want to proceed with any aggressive care such as hemodialysis which seems to be inevitable for this patient with his current condition. At this point patient's family decided to proceed with comfort care route. So I started start him on IV Haldol to alternate with IV Ativan as needed for anxiety/comfort care. He is still requiring lot of haldol and Ativan. This morning he is still rest less. So gave him Fentanyl IV x 1 dose started him on Fetanyl gtt. Now he is resting comfortably. Talked to palliative care team. Will d/c him to In pt hospice service today Gen: Sleepy, sedative Chest: Diminished BSb b/l, moderate crackles, rales + Heart: S1S2+ RRR ___ <RohanFunmi - Last Filed: 08/31/18 09:33> (1) Acute and chronic respiratory failure Qualifiers: Qualified Code(s): J96.21 - Acute and chronic respiratory failure with hypoxia; J96.22 - Acute and chronic respiratory failure with hypercapnia (3) CHF exacerbation Qualifiers: Heart failure type: combined systolic and diastolic Qualified Code(s): I50.43 - Acute on chronic combined systolic (congestive) and diastolic (congestive) heart failure (4) Diabetes Qualifiers: Diabetes mellitus type: type 2 Diabetes mellitus complication status: with circulatory complication Diabetes mellitus complication detail: with other circulatory complications Qualified Code(s): E11.59 - Type 2 diabetes mellitus with other circulatory complications; Z79.4 - CHCF (current) use of insulin (5) Hypertension Qualifiers: Hypertension type: unspecified Qualified Code(s): I10 - Essential (primary) hypertension (8) Obmpz-gi-iqmtrfu kidney injury Qualifiers: Chronic kidney disease stage: stage 3 (moderate) Qualified Code(s): N17.9 - Acute kidney failure, unspecified; N18.3 - Chronic kidney disease, stage 3 (moderate) <Lucy Marie - Last Filed: 08/31/18 15:23> (2) Acute and chronic respiratory failure Qualifiers: Qualified Code(s): J96.21 - Acute and chronic respiratory failure with hypoxia; J96.22 - Acute and chronic respiratory failure with hypercapnia (3) CHF exacerbation Qualifiers: Heart failure type: combined systolic and diastolic Qualified Code(s): I50.43 - Acute on chronic combined systolic (congestive) and diastolic (congestive) heart failure (4) Diabetes Qualifiers: Diabetes mellitus type: type 2 Diabetes mellitus complication status: with circulatory complication Diabetes mellitus complication detail: with other circulatory complications Qualified Code(s): E11.59 - Type 2 diabetes mellitus with other circulatory complications; Z79.4 - hoop maker helper machine (current) use of insulin (5) Hypertension Qualifiers: Hypertension type: unspecified Qualified Code(s): I10 - Essential (primary) hypertension
--- NOTE | 2018-08-31 10:37 | Palliative - Consult Note ---
Date of Encounter: 08/31/18 Time of Encounter: 10:24 - Assessment and Plan (1) Goals of care, counseling/discussion Current Visit: Yes Status: Acute Assessment and plan: Met with pt's family in the room: 3 daughters, a son, grand son and [id number]. Discussed current madical condition, trajectory of illness and overal poor prognosis. Family is aware that pt has been increasingly weak since last admission, and is now bedbound. Family based on patient's previous wishes, decided for de-escalation of care, and focus on comfort care only. Discussed hospice admission process and hospice care. Family agreeable for transfer to hospice [facility] for management of dyspnea and agitation. (2) Delirium Current Visit: Yes Status: Acute Assessment and plan: Patient was restless and agitated overnight, did not respond to multiple doses o f haldol and Lorazepam. He was started this morning on phentanyl with good response. will continue phentanyl drip, titrate to comfort as needed (3) Dyspnea Current Visit: No Status: Acute Assessment and plan: Patient on phentanyl drip on oxygen mask, breathing comfortably. Qualifiers: Dyspnea type: other forms of dyspnea Qualified Code(s): R06.09 - Other forms of dyspnea (4) Acute encephalopathy Current Visit: Yes Status: Acute Assessment and plan: Patient is now calm, focus on comfort care. (5) CHF exacerbation Current Visit: Yes Status: Acute Assessment and plan: Pt was on lasix, but per family he has difficulty voiding due to enlarged prostate. CT shows a picture of anasarca. Pt at this time is breathing comfortably, will consider restarting Lasix if mental status improves. Qualifiers: Heart failure type: combined systolic and diastolic Qualified Code(s): I50.43 - Acute on chronic combined systolic (congestive) and diastolic (congestive) heart failure (6) Acute and chronic respiratory failure ([id number]) Current Visit: No Status: Acute Assessment and plan: comfort measures only Qualifiers: Qualified Code(s): J96.20 - Acute and chronic respiratory failure, unspecified whether with hypoxia or hypercapnia Palliative-CN HPI - Data of Consult Patient: new to practice Consult date: 08/30/18 Requesting Physician: Arturo Pacheco MD Primary Care Provider: PCP NONE - Consult Narrative Palliative Care/Comfort Measures: Palliative care Reason for consult: hospice evaluation History of present illness: Mr. Warren is a 83 year old male who was presented to the ED from [facility]. He has past medical history of COPD, CHD, diabetes, previous [place], chronic right foot wound. As per family, pt was on chronic oxygen 2 liters of nasal cannula oxygen. He developed increased cough with productive sputum for the past a few days. They mentioned he had a urinalysis in the nursing unit and it was negative 1 week ago. They also mentioned that he is supposed to be on a BiPAP but is not compliant. He was recently admitted on 08/02/18 and required 11 days admission for chest pain and cellulitis. And during the last admission as well he was requiring 5 liters of oxygen with BiPAP. At the time of admission his BNP was 1110. His troponin was 0.06. His ABG showed respiratory acidosis with metabolic compensation. His creatinine was also elevated at 4.29 and he has end-stage renal disease. His white count was within normal limits. CT of the head did not show any acute changes. CT of the chest showed moderate to large bilateral pleural effusions with abdominal ascites and diffuse edema sugge sting anasarca. Family discussed with primary team, and decided to transition pt to DNRCC and focus on comfort care only. Palliative care consulted for hospice evaluation. At the time of exam this morning, pt was resting, did not awake on name calling or touch. Per family present st the bedside, he was very restless overnight. CC: Arturo Pacheco MD - Time Spent with Patient Time: Total time spent is greater than 50% in coordination of care (as documented) at patient's floor/unit and/or counseling patient: Past Med Surg Social Fam HX - Past Medical History Medical history: cancer, CHF, coronary artery disease, diabetes, hypertension, myocardial infarction, renal disease, other Additional medical history: urinary retention; bladder cancer Psychiatric history: anxiety - Past Surgical History Surgical History: cataract, coronary bypass (CABG), knee replacement, pacemaker/AICD Additional surgical history: AICD placed. Bladder CA surgery February 2017 - Social History Smoking Status: Former smoker Smokeless Tobacco Status: No Alcohol use: none Drug use: none - Family History Mother Living Status: Hx Family Cancer: Yes Father Living Status: Hx Family Endocrine Disorder: Yes Medications and Allergies Allergy/AdvReac Type Severity Reaction Status Date / Time codeine Allergy Hives Verified 08/30/18 03:19 Sulfa (Sulfonamide AdvReac Mild Nausea Verified 08/30/18 03:19 Antibiotics) ROS unobtainable: due to mental status Palliative Care-Exam - Constitutional Vitals: Temp Pulse Resp BP Pulse Ox 98.1 F 84 20 116/70 97 08/31/18 07:55 08/31/18 07:55 08/31/18 07:55 08/31/18 07:55 08/31/18 07:55 Exam: Constitutional: Sleeping in bed, appears comfortable HEENT: Normocephalic, atraumatic, moist mucus membranes Heart: Regular rhythm,Thoracotomy scarr, magnet on left chest Lungs: No wheezing, decreased breath sounds bilateral lower lobes Abdomen: Diminished mouth bowel sounds, abdomen distended Extremities: Edema noted left upper extremity, edema bilateral lower extremity, R foot chronic wound Skin: Skin warm and dry, bruises on arms Psych: unable to evaluate Neurological: Sedated, moving extremities to pain. Internal Medicine - CN: Reslt - Labs CBC & Chem 7: 08/30/18 12:17 08/30/18 03:43 Labs: Short CBC 08/30/18 Range/Units 12:17 WBC 6.4 (4.3-11.1) K/mcL Hgb 10.9 L (12.9-16.9) g/dL Hct 35.5 L (37.5-50.1) % Plt Count 249 (140-400) K/mcL Neutrophils # 4.7 (1.6-8.9) K/mcL Cardiac Enzymes 08/30/18 Range/Units 12:17 Troponin I 0.07 H* (< 0.04) ng/mL Urine 08/30/18 Range/Units 10:28 Urine Color Dark Yellow (Yellow) Urine Clarity Cloudy A (Clear) Urine pH 5.5 (5.0-8.0) pH Units Ur Specific [place] 1.019 (1.010-1.025) Urine Protein Negative (Neg-Trace) mg/dL Urine Glucose (UA) Normal (Normal) mg/dL - ABG Interpretation ABG results: ABG ABG pH 7.35 pH Units (7.32-7.45) 08/30/18 03:37 ABG pCO2 57 mmHg (35-45) H 08/30/18 03:37 ABG pO2 54 mmHg (85-104) L 08/30/18 03:37 ABG O2 Saturation 85 % (95-98) L 08/30/18 03:37 - Impressions Impressions Abdomen/Pelvis CT 08/30/18 04:39 IMPRESSION: Moderate to large bilateral pleural effusions with moderate amount of abdominal/pelvic ascites and diffuse subcutaneous edema suggesting anasarca. Cholelithiasis without evidence of acute cholecystitis. Diverticulosis without evidence of acute diverticulitis. Irregular appearance of the bladder with multiple diverticula, possibly secondary to prior surgery. D/ / 08/30/2018 09:45:23 Juan Luis Crystal MD / shante Interpreting Provider: Juan Luis Crystal MD Consult Discharge Plan - Plan Referrals: NONE,PCP [Primary Care Provider] - Palliative Quality Palliative Quality: Screen for Code Status: Yes, Screen for Goals of Care: Yes, Screen for Pain: Yes, If Pain Regimen Started, Initiate Bowel Regimen: Yes, Screen for Nausea/Vomitting: Yes Code Status: 08/30/18 09:30 CODE [Resuscitation Status: Active] [RES] Routine Comment: Resuscitation Status: [id number] 08/30/18 17:15 CODE [Resuscitation Status: Active] [RES] Routine Comment: Resuscitation Status: DNR-Comfort Care
--- NOTE | 2018-08-31 12:00 | Discharge Summary ---
<Jenise Madrigala - Last Filed: 08/31/18 12:53> - NOTES TO OUTPATIENT PROVIDER Notes to Outpatient Provider: Mr. Warren was presented to the ED with acute on chronic respiratory failure. He was not responding to nasal cannula. Per family he has been getting sick for the past 1 month. His mental status is worsening. After family was informed of SIMÓN on CKD with worsening renal function in bilateral pleural effusions they decided to not pursue any medical management. Family wanted to pursue comfort care. Orders not resulted at time of discharge: Pending orders 08/30/18 03:17 ECG 12 lead ECG [ECG] Stat 08/30/18 04:03 Culture,Blood [BC] Stat Date of Encounter: 08/31/18 Time of Encounter: 11:30 - Discharge Diagnosis (1) Acute and chronic respiratory failure Priority: Primary Status: Acute Qualifiers: Qualified Code(s): J96.21 - Acute and chronic respiratory failure with hypoxia; J96.22 - Acute and chronic respiratory failure with hypercapnia (2) Acute encephalopathy Priority: Secondary Status: Acute (3) CHF exacerbation Priority: Secondary Status: Acute Qualifiers: Heart failure type: combined systolic and diastolic Qualified Code(s): I50.43 - Acute on chronic combined systolic (congestive) and diastolic (congestive) heart failure (4) Diabetes Priority: Secondary Status: Chronic Qualifiers: Diabetes mellitus type: type 2 Diabetes mellitus complication status: with circulatory complication Diabetes mellitus complication detail: with other circulatory complications Qualified Code(s): E11.59 - Type 2 diabetes mellitus with other circulatory complications; Z79.4 - superintendent container terminal (current) use of insulin (5) Hypertension Priority: Secondary Status: Chronic Qualifiers: Hypertension type: unspecified Qualified Code(s): I10 - Essential (primary) hypertension (6) Acute kidney injury superimposed on chronic kidney disease Priority: Secondary Status: Acute (7) DVT prophylaxis Priority: Secondary Status: Acute (8) Elevated troponin Priority: Secondary Status: Acute Hospital course: Mr. Warren is a 83 year old male who was presented to the ED from [facility]. He has past medical hisotry of COPD, CHD, diabetes, previous [place], chronic right foot wound. At presentation he is confused and due to altered mental status history is obtained from family and chart review. At the long-term he is on 2 liters of nasal canula oxygen. They also mentioned that he is supposed to be on a BiPAP but is not compliant. He was recently admitted on 08/02/18 and required 11 days admission for chest pain and cellulitis. And during the last admission as well he was requiring 5 liters of oxygen with BiPAP. At presentations in the ED his BNP was noted to be 1110. His troponin was 0.06. With hyperkalemia. His ABG showed respiratory acidosis with metabolic compensation. His creatinine was also elevated at 4.29 and he had end-stage renal disease. His white count was within normal limits. CT of the head did not show any acute changes. CT of the chest showed moderate to large bilateral pleural effusions with abdominal ascites and diffuse edema suggesting anasarca. Nephrology was consult of but family declined dialysis. Per family he is on Las ix at the nursing facility but often has difficulty urinating due to enlarged prostate and history of bladder cancer. During his admission to the unit had an extensive conversation with family about goals or care and they noted that his health is not improving in his mental status has been getting worse requiring second admission in the past month and and wanted to pursue palliative care. He has main comfortable on fentanyl drip and care will be transferred to palliative service. Discharge discussed with: family - Time Spent with Patient Total time spent providing and/or coordinating discharge services: - Discharge Medications Allergies/Adverse Reactions: Allergy/AdvReac Type Severity Reaction Status Date / Time codeine Allergy Hives Verified 08/30/18 03:19 Sulfa (Sulfonamide AdvReac Mild Nausea Verified 08/30/18 03:19 Antibiotics) Date of admission: 08/30/18 08:51 Primary care physician: PCP NONE Consults: 08/30/18 05:36 Consult to Nephrology [CONS] Stat Consulting Provider: Kidney Radha/LEE/SOHAN/MARSHA Reason for Consult: fluid overload, ARF, hyperkalemia Call Completed: No 08/30/18 09:29 Consult to Palliative Care [CONS] Routine Comment: Consulting Provider: Palliative Care Radha Reason for Consult: family wants to discuss end of life care Call Completed: No 08/30/18 11:53 Consult to Automotive Service Assistant [CONS] Routine Reason for SW Consult: for discharge planning Discharging clinician: Funmi Madrigal Anticipated date of discharge: 08/31/18 - Constitutional Vitals: Temp Pulse Resp BP Pulse Ox 98.1 F 84 20 116/70 97 08/31/18 07:55 08/31/18 07:55 08/31/18 07:55 08/31/18 07:55 08/31/18 07:55 General appearance: Present: A&O X 0, mild distress, obese. Absent: answers questions appropriately Exam: sedated and comfortable in bed - Head Head exam: Present: atraumatic - Neck Neck exam general surgery: Present: normal inspection - Respiratory Respiratory exam: Present: decreased breath sounds. Absent: rhonchi, stridor, wheezes Additional comments: Decreased breath sound bilateral lung bases - Cardiovascular Cardiovascular exam: Present: RRR, +S1, +S2 - GI/Abdominal GI/Abdominal exam: Present: distended, hypoactive bowel sounds - Extremities Exam Extremities exam: Present: pedal edema (+1 pitting edema bilateral lower extremity), warm Additional comments: Wound dressing on the right foot - Neurological Exam Additional comments: Sedated - Psychiatric Additional comments: agitated requiring fentanyl for comfort measures - Skin Skin exam: Present: dry - Patient Status Disposition: Transfer Other Condition: Serious Functional capacity at discharge: bed bound Overall status at discharge: other - Discharge Instructions Follow Up With: NONE,PCP [Primary Care Provider] - - Diet and Activity Activity: other <Lucy Marie - Last Filed: 08/31/18 15:13> Orders not resulted at time of discharge: Pending orders 08/30/18 03:17 ECG 12 lead ECG [ECG] Stat 08/30/18 04:03 Culture,Blood [BC] Stat - Discharge Diagnosis (1) Acute kidney injury superimposed on chronic kidney disease Status: Acute (2) Acute and chronic respiratory failure Status: Acute Qualifiers: Qualified Code(s): J96.21 - Acute and chronic respiratory failure with hypoxia; J96.22 - Acute and chronic respiratory failure with hypercapnia (3) CHF exacerbation Status: Acute Qualifiers: Heart failure type: combined systolic and diastolic Qualified Code(s): I50.43 - Acute on chronic combined systolic (congestive) and diastolic (congestive) heart failure (4) Diabetes Status: Chronic Qualifiers: Diabetes mellitus type: type 2 Diabetes mellitus complication status: with circulatory complication Diabetes mellitus complication detail: with other circulatory complications Qualified Code(s): E11.59 - Type 2 diabetes mellitus with other circulatory complications; Z79.4 - superintendent container terminal (current) use of insulin (5) Hypertension Status: Chronic Qualifiers: Hypertension type: unspecified Qualified Code(s): I10 - Essential (primary) hypertension (6) Acute encephalopathy Status: Acute (7) DVT prophylaxis Status: Acute (8) Elevated troponin Status: Acute Hospital course: Mr. Warren is a 83 year old male - Time Spent with Patient Total time spent providing and/or coordinating discharge services: Date of admission: 08/30/18 08:51 Primary care physician: PCP NONE Consults: 08/30/18 05:36 Consult to Nephrology [CONS] Stat Consulting Provider: Kidney Radha/LEE/SOHAN/MARSHA Reason for Consult: fluid overload, ARF, hyperkalemia Call Completed: No 08/30/18 09:29 Consult to Palliative Care [CONS] Routine Comment: Consulting Provider: Palliative Care Radha Reason for Consult: family wants to discuss end of life care Call Completed: No 08/30/18 11:53 Consult to Automotive Service Assistant [CONS] Routine Reason for SW Consult: for discharge planning - Constitutional Vitals: Temp Pulse Resp BP Pulse Ox 98.1 F 84 20 116/70 97 08/31/18 07:55 08/31/18 07:55 08/31/18 07:55 08/31/18 07:55 08/31/18 07:55 - Attending Attestation I examined this patient and my medical decision-making was reviewed with the Resident Physician Dr. Madrigal. I agree with the documented findings, disposition and treatment plan as described except to the extent set forth below. Mr. Warren is a 83 year old male with a known past medical history of CAD status post CABG, ischemic cardiomyopathy status post AICD, CKD-4, DM2, COPD, chronic hypoxic respiratory failure, HTN, HLD, severe peripheral vascular disease , chronic right foot wound who recently d/c to ECF from our facility on 08/13/18 with 6 more days PO Abx now he was brought into our ER by EMS from [facility] with worsening SOB, AMS and acute on chronic hypoxic resp failure. Pt was placed on BiPAP in the ER. He seemed to be diffuse fluid overload wtih CT of abd / pelvis showed Moderate to large bilateral pleural effusions with a moderate amount of abdominal/pelvic ascites and diffuse SQ edema suggesting anasarca. Patient was given IV Lasix however his symptoms has not improved. He is in acute kidney injury with CKD-4. Also had hyperkalemia K+ @ 5.8. His blood gas showed acute hyper capneic Respiratory failure with PCO2 57. Ph: 7.35. Overall patient prognosis seems to be very poor. Patient family do not want to proceed with any aggressive care such as hemodialysis which seems to be inevitable for this patient with his current condition. At this point patient's family decided to proceed with comfort care route. So I started start him on IV Haldol to alternate with IV Ativan as needed for anxiety/comfort care. He is still requiring lot of haldol and Ativan. This morning he is still rest less. So gave him Fentanyl IV x 1 dose started him on Fetanyl gtt. Now he is resting comfortably. Talked to palliative care team. Will d/c him to In pt hospice service today Gen: Sleepy, sedative Chest: Diminished BSb b/l, moderate crackles, rales + Heart: S1S2+ RRR
--- NOTE | 2018-09-02 17:08 | Electrocardiograph Report ---
[address] [place], [place] [address] Test Date: 2018-08-30 Pat Name: Aidan Warren Department: [id number] Room: 2A55 Gender: M Reservation Sales Agent: : [id number] Requested By: Fco Tam Order Number: [id number] Reading MD: Zhou Mcdonald Measurements Intervals [place] Rate: 84 P: 0 OK: 128 QRS: 187 QRSD: 182 T: 39 QT: 429 QTc: 508 Interpretive Statements Ventricular-paced complexes Electronically Signed On 09-02-2018 17:07:27 EDT by Zhou Mcdonald
== END 2018-08-31 16:50 | disposition other institution (70) | DRG 291 ==
LOC: EMEROOARM 03:06 → ICNU 03:06 → 2ANU 08:17
PROVIDERS: ADMIT Family Medicine; ATTEND Family Medicine

== ENCOUNTER 2018-08-31 10:22 | Inpatient (IN) ==
[2018-08-31] MEDS ORDERED: Atropine Sulfate 1% 40 DROP/2 ML BOTTLE SL PRN (12:33)
[2018-08-31] MEDS ORDERED: Bisacodyl 10 MG RECTAL SUPPOSITORY RC PRN (12:33)
[2018-08-31] MEDS ORDERED: Ondansetron 4 MG/2 ML VIAL IVP PRN (12:33)
[2018-08-31] MEDS ORDERED: Albuterol 2.5 MG/3 ML NEBULIZER IH PRN (12:33)
[2018-08-31] MEDS: FentaNYL (PF) 1,000 MCG in 0.9 % Sodium Chloride 80 ML IVC SCH (17:15)
[2018-09-01] MEDS: FentaNYL (PF) 1,000 MCG in 0.9 % Sodium Chloride 80 ML IVC SCH ×2 (03:17→16:41)
[2018-09-01] MEDS ORDERED: 0.9 % Sodium Chloride 500 ML ONE (09:54)
--- NOTE | 2018-09-01 14:52 | Pallative History & Physical ---
Date of Encounter: 09/01/18 Time of Encounter: 14:00 Assessment and Plan (1) Acute and chronic respiratory failure Current visit: No Status: Acute Patient breathing regular. No complaints of dyspnea. Oxygen decreased to 6L, per family request. Qualifiers: Qualified Code(s): J96.21 - Acute and chronic respiratory failure with hypoxia; J96.22 - Acute and chronic respiratory failure with hypercapnia (2) Acute kidney injury superimposed on chronic kidney disease Current visit: No Status: Acute Patient's daughters report patient has always been adament to never have dialysis; reports that is why they chose hospice. (3) COPD exacerbation Current visit: No Status: Acute (4) Goals of care, counseling/discussion Current visit: No Status: Acute Patient remains GIP for symptom control at this time. Requiring titration of Fentanyl drip for comfort at this time. Family inquiring signs of /dying. Educated on signs of mottling, decreased responsive, change in breathing; verbalized understanding. Family reports they were informed patient would pass in 1-2 days, concerned that it may take longer. Inquired if possible for discharge if stabilizes; reported yes, but need to gain control of symptoms at this time. (5) Excessive oral secretions Current visit: Yes Status: Acute Patient having increased in oral secretions. Audible rattle in back of throat being heard. Order scopalamine patch and Atropine drops. Internal Medicine - H&P: HPI Chief complaint: Dyspnea Admitted From: Intrahospital Transfer Plans for Post Hospital Care: Hospice - Medical Facility History of present illness: Mr. Warren is a 83 year old male Arrived to [place] [facility] on 08/30/18, for altered mental status from [facility], via EMS. Patient diagnosed and treated for: hyperkalemia, anasarca, pleural effusion, Acute renal failure, LLL pneumonia, and elevated troponins. PMH: cancer, CHF, coronary artery disease, diabetes, hypertension, myocardial infarction, renal disease, and anxiety. Chest x-ray showing: Left lower lobe focal opacity may represent consolidation from pneumonia versus atelectasis; Left pleural effusion; and Stable cardiomegaly. CT of head without contrast showing: No acute intracranial abnormality with Chronic white matter microangiopathic ischemic changes. CT of pelvis without contrast showing: Moderate to large bilateral pleural effusions with moderate amount of abdominal/pelvic ascites and diffuse subcutaneous edema suggesting anasarca; Cholelithiasis without evidence of acute cholecystitis; Diverticulosis without evidence of acute diverticulitis; and Irregular appearance of the bladder with multiple diverticula, possibly secondary to prior surgery. Nephrology consult performed; recommend medical management and avoidance of nephrotoxic agents. Pulmonary consulted; medical management with BiPAP support. Palliative care consulted as overall prognosis poor; treatment plan changed to comfort care. Patient admitted [facility] on 08/31/18 for management of dyspnea and agitation. Patient resting comfortably upon arrival for assessment. Increased discomfort noted overnight, requiring increase in Fentanyl drip. Family denies problems today. Reports not really arousing to verbal/tactile stimulation. No reports of vomiting. Audible wet upper airway sounds noted; family reports worsening gargling type sound. Family did have some questions regarding expected symptoms related to and dying; answered questions and provided emotional support. Past Med Surg Social Fam HX - Past Medical History Medical history: cancer, CHF, coronary artery disease, diabetes, hypertension, myocardial infarction, renal disease, other Additional medical history: urinary retention; bladder cancer Psychiatric history: anxiety - Past Surgical History Surgical History: cataract, coronary bypass (CABG), knee replacement, pacemaker/AICD Additional surgical history: AICD placed. Bladder CA surgery February 2017 - Social History Smoking Status: Former smoker Smokeless Tobacco Status: No Alcohol use: none Drug use: none - Family History Mother Living Status: Hx Family Cancer: Yes Father Living Status: Hx Family Endocrine Disorder: Yes Internal Medicine - H&P: Meds Unable To Obtain [Unable to Obtain] 09/01/18 [History] Allergy/AdvReac Type Severity Reaction Status Date / Time codeine Allergy Hives Verified 08/30/18 03:19 Sulfa (Sulfonamide AdvReac Mild Nausea Verified 08/30/18 03:19 Antibiotics) ROS unobtainable: due to mental status Palliative Care-Exam - Constitutional Vitals: Temp Pulse Resp BP Pulse Ox 99.1 F 74 20 111/71 97 09/01/18 08:02 09/01/18 08:02 09/01/18 08:02 09/01/18 08:02 09/01/18 08:02 General appearance: Present: no acute distress - Head Head Exam: Present: atraumatic, normal inspection - Eye Eye exam: Present: normal appearance. Absent: periorbital swelling, periorbital tenderness - ENT ENT exam: Present: mucous membranes dry, normal external ear exam - Expanded ENT Exam Mouth Exam: Absent: drooling - Neck Neck exam: Present: normal inspection - Respiratory Respiratory exam: Present: decreased breath sounds, wheezes. Absent: respiratory distress - Cardiovascular Cardiovascular exam: Present: +S1, +S2 - Expanded Cardiovascular Exam Peripheral pulses: 0: Posterior Tibialis (R), Dorsalis Pedis (R) PM, 1+: Radial (L), Radial (R), Posterior Tibialis (L), Dorsalis Pedis (L) PM - GI/Abdominal Exam GI/Abdominal exam: Present: diminished bowel sounds, soft. Absent: tenderness - Rectal Rectal Exam: Present: deferred - Catheter Type: Urethral (Steiner) - Expanded Lower Extremities Exam Lower Leg exam: Absent: normal inspection - Neurological Exam Neurological exam: Present: altered. Absent: oriented X3, facial droop - Expanded Neurological Exam Coma Scale Eye Opening: To Pain Coma Scale Motor Response: Localizes to Pain Coma Scale Verbal Response: None Coma Scale Total: 8 - Psychiatric Psychiatric exam: Present: flat affect - Skin Skin exam: Present: dry, pallor. Absent: intact Palliative Quality Palliative Quality: Screen for Code Status: Yes, Screen for Goals of Care: Yes, Screen for Pain: Yes, If Pain Regimen Started, Initiate Bowel Regimen: Yes, Screen for Nausea/Vomitting: Yes
[2018-09-01] MEDS ORDERED: Scopolamine Patch 1.5 MG PATCH.TD72 TD SCH (15:00)
[2018-09-01] MEDS ORDERED: Atropine Sulfate 1% 40 DROP/2 ML BOTTLE SL PRN (15:00)
[2018-09-01 22:45] VITALS: BP 63/27
--- NOTE | 2018-09-02 20:26 | Death Note ---
Discharge Sum: Summary - Date and Time Date of admission: 08/31/18 16:55 Date of : 09/01/18 Time of : 23:29 - Summary Details: Mr. Warren is a 83 year old male who was presented to the ED from [facility]. He has past medical history of COPD, CHD, diabetes, previous [place], chronic right foot wound. As per family, pt was on chronic oxygen 2 liters of nasal cannula oxygen. He developed increased cough with productive sputum for the past a few days. They mentioned he had a urinalysis in the nursing unit and it was negative 1 week ago. They also mentioned that he is supposed to be on a BiPAP but is not compliant. He was recently admitted on 08/02/18 and required 11 days admission for chest pain and cellulitis. And during the last admission as well he was requiring 5 liters of oxygen with BiPAP. At the time of admission his BNP was 1110. His troponin was 0.06. His ABG showed respiratory acidosis with metabolic compensation. His creatinine was also elevated at 4.29 and he has end-stage renal disease. His white count was within normal limits. CT of the head did not show any acute changes. CT of the chest showed moderate to large bilateral pleural effusions with abdominal ascites and diffuse edema suggesting anasarca. Family discussed with primary team, and decided to transition pt to DNRCC and focus on comfort care only. Palliative care consulted for hospice evaluation. Patient was transferred to hospice GIP per family wishes and kept comfortable until the time of . - Additional Data Confirmation of as documented by pronouncing clinician: no pulse, no respirations, no heart sounds, pupils fixed and dilated Family: at bedside Attending/PCP notified?: Yes Attending physician: Penelope Morillo MD Was code activated?: No Autopsy requested?: No corporate claims examiner notified?: No Organ bank notified?: Yes Advance directives: Yes Hospice patient?: Yes Discharge Sum: Diag - PCOD Probable Cause of : End-stage renal disease Discharge Sum: Prov - Provider Primary care physician: Wali Ornelas Admitting clinician: Penelope Morillo Attending physician on admission: Penelope Morillo Consults: 08/31/18 12:33 Consult to Palliative Care [CONS] Routine Comment: Consulting Provider: Palliative Care Radha Reason for Consult: hospice care Call Completed: Yes
== END 2018-09-01 23:29 | disposition expired | DRG 682 ==
LOC: 2ANU 16:55
PROVIDERS: ADMIT Internal Medicine Hospice and Palliative Medicine; ATTEND Internal Medicine Hospice and Palliative Medicine